=== PATIENT | female | born 1960 | race Caucasian/White ===

== ENCOUNTER 2020-09-29 10:45 | Emergency (ER) | payer MEDICARE, SELFPAY ==
--- NOTE | ~2020-09-29 | CT_ITS ---
EXAMINATION: CT ABDOMEN AND PELVIS WITHOUT CONTRAST CLINICAL INFORMATION: Left flank pain going to abdomen COMPARISON: Previous CT of the abdomen and pelvis March 2018 TECHNIQUE: Multidetector volumetric imaging was performed from the superior aspect of the liver through the pubic symphysis. Sagittal and coronal reformatted images were obtained on the technologist's workstation. This CT examination was performed using dose optimization techniques as appropriate, variously including the following: *Automated exposure control *Adjustment of mA and/or kV according to patient size (this includes techniques or standardized protocols for targeted exams where dose is matched to indication/reason for exam; i.e. extremities or head) *Use of iterative reconstruction technique DLP: 1090 mGy-cm FINDINGS: LUNG BASES: The visualized lung bases are unremarkable. LIVER, GALLBLADDER, AND BILIARY TREE: The liver is normal in size, shape, and attenuation. No focal hepatic lesion or biliary ductal dilatation is present. The gallbladder has been removed. PANCREAS: Unremarkable. SPLEEN: Unremarkable. ADRENAL GLANDS: Unremarkable. KIDNEYS AND URETERS: The kidneys are normal in size, shape, and attenuation. No hydronephrosis, hydroureter, or calculi seen. No perinephric stranding. BLADDER: Unremarkable. GASTROINTESTINAL TRACT: There is stool throughout the colon suggestive of constipation. Small and large bowel is otherwise unremarkable. The appendix is unremarkable. The stomach is unremarkable. ABDOMINAL WALL: There is a small umbilical hernia containing fat. LYMPH NODES: Normal. VASCULAR: Unremarkable. PELVIC VISCERA: There is abnormal contour to the uterus probably related to fibroids. This is similar to previous exam. OSSEOUS STRUCTURES: Unremarkable. CT/CT abdomen pelvis wo con IMPRESSION: No renal stone or hydronephrosis seen. Stool throughout the colon suggestive of constipation. Probable fibroid uterus similar to previous exams.
[2020-09-29 11:33] VITALS: BP 149/83; PULSE 62; RESP 18; TEMP 36.7; O2SAT 98; BMI 38.7
--- NOTE | 2020-09-29 11:52 | ED_ITS ---
HPI - Abdominal Pain General Chief Complaint: Abdominal Pain Stated Complaint: L FLANK PAIN Time Seen by Provider: 09/29/20 11:52 Source: patient Mode of arrival: ambulatory Limitations: no limitations History of Present Illness HPI narrative: the patient had flank pain going to her abdomen. patient denies N/V or blood in her urine MD elicited complaint: flank pain Onset (ago): day(s) Pain Consistency: constant Location: LLQ Severity: mild Quality: stabbing Radiation: L flank Related Data Previous Rx's Medication Instructions Recorded psyllium husk [Metamucil] 1 tbsp PO DAILY #660 g 09/29/20 Allergies Allergy/AdvReac Type Severity Reaction Status Date / Time No Known Allergies Allergy Verified 09/29/20 11:32 Review of Systems Constitutional: Reports no additional constitutional complaints Eyes: Reports no additional eye complaints Denies dizziness Cardiovascular: Reports no additional cardiovascular complaints Respiratory: Reports as per HPI Gastrointestinal: Reports no additional gastrointestinal complaints Genitourinary: Reports no additional female genitourinary complaints Musculoskeletal: Reports no additional musculoskeletal complaints Skin/Breast: Denies rash Reports system reviewed and no additional complaints, except as documented, Denies dizziness and Denies Sensory deficit (Neuro) Psychiatric: Denies anxiety Physical Exam Vital Signs: Vital Signs: Last Vital Signs Temp 98.0 F 09/29/20 11:33 Pulse 50 09/29/20 14:30 Resp 15 09/29/20 14:30 BP 117/61 09/29/20 14:30 Pulse Ox 99 09/29/20 14:30 Body Mass Index 38.7 Const: Nutritional Appearance: obese Orientation/consciousness: oriented to person and patient oriented x3 Limitations: no limitations HENMT: Head: Yes normal to inspection Ears: external ears normal General nose exam: Normal external nose present Mouth: Normal oral and palatal mucosa present and oropharynx normal Throat: Yes posterior oropharynx normal Eyes: General: appearance normal, both eyes and all related structures Neck: Other: supple Neck: Yes normal visual inspection Chest: Chest palpation & inspection: normal inspection of the chest Resp: Auscultation: clear to auscultation bilaterally Cardio: Jugular venous distension: no JVD Rate: regular rate Rhythm: r egular rhythm Heart sounds: S1 normal heart sound present and S2 normal heart sound present GI: Inspection: Yes normal to inspection Palpation (GI): Soft to palpation, nontender and No hepatosplenomegaly present Auscultation: normal bowel so unds : General: Yes no CVA tenderness Back/Spine/Pelvis: Back: no CVA tenderness Skin: General skin exam: no rashes or lesions noted Neuro: General: oriented to person and patient oriented x3 Cranial nerves: Yes CN's II-XII intact bilaterally Motor exam (neuro): 5/5 motor strength present throughout Sensory Exam: No Sensory deficit (Neuro) Extrem: General: Yes normal to inspection Psych: Appearance: grossly normal MDM - Abdominal Pain MDM Narrative Medical decision making narrative: Patient with symptoms most like renal colic, UA and CT negative. CT most consistent with constipation will start metamucil and dc home Lab Data Result diagrams: 09/29/20 12:24 09/29/20 12:23 Labs: Lab Results 09/29/20 09/29/20 09/29/20 Range/Units 11:43 12:23 12:24 WBC 7.9 (4.8-10.8) X10*3/uL RBC 4.81 (4.20-5.50) X10*6/uL Hgb 13.6 (12.0-16.0) g/dl Hct 42.4 (37-47) % MCV 88.1 (80-98) fL MCH 28.3 (27.0-33.0) pg MCHC 32.1 (31.0-35.0) g/dl RDW 14.4 (11.0-16.0) % Plt Count 248 (160-400) X10*3/uL MPV 10.6 (9.4-12.3) fL Immature Gran % (Auto) 0.5 H (0.0-0.4) % Neut % (Auto) 67.2 (45-73) % Lymph % (Auto) 22.2 (20-40) % Fajardo % (Auto) 8.1 (2-11) % Eos % (Auto) 1.4 (0-4) % Baso % (Auto) 0.6 (0-2) % Lymph # (Auto) 1.8 (1.2-4.9) X10*3/uL Fajardo # (Auto) 0.6 (0.1-1.2) X10*3/uL Eos # (Auto) 0.1 (0.0-0.4) X10*3/uL Baso # (Auto) 0.1 (0.0-0.2) X10*3/uL Abs Immat Gran (auto) 0.04 H (0.00-0.03) X10*3/uL Absolute Neuts (auto) 5.3 (2.0-8.3) X10*3/uL Absolute Nucleated RBC 0.000 (0.0-0.012) X10*3/uL Nucleated RBC % (auto) 0.0 (0.0-0.2) /100WBC Sodium 141 (135-145) mmol/L Potassium 4.1 (3.3-5.1) mmol/L Chloride 105 (96-108) mmol/L Carbon Dioxide 28 (22-29) mmol/L Anion Gap 12 (12-20) BUN 21 H (9-16) mg/dL Creatinine 0.85 (0.5-1.4) mg/dL Estim Creat Clear Calc 96.9 Estimated GFR > 60 Random Glucose 103 (60-115) mg/dL Calcium 9.7 (8.4-10.2) mg/dL Urine Color YELLOW Urine Appearance HAZY Urine pH 6.0 (5.0-8.0) Ur Specific Aiken 1.025 (1.005-1.025) Urine Protein NEG (NEG-TRACE) MG/DL Urine Glucose (UA) NEG (NEG) MG/DL Urine Ketones NEG (NEG) MG/DL Urine Blood 2+ H (NEG) Urine Nitrite NEG (NEG) Ur Leukocyte Esterase NEG (NEG) Urine RBC 1-4 (0) /HPF Urine WBC 0 (0-4) /HPF Ur Squamous Epith Cells 1+ /LPF Urine Bacteria NONE /LPF Imaging Data CT scan - abdomen: Radiologist's impression: IMPRESSION: No renal stone or hydronephrosis seen. Stool throughout the colon suggestive of constipation. Probable fibroid uterus similar to previous exams. Discharge Plan Discharge Clinical Impression: Constipation Qualifiers: Constipation type: unspecified constipation type Qualified Code(s): K59.00 - Constipation, unspecified Patient Disposition: Home, Self-Care Instructions: Constipation (ED) Prescriptions: New Metamucil 3.4 gram/5.4 gram powder 1 tbsp PO DAILY Qty: 660 RF: 0 Referrals: Belia Khoury MD [Primary Care Provider] - 1 week [facility] Past Medical History Medical History Acute carpal tunnel syndrome of left wrist Arthritis HTN (hypertension) Social History Social History Alcohol intake: never Smoking Status: Never smoker Use of substances other than those prescribed or required for medical reasons: No Advance Directives: Yes Advance Directives Information Provided: Yes Advance Directives on File: No
[2020-09-29 11:55] LABS: Appearance Urine HAZY; Color Urine YELLOW; Glucose Urine UA NEG (NEG); Leukocyte Esterase Urine NEG (NEG); Nitrite Urine NEG (NEG); Specific Gravity - Urine 1.025 (1.005-1.025); Urine Blood 2+ (NEG); Urine Ketones NEG (NEG); Urine Protein NEG (NEG-TRACE)
[2020-09-29 12:06] LABS: Squamous Epithelial Cell Urine 1+ /LPF; WBC Urine 0 /HPF (0-4)
[2020-09-29 12:13] VITALS: RESP 18
[2020-09-29 12:29] LABS: Basophils Absolute Auto 0.1 X10*3/uL (0.0-0.2); Basophils Percent Auto 0.6 % (0-2); Eosinophils Absolute Auto 0.1 X10*3/uL (0.0-0.4); Eosinophils Percent Auto 1.4 % (0-4); Hematocrit 42.4 % (37-47); Hemoglobin 13.6 g/dl (12.0-16.0); Imm Gran Abs Auto 0.04 X10*3/uL (0.00-0.03); Imm Gran Pct Auto 0.5 % (0.0-0.4); Lymphocytes Absolute Auto 1.8 X10*3/uL (1.2-4.9); Lymphocytes Percent Auto 22.2 % (20-40); MANUAL DIFF FLAG NO; Mean Corpuscular HGB Conc 32.1 g/dl (31.0-35.0); Mean Corpuscular Hemoglobin 28.3 pg (27.0-33.0); Mean Corpuscular Volume 88.1 fL (80-98); Mean Platelet Volume 10.6 fL (9.4-12.3); Monocytes Absolute Auto 0.6 X10*3/uL (0.1-1.2); Monocytes Percent Auto 8.1 % (2-11); Neutrophils Absolute Auto 5.3 X10*3/uL (2.0-8.3); Neutrophils Percent Auto 67.2 % (45-73); Platelet Count 248 X10*3/uL (160-400); Red Blood Count 4.81 X10*6/uL (4.20-5.50); Red Cell Distribution Width 14.4 % (11.0-16.0); White Blood Count 7.9 X10*3/uL (4.8-10.8)
[2020-09-29] MEDS: Ketorolac Tromethamine 30 MG/ML VIAL IVPUSH (12:31)
[2020-09-29] MEDS: 0.9 % Sodium Chloride 1,000 ML 999 ML IVCONT ×2 (12:32→14:35)
[2020-09-29 13:01] LABS: Anion Gap 12 (12-20); Blood Urea Nitrogen 21 mg/dL (9-16); Calcium 9.7 mg/dL (8.4-10.2); Carbon Dioxide 28 mmol/L (22-29); Chloride 105 mmol/L (96-108); Creatinine Clr Calc Pharmacy 96.9; Estimated Glomerular Filt Rate > 60; Glucose Random 103 mg/dL (60-115); Potassium 4.1 mmol/L (3.3-5.1); Sodium 141 mmol/L (135-145)
[2020-09-29 14:30] VITALS: BP 117/61; PULSE 50; RESP 15; O2SAT 99
== END 2020-09-29 15:32 | disposition home or self-care (01) ==
PROVIDERS: Emergency Provider Emergency Medicine; PCP Internal Medicine
DX: K59.00 Constipation, unspecified (principal); R10.9 Unspecified abdominal pain; I10 Essential (primary) hypertension
CPT/HCPCS: 36415; 74176; 80048; 81001; 85025; 96361; 96374; 99284; J1885

== ENCOUNTER 2020-10-15 08:46 | Outpatient (REF) | payer MEDICARE, SELFPAY ==
--- NOTE | 2020-10-15 09:08 | MHC.AU.HAS ---
Hearing Aid Evaluation Date of Visit: 10/15/20 Historical Information: Description of Hearing: Mild to moderate sensorineural hearing loss bilaterally Summary: Patient was seen for an audiological evaluation at [facility] on 09/28/2020. She has not used hearing aids previously. Hearing aid options were discussed. Hearing Aid Prescription: Based on the individual?s shared listening needs, communication environments, dexterity, desire for connectivity, and personal preferences, the following prescription for amplification has been made: Right ear: Roundsman: Phonak Model: Audeo P70-R Battery Size: Rechargeable Color: Black Nurse Sane: 0M Left ear: Roundsman: Phonak Model: Audeo P70-R Battery Size: Rechargeable Color: Black Nurse Sane: 0M Action Taken/Action Needed: Prior authorization to be requested Hearing Fitting to be scheduled when materials arrive Primary Diagnosis: H90.3 Bilateral Sensorineural Hearing Loss Signature: Provider: Kadeem Cordero CCC-A
== END 2020-10-15 08:47 | disposition home or self-care (01) ==
LOC: HO.HAP 08:46
PROVIDERS: Visit Provider Otolaryngology
DX: H90.3 Sensorineural hearing loss, bilateral (principal)
CPT/HCPCS: 92591

== ENCOUNTER 2020-11-04 09:03 | Outpatient (REF) | payer MEDICARE, SELFPAY ==
--- NOTE | 2020-11-04 09:59 | MHC.AU.HFA ---
Hearing Instrument Fitting- Adult- Binaural Date of Visit: 11/04/20 Hearing Instruments Dispensed: Right Ear: Mechanic Marine Engine: Phonak Model: Audeo P70-R Serial Number: [id number] Repair Warranty: 01/19/2024 Loss and Damage Warranty: 02/08/2024 Service Plan: 11/04/2021 Battery Size: Rechargeable Color: Black Maintenance Mechanic Millwright: 0M Type of Dome: Small Open Type of Wax Guard: CeruShield Left Ear: Mechanic Marine Engine: Phonak Model: Audeo P70-R Serial Number: [id number] Repair Warranty: 01/19/2024 Loss and Damage Warranty: 01/19/2024 Service Plan: 11/04/2021 Battery Size: Rechargeable Color: Black Maintenance Mechanic Millwright: 0M Type of Dome: Small Open Type of Wax Guard: CeruShield Summary of Fitting: Feedback broiler manager was run. Verifit was run and levels adjusted to better reach targets. Target is at 100%. Patient was pleased with the sound of the instruments and did not feel additional adjustments were necessary. Hearing aid care and maintenance were discussed and practiced. Retention tails removed from the receivers, as the patient has small pinnae and the tails did not fit well. The receivers appear to be staying securely in the ears without the tails. The hearing aids were paired to the patient's phone. Recommendations: Recommendations: A hearing instrument follow-up was scheduled. Diagnosis Code(s): Primary Diagnosis: H90.3 Bilateral Sensorineural Hearing Loss Signature: Provider: Kadeem Cordero, KATY-A
== END 2020-11-04 09:04 | disposition home or self-care (01) ==
LOC: HO.HAP 09:03
PROVIDERS: Visit Provider Otolaryngology
DX: Z46.1 Encounter for fitting and adjustment of hearing aid (principal); H90.3 Sensorineural hearing loss, bilateral
CPT/HCPCS: V5011; V5020; V5160; V5261

== ENCOUNTER 2020-11-20 11:06 | Outpatient (REF) | payer MEDICARE, SELFPAY | END 2020-11-20 11:07 | disposition home or self-care (01) | LOC: HO.HAP 11:06 | PROVIDERS: Visit Provider Internal Medicine | DX: Z13.89 Encounter for screening for other disorder (principal) ==

== ENCOUNTER 2023-04-21 10:04 | Emergency (ER) | payer MEDICARE, SELFPAY ==
[2023-04-21 10:25] VITALS: BP 138/78; PULSE 64; RESP 16; TEMP 36.8; O2SAT 97; BMI 39.9
--- OUTSIDE RECORDS SUMMARY | 2023-04-21 11:11 | XMS_ITS | Continuity of Care Document ---
Author Name Unknown Organization [facility] ter Address [address] [place] [address]- Care Team Providers Care Volcanologist Name Role Phone Belia Khoury MD Primary Care Physician Encounter [facility] Date(s): 05/29/19 - 06/05/[address] [address]- [facility] Attending Physician: Not on Staff, Attending MD Allergies, Adverse Reactions, Alerts Substance Reaction Severity Status NKA Active Immunizations Given and Recorded Vaccine Date Status Refusal Reason influenza virus vaccine, inactivated 02/19/19 Give n influenza virus vaccine, inactivated 03/12/18 Give n influenza virus vaccine, inactivated 03/14/17 Give n influenza virus vaccine, inactivated 04/01/16 Give n influenza virus vaccine, inactivated 03/02/15 Give n influenza virus vaccine, inactivated 1 03/24/14 Gi candi influenza virus vaccine, inactivated 2 01/29/13 Gi candi influenza virus vaccine, inactivated 3 02/01/12 Gi candi influenza virus vaccine, inactivated 4 02/02/11 Gi candi influenza virus vaccine, inactivated 5 02/24/10 Gi candi influenza virus vaccine, inactivated 6 04/24/08 Gi candi tetanus-diphtheria toxoids (Td) 09/25/17 Given influ virus vac, H1N1, inactive(oldterm) 7 06/22/09 Given FluLaval (oldterm) 8 01/29/09 Given Tet/Diphth/Acel, Pertussis (oldterm) 9 05/16/08 Gi candi Influenza Virus Vaccine (oldterm) 10 06/08/07 Give n Influenza Virus Vaccine (oldterm) 11 02/21/06 Give n 1Result Comment: [03/24/2014] fluarix trivalent - 2Result Comment: [01/29/2013] Flulaval [id number]. VIS in Kosovan given. 3Admin Note: VIS 11/2011 4Admin Note: VIS GIVEN VIS DATE 12/07/10 5Admin Note: VIS GIVEN 12/22/09 azeri 6Admin Note: VIS GIVEN 7Admin Note: vis 02/20 8Admin Note: VIS GIVEN VIS DATE 12/23/08 9Admin Note: VIS given 10Admin Note: VIS given 11Admin Note: VIS given Medications 0.2% Nifedipine hydrophylic ointment 0.2% Nifedipine hydrophylic ointment, See Instructions, # 30 Gm, Refills 1, Tot. Refills 1, Maintenance, Apply a pea size amount to anal area for pain, use 3-4 times a day for 6 weeks, 03/07/19 9:03:46 EDT, Compound Start Date: 03/07/19 Status: Ordered acetaminophen 500 mg oral tablet 2 tablet = 1,000 mg, By Mouth, 3 times a day, PRN Pain , Mild, may use less, # 180 tablet, 1 Refills, Maintenance, 05/27/19 17:37:00 EST, [facility]/pharmacy #[id number], label in Kosovan, 166, cm, 05/27/19 16:35:00 EST, Height, 118.5, kg, 04/01/19 12:45:00 EST, D... Start Date: 05/27/19 Stop Date: 07/26/19 Status: Ordered Colace sodium 100 mg oral capsule 100 mg, 1, capsule, By Mouth, 2 times a day, PRN, # 60 capsule, Refills 3, Tot. Refills 3, Maintenance, for constipation, 04/01/19 14:24:00 EST, Route to Pharmacy Electronically, [id number], [facility]/pharmacy #[id number] Start Date: 04/01/19 Status: Ordered famotidine 20 mg oral tablet 20 mg, 1, tablet, By Mouth, 2 times a day, PRN, # 90 tablet, Refills 11, Tot. Refills 11, Maintenance, heartburn, 10/30/18 9:32:00 EDT, Route to Pharmacy Electronically, [id number], [facility]/pharmacy #[id number] Start Date: 10/30/18 Status: Ordered Fiber Therapy indefinitely, per colonosocpy team , 0 Refills, Maintenance, 04/02/19 18:17:29 EST Start Date: 04/02/19 Status: Ordered Home Blood Pressure Monitor See Instructions, # 1 each, Refills 1, Tot. Refills 1, Maintenance, Hypertension, 05/27/19 17:42:00EST, Compound Start Date: 05/27/19 Status: Ordered lidocaine 5% topical ointment See Instructions, apply pea size amount to the anal area 4 times a day for anal pain, # 70 Gm, 6 Refills, Maintenance, 04/02/19 15:18:55 EST, apply pea size amount to the anal area 4 times a day for anal pain Start Date: 04/02/19 Status: Ordered lisinopril 10 mg oral tablet 10 mg, 1, tablet, By Mouth, Daily, # 90 tablet, Refills 11, Tot. Refills 11, Maintenance, 10/30/18 9:32:01 EDT, Route to Pharmacy Electronically, [id number], [facility]/pharmacy #[id number] Start Date: 10/30/18 Stop Date: 10/14/21 Status: Ordered meclizine 25 mg oral tablet 1 tablet = 25 mg, By Mouth, Daily, use as little as possible, # 14 tablet, 0 Refills, Maintenance, 05/27/19 17:28:00 EST, Tablet, [facility]/pharmacy #[id number], 166, cm, 05/27/19 16:35:00 EST, Height, 118.5, kg, 04/01/19 12:45:00 EST, Dry Weight Start Date: 05/27/19 Stop Date: 06/10/19 Status: Ordered naproxen 250 mg oral tablet TOME RAY TABLETA POR V?A ORAL DOS VECES AL D?A Start Date: 02/19/19 Status: Ordered Problem List Condition Effective Dates Status Health Status Inform ant [D]Impaired glucose tolerance(Confirmed) 09/14/09 Active Ankle joint pain(Confirmed) 09/14/09 Active CTS - Carpal tunnel syndrome(Confirmed) 1 Active of daughter(Confirmed) 2016 Active Depression(Confirmed) 09/14/09 Active Tendinopathy(Confirmed) 2 Active Eczema(Confirmed) 3 Active Hypertension(Confirmed) 09/15/09 Active Phobia, flying(Confirmed) Active Fibromyalgia(Confirmed) Active GERD - Gastro-esophageal ref lux disease(Confirmed) 09/14/09 Active H. pylori(Confirmed) 4 Active Rectal varices(Confirmed) Active Hemorrhoid, internal & exter nal, enlarged on colonoscopy(Confirmed) Active Hyperlipidemia(Confirmed) 09/14/09 Active Hypertensive disorder(Confirmed) Active Knee joint pain(Confirmed) 5 Active Obesity(Confirmed) Active SHAHRIAR - Obstructive sleep apnea(Confirmed) Active Postmenopausal bleeding(Confirmed) Active Shoulder joint pain(Confirmed) 6 Active Urinary incontinence(Confirmed) Active Vaginal wall prolapse(Confirmed) Active Varicose vein(Confirmed) Active 1Bil, S/P RT Release, Left with Pos EMG study 2achilles on 2015 MRI,seeing [facility] 3per Dermatology 2009 or so 4Documented on pos stool for H pylori antigen. Pt treated x 14 days 07/23. 5X-rays 2007 c/w early OA. 6Rt A-C separation on x-ray in 2008 Social History Social History Type Response Smoking Status Never smoker entered on: 04/17/13 Sex Female
--- OUTSIDE RECORDS SUMMARY | 2023-04-21 11:11 | XMS_ITS | Continuity of Care Document ---
Author Name Unknown Organization [facility] Address [address] [place] [address]- Care Team Providers Care Disc Pad Grinder Name Role Phone Iraida WILSON, Belia Primary Care Physician [facility]counter [facility] Date(s): 02/14/23 - 02/21/23 [facility] [address], [place] [address] Attending Physician: Kristopher Marques MD Referring Physician: Adam Walsh MD Allergies, Adverse Reactions, Alerts No Known Allergies Immunizations Given and Recorded Vaccine Date Status Refusal Reason pneumococcal 20-valent conjugate vaccine 02/22/22 Given influenza virus vaccine, inactivated 02/22/22 Give n influenza virus vaccine, inactivated 05/25/21 Sabino rded influenza virus vaccine, inactivated 03/25/20 Sabino rded influenza virus vaccine, inactivated 02/19/19 Give n [...] virus vaccine, inactivated 6 04/24/08 Gi candi SARS-CoV-2 (COVID-19) mRNA-1273 vaccine 05/25/21 R ecorded SARS-CoV-2 (COVID-19) mRNA-1273 vaccine 09/16/20 R ecorded SARS-CoV-2 (COVID-19) mRNA-1273 vaccine 08/19/20 R ecorded tetanus-diphtheria toxoids (Td) 09/25/17 Given influ virus vac, H1N1, inactive(oldterm) 7 06/22/09 Given FluLaval (oldterm) 8 01/29/09 Given Tet/Diphth/Acel, Pertussis (oldterm) 9 05/16/08 Gi candi Influenza Virus Vaccine (oldterm) 10 06/08/07 Give n Influenza Virus Vaccine (oldterm) 11 02/21/06 Give n 1Result Comment: [03/24/2014] fluarix trivalent - 2Result Comment: [01/29/2013] Flulaval [id number]. VIS in [place] given. 3Admin Note: VIS 11/2011 4Admin Note: VIS GIVEN VIS DATE 12/07/10 5Admin Note: VIS GIVEN 12/22/09 bulgarian 6Admin Note: VIS GIVEN 7Admin Note: vis 02/20 8Admin Note: VIS GIVEN VIS DATE 12/23/08 9Admin Note: VIS given 10Admin Note: VIS given 11Admin Note: VIS given Medications acetaminophen 500 mg oral tablet 2 tablet, By Mouth, 3 times a day, PRN NEEDED FOR PAIN X, # 180 tablet, 2 Refills, Maintenance, 01/26/23 10:16:00 EDT, [id number], label all scripts in [place], 175.26, cm, 01/26/23 9:13:00 EDT, Height, 123, kg, 07/16/21 13:01:00 EST, Dry W... Start Date: 01/26/23 Stop Date: 04/26/23 Status: Ordered ascorbic acid 250 mg oral tablet 1 tablet = 250 mg, By Mouth, Daily, for 30 days, # 30 tablet, 1 Refills, Acute 04/01/23 19:59:00 EST, 01/31/23 19:59:00 EDT, Tablet, [id number], Partial fill upon patient request if the prescription is for a schedule II opioid drug., 175.26, c... Start Date: 01/31/23 Stop Date: 04/01/23 Status: Ordered Bed pads XL disposable Bed pads XL disposable, See Instructions, # 90 each, Refills 11, Tot. Refills 11, Maintenance, Use TID Duration lifetime R32, 02/02/23 9:30:00 EDT, Supply Start Date: 02/02/23 Status: Ordered cholecalciferol 1000 intl units oral capsule 1 capsule = 25 mcg, By Mouth, Daily, for 60 days, # 60 capsule, 0 Refills, Acute 04/01/23 19:59:00 EST, 01/31/23 19:59:00 EDT, Capsule, [id number], Partial fill upon patient request if the prescription is for a schedule II opioid drug., 175.26... Start Date: 01/31/23 Stop Date: 04/01/23 Status: Ordered clotrimazole 1% topical cream 1 application, Topically, 2 times a day, for rash, # 113 Gm, 1 Refills, Maintenance, 01/26/23 9:56:00 EDT, Cream, [id number], Partial fill upon patient request if the prescription is for a schedule II opioid drug., 1 application Topically 2 ti... Start Date: 01/26/23 Stop Date: 03/27/23 Status: Ordered diclofenac 1% topical gel See Instructions, APPLY TO AFFECTED AREA 4 TIMES A DAY, # 100 Gm, 4 Refills, Maintenance, 11/09/22 16:41:00 EDT, [id number], 25, APPLY TO AFFECTED AREA 4 TIMES A DAY, 175.26, cm, 10/03/22 10:48:00 EDT, Height, 123, kg, 07/16/21 13:01:00 EST, Dry... Start Date: 11/09/22 Status: Ordered docusate sodium 100 mg oral capsule 1 capsule, By Mouth, 2 times a day, PRN NEEDED, CONSTIPATION., # 60 capsule, 2 Refills, Maintenance, 01/18/23 15:57:00 EDT, [id number], 175.26, cm, 10/03/22 10:48:00 EDT, Height, 123, kg, 07/16/21 13:01:00 EST, Dry Weight Start Date: 01/18/23 Status: Ordered Eliquis 5 mg oral tablet 1 tablet, By Mouth, 2 times a day, atrial fibrillation, # 180 tablet, 11 Refills, Maintenance, 01/26/23 10:16:00 EDT, [id number], label all scripts in [place], 175.26, cm, 01/26/23 9:13:00 EDT, Height, 123, kg, 07/16/21 13:01:00 EST, Dry Weight Start Date: 01/26/23 Stop Date: 01/10/26 Status: Ordered esomeprazole 20 mg oral enteric coated capsule 1 capsule = 20 mg, By Mouth, 2 times a day, # 180 capsule, 2 Refills, Maintenance, 08/08/22 8:21:00EDT, [facility]/pharmacy #[id number], Partial fill upon patient request if the prescription is for a schedule IIopioid drug., 175.26, cm, 03/09/22 10:37:00 EDT, He... Start Date: 08/08/22 Status: Ordered fluticasone 50 mcg/inh nasal spray See Instructions, SPRAY 1 SPRAY INTO BOTH NARES DAILY X 30 DAYS NEEDED FOR ALLERGIES, # 48 mL, 0Refills, Maintenance, 04/11/22 5:24:00 EST, [facility]/pharmacy #[id number], 90, Office visit needed for furtherrefills., SPRAY 1 SPRAY INTO BOTH NARES DAILY X 30... Start Date: 04/11/22 Status: Ordered lisinopril 40 mg oral tablet 1 tablet, By Mouth, Daily, # 90 tablet, 11 Refills, Maintenance, 01/17/23 8:35:00 EDT, [facility]/pharmacy[facility][id number], 175.26, cm, 10/03/22 10:48:00 EDT, Height, 123, kg, 07/16/21 13:01:00 EST, Dry Weight Start Date: 01/17/23 Stop Date: 01/01/26 Status: Ordered metoprolol 50 mg oral tablet, extended release 50 mg, 1, tablet, By Mouth, Daily, do not crush or chew (via cardiology in past), # 90 tablet, Refills 11, Tot. Refills 11, Maintenance, 01/26/23 10:16:00 EDT, Route to Pharmacy Electronically, [facility]/pharmacy #[id number], label all scripts in [place], 175.26,... Start Date: 01/26/23 Stop Date: 01/10/26 Status: Ordered nystatin topical 015796 u/gm powder See Instructions, APPLY TO AFFECTED AREA 3 TIMES A DAY, # 60 Gm, 1 Refills, Maintenance, 01/26/23 10:16:00 EDT, [facility]/pharmacy #[id number], 30, label all scripts in [place], APPLY TO AFFECTED AREA 3 TIMES A DAY, 175.26, cm, 01/26/23 9:13:00 EDT, Height, 123,... Start Date: 01/26/23 Status: Ordered rosuvastatin 10 mg oral tablet 1 tablet = 10 mg, By Mouth, Daily, # 90 tablet, 11 Refills, Maintenance, 01/26/23 10:25:00 EDT, Tablet, [facility]/pharmacy #[id number], 175.26, cm, 01/26/23 9:13:00 EDT, Height, 123, kg, 07/16/21 13:01:00 EST, Dry Weight Start Date: 01/26/23 Stop Date: 01/10/26 Status: Ordered Wipes for urinary incontinence Wipes for urinary incontinence, See Instructions, # 6 pack/packet, Refills 11, Tot. Refills 11, Maintenance, Use as needed Urinary incontinence Dx R32 Duration lifetime, 02/02/23 9:29:00 EDT, Supply Start Date: 02/02/23 Status: Ordered Problem List Condition Confirmation Course Effective Dates Status H ealth Status Informant MILLIE positive, pending Rheumatolgoy as of Confirmed 02/2022 Active [place] cardiac risk 10-20% in next 10 years/2019 1 Confirmed 2019 Active Atrial fibrillation, paroxysmal Confirmed Active Carpal tunnel syndrome 2 Confirmed Active Depression Confirmed 09/14/09 Active Diabetes mellitus Confirmed 2021 Active Anticoagulated for atrial fibrillation Confirmed Active Eczema 3 Confirmed Active Hypertension Confirmed 09/15/09 Active Fibromyalgia Confirmed Active GERD - Gastro-esophageal reflux disease Confirmed 09/14/09 Active H. pylori 4 Confirmed Active Hemorrhoid, internal & external, enlarged on colonoscopy Confirmed Active Hyperlipidemia Confirmed 09/14/09 Active Knee joint pain, osteoarthritis 5 Confirmed Active Microalbuminuria Confirmed Active Meningioma per Neurosurgeon , on ?Outside MRI, stable -needs continued followup Confirmed Active SHAHRIAR - Obstructive sleep apnea Confirmed Active Severe obesity Confirmed Active Hepatic steatosis 6 Confirmed Active Urinary incontinence Confirmed Active Vaginal wall prolapse Confirmed Active Varicose vein Confirmed Active 1Down to 4.5% August 2020 2Bil, S/P RT Release, Left with Pos EMG study 3per Dermatology 2009 or so 4Documented on pos stool for H pylori antigen. Pt treated x 14 days 07/23. 5X-rays 2007 c/w early OA. 6on [place] Vital Signs Most recent to oldest [Reference Range]: 1 Height 175.26 cm (02/14/23 9:23 AM) Weight 124.6 kg (02/14/23 9:23 AM) Oxygen Saturation [94-100 %] 100 % (02/14/23 9:23 AM) Pulse Rate [55-90 bpm] 65 bpm (02/14/23 9:23 AM) Body Mass Index [18.5-24.99 kg/m2] 40.57 kg/m2 *>HHI* (02/14/23 9:23 AM) Blood Pressure [90-138/55-84 mm Hg] 154/ 87mm Hg *H* (02/14/23 9:23 AM) Respiratory Rate [16-30 br/min] 22 br/mi n (02/14/23 9:23 AM) Blood pressure sites Arm, right (02/14/23 9:23 AM) Weight Obtained Via Standing scale (02/14/23 9:23 AM) Social History Social History Type Response Smoking Status Never smoker entered on: 04/17/13 Sex Female EKG study * Event Display: ECG 12-Lead Authored Date: Please click on pdf link to open report * Event Display: ECG 12-Lead Authored Date: Ventricular Rate: 60 BPM Atrial Rate: 60 BPM P-R Interval: 126 ms QRS Duration: 86 ms Q-T Interval: 406 ms QTC Calculation(Bazett): 406 ms P [place]: 14 degrees R [place]: -26 degrees T [place]: 19 degrees Normal sinus rhythm with sinus arrhythmia Normal ECG When compared with ECG of 31-DEC-2020 14:39, No significant change was found Confirmed by CECY WALLACE ([id number]) on 02/14/2023 12:43:12 PM [place]: CECY WALLACE Patient Care team information Care Team Personnel Name: Pattie Downing MD Position: [facility] UNLOAD ASSOCIATE MD Member Role: Lifetime Consulting Physician Address: Address: [address] [place] [address], [address] [facility] [address] Name: Belia Khoury MD Position: [facility] Physician - Primary Care Member Role: PCP Address: Address: [address] [place] [id number]- [place] Care Team Related Persons Name: IVETT MCGREGOR Address: home [address] [place] [address] Name: JOVANA PORTER Address: home [address] [place] [address] Name: SARA HERNÁNDEZ Address: home [address] [place] [address]
--- OUTSIDE RECORDS SUMMARY | 2023-04-21 11:11 | XMS_ITS | Continuity of Care Document ---
Author Name Unknown Organization [facility] ter Address [address] [place] [id number]- Care Team Providers Care Editorial Specialist Name Role Phone Iraida WILSON, Belia Primary Care Physician [phone] [facility] Date[facility]): 05/19/21 - 06/23/[address] [address] Attending Physician: Belia Khoury MD Admitting Physician: Belia Khoury MD Referring Physician: Belia Khoury MD Allergies, Adverse Reactions, Alerts No Known Allergies Immunizations Given and Recorded Vaccine Date Status Refusal Reason SARS-CoV-2 (COVID-19) mRNA-1273 vaccine 05/25/21 R ecorded SARS-CoV-2 (COVID-19) mRNA-1273 vaccine 09/16/20 R ecorded SARS-CoV-2 (COVID-19) mRNA-1273 vaccine 08/19/20 R ecorded influenza virus vaccine, inactivated 03/25/20 Sabino rded [...] Give n 1Result Comment: [03/24/2014] fluarix trivalent 14- 2Result Comment: [01/29/2013] Flulaval [id number]. VIS in Pashto given. 3Admin Note: VIS 11/2011 4Admin Note: VIS GIVEN VIS DATE 12/07/10 5Admin Note: VIS GIVEN 12/22/09 romanian 6Admin Note: VIS GIVEN 7Admin Note: vis 02/20 8Admin Note: VIS GIVEN VIS DATE 12/23/08 9Admin Note: VIS given 10Admin Note: VIS given 11Admin Note: VIS given Medications acetaminophen 500 mg oral tablet 2 tablet = 1,000 mg, By Mouth, 3 times a day, PRN Pain , Mild, may use less, # 180 tablet, 1 Refills, Maintenance, 03/29/21 13:13:00 EST, [facility]/pharmacy #[id number], label in Pashto, 175.26, cm, 03/26/21 11:10:00 EST, Height, 120.45, kg, 11/05/20 16:03:00 ED... Start Date: 03/29/21 Stop Date: 05/28/21 Status: Ordered apixaban 5 mg oral tablet 1 tablet = 5 mg, By Mouth, 2 times a day, # 60 tablet, 3 Refills, Maintenance, 03/29/21 13:15:00 EST, Tablet, [facility]/pharmacy #[id number], Partial fill upon patient request if the prescription is for a schedule II opioid drug., 175.26, cm, 03/26/21 11:10:00 ES... Start Date: 03/29/21 Status: Ordered atorvastatin 40 mg oral tablet 1 tablet, By Mouth, Daily, # 90 tablet, 3 Refills, [id number], 175.26, cm, 03/26/21 11:10:00 EST, Height, 120.45, kg, 11/05/20 16:03:00 EDT, Dry Weight Start Date: 03/29/21 Status: Ordered Colace sodium 100 mg oral capsule 100 mg, 1, capsule, By Mouth, 2 times a day, PRN, # 60 capsule, Refills 3, Tot. Refills 3, Maintenance, for constipation, 03/29/21 13:13:00 EST, [id number] 175.26, cm, 03/26/21 11:10:00 EST, Height, 120.45, k... Start Date: 03/29/21 Status: Ordered diclofenac 1% topical gel = 2 Gm, Topically, 4 times a day, # 100 Gm, 0 Refills, Maintenance, 11/25/20 11:18:00 EDT, Gel, [facility]/pharmacy #[id number], Partial fill upon patient request if the prescription is for a schedule II opioid drug., 175.26, cm, 11/25/20 9:57:00 EDT, Height, 120.... Start Date: 11/25/20 Status: Ordered esomeprazole 20 mg oral enteric coated capsule 1 capsule = 20 mg, By Mouth, 2 times a day, # 180 capsule, 0 Refills, Maintenance, 05/17/21 12:07:00 EST, [id number] Partial fill upon patient request if the prescription is for a schedule II opioid drug., 175.26, cm, 05/11/21 9:25:00 EST, He... Start Date: 05/17/21 Status: Ordered lidocaine 5% topical film 1 patch, Topically, Daily, PRN Pain , Mild, remove after 12 hours, # 30 patch, 0 Refills, Maintenance, 11/19/20 11:13:00 EDT, Film, [id number] Partial fill upon patient request if the prescription is for a schedule II opioid drug., 1 patch To... Start Date: 11/19/20 Stop Date: 12/19/20 Status: Ordered lisinopril 20 mg oral tablet 1, tablet, By Mouth, Daily, # 90 tablet, Refills 1, Route to Pharmacy Electronically, [id number], 175.26, cm, 02/03/21 10:48:00 EDT, Height, 120.45, kg, 11/05/20 16:03:00 EDT, Dry Weight Start Date: 03/02/21 Status: Ordered metoprolol 50 mg oral tablet, extended release 50 mg, 1, tablet, By Mouth, Daily, # 30 tablet, Refills 11, Tot. Refills 11, Maintenance, 06/05/21 9:01:00 EST, Route to Pharmacy Electronically, [facility]/pharmacy #[id number], Partial fill upon patient requestif the prescription is for a schedule II opioid emil... Start Date: 06/05/21 Status: Ordered Omeprazole = 20 mg, By Mouth, 2 times a day, 0 Refills, Maintenance, 11/05/20 15:30:00 EDT, Partial fill upon patient request if the prescription is for a schedule II opioid drug. Start Date: 11/05/20 Status: Ordered oximeter oximeter, See Instructions, # 1 each, Refills 0, Tot. Refills 0, Maintenance, dx: U07.1, G47.33, I48.20, 06/03/21 14:24:00 EST, Supply Start Date: 06/03/21 Status: Ordered Tessalon Perles 100 mg oral capsule 1 capsule = 100 mg, By Mouth, 3 times a day, PRN as needed for cough, for 10 days, # 30 capsule, 0 Refills, Acute 06/27/21 15:05:00 EST, 06/17/21 15:05:00 EST, Capsule, [facility]/pharmacy #[id number], Partial fill upon patient request if the prescription is for a... Start Date: 06/17/21 Stop Date: 06/27/21 Status: Ordered Problem List Condition Effective Dates Status Health Status Inform ant Impaired glucose tolerance(Confirmed) 09/14/09 Active Ankle joint pain(Confirmed) 09/14/09 Active [place] cardiac risk 10-2 0% in next 10 (Confirmed) 2019 Active Atrial fibrillation, paroxysmal(Confirmed) Active COVID-19(Confirmed) 05/2021 Active Carpal tunnel syndrome(Confirmed) 2 Active Depression(Confirmed) 09/14/09 Active Tendinopathy(Confirmed) 3 Active Anticoagulated for atrial fibrillation(Confirmed) Active Eczema(Confirmed) 4 Active Hypertension(Confirmed) 09/15/09 Active Phobia, flying(Confirmed) Active Fibromyalgia(Confirmed) Active GERD - Gastro-esophageal ref lux disease(Confirmed) 09/14/09 Active H. pylori(Confirmed) 5 Active Rectal varices(Confirmed) Active Hemorrhoid, internal & exter nal, enlarged on colonoscopy(Confirmed) Active H/O colonoscopy(Confirmed) 6 11/09/10 Active H/O colonoscopy, in Operatin g room(Confirmed) 04/01/19 Active Hyperlipidemia(Confirmed) 09/14/09 Active Knee joint pain, osteoarthritis(Confirmed) 7 Active Meningioma per Neurosurgeon , on ?Outside MRI, pending repeat Scan due (Confirmed) Active Obese class II(Confirmed) Active Obesity(Confirmed) Active SHAHRIAR - Obstructive sleep apnea(Confirmed) Active Postmenopausal bleeding(Confirmed) Active Shoulder joint pain(Confirmed) 8 Active Urinary incontinence(Confirmed) Active Vaginal wall prolapse(Confirmed) Active Varicose vein(Confirmed) Active 1Down to 4.5% August 2020 2Bil, S/P RT Release, Left with Pos EMG study 3achilles on 2015 MRI,seeing [facility] 4per Dermatology 2009 or so 5Documented on pos stool for H pylori antigen. Pt treated x 14 days 07/23. 6normal mucosa in whole colon. diverticulosis of the descending colon. there were no polyps and no hemorrhoids. follow up with Nuvia as needed. repeat xolonoscopy in 10 years. maintain a high-fiber diet. goran 12/01/2010 7X-rays 2007 c/w early OA. 8Rt A-C separation on x-ray in 2008 Social History Social History Type Response Smoking Status Never smoker entered on: 04/17/13 Sex Female
--- OUTSIDE RECORDS SUMMARY | 2023-04-21 11:11 | XMS_ITS | Continuity of Care Document ---
Author Name Unknown Organization [facility] Address [address] [place] [address]- Care Team Providers Care Plumbing Technician Name Role Phone Iraida WILSON, Belia Primary Care Physician [phone] [facility] - 05/26/22 [facility] [address] [place], [place] [address] Attending Physician: Belia Khoury MD Admitting Physician: Belia Khoury MD Allergies, Adverse Reactions, [...] fluarix trivalent - 2Result Comment: [01/29/2013] Flulaval [id number]. VIS in Korean given. 3Admin Note: VIS 11/2011 4Admin Note: VIS GIVEN VIS DATE 12/07/10 5Admin Note: VIS GIVEN 12/22/09 english 6Admin Note: VIS GIVEN 7Admin Note: vis 02/20 8Admin Note: VIS GIVEN VIS DATE 12/23/08 9Admin Note: VIS given 10Admin Note: VIS given 11Admin Note: VIS given Medications acetaminophen 500 mg oral tablet 2 tablet, By Mouth, 3 times a day, PRN NEEDED FOR PAIN X, # 180 tablet, 2 Refills, Maintenance, 04/11/22 5:25:00 EST, [facility]/pharmacy #[id number], Office visit needed for further refills., 175.26, cm, 03/09/22 10:37:00 EDT, Height, 123, kg, 07/16/21 13:01:0... Start Date: 04/11/22 Stop Date: 07/10/22 Status: Ordered clotrimazole 1% topical cream 1 application, Topically, 2 times a day, for rash, # 113 Gm, 1 Refills, Maintenance, 03/23/22 10:07:00 EST, Cream, [facility]/pharmacy #[id number], Partial fill upon patient request if the prescription is for a schedule II opioid drug., 1 application Topically 2 t... Start Date: 03/23/22 Stop Date: 05/22/22 Status: Ordered diclofenac 1% topical gel See Instructions, APPLY TO AFFECTED AREA 4 TIMES A DAY, # 100 Gm, 4 Refills, Maintenance, 03/24/22 14:09:00 EST, [id number], 25, APPLY TO AFFECTED AREA 4 TIMES A DAY, 175.26, cm, 10/26/22 10:37:00 EDT, Height, 123, kg, 07/16/21 13:01:00 EST, Dry... Start Date: 03/24/22 Status: Ordered docusate sodium 100 mg oral capsule 1 capsule, By Mouth, 2 times a day, PRN NEEDED FOR CONSTIPATION, # 60 capsule, 3 Refills, 02/22/22 13:36:00 EDT, [id number], 175.26, cm, 02/22/22 13:18:00 EDT, Height, 123, kg, 07/16/21 13:01:00 EST, Dry Weight Start Date: 02/22/22 Status: Ordered Eliquis 5 mg oral tablet 1 tablet, By Mouth, 2 times a day, # 180 tablet, 11 Refills, Maintenance, 02/22/22 8:35:00 EDT, [id number], atrial fibrillation, 175.26, cm, 02/10/22 9:33:00 EDT, Height, 123, kg, 07/16/21 13:01:00 EST, Dry Weight Start Date: 02/22/22 Stop Date: 02/06/25 Status: Ordered esomeprazole 20 mg oral enteric coated capsule 1 capsule = 20 mg, By Mouth, 2 times a day, # 180 capsule, 1 Refills, Maintenance, 01/05/22 8:29:00EDT, [facility]/pharmacy #[id number], Partial fill upon patient request if the prescription is for a schedule IIopioid drug., 175.26, cm, 01/04/22 8:53:00 EDT, Hei... Start Date: 01/05/22 Status: Ordered fluticasone 50 mcg/inh nasal spray See Instructions, SPRAY 1 SPRAY INTO BOTH NARES DAILY X 30 DAYS NEEDED FOR ALLERGIES, # 48 mL, 0Refills, Maintenance, 04/11/22 5:24:00 EST, [id number], 90, Office visit needed for furtherrefills., SPRAY 1 SPRAY INTO BOTH NARES DAILY X 30... Start Date: 04/11/22 Status: Ordered hydrocortisone 2.5% topical ointment 1 application, Topically, 2 times a day, # 454 Gm, 1 Refills, Maintenance, 02/10/22 9:58:00 EDT, Ointment, [facility]/pharmacy #[id number], Partial fill upon patient request if the prescription is for a schedule II opioid drug., 1 application Topically 2 times a d... Start Date: 02/10/22 Status: Ordered lisinopril 40 mg oral tablet 1 tablet = 40 mg, By Mouth, Daily, as of increased dose from 20 to 40 - cancel prior script for 20 please. thank you, # 90 tablet, 11 Refills, Maintenance, 01/04/22 9:39:00 EDT, Tablet, [facility]/pharmacy #[id number], Partial fill upon patient request if t... Start Date: 01/04/22 Stop Date: 12/19/24 Status: Ordered metoprolol 50 mg oral tablet, extended release 50 mg, 1, tablet, By Mouth, Daily, do not crush or chew (via cardiology in past), # 90 tablet, Refills 11, Tot. Refills 11, Maintenance, 02/22/22 13:36:00 EDT, Route to Pharmacy Electronically, [facility]/pharmacy #[id number], Partial fill upon patient request if... Start Date: 02/22/22 Stop Date: 02/06/25 Status: Ordered nystatin topical 075482 u/gm powder See Instructions, APPLY TO AFFECTED AREA 3 TIMES A DAY, # 60 Gm, 0 Refills, Maintenance, 03/22/22 20:50:00 EST, [id number], 30, APPLY TO AFFECTED AREA 3 TIMES A DAY, 175.26, cm, 03/09/22 10:37:00 EDT, Height, 123, kg, 07/16/21 13:01:00 EST, Dry W... Start Date: 03/22/22 Status: Ordered Problem List Condition Confirmation Course Effective Dates Status H ealth Status Informant Impaired glucose tolerance Confirmed 09/14/09 Active Ankle joint pain Confirmed 09/14/09 Active [place] cardiac risk 10-20% in next /2019 1 Confirmed 2019 Active Atrial fibrillation, paroxysmal Confirmed Active Carpal tunnel syndrome 2 Confirmed Active Depression Confirmed 09/14/09 Active Diabetes mellitus Confirmed 2021 Active Tendinopathy 3 Confirmed Active Anticoagulated for atrial fibrillation Confirmed Active Eczema 4 Confirmed Active Hypertension Confirmed 09/15/09 Active Phobia, flying Confirmed Active Fibromyalgia Confirmed Active GERD - Gastro-esophageal reflux disease Confirmed 09/14/09 Active H. pylori 5 Confirmed Active Rectal varices Confirmed Active Hemorrhoid, internal & external, enlarged on colonoscopy Confirmed Active H/O colonoscopy 6 Confirmed 11/09/10 Active Hyperlipidemia Confirmed 09/14/09 Active Knee joint pain, osteoarthritis 7 Confirmed Active Meningioma per Neurosurgeon , on ?Outside MRI, stable -needs continued followup Confirmed Active SHAHRIAR - Obstructive sleep apnea Confirmed Active Severe obesity Confirmed Active Shoulder joint pain 8 Confirmed Active Hepatic steatosis 9 Confirmed Active Urinary incontinence Confirmed Active Vaginal [...] in 10 years. maintain a high-fiber diet. erowe 12/01/2010 7X-rays 2007 c/w early OA. 8Rt A-C separation on x-ray in 2008 9on [place] Social History Social History Type Response Smoking Status Never smoker entered on: 04/17/13 Sex Female Patient Care team information Care Team Personnel Name: Chang WILSON, Pattie Jorgensen Position: [facility] TEST MAN MD Member Role: Lifetime Consulting Physician Address: Address: [address] [facility] [address], [address] [facility] [place] [address]- Name: Belia Khoury MD Position: [facility] Primary Care Physician Member Role: PCP Address: Address: [address] [place] [address]- Care Team Related Persons Name: IVETT MCGREGOR Address: home [address] [place] [address] Name: JOVANA PORTER Address: home [address] [place] [address] Name: SARA HERNÁNDEZ Address: home [address] [place] [address]
--- OUTSIDE RECORDS SUMMARY | 2023-04-21 11:11 | XMS_ITS | Continuity of Care Document ---
Author Name Unknown Organization [facility] Juan Luis Jackson n's [facility] Address [address] [place], [address] [place] [address]- Care Team Providers Care Bottom Finisher Name Role Phone Belia Khoury MD Primary Care Physician Encounter [facility] Date(s): 03/28/19 - 06/08/19 [facility] Juan Luis Valencia's [facility] [address], [address] [place] [address]- Attending Physician: Carly Banks MD Admitting Physician: Carly Banks MD Referring Physician: Belia Khoury MD Allergies, Adverse Reactions, Alerts Substance Reaction [...] Give n 1Result Comment: [03/24/2014] fluarix trivalent 14-15 2Result Comment: [01/29/2013] Flulaval [id number]. VIS in Burmese given. 3Admin Note: VIS 11/2011 4Admin Note: VIS GIVEN VIS DATE 12/07/10 5Admin Note: VIS GIVEN 12/22/09 polish 6Admin Note: VIS GIVEN 7Admin Note: vis [...] tablet, 1 Refills, Maintenance, 05/27/19 17:37:00 EST, [facility]/pharmacy #[id number], label in Burmese, 166, cm, 05/27/19 16:35:00 EST, Height, 118.5, kg, 04/01/19 12:45:00 EST, D... Start Date: 05/27/19 Stop Date: 07/26/19 Status: Ordered Colace sodium 100 mg oral capsule 100 mg, 1, capsule, By Mouth, 2 times a day, PRN, # 60 capsule, Refills 3, Tot. Refills 3, Maintenance, for constipation, 04/01/19 14:24:00 EST, Route to Pharmacy Electronically, [id number], [facility]/pharmacy #[id number] Start Date: 04/01/19 Status: Ordered famotidine 20 mg oral tablet 20 mg, 1, tablet, By Mouth, 2 times a day, PRN, # 90 tablet, Refills 11, Tot. Refills 11, Maintenance, heartburn, 10/30/18 9:32:00 EDT, Route to Pharmacy Electronically, [id number], [facility]/pharmacy #[id number] Start Date: 10/30/18 Status: Ordered Fiber Therapy [...] 10/30/18 9:32:01 EDT, Route to Pharmacy Electronically, [id number], [facility]/pharmacy #[id number] Start Date: 10/30/18 Stop Date: 10/14/21 Status: Ordered meclizine 25 mg oral tablet 1 tablet = 25 mg, By Mouth, Daily, use as little as possible, # 14 tablet, 0 Refills, Maintenance, 05/27/19 17:28:00 EST, Tablet, [facility]/pharmacy #[id number], 166, cm, 05/27/19 16:35:00 EST, [...]
--- OUTSIDE RECORDS SUMMARY | 2023-04-21 11:11 | XMS_ITS | Continuity of Care Document ---
Author Name Unknown Organization [facility] Address [address] [place] [address]- Care Team Providers Care Field Scout Name Role Phone Belia Khoury MD Primary Care Physician Encounter [facility] Date(s): 03/29/21 - 04/28/21 [facility] [address] [place] [address]- Allergies, Adverse Reactions, Alerts Substance Reaction Severity Status NKA Active Immunizations Given and Recorded Vaccine Date Status Refusal Reason SARS-CoV-2 (COVID-19) mRNA-1273 vaccine 09/16/20 R ecorded [...] fluarix trivalent 14- 2Result Comment: [01/29/2013] Flulaval [id number]. VIS in Panamanian given. 3Admin Note: VIS 11/2011 4Admin Note: VIS GIVEN VIS DATE 12/07/10 5Admin Note: VIS GIVEN 12/22/09 comoran 6Admin Note: VIS GIVEN 7Admin Note: vis 02/20 8Admin Note: VIS GIVEN VIS DATE 12/23/08 9Admin Note: VIS given 10Admin Note: VIS given 11Admin Note: VIS given Medications acetaminophen 500 mg oral tablet 2 tablet = 1,000 mg, By Mouth, 3 times a day, PRN Pain , Mild, may use less, # 180 tablet, 1 Refills, Maintenance, 03/29/21 13:13:00 EST, [facility]/pharmacy #[id number], label in Panamanian, 175.26, cm, 03/26/21 11:10:00 EST, Height, 120.45, kg, 11/05/20 16:03:00 ED... Start Date: 03/29/21 Stop Date: 05/28/21 Status: Ordered apixaban 5 mg oral tablet 1 tablet = 5 mg, By Mouth, 2 times a day, # 60 tablet, 3 Refills, Maintenance, 03/29/21 13:15:00 EST, Tablet, [facility]/pharmacy #[id number], Partial fill upon patient request if the prescription is for a schedule II opioid drug., 175.26, cm, 03/26/21 11:10:00 ES... Start Date: 03/29/21 Status: Ordered atorvastatin 40 mg oral tablet 1 tablet, By Mouth, Daily, # 90 tablet, 3 Refills, [id number], 175.26, cm, 03/26/21 11:10:00 EST, Height, 120.45, kg, 11/05/20 16:03:00 EDT, Dry Weight Start Date: 03/29/21 Status: Ordered Colace sodium 100 mg oral capsule 100 mg, 1, capsule, By Mouth, 2 times a day, PRN, # 60 capsule, Refills 3, Tot. Refills 3, Maintenance, for constipation, 03/29/21 13:13:00 EST, Route to Pharmacy Electronically, [facility]/pharmacy #[id number], 175.26, cm, 03/26/21 11:10:00 EST, Height, 120.45, k... Start Date: 03/29/21 Status: Ordered diclofenac 1% topical gel = 2 Gm, Topically, 4 times a day, # 100 Gm, 0 Refills, Maintenance, 11/25/20 11:18:00 EDT, Gel, [facility]/pharmacy #[id number], Partial fill upon patient request if the prescription is for a schedule II opioid drug., 175.26, cm, 11/25/20 9:57:00 EDT, Height, 120.... Start Date: 11/25/20 Status: Ordered Heating Pad Heating Pad, See Instructions, # 1 each, Refills 0, Tot. Refills 0, Maintenance, Use as directed dx: M25.519 duration: lifetime, 08/27/20 10:22:00 EDT, Supply Start Date: 08/27/20 Status: Ordered lidocaine 5% topical film 1 patch, Topically, Daily, PRN Pain , Mild, remove after 12 hours, # 30 patch, 0 Refills, Maintenance, 11/19/20 11:13:00 EDT, Film, [facility]/pharmacy #[id number], Partial fill upon patient request if the prescription is for a schedule II opioid drug., 1 patch To... Start Date: 11/19/20 Stop Date: 12/19/20 Status: Ordered lisinopril 20 mg oral tablet 1, tablet, By Mouth, Daily, # 90 tablet, Refills 1, Route to Pharmacy Electronically, [id number], 175.26, cm, 02/03/21 10:48:00 EDT, Height, 120.45, kg, 11/05/20 16:03:00 EDT, Dry Weight Start Date: 03/02/21 Status: Ordered metoprolol 50 mg oral tablet, extended release 50 mg, 1, tablet, By Mouth, Daily, # 30 tablet, Refills 5, Tot. Refills 5, Maintenance, 12/31/20 15:17:00 EDT, Route to Pharmacy Electronically, [facility]/pharmacy #[id number], Partial fill upon patient request if the prescription is for a schedule II opioid drug... Start Date: 12/31/20 Status: Ordered Omeprazole = 20 mg, By Mouth, 2 times a day, 0 Refills, Maintenance, 11/05/20 15:30:00 EDT, Partial fill upon patient request if the prescription is for a schedule II opioid drug. Start Date: 11/05/20 Status: Ordered wipes for Urinary incontinence wipes for Urinary incontinence, See Instructions, # 7 pack/packet, Refills 11, Tot. Refills 11, Maintenance, Urinary incontinence, 12/03/20 8:51:00 EDT, Supply Start Date: 12/03/20 Status: Ordered Problem List Condition Effective Dates Status Health Status Inform ant Impaired glucose tolerance(Confirmed) 09/14/09 Active Ankle joint pain(Confirmed) 09/14/09 Active [place] cardiac risk 10-2 0% in next 10 /2019(Confirmed) 2019 Active Atrial fibrillation, paroxysmal(Confirmed) Active Carpal tunnel syndrome(Confirmed) 2 Active Depression(Confirmed) [...] MRI, pending repeat Scan due (Confirmed) Active Obesity(Confirmed) Active SHAHRIAR - Obstructive sleep apnea(Confirmed) Active Postmenopausal bleeding(Confirmed) Active Severe obesity(Confirmed) Active Shoulder joint pain(Confirmed) 8 Active Urinary [...] polyps and no hemorrhoids. follow up with [facility] as needed. repeat xolonoscopy in 10 years. maintain a high-fiber diet. goran 12/01/2010 7X-rays 2007 c/w early OA. 8Rt A-C separation on x-ray in 2008 Social History Social History Type Response Smoking Status Never smoker entered on: 04/17/13 Sex Female
--- OUTSIDE RECORDS SUMMARY | 2023-04-21 11:11 | XMS_ITS | Continuity of Care Document ---
Author Name Unknown Organization [facility] Address [address] [place] [id number]- Care Team Providers Care Guitar Maker Hand Name Role Phone Belia Khoury MD Primary Care Physician Encounter [facility] Date(s): 01/24/22 - 02/23/[address] [address] Allergies, Adverse Reactions, Alerts No Known Allergies [...] fluarix trivalent - 2Result Comment: [01/29/2013] Flulaval [id number]. VIS in English given. 3Admin Note: VIS 11/2011 4Admin Note: VIS GIVEN VIS DATE 12/07/10 5Admin Note: VIS GIVEN 12/22/09 macanese 6Admin Note: VIS GIVEN 7Admin Note: vis 02/20 8Admin Note: VIS GIVEN VIS DATE 12/23/08 9Admin Note: VIS given 10Admin Note: VIS given 11Admin Note: VIS given Medications acetaminophen 500 mg oral tablet 2 tablet = 1,000 mg, By Mouth, 3 times a day, PRN Pain , Mild, may use less, # 180 tablet, 1 Refills, Maintenance, 02/22/22 13:35:00 EDT, [id number], label in English, 175.26, cm, 02/22/22 13:18:00 EDT, Height, 123, kg, 07/16/21 13:01:00 EST,... Start Date: 02/22/22 Stop Date: 04/23/22 Status: Ordered clotrimazole 1% topical cream 1 application, Topically, 2 times a day, for rash, # 113 Gm, 1 Refills, Maintenance, 11/22/21 10:29:00 EDT, Cream, [id number], Partial fill upon patient request if the prescription is for a schedule II opioid drug., 1 application Topically 2 t... Start Date: 11/22/21 Stop Date: 01/21/22 Status: Ordered diclofenac 1% topical gel See Instructions, APPLY TO AFFECTED AREA 4 TIMES A DAY, # 100 Gm, 0 Refills, 02/22/22 13:37:00 EDT,[id number], 25, APPLY TO AFFECTED AREA 4 TIMES A DAY, 175.26, cm, 02/22/22 13:18:00 EDT, Height, 123, kg, 07/16/21 13:01:00 EST, Dry Weight Start Date: 02/22/22 Status: Ordered docusate sodium 100 mg oral [...] 180 capsule, 1 Refills, Maintenance, 01/05/22 8:29:00EDT, [facility]/pharmacy #[id number], Partial fill upon patient request if the prescription is for a schedule IIopioid drug., 175.26, cm, 01/04/22 8:53:00 EDT, Hei... Start Date: 01/05/22 Status: Ordered fluticasone 50 mcg/inh nasal spray 1 sprays, Nares, Both, Daily, PRN allergies, # 16 Gm, 2 Refills, Maintenance, 02/22/22 13:36:00 EDT, [id number], 1 sprays Nares, Both Daily,x30 days,PRN:allergies, 175.26, cm, 02/22/22 13:18:00 EDT, Height, 123, kg, 07/16/21 13:01:00 EST, Dry... Start Date: 02/22/22 Stop Date: 05/23/22 Status: Ordered hydrocortisone 2.5% topical ointment 1 application, Topically, 2 times a day, # 454 Gm, 1 Refills, Maintenance, 02/10/22 9:58:00 EDT, Ointment, [facility]/pharmacy #[id number], Partial fill upon patient request [...] 11 Refills, Maintenance, 01/04/22 9:39:00 EDT, Tablet, [facility]/pharmacy #[id number], Partial fill upon patient request if t... Start Date: 01/04/22 Stop Date: 12/19/24 Status: Ordered metoprolol 50 mg oral tablet, extended release 50 mg, 1, tablet, By Mouth, Daily, do not crush or chew (via cardiology in past), # 90 tablet, Refills 11, Tot. Refills 11, Maintenance, 02/22/22 13:36:00 EDT, Route to Pharmacy Electronically, [facility]/pharmacy #[id number], Partial fill upon patient request if... Start Date: 02/22/22 Stop Date: 02/06/25 Status: Ordered nystatin topical 297125 u/gm powder 1 application, Topically, 3 times a day, # 60 Gm, 0 Refills, Maintenance, 02/10/22 9:59:00 EDT, Powder, [facility]/pharmacy #[id number], Partial fill upon patient request if the prescription is for a schedule II opioid drug., 1 application Topically 3 times a day,... Start Date: 02/10/22 Status: Ordered Problem List Condition Confirmation Course Effective Dates Status H ealth Status Informant Impaired glucose tolerance Confirmed 09/14/09 Active Ankle joint pain Confirmed 09/14/09 Active [place] cardiac risk 10-20% in next /2019 1 [...] Active Shoulder joint pain 8 Confirmed Active Urinary incontinence Confirmed Active Vaginal [...] in 10 years. maintain a high-fiber diet. eranettee 12/01/2010 7X-rays 2007 c/w early OA. 8Rt A-C separation on x-ray in 2008 Social History Social History Type Response Smoking Status Never smoker entered on: 04/17/13 Sex Female Patient Care team information Personnel Name: Belia Khoury MD Address: Address: [address] [place] [address]
--- OUTSIDE RECORDS SUMMARY | 2023-04-21 11:11 | XMS_ITS | Continuity of Care Document ---
Author Name Unknown Organization [facility] Address [address] [place] [address]- Care Team Providers Care Cable Tool Operator Name Role Phone Belia Khoury MD Primary Care Physician Encounter [facility] Date(s): 07/26/21 - 08/25/21 [facility] [address] [place] [id number] Allergies, Adverse Reactions, Alerts No Known Allergies Immunizations Given and Recorded Vaccine Date Status Refusal Reason influenza virus vaccine, inactivated 05/25/21 Sabino rded [...] fluarix trivalent 14- 2Result Comment: [01/29/2013] Flulaval [id number]. VIS in Sao Tomean given. 3Admin Note: VIS 11/2011 4Admin Note: VIS GIVEN VIS DATE 12/07/10 5Admin Note: VIS GIVEN 12/22/09 cape verdean 6Admin Note: VIS GIVEN 7Admin Note: vis 02/20 8Admin Note: VIS GIVEN VIS DATE 12/23/08 9Admin Note: VIS given 10Admin Note: VIS given 11Admin Note: VIS given Medications acetaminophen 500 mg oral tablet 2 tablet = 1,000 mg, By Mouth, 3 times a day, PRN Pain , Mild, may use less, # 180 tablet, 1 Refills, Maintenance, 03/29/21 13:13:00 EST, [facility]/pharmacy #[id number], label in S[place]omean, 175.26, cm, 03/26/21 11:10:00 EST, Height, 120.45, kg, 11/05/20 16:03:00 ED... Start Date: 03/29/21 Stop Date: 05/28/21 Status: Ordered Aqua Care 10% topical cream 1 application, Topically, Daily, PRN for dry skin, for 30 days, # 85 Gm, 0 Refills, Acute 09/12/21 14:36:00 EDT, 08/13/21 14:36:00 EDT, Cream, [facility]/pharmacy #[id number], Partial fill upon patient request ifthe prescription is for a schedule II opioid drug.,... Start Date: 08/13/21 Stop Date: 09/12/21 Status: Ordered atorvastatin 40 mg oral tablet 1 tablet, By Mouth, Daily, # 90 tablet, 3 Refills, [id number], 175.26, cm, 03/26/21 11:10:00 EST, Height, 120.45, kg, 11/05/20 16:03:00 EDT, Dry Weight Start Date: 03/29/21 Status: Ordered diclofenac 1% topical gel 1 application, Topically, 4 times a day, # 100 Gm, 0 Refills, Maintenance, 08/13/21 14:33:00 EDT, Gel, [id number], Partial fill upon patient request if the prescription is for a schedule II opioid drug., 175.26, cm, 08/13/21 14:16:00 EDT, Heig... Start Date: 08/13/21 Status: Ordered docusate sodium 100 mg oral capsule 1 capsule, By Mouth, 2 times a day, PRN NEEDED FOR CONSTIPATION, # 60 capsule, 3 Refills, [id number], 175.26, cm, 07/16/21 13:01:00 EST, Height, 123, kg, 07/16/21 13:01:00 EST, Dry Weight Start Date: 07/20/21 Status: Ordered Eliquis 5 mg oral tablet 1 tablet, By Mouth, 2 times a day, # 60 tablet, 11 Refills, [facility], 175.26, cm, 07/16/21 13:01:00 EST, Height, 123, kg, 07/16/21 13:01:00 EST, Dry Weight Start Date: 07/20/21 Status: Ordered esomeprazole 20 mg oral enteric coated capsule 1 capsule = 20 mg, By Mouth, 2 times a day, # 180 capsule, 1 Refills, Maintenance, 08/17/21 7:48:00EDT, [facility]/pharmacy #[id number], Partial fill upon patient request if the prescription is for a schedule IIopioid drug., 175.26, cm, 08/13/21 14:16:00 EDT, He... Start Date: 08/17/21 Status: Ordered fluticasone 50 mcg/inh nasal spray See Instructions, SPRAY 1 SPRAY IN BOTH NOSTRILS DAILY, # 16 mL, 0 Refills, [id number], 30, SPRAY 1 SPRAY IN BOTH NOSTRILS DAILY, 175.26, cm, 07/28/21 11:01:00 EDT, Height, 123, kg, 07/16/21 13:01:00 EST, Dry Weight Start Date: 08/13/21 Status: Ordered fluticasone CFC free 44 mcg/inh inhalation aerosol 2 puffs, Inhalation, 2 times a day, cape verdean label, # 10.6 Gm, 0 Refills, Maintenance, 07/28/21 13:26:00 EDT, Aerosol, [facility]/pharmacy #[id number], Partial fill upon patient request if the prescription is for a schedule II opioid drug., 175.26, cm, 07/28/21 11:... Start Date: 07/28/21 Status: Ordered lisinopril 20 mg oral tablet 1, tablet, By Mouth, Daily, # 90 tablet, Refills 1, Route to Pharmacy Electronically, [id number], 175.26, cm, 02/03/21 10:48:00 EDT, Height, 120.45, kg, 11/05/20 16:03:00 EDT, Dry Weight Start Date: 03/02/21 Status: Ordered LORazepam 0.5 mg oral tablet 0.5 tablet = 0.25 mg, By Mouth, Once, prior to MRI. May cause drowsiness. do not drive, # 0.5 tablet, 0 Refills, Soft Stop, 07/26/21 10:17:00 EDT, Tablet, [facility]/pharmacy #[id number], Partial fill upon patient request if the prescription is for a schedule II o... Start Date: 07/26/21 Status: Ordered metoprolol 50 mg oral tablet, extended release 50 mg, 1, tablet, By Mouth, Daily, # 30 tablet, Refills 11, Tot. Refills 11, Maintenance, 06/05/21 9:01:00 EST, [id number] fill upon patient requestif the [...] EST, Supply Start Date: 06/03/21 Status: Ordered Robitussin Maximum Strength Severe 650 mg-25 mg-10 mg/20 mL oral liquid 20 mL, By Mouth, Every 4 hours, cape verdean label not to exceed 6 doses/day, # 180 mL, 0 Refills, Maintenance, 07/28/21 13:25:00 EDT, [id number], Partial fill upon patient request if the prescription is for a schedule II opioid drug., 20 mL By Mo... Start Date: 07/28/21 Status: Ordered Problem List Condition Effective Dates Status Health Status Inform ant Impaired glucose tolerance(Confirmed) 09/14/09 Active Ankle joint pain(Confirmed) 09/14/09 Active [place] cardiac risk 10-2 0% in next (Confirmed) 2019 Active Atrial fibrillation, paroxysmal(Confirmed) Active [...]
--- OUTSIDE RECORDS SUMMARY | 2023-04-21 11:11 | XMS_ITS | Continuity of Care Document ---
Author Name Unknown Organization [facility] Address [address] [place] [address]- Care Team Providers Care Organizational Development Consultant Name Role Phone Belia Khoury MD Primary Care Physician Encounter [facility] Date(s): 11/20/20 - 12/20/20 [facility] [address] [place] [address]- Allergies, Adverse Reactions, Alerts Substance Reaction Severity [...] fluarix trivalent 14- 2Result Comment: [01/29/2013] Flulaval [id number]. VIS in Azeri given. 3Admin Note: VIS 11/2011 4Admin Note: VIS GIVEN VIS DATE 12/07/10 5Admin Note: VIS GIVEN 12/22/09 nicaraguan 6Admin Note: VIS GIVEN 7Admin Note: vis 02/20 8Admin Note: VIS GIVEN VIS DATE 12/23/08 9Admin Note: VIS given 10Admin Note: VIS given 11Admin Note: VIS given Medications acetaminophen 500 mg oral tablet 2 tablet = 1,000 mg, By Mouth, 3 times a day, PRN Pain , Mild, may use less, # 180 tablet, 1 Refills, Maintenance, 11/25/20 11:19:00 EDT, [facility]/pharmacy #[id number], label in Azeri, 175.26, cm, 11/25/20 9:57:00 EDT, Height, 120.45, kg, 11/05/20 16:03:00 EDT... Start Date: 11/25/20 Stop Date: 01/24/21 Status: Ordered apixaban 5 mg oral tablet 1 tablet = 5 mg, By Mouth, 2 times a day, # 60 tablet, 3 Refills, Maintenance, 11/25/20 11:18:00 EDT, Tablet, [facility]/pharmacy #[id number], Partial fill upon patient request if the prescription is for a schedule II opioid drug., 175.26, cm, 11/25/20 9:57:00 EDT... Start Date: 11/25/20 Status: Ordered atorvastatin 40 mg oral tablet 1 tablet = 40 mg, By Mouth, Daily, for 30 days, # 30 tablet, 3 Refills, Physician Stop 04/09/21 12:09:00 EST, 12/10/20 12:09:00 EDT, [id number], 175.26, cm, 12/10/20 9:43:00 EDT, Height, 120.45, kg, 11/05/20 16:03:00 EDT, Dry Weight Start Date: 12/10/20 Stop Date: 04/09/21 Status: Ordered Colace sodium 100 mg oral capsule 100 mg, 1, capsule, By Mouth, 2 times a day, PRN, # 60 capsule, Refills 3, Tot. Refills 3, Maintenance, for constipation, 01/16/20 16:20:00 EDT, Route to Pharmacy Electronically, [facility]/pharmacy #[id number], 166, cm, 12/31/19 10:08:00 EDT, Height, 118.5, kg, 1... Start Date: 01/16/20 Status: Ordered diclofenac 1% topical gel = 2 Gm, Topically, 4 times a day, # 100 Gm, 0 Refills, Maintenance, 11/25/20 11:18:00 EDT, Gel, [facility]/pharmacy #[id number], Partial fill upon patient request [...] 0 Refills, Maintenance, 11/19/20 11:13:00 EDT, Film, [facility]/pharmacy #[id number], Partial fill upon patient request if the prescription is for a schedule II opioid drug., 1 patch To... Start Date: 11/19/20 Stop Date: 12/19/20 Status: Ordered lisinopril 20 mg oral tablet 20 mg, 1, tablet, By Mouth, Daily, dose change, # 30 tablet, Refills 3, Tot. Refills 3, Maintenance, 12/10/20 12:11:00 EDT, Route to Pharmacy Electronically, [facility]/pharmacy #[id number], Partial fill upon patient request if the prescription is for a schedule I... Start Date: 12/10/20 Stop Date: 04/09/21 Status: Ordered Omeprazole = 20 mg, By [...] 09/14/09 Active Ankle joint pain(Confirmed) 09/14/09 Active [place] cardiac risk 10-2 0% in next 10 (Confirmed) 2019 Active Carpal tunnel syndrome(Confirmed) 2 Active Depression(Confirmed) 09/14/09 Active Tendinopathy(Confirmed) 3 Active Eczema(Confirmed) 4 Active Hypertension(Confirmed) 09/15/09 Active Phobia, flying(Confirmed) Active Fibromyalgia(Confirmed) Active GERD - Gastro-esophageal ref lux disease(Confirmed) 09/14/09 Active H. pylori(Confirmed) 5 Active Rectal varices(Confirmed) Active Hemorrhoid, internal & exter nal, enlarged on colonoscopy(Confirmed) Active H/O colonoscopy(Confirmed) 6 11/09/10 Active H/O colonoscopy, in Operatin g room(Confirmed) 04/01/19 Active Hyperlipidemia(Confirmed) 09/14/09 Active Hypertensive disorder(Confirmed) Active Knee joint pain, osteoarthritis(Confirmed) 7 Active Obesity(Confirmed) Active SHAHRIAR - Obstructive sleep [...]
--- OUTSIDE RECORDS SUMMARY | 2023-04-21 11:11 | XMS_ITS | Continuity of Care Document ---
Author Name Unknown Organization [facility] y Address [address] [place] [address]- Care Team Providers Care Nurse Sane Name Role Phone Belia Khoury MD Primary Care Physician Encounter [facility] Date(s): 10/21/20 - 11/20/20 [facility] [address] [place] [address]- Attending Physician: Carolyn Mitchell Admitting Physician: Carolyn Mitchell Referring Physician: AdmtrCarolyn Allergies, Adverse Reactions, Alerts Substance Reaction Severity [...] influenza virus vaccine, inactivated 2 01/29/13 Gi cadni influenza virus vaccine, inactivated 3 02/01/12 Gi [...] Give n 1Result Comment: [03/24/2014] fluarix trivalent 2Result Comment: [01/29/2013] Flulaval [id number]. VIS in Estonian given. 3Admin Note: VIS 11/2011 4Admin Note: VIS GIVEN VIS DATE 12/07/10 5Admin Note: VIS GIVEN 12/22/09 wolof 6Admin Note: VIS GIVEN 7Admin Note: vis 02/20 8Admin Note: VIS GIVEN VIS DATE 12/23/08 9Admin Note: VIS given 10Admin Note: VIS given 11Admin Note: VIS given Medications acetaminophen 500 mg oral tablet 2 tablet = 1,000 mg, By Mouth, 3 times a day, PRN Pain , Mild, may use less, # 180 tablet, 1 Refills, Maintenance, 01/16/20 15:18:00 EDT, [facility]/pharmacy #[id number], label in Estonian, 166, cm, 12/31/19 10:08:00 EDT, Height, 118.5, kg, 04/01/19 12:45:00 EST, D... Start Date: 01/16/20 Stop Date: 03/16/20 Status: Ordered Colace sodium 100 mg oral capsule 100 mg, 1, capsule, By Mouth, 2 times a day, PRN, # 60 capsule, Refills 3, Tot. Refills 3, Maintenance, for constipation, 01/16/20 16:20:00 EDT, Route to Pharmacy Electronically, [facility]/pharmacy #[id number], 166, cm, 12/31/19 10:08:00 EDT, Height, 118.5, kg, 1... Start Date: 01/16/20 Status: Ordered Heating Pad Heating Pad, See Instructions, # 1 each, Refills 0, Tot. Refills 0, Maintenance, Use as directed dx: M25.519 duration: lifetime, 08/27/20 10:22:00 EDT, Supply Start Date: 08/27/20 Status: Ordered lidocaine 5% topical film 1 patch, Topically, Daily, PRN Pain , Mild, remove after 12 hours, # 30 patch, 0 Refills, Maintenance, 11/19/20 11:13:00 EDT, Film, [facility]/pharmacy #[id number], Partial fill upon patient request if the prescription is for a schedule II opioid drug., 1 patch To... Start Date: 11/19/20 Stop Date: 12/19/20 Status: Ordered lisinopril 10 mg oral tablet 10 mg, 1, tablet, By Mouth, Daily, for 90 days, # 90 tablet, Refills 11, Tot. Refills 11, Hard Stop02/05/23 9:20:00 EDT, 02/21/20 9:20:00 EDT, Route to Pharmacy Electronically, [facility]/pharmacy #[id number], 166, cm, 12/31/19 10:08:00 EDT, Height, 118.5, kg, 11... Start Date: 02/21/20 Stop Date: 02/05/23 Status: Ordered Omeprazole = 20 mg, By Mouth, 2 times a day, 0 Refills, Maintenance, 11/05/20 15:30:00 EDT, Partial fill upon patient request if the prescription is for a schedule II opioid drug. Start Date: 11/05/20 Status: Ordered Problem List Condition Effective Dates Status Health Status Inform ant Impaired glucose tolerance(Confirmed) 09/14/09 Active Ankle joint pain(Confirmed) 09/14/09 Active [place] cardiac risk 10-2 0% in next 10 [...] colonoscopy(Confirmed) 6 11/09/10 Active [facility]) 04/01/19 Active Hyperlipidemia(Confirmed) 09/14/09 Active Hypertensive [...] pylori antigen. Pt treated x 14 days 3/11. 6normal mucosa in whole colon. diverticulosis of [...]
--- OUTSIDE RECORDS SUMMARY | 2023-04-21 11:11 | XMS_ITS | Continuity of Care Document ---
Author Name Unknown Organization [facility] Address [address] [place] [address]- Care Team Providers Care Repeater Operator Name Role Phone Belia Khoury MD Primary Care Physician Encounter [facility] Date(s): 02/14/23 - 03/16/23 [facility] [address], [place] [address] Attending Physician: Carolyn Mitchell Admitting Physician: Admtr, Ar8 Referring Physician: Admtr, Ar8 Allergies, Adverse Reactions, Alerts No Known Allergies [...] fluarix trivalent - 2Result Comment: [01/29/2013] Flulaval [id number]. VIS in Swazi given. 3Admin Note: VIS 11/2011 4Admin Note: VIS GIVEN VIS DATE 12/07/10 5Admin Note: VIS GIVEN 12/22/09 beninese 6Admin Note: VIS GIVEN 7Admin Note: vis 02/20 8Admin Note: VIS GIVEN VIS DATE 12/23/08 9Admin Note: VIS given 10Admin Note: VIS given 11Admin Note: VIS given Medications acetaminophen 500 mg oral tablet 2 tablet, By Mouth, 3 times a day, PRN NEEDED FOR PAIN X, # 180 tablet, 2 Refills, Maintenance, 01/26/23 10:16:00 EDT, [facility]/pharmacy #[id number], label all scripts in Swazi, 175.26, cm, 01/26/23 9:13:00 EDT, Height, 123, kg, 07/16/21 13:01:00 EST, Dry W... Start Date: 01/26/23 Stop Date: 04/26/23 Status: Ordered ascorbic acid 250 mg oral tablet 1 tablet = 250 mg, By Mouth, Daily, for 30 days, # 30 tablet, 1 Refills, Acute 04/01/23 19:59:00 EST, 01/31/23 19:59:00 EDT, Tablet, [facility]/pharmacy #[id number], Partial fill upon patient request if the prescription is for a schedule II opioid drug., 175.26, c... Start Date: 01/31/23 Stop Date: 04/01/23 Status: Ordered Aspirin Low Dose 81 mg oral delayed release tablet 1 tablet = 81 mg, By Mouth, Daily, # 14 tablet, 0 Refills, Maintenance, 02/27/23 7:27:00 EDT, EC Tablet, Partial fill upon patient request if the prescription is for a schedule II opioid drug. Start Date: 02/27/23 Status: Ordered Bed pads XL disposable Bed [...] 04/01/23 19:59:00 EST, 01/31/23 19:59:00 EDT, Capsule, [facility]/pharmacy #[id number], Partial fill upon patient request [...] Refills, Maintenance, 11/09/22 16:41:00 EDT, [id number], 25, APPLY TO AFFECTED AREA 4 TIMES A DAY, 175.26, cm, 10/03/22 10:48:00 EDT, Height, 123, kg, 07/16/21 13:01:00 EST, Dry... Start Date: 11/09/22 Status: Ordered docusate sodium 100 mg oral capsule 1 capsule, By Mouth, 2 times a day, PRN NEEDED, CONSTIPATION., # 60 capsule, 2 Refills, Maintenance, 01/18/23 15:57:00 EDT, [facility], 175.26, cm, 10/03/22 10:48:00 EDT, Height, 123, kg, 07/16/21 13:01:00 EST, Dry Weight Start Date: 01/18/23 Status: Ordered Eliquis 5 mg oral tablet 1 tablet, By Mouth, 2 times a day, atrial fibrillation, # 180 tablet, 11 Refills, Maintenance, 01/26/23 10:16:00 EDT, [facility]/pharmacy #[id number], label all scripts in Swazi, 175.26, cm, 01/26/23 9:13:00 EDT, Height, 123, kg, 07/16/21 13:01:00 EST, Dry Weight Start Date: 01/26/23 Stop Date: 01/10/26 Status: Ordered esomeprazole 20 mg oral enteric coated capsule 1 capsule = 20 mg, By Mouth, 2 times a day, # 180 capsule, 2 Refills, Maintenance, 08/08/22 8:21:00EDT, [facility]/pharmacy #[id number], Partial fill upon patient request if the prescription is for a schedule IIopioid drug., 175.26, cm, 03/09/22 10:37:00 EDT, He... Start Date: 08/08/22 Status: Ordered fluticasone 50 mcg/inh nasal spray See Instructions, SPRAY 1 SPRAY INTO BOTH NARES DAILY X 30 DAYS NEEDED FOR ALLERGIES, # 48 mL, 0Refills, Maintenance, 04/11/22 5:24:00 EST, [facility]/pharmacy #[id number], 90, Office visit needed for furtherrefills., SPRAY 1 SPRAY INTO BOTH NARES DAILY X 30... Start Date: 04/11/22 Status: Ordered lisinopril 40 mg oral tablet 1 tablet, By Mouth, Daily, # 90 tablet, 11 Refills, Maintenance, 01/17/23 8:35:00 EDT, [facility]/pharmacy#[id number], 175.26, cm, 10/03/22 10:48:00 EDT, Height, 123, kg, 07/16/21 13:01:00 EST, Dry Weight Start Date: 01/17/23 Stop Date: 01/01/26 Status: Ordered metoprolol 50 mg oral tablet, extended release 50 mg, 1, tablet, By Mouth, Daily, do not crush or chew (via cardiology in past), # 90 tablet, Refills 11, Tot. Refills 11, Maintenance, 01/26/23 10:16:00 EDT, Route to Pharmacy Electronically, [facility]/pharmacy #[id number], label all scripts in Swazi, 175.26,... Start Date: 01/26/23 Stop Date: 01/10/26 Status: Ordered nystatin topical 529403 u/gm powder See Instructions, APPLY TO AFFECTED AREA 3 TIMES A DAY, # 60 Gm, 1 Refills, Maintenance, 01/26/23 10:16:00 EDT, [facility]/pharmacy #[id number], 30, label all scripts in Swazi, APPLY TO AFFECTED AREA 3 TIMES A DAY, 175.26, cm, 01/26/23 9:13:00 EDT, Height, 123,... Start Date: 01/26/23 Status: Ordered ondansetron 4 mg oral tablet 1 tablet = 4 mg, By Mouth, Every 8 hours, 0 Refills, Maintenance, 02/27/23 7:27:00 EDT, Tablet, Partial fill upon patient request if the prescription is for a schedule II opioid drug. Start Date: 02/27/23 Status: Ordered oxyCODONE 5 mg oral tablet See Instructions, PRN, 1 tablet By Mouth Every 4-6 hours, Refills 0, Tot. Refills 0, Maintenance, for pain, 02/27/23 7:27:00 EDT, Instructions Replace Required Details, Partial fill upon patient request if the prescription is for a schedule II opioid... Start Date: 02/27/23 Status: Ordered rosuvastatin 10 mg oral tablet 1 tablet = 10 mg, By Mouth, Daily, # 90 tablet, 11 Refills, Maintenance, 01/26/23 10:25:00 EDT, Tablet, [facility]/pharmacy #207, 175.26, cm, 01/26/23 9:13:00 EDT, Height, 123, kg, 07/16/21 13:01:00 EST, Dry Weight Start Date: 01/26/23 Stop Date: 01/10/26 Status: Ordered tiZANidine 2 mg oral tablet 2 mg, 1, tablet, By Mouth, 3 times a day, # 15 tablet, Refills 0, Tot. Refills 0, Maintenance, 02/24/23 17:11:00 EDT, Route to Pharmacy Electronically, [facility]/pharmacy #[id number], Partial fill upon patient request if the prescription is for a schedule II opio... Start Date: 02/24/23 Stop Date: 03/01/23 Status: Ordered Wipes for urinary incontinence Wipes for urinary incontinence, See Instructions, # 6 pack/packet, Refills 11, Tot. Refills 11, Maintenance, Use as needed Urinary incontinence Dx R32 Duration lifetime, 02/02/23 9:29:00 EDT, Supply Start Date: 02/02/23 Status: Ordered Problem List Condition Confirmation Course Effective Dates Status H ealth Status Informant MILLIE positive, pending Rheumatolgoy as of Confirmed 02/2022 Active [place] cardiac risk 10-20% in next 1 Confirmed 2019 Active Atrial fibrillation, paroxysmal [...] 5X-rays 2007 c/w early OA. 6on [place] Social History Social History Type Response Smoking Status Never smoker entered on: 04/17/13 Sex Female Patient Care team information Care Team Personnel Name: Pattie Downing MD Position: [facility] HULL MOLDER MD Member Role: Lifetime Consulting Physician Address: Address: [address] [place] [address], [address] [facility] [place] [address]- Name: Belia Khoury MD Position: [facility] Physician - Primary Care Member Role: PCP Address: Address: [address] [place] [address]- Care Team Related Persons Name: IVETT MCGREGOR Address: home [address] [place] [address] Name: JOVANA PORTER Address: home [address] [place] [address] Name: SARA HERNÁNDEZ Address: home [address] [place] [address]
--- OUTSIDE RECORDS SUMMARY | 2023-04-21 11:11 | XMS_ITS | Continuity of Care Document ---
Author Name Unknown Organization [facility] y Address [address] [place] [address] [address], [address] [place] [address]- Care Team Providers Care Site Surveyor Name Role Phone Belia Khoury MD Primary Care Physician Encounter [facility] Date(s): 02/03/21 - 02/10/21 [facility] [address] [place] [address] Drive, [address] [place], [place] [address] Attending Physician: Riley Jones MD Referring Physician: Brad Krishnan MD Allergies, Adverse Reactions, Alerts Substance Reaction [...] fluarix trivalent 14- 2Result Comment: [01/29/2013] Flulaval [id number]. VIS in Gabonese given. 3Admin Note: VIS 11/2011 4Admin Note: VIS GIVEN VIS DATE 12/07/10 5Admin Note: VIS GIVEN 12/22/09 icelandic 6Admin Note: VIS GIVEN 7Admin Note: vis 02/20 8Admin Note: VIS GIVEN VIS DATE 12/23/08 9Admin Note: VIS given 10Admin Note: VIS given 11Admin Note: VIS given Medications acetaminophen 500 mg oral tablet 2 tablet = 1,000 mg, By Mouth, 3 times a day, PRN Pain , Mild, may use less, # 180 tablet, 1 Refills, Maintenance, 11/25/20 11:19:00 EDT, [id number], label in Gabonese, 175.26, cm, 11/25/20 9:57:00 EDT, Height, 120.45, kg, 11/05/20 16:03:00 EDT... Start Date: 11/25/20 Stop Date: 01/24/21 Status: Ordered apixaban 5 mg oral tablet 1 tablet = 5 mg, By Mouth, 2 times a day, # 60 tablet, 3 Refills, Maintenance, 11/25/20 11:18:00 EDT, Tablet, [id number], Partial fill upon [...] 01/16/20 16:20:00 EDT, Route to Pharmacy Electronically, [facility]/pharmacy #[id number], 166, cm, 12/31/19 10:08:00 EDT, Height, 118.5, kg, 1... Start Date: 01/16/20 Status: Ordered diclofenac 1% topical gel = 2 Gm, Topically, 4 times a day, # 100 Gm, 0 Refills, Maintenance, 11/25/20 11:18:00 EDT, Gel, [facility]/pharmacy #[id number], Partial fill upon patient [...] 0 Refills, Maintenance, 11/19/20 11:13:00 EDT, Film, [facility]/pharmacy #[id number], Partial fill upon patient request if the prescription is for a schedule II opioid drug., 1 patch To... Start Date: 11/19/20 Stop Date: 12/19/20 Status: Ordered lisinopril 20 mg oral tablet 20 mg, 1, tablet, By Mouth, Daily, dose change, # 30 tablet, Refills 3, Tot. Refills 3, Maintenance, 12/10/20 12:11:00 EDT, Route to Pharmacy Electronically, [facility]/pharmacy #[id number], Partial fill upon patient request if the prescription is for a schedule I... Start Date: 12/10/20 Stop Date: 04/09/21 Status: Ordered metoprolol 50 mg oral tablet, extended release 50 mg, 1, tablet, By Mouth, Daily, # 30 tablet, Refills 5, Tot. Refills 5, Maintenance, 12/31/20 15:17:00 EDT, Route to Pharmacy Electronically, [facility]/pharmacy #[id number], Partial fill upon patient request if the [...] 09/14/09 Active Ankle joint pain(Confirmed) 09/14/09 Active [place] cardiac risk 10-2 0% in next 10 [...] colonoscopy(Confirmed) 6 11/09/10 [facility] 04/01/19 Active Hyperlipidemia(Confirmed) 09/14/09 Active [...] polyps and no hemorrhoids. follow up with [place] as needed. repeat xolonoscopy in 10 years. maintain a high-fiber diet. erowe 12/01/2010 7X-rays 2007 c/w early OA. 8Rt A-C separation on x-ray in 2008 Vital Signs Most recent to oldest [Reference Range]: 1 Height 175.26 cm (02/03/21 10:48 AM) Weight 122.8 kg (02/03/21 10:48 AM) Body Mass Index [18.5-24.99] 39.98 *>HHI* (02/03/21 10:48 AM) Social History Social History Type Response Smoking Status Never smoker entered on: 04/17/13 Sex Female
--- OUTSIDE RECORDS SUMMARY | 2023-04-21 11:11 | XMS_ITS | Continuity of Care Document ---
Author Name Unknown Organization [facility] Address [address] [facility], [address] Floor, [address] [place] [address]- Care Team Providers Care Emergency Manager Name Role Phone Belia Khoury MD Primary Care Physician Encounter [facility] Date(s): 10/21/19 - 11/20/19 [facility] [address], [address], [address] [place] [address] [facility] Attending Physician: Admneema, Carolyn Admitting Physician: Admtr, [id number] Referring Physician: Admtr, Ar8 Allergies, Adverse Reactions, Alerts Substance Reaction Severity [...] fluarix trivalent 14-15 2Result Comment: [01/29/2013] Flulaval [id number]. VIS in Monegasque given. 3Admin Note: VIS 11/2011 4Admin Note: VIS GIVEN VIS DATE 12/07/10 5Admin Note: VIS GIVEN 12/22/09 turkish 6Admin Note: VIS GIVEN 7Admin Note: vis [...] tablet, 1 Refills, Maintenance, 05/27/19 17:37:00 EST, [facility]/pharmacy #[id number], label in Monegasque, 166, cm, 05/27/19 16:35:00 EST, Height, 118.5, kg, 04/01/19 12:45:00 EST, D... Start Date: 05/27/19 Stop Date: 07/26/19 Status: Ordered atorvastatin 40 mg oral tablet 1 tablet = 40 mg, By Mouth, Daily, # 90 tablet, 11 Refills, Maintenance, 07/24/19 10:18:00 EDT, Tablet, [facility]/pharmacy #[id number], 166, cm, 07/24/19 9:46:00 EDT, Height, 118.5, kg, 04/01/19 12:45:00 EST, Dry Weight Start Date: 07/24/19 Stop Date: 07/08/22 Status: Ordered Colace sodium 100 mg oral capsule 100 mg, 1, capsule, By Mouth, 2 times a day, PRN, # 60 capsule, Refills 3, Tot. Refills 3, Maintenance, for constipation, 04/01/19 14:24:00 EST, Route to Pharmacy Electronically, [id number], [facility]/pharmacy #[id number] Start Date: 04/01/19 Status: Ordered famotidine 20 mg oral tablet 20 mg, 1, tablet, By Mouth, 2 times a day, PRN, avoid eating and drinking for 10 minutes after eachdose. use as little as possible to control symptoms, # 180 tablet, Refills 11, Tot. Refills 11, Maintenance, heartburn, 07/24/19 9:57:00 EDT, Route to... Start Date: 07/24/19 Stop Date: 07/08/22 Status: Ordered Fiber Therapy indefinitely, per colonosocpy team , 0 Refills, Maintenance, 04/02/19 18:17:29 EST Start Date: 04/02/19 Status: Ordered lidocaine 5% topical ointment See [...] 10/30/18 9:32:01 EDT, Route to Pharmacy Electronically, [id number], [facility]/pharmacy #[id number] Start Date: 10/30/18 Stop Date: 10/14/21 Status: Ordered meclizine 25 mg oral tablet 1 tablet = 25 mg, By Mouth, Daily, use as little as possible, # 14 tablet, 0 Refills, Maintenance, 05/27/19 17:28:00 EST, Tablet, [facility]/pharmacy #[id number], 166, cm, 05/27/19 16:35:00 EST, Height, 118.5, kg, 04/01/19 12:45:00 EST, Dry Weight Start Date: 05/27/19 Stop Date: 06/10/19 Status: Ordered naproxen 250 mg oral tablet TOME RAY TABLETA POR V?A ORAL DOS VECES AL D?A Start Date: 02/19/19 Status: Ordered Problem List Condition Effective Dates Status Health Status Inform ant Impaired glucose tolerance(Confirmed) 09/14/09 Active Ankle joint pain(Confirmed) 09/14/09 Active [place] cardiac risk 10-2 0% in next 10 years/2019(Confirmed) 2019 Active CTS - Carpal tunnel syndrome(Confirmed) 1 Active Tendinopathy(Confirmed) 2 Active Eczema(Confirmed) 3 Active Hypertension(Confirmed) 09/15/09 Active Phobia, flying(Confirmed) Active Fibromyalgia(Confirmed) Active GERD - Gastro-esophageal ref lux disease(Confirmed) 09/14/09 Active H. pylori(Confirmed) 4 Active Rectal varices(Confirmed) Active Hemorrhoid, internal & exter nal, enlarged on colonoscopy(Confirmed) Active H/O colonoscopy(Confirmed) 5 11/09/10 Active H/O colonoscopy, in [facility](Confirmed) 04/01/19 Active Hyperlipidemia(Confirmed) 09/14/09 Active Hypertensive disorder(Confirmed) Active Knee joint pain(Confirmed) 6 Active Obesity(Confirmed) Active SHAHRIAR - Obstructive sleep apnea(Confirmed) Active Postmenopausal bleeding(Confirmed) Active Shoulder joint pain(Confirmed) 7 Active Urinary incontinence(Confirmed) Active Vaginal wall prolapse(Confirmed) Active Varicose vein(Confirmed) Active 1Bil, S/P RT Release, Left with Pos EMG study 2achilles on 2015 MRI,seeing [facility] 3per Dermatology 2009 or so 4Documented on pos stool for H pylori antigen. Pt treated x 14 days 07/23. 5normal mucosa in whole colon. diverticulosis of the descending colon. there were no polyps and no hemorrhoids. follow up with Nuv[place] as needed. repeat xolonoscopy in 10 years. maintain a high-fiber diet. goran 12/01/2010 6X-rays 2007 c/w early OA. 7Rt A-C separation on x-ray in 2008 Social History Social History Type Response Smoking Status Never smoker entered on: 04/17/13 Sex Female
--- OUTSIDE RECORDS SUMMARY | 2023-04-21 11:12 | XMS_ITS | Continuity of Care Document ---
Author Name Unknown Organization [facility] Address [address] [place] [address]- Care Team Providers Care Chemical Recovery Operator Name Role Phone Belia Khoury MD Primary Care Physician [facility]counter [facility] Date(s): 08/26/20 - 09/25/20 [facility] [address], [place] [address] Allergies, Adverse Reactions, Alerts Substance Reaction Severity [...] [03/24/2014] fluarix trivalent 2Result Comment: [01/29/2013] Flulaval [id number]. VIS in Montenegrin given. 3Admin Note: VIS 11/2011 4Admin Note: VIS GIVEN VIS DATE 12/07/10 5Admin Note: VIS GIVEN 12/22/09 yakut 6Admin Note: VIS GIVEN 7Admin Note: vis 02/20 8Admin Note: VIS GIVEN VIS DATE 12/23/08 9Admin Note: VIS given 10Admin Note: VIS given 11Admin Note: VIS given Medications acetaminophen 500 mg oral tablet 2 tablet = 1,000 mg, By Mouth, 3 times a day, PRN Pain , Mild, may use less, # 180 tablet, 1 Refills, Maintenance, 01/16/20 15:18:00 EDT, [facility]/pharmacy #[id number], label in Montenegrin, 166, cm, 12/31/19 10:08:00 EDT, Height, 118.5, kg, 04/01/19 12:45:00 EST, D... Start Date: 01/16/20 Stop Date: 03/16/20 Status: Ordered Colace sodium 100 mg oral capsule 100 mg, 1, capsule, By Mouth, 2 times a day, PRN, # 60 capsule, Refills 3, Tot. Refills 3, Maintenance, for constipation, 01/16/20 16:20:00 EDT, Route to Pharmacy Electronically, [facility]/pharmacy #[id number], 166, cm, 12/31/19 10:08:00 EDT, Height, 118.5, kg, 1... Start Date: 01/16/20 Status: Ordered famotidine 20 mg oral tablet 20 mg, 1, tablet, By Mouth, 2 times a day, PRN, avoid eating and drinking for 10 minutes after eachdose. use as little as possible to control symptoms, # 180 tablet, Refills 0, Tot. Refills 0, Maintenance, heartburn, 08/05/20 12:25:00 EDT, Route to P... Start Date: 08/05/20 Stop Date: 11/03/20 Status: Ordered Heating Pad Heating Pad, See Instructions, # 1 each, Refills 0, Tot. Refills 0, Maintenance, Use as directed dx: M25.519 duration: lifetime, 08/27/20 10:22:00 EDT, Supply Start Date: 08/27/20 Status: Ordered lidocaine 5% topical ointment 1 application, Topically, 3 times a day, # 50 Gm, 2 Refills, Maintenance, 06/11/20 11:38:00 EST, Ointment, [facility]/pharmacy #[id number], Partial fill upon patient request if the prescription is for a schedule II opioid drug., 1 application Topically 3 times a d... Start Date: 06/11/20 Status: Ordered lisinopril 10 mg oral tablet 10 mg, 1, tablet, By Mouth, Daily, for 90 days, # 90 tablet, Refills 11, Tot. Refills 11, Hard Stop02/05/23 9:20:00 EDT, 02/21/20 9:20:00 EDT, [id number] 166, cm, 12/31/19 10:08:00 EDT, Height, 118.5, kg, 11... Start Date: 02/21/20 Stop Date: 02/05/23 Status: Ordered predniSONE 20 mg oral tablet 1 tablet = 20 mg, By Mouth, Daily, for 14 days, # 14 tablet, 0 Refills, Acute 09/30/20 10:34:00 EDT, 09/16/20 10:34:00 EDT, Tablet, [facility]/pharmacy #[id number], Partial fill upon patient request if the prescription is for a schedule II opioid drug., 166, cm, 0... Start Date: 09/16/20 Stop Date: 09/30/20 Status: Ordered Triple Antibiotic topical ointment 1 application, Topically, 2 times a day, Apply inside NOSE at bedtime, # 15 Gm, 0 Refills, Maintenance, 07/31/20 10:04:00 EDT, Ointment, [facility]/pharmacy #[id number], Partial fill upon patient request if the prescription is for a schedule II opioid drug., 1 trinh... Start Date: 07/31/20 Status: Ordered Problem List Condition Effective Dates Status Health Status Inform ant Impaired glucose tolerance(Confirmed) 09/14/09 Active Ankle joint pain(Confirmed) 09/14/09 Active [place] cardiac risk 10-2 0% in next /2019(Confirmed) 2019 Active Carpal tunnel syndrome(Confirmed) 2 Active [...]
--- OUTSIDE RECORDS SUMMARY | 2023-04-21 11:12 | XMS_ITS | Continuity of Care Document ---
Author Name Unknown Organization [facility] Address [address] [place] [address]- Care Team Providers Care Ground Support Equipment Mechanic Name Role Phone Belia Khoury MD Primary Care Physician [facility] Date[facility]s): 06/[facility]/21 - 07/01/21 [facility] [address], [place] [address] Allergies, Adverse Reactions, Alerts No Known Allergies [...] fluarix trivalent - 2Result Comment: [01/29/2013] Flulaval [id number]. VIS in [place]ican given. 3Admin Note: VIS 11/2011 4Admin Note: VIS GIVEN VIS DATE 12/07/10 5Admin Note: VIS GIVEN 12/22/09 sammarinese 6Admin Note: VIS GIVEN 7Admin Note: vis 02/20 8Admin Note: VIS GIVEN VIS DATE 12/23/08 9Admin Note: VIS given 10Admin Note: VIS given 11Admin Note: VIS given Medications acetaminophen 500 mg oral tablet 2 tablet = 1,000 mg, By Mouth, 3 times a day, PRN Pain , Mild, may use less, # 180 tablet, 1 Refills, Maintenance, 03/29/21 13:13:00 EST, [facility]/pharmacy #[id number], label in [place]ican, 175.26, cm, 03/26/21 11:10:00 EST, Height, 120.45, kg, 11/05/20 16:03:00 ED... Start Date: 03/29/21 Stop Date: 05/28/21 Status: Ordered apixaban 5 mg oral tablet 1 tablet = 5 mg, By Mouth, 2 times a day, # 60 tablet, 3 Refills, Maintenance, 03/29/21 13:15:00 EST, Tablet, [facility]/pharmacy #[id number], Partial fill upon patient request if the prescription is for a schedule II opioid drug., 175.26, cm, 03/26/21 11:10:00 ES... Start Date: 03/29/21 Status: Ordered atorvastatin 40 mg oral tablet 1 tablet, By Mouth, Daily, # 90 tablet, 3 Refills, [facility] STORE [id number], 175.26, cm, 03/26/21 11:10:00 EST, Height, 120.45, kg, 11/05/20 16:03:00 EDT, Dry Weight Start Date: 03/29/21 Status: Ordered Colace sodium 100 mg oral capsule 100 mg, 1, capsule, By Mouth, 2 times a day, PRN, # 60 capsule, Refills 3, Tot. Refills 3, Maintenance, for constipation, 03/29/21 13:13:00 EST, Route to Pharmacy Electronically, [facility]/pharmacy #[id number], 175.26, cm, 03/26/21 11:10:00 EST, Height, 120.45, k... Start Date: 03/29/21 Status: Ordered diclofenac 1% topical gel = 2 Gm, Topically, 4 times a day, # 100 Gm, 0 Refills, Maintenance, 11/25/20 11:18:00 EDT, Gel, [facility]/pharmacy #[id number], Partial fill upon patient request if the prescription is for a schedule II opioid drug., 175.26, cm, 11/25/20 9:57:00 EDT, Height, 120.... Start Date: 11/25/20 Status: Ordered esomeprazole 20 mg oral enteric coated capsule 1 capsule = 20 mg, By Mouth, 2 times a day, # 180 capsule, 0 Refills, Maintenance, 05/17/21 12:07:00 EST, [facility]/pharmacy #[id number], Partial fill upon patient request if the prescription is for a schedule II opioid drug., 175.26, cm, 05/11/21 9:25:00 EST, He... Start Date: 05/17/21 Status: Ordered Flonase 50 mcg/inh nasal spray 1 sprays, Nares, Both, 2 times a day, # 16 Gm, 0 Refills, Maintenance, 06/24/21 16:33:00 EST, [place], [facility]/pharmacy #[id number], Partial fill upon patient request if the prescription is for a schedule II opioid drug., 1 sprays Nares, Both 2 times a day, 175.2... Start Date: 06/24/21 Status: Ordered lidocaine 5% topical film 1 patch, Topically, Daily, PRN Pain , Mild, remove after 12 hours, # 30 patch, 0 Refills, Maintenance, 11/19/20 11:13:00 EDT, Film, [facility]/pharmacy #[id number], Partial fill upon patient request if the prescription is for a schedule II opioid drug., 1 patch To... Start Date: 11/19/20 Stop Date: 12/19/20 Status: Ordered lisinopril 20 mg oral tablet 1, tablet, By Mouth, Daily, # 90 tablet, Refills 1, Route to Pharmacy Electronically, [facility] STORE [id number], 175.26, cm, 02/03/21 10:48:00 EDT, Height, 120.45, kg, 11/05/20 16:03:00 EDT, Dry Weight Start Date: 03/02/21 Status: Ordered metoprolol 50 mg oral tablet, extended release 50 mg, 1, tablet, By Mouth, Daily, # 30 tablet, Refills 11, Tot. Refills 11, Maintenance, 06/05/21 9:01:00 EST, Route to Pharmacy Electronically, [facility]/pharmacy #[id number], Partial fill upon patient requestif the [...] EST, Supply Start Date: 06/03/21 Status: Ordered Problem List Condition Effective Dates Status Health Status Inform ant Impaired glucose tolerance(Confirmed) 09/14/09 Active Ankle joint pain(Confirmed) 09/14/09 Active [place] cardiac risk 10-2 0% in next 10 /2019(Confirmed) 2019 Active Atrial fibrillation, paroxysmal(Confirmed) Active COVID-19(Confirmed) [...]
--- OUTSIDE RECORDS SUMMARY | 2023-04-21 11:12 | XMS_ITS | Continuity of Care Document ---
Author Name Unknown Organization [facility] ter Address [address] [place] [address]- Care Team Providers Care Asset Protection Specialist Name Role Phone Belia Khoury MD Primary Care Physician Encounter [facility] Date(s): 10/26/20 - 12/01/[address] [address] Attending Physician: Delores Allen NP Admitting Physician: Delores Allen NP Referring Physician: Delores Allen NP Allergies, Adverse Reactions, Alerts Substance Reaction Severity [...] [03/24/2014] fluarix trivalent 2Result Comment: [01/29/2013] Flulaval [id number]. VIS in Polish given. 3Admin Note: VIS 11/2011 4Admin Note: VIS GIVEN VIS DATE 12/07/10 5Admin Note: VIS GIVEN 12/22/09 bruneian 6Admin Note: VIS GIVEN 7Admin Note: vis 02/20 8Admin Note: VIS GIVEN VIS DATE 12/23/08 9Admin Note: VIS given 10Admin Note: VIS given 11Admin Note: VIS given Medications acetaminophen 500 mg oral tablet 2 tablet = 1,000 mg, By Mouth, 3 times a day, PRN Pain , Mild, may use less, # 180 tablet, 1 Refills, Maintenance, 11/25/20 11:19:00 EDT, [facility]/pharmacy #[id number], label in Polish, 175.26, cm, 11/25/20 9:57:00 EDT, Height, 120.45, kg, 11/05/20 16:03:00 EDT... Start Date: 11/25/20 Stop Date: 01/24/21 Status: Ordered apixaban 5 mg oral tablet 1 tablet = 5 mg, By Mouth, 2 times a day, # 60 tablet, 3 Refills, Maintenance, 11/25/20 11:18:00 EDT, Tablet, [facility]/pharmacy #[id number], Partial fill upon patient request if the prescription is for a schedule II opioid drug., 175.26, cm, 11/25/20 9:57:00 EDT... Start Date: 11/25/20 Status: Ordered Colace sodium 100 mg oral capsule 100 mg, 1, capsule, By Mouth, 2 times a day, PRN, # 60 capsule, Refills 3, Tot. Refills 3, Maintenance, for constipation, 01/16/20 16:20:00 EDT, Route to Pharmacy Electronically, [facility]/pharmacy #[id number], 166, cm, 12/31/19 10:08:00 EDT, Height, 118.5, kg, 1... Start Date: 01/16/20 Status: Ordered diclofenac 1% topical gel = 2 Gm, Topically, 4 times a day, # 100 Gm, 0 Refills, Maintenance, 11/25/20 11:18:00 EDT, Gel, [facility]/pharmacy #[id number], Partial fill upon patient request [...] 0 Refills, Maintenance, 11/19/20 11:13:00 EDT, Film, [facility]/pharmacy #[id number], Partial fill upon patient request if the prescription is for a schedule II opioid drug., 1 patch To... Start Date: 11/19/20 Stop Date: 12/19/20 Status: Ordered lisinopril 10 mg oral tablet 10 mg, 1, tablet, By Mouth, Daily, for 90 days, # 90 tablet, Refills 11, Tot. Refills 11, Hard Stop02/05/23 9:20:00 EDT, 02/21/20 9:20:00 EDT, Route to Pharmacy Electronically, [facility]/pharmacy #[id number], 166, cm, 12/31/19 10:08:00 EDT, [...] 09/14/09 Active Ankle joint pain(Confirmed) 09/14/09 Active [place] cardiac risk 10-2 0% in next 10 /2019(Confirmed) 2019 Active Carpal tunnel syndrome(Confirmed) 2 [...]
--- OUTSIDE RECORDS SUMMARY | 2023-04-21 11:12 | XMS_ITS | Continuity of Care Document ---
Author Name Unknown Organization [facility] Address [address] [place] [address]- Care Team Providers Care Manager Cargo Name Role Phone Iraida WILSON, Belia Primary Care Physician [phone] Encounter [facility] Date(s): 02/24/23 - 03/03/23 [facility] [address], [place] [address] Attending Physician: Codi Christiansen MD Referring Physician: Belia Khoury MD Allergies, [...] fluarix trivalent - 2Result Comment: [01/29/2013] Flulaval [id number]. VIS in Polish given. 3Admin Note: VIS 11/2011 4Admin Note: VIS GIVEN VIS DATE 12/07/10 5Admin Note: VIS GIVEN 12/22/09 albanian 6Admin Note: VIS GIVEN 7Admin Note: vis 02/20 8Admin Note: VIS GIVEN VIS DATE 12/23/08 9Admin Note: VIS given 10Admin Note: VIS given 11Admin Note: VIS given Medications acetaminophen 500 mg oral tablet 2 tablet, By Mouth, 3 times a day, PRN NEEDED FOR PAIN X, # 180 tablet, 2 Refills, Maintenance, 01/26/23 10:16:00 EDT, [facility]acy [id number], label all scripts in Polish, 175.26, cm, 01/26/23 9:13:00 EDT, Height, 123, [...] 04/01/23 19:59:00 EST, 01/31/23 19:59:00 EDT, Capsule, [facility]/pharmacy #[id number], Partial fill upon patient request if the prescription is for a schedule II opioid drug., 175.26... Start Date: 01/31/23 Stop Date: 04/01/23 Status: Ordered clotrimazole 1% topical cream 1 application, Topically, 2 times a day, for rash, # 113 Gm, 1 Refills, Maintenance, 01/26/23 9:56:00 EDT, Cream, [facility]/pharmacy #[id number], Partial fill upon patient request if the prescription is for a schedule II opioid drug., 1 application Topically 2 ti... Start Date: 01/26/23 Stop Date: 03/27/23 Status: Ordered diclofenac 1% topical gel See Instructions, APPLY TO AFFECTED AREA 4 TIMES A DAY, # 100 Gm, 4 Refills, Maintenance, 11/09/22 16:41:00 EDT, [facility] STORE [id number], 25, APPLY TO AFFECTED AREA 4 TIMES A DAY, 175.26, cm, 10/03/22 10:48:00 EDT, Height, 123, kg, 07/16/21 13:01:00 EST, Dry... Start Date: 11/09/22 Status: Ordered docusate sodium 100 mg oral capsule 1 capsule, By Mouth, 2 times a day, PRN NEEDED, CONSTIPATION., # 60 capsule, 2 Refills, Maintenance, 01/18/23 15:57:00 EDT, [id number], 175.26, cm, 10/03/22 10:48:00 EDT, Height, 123, kg, 07/16/21 13:01:00 EST, Dry Weight Start Date: 01/18/23 Status: Ordered Eliquis 5 mg oral tablet 1 tablet, By Mouth, 2 times a day, atrial fibrillation, # 180 tablet, 11 Refills, Maintenance, 01/26/23 10:16:00 EDT, [facility]/pharmacy #[id number], label all scripts in Polish, 175.26, cm, 01/26/23 9:13:00 EDT, Height, 123, kg, 07/16/21 13:01:00 EST, Dry Weight Start Date: 01/26/23 Stop Date: 01/10/26 Status: Ordered esomeprazole 20 mg oral enteric coated capsule 1 capsule = 20 mg, By Mouth, 2 times a day, # 180 capsule, 2 Refills, Maintenance, 08/08/22 8:21:00EDT, [facility]/pharmacy #[id number], Partial fill upon patient request if the prescription is for a schedule IIopioid drug., 175.26, cm, 03/09/22 10:37:00 EDT, He... Start Date: 08/08/22 Status: Ordered fluticasone 50 mcg/inh nasal spray See Instructions, SPRAY 1 SPRAY INTO BOTH NARES DAILY X 30 DAYS NEEDED FOR ALLERGIES, # 48 mL, 0Refills, Maintenance, 04/11/22 5:24:00 EST, [facility]/pharmacy #[id number], 90, Office visit needed for furtherrefills., SPRAY 1 SPRAY INTO BOTH NARES DAILY X 30... Start Date: 04/11/22 Status: Ordered lisinopril 40 mg oral tablet 1 tablet, By Mouth, Daily, # 90 tablet, 11 Refills, Maintenance, 01/17/23 8:35:00 EDT, [facility]/pharmacy#2071, 175.26, cm, 10/03/22 10:48:00 EDT, Height, 123, kg, 07/16/21 13:01:00 EST, Dry Weight Start Date: 01/17/23 Stop Date: 01/01/26 Status: Ordered metoprolol 50 mg oral tablet, extended release 50 mg, 1, tablet, By Mouth, Daily, do not crush or chew (via cardiology in past), # 90 tablet, Refills 11, Tot. Refills 11, Maintenance, 01/26/23 10:16:00 EDT, Route to Pharmacy Electronically, [facility]/pharmacy #[id number], label all scripts in Polish, 175.26,... Start Date: 01/26/23 Stop Date: 01/10/26 Status: Ordered nystatin topical 536220 u/gm powder See Instructions, APPLY TO AFFECTED AREA 3 TIMES A DAY, # 60 Gm, 1 Refills, Maintenance, 01/26/23 10:16:00 EDT, [facility]/pharmacy #[id number], 30, label all scripts in Polish, APPLY TO AFFECTED AREA 3 TIMES A [...] 11 Refills, Maintenance, 01/26/23 10:25:00 EDT, Tablet, [facility]/pharmacy #207, 175.26, cm, 01/26/23 9:13:00 EDT, Height, 123, kg, 07/16/21 13:01:00 EST, Dry Weight Start Date: 01/26/23 Stop Date: 01/10/26 Status: Ordered tiZANidine 2 mg oral tablet 2 mg, 1, tablet, By Mouth, 3 times a day, # 15 tablet, Refills 0, Tot. Refills 0, Maintenance, 02/24/23 17:11:00 EDT, Route to Pharmacy Electronically, [facility]/pharmacy #[id number], Partial fill upon patient request [...] pending Rheumatolgoy as of Confirmed 02/2022 Active [place] cardiac risk 10-20% in next 10 /2019 1 Confirmed 2019 Active Atrial fibrillation, [...] oldest [Reference Range]: 1 Height 175.26 cm (02/24/23 4:26 PM) Oxygen Saturation [94-100 %] 99 % (02/24/23 4:26 PM) Pulse Rate [55-90 bpm] 74 bpm (02/24/23 4:26 PM) Blood Pressure [90-138/55-84 mm Hg] 133/ 98mm Hg (02/24/23 4:26 PM) Respiratory Rate [16-30 br/min] 24 br/mi n (02/24/23 4:26 PM) Temperature [96.8-100.4 DegF] 96.9 DegF (02/24/23 4:26 PM) Blood pressure sites Arm, right (02/24/23 4:26 PM) Temperature Route Temporal (02/24/23 4:26 PM) Social History Social History Type Response Smoking Status Never smoker entered on: 04/17/13 Sex Female Note * Elvi Cunningham: PERFORM, SIGN, VERIFY Event Display: Patient Education/Instruction Authored Date: [id number] [facility] *[facility] Clinical Summary Name HEYDI WILSON Age 62 Years 1960 PCP Iraida WILSON, Belia PCP Visit Date 02/24/2023 15:52:00 Additional Instructions: Scheduled Appointments?? Future Appointments ?[facility] ?Phone:??--?Fax:??-- ?Appt. Date:??02/27/2023?8:45 AM ?Scheduled Provider:??SN Ellie Walsh ?*[facility] ?Phone:??--?Fax:??-- ?Appt. Date:??02/28/2023?1:00 PM ?Scheduled Provider:??[facility] ?[facility] ?Phone:??--?Fax:??-- ?Appt. Date:??03/01/2023?1:20 PM ?Scheduled Provider:??[facility] ?*[facility] ?[address] ?[place],??[place],??[address] ?Phone:??--?Fax:??-- ?Appt. Date:??03/28/2023?9:00 AM ?Scheduled Provider:??Belia Khoury MD Follow-Up Instructions ?? Diagnosis Medications: Please continue your medications until treatment is completed or stopped by your provider. Discuss any questions related to medications with your provider. Medications to Continue with No Changes These medications were not printed or sent to your pharmacy Acetaminophen (acetaminophen 500 mg oral tablet) 2 tab(s) Oral 3 times a day as needed NEEDED FOR PAIN X for 30 Days. Refills: 2. Next Dose: apixaban (Eliquis 5 mg oral tablet) 1 tab(s) Oral twice a day for 90 Days. atrial fibrillation. Refills: 11. Next Dose: Ascorbic Acid (ascorbic acid 250 mg oral tablet) 1 tab(s) Oral Daily for 30 Days. Refills: 1. Next Dose: Cholecalciferol (cholecalciferol 1000 intl units oral capsule) 1 capsule Oral Daily for 60 Days. Refills: 0. Next Dose: Clotrimazole Topical (clotrimazole 1% topical cream) 1 trinh Topically twice a day for 30 Days. for rash. Refills: 1. Next Dose: Diclofenac Topical (diclofenac 1% topical gel) APPLY TO AFFECTED AREA 4 TIMES A DAY. Refills: 4. Next Dose: Docusate (docusate sodium 100 mg oral capsule) 1 capsule Oral twice a day as needed. CONSTIPATION..Refills: 2. Next Dose: Durable Medical Equipment (Bed pads XL disposable) Use TID Duration lifetime R32. Refills: 11. Next Dose: Durable Medical Equipment (Wipes for urinary incontinence) Use as needed Urinary incontinence Dx R32 Duration lifetime. Refills: 11. Next Dose: Esomeprazole (esomeprazole 20 mg oral enteric coated capsule) 1 capsule Oral twice a day. Refills: 2. Next Dose: Fluticasone Nasal (fluticasone 50 mcg/inh nasal spray) SPRAY 1 SPRAY INTO BOTH NARES DAILY X 30 DAYS NEEDED FOR ALLERGIES. Refills: 0. Next Dose: Lisinopril (lisinopril 40 mg oral tablet) 1 tab(s) Oral Daily for 90 Days. Refills: 11. Next Dose: Metoprolol (metoprolol 50 mg oral tablet, extended release) 1 tab(s) Oral Daily for 90 Days. do notcrush or chew (via cardiology in past). Refills: 11. Next Dose: Nystatin Topical (nystatin topical 127973 u/gm powder) APPLY TO AFFECTED AREA 3 TIMES A DAY. Refills: 1. Next Dose: Rosuvastatin (rosuvastatin 10 mg oral tablet) 1 tab(s) Oral Daily for 90 Days. Refills: 11. Next Dose: Allergy Info:?? NKA Medications Given This Visit Future Orders ?No future orders Vital Signs Height 175.26 cm Weight BMI Blood Pressure 133 mm Hg/98 mm Hg Temperature 96.9 DegF Pulse Rate 74 bpm Respiratory Rate 24 br/min 02 Sat Mode of Delivery 99 %/ You can now view a summary of your hospital visit from the comfort of your home through a free online portal called [employer]. [employer] is a website that allows you to securely view your medical information including discharge summary, medications and follow-up visits. ??You can alsosend a secure electronic message to your doctor???s office to request appointments, renew medications or just ask a question. You can enroll at [email or web address] or register during your next office visit. Disclaimer:?? The information provided is of a general nature and is intended to be used in conjunction with the recommendations and advice of your health care practitioner. ??Every effort has been made to ensure that the information provided is accurate and complete at the time it is provided to you however, as your needs change, or, as new ??information becomes available, different or additional instructions may be required. If you have questions, please consult with your primary care provider or pharmacist, as appropriate. ??This information is not intended to serve as substitution for assessment and evaluation by a qualified health care provider. If you do not have a primary care provider, you may find a [facility] provider by calling [facility] at [phone]. [facility], in keeping with [facility] guidance, no longer requires face masks for staff, patientsor visitors in most situations. Similar to time spent indoors at other locations, there is the chance that you were exposed to respiratory viruses during your time with us (such as flu or COVID-19).? If you develop symptoms concerning for a viral respiratory infection, please seek testing (and treatment if indicated) from your medical provider or home test kit. For information about the plan of care including goals and instructions for your diagnosis, please see the patient education orders section of this document. Patient Education Materials?? The content of this educational material or handout may have been modified, supplemented, or adapted from its original content and format to support your individualized medical care. Patient Care team information Care Team Personnel Name: Chang WILSON, Pattie Jorgensen Position: [facility] HEAD OF ACQUISITIONS MD Member Role: Lifetime Consulting Physician Address: Address: [address] [place] [address], [facility] [address] [place] [address]- Name: Belia Khoury MD Position: [facility] Physician - Primary Care Member Role: PCP Address: Address: [address] [place] [address]- Care Team Related Persons Name: IVETT MCGREGOR Address: home [address] [place] [address] Name: JOVANA PORTER Address: home [address] [place] [address] Name: SARA HERNÁNDEZ Address: home [address] [place] [address]
--- OUTSIDE RECORDS SUMMARY | 2023-04-21 11:12 | XMS_ITS | Continuity of Care Document ---
Author Name Unknown Organization [facility] Address [address] [place] [address] [address] [place] [address]- Care Team Providers Care Metal Bonding Helper Name Role Phone Belia Khoury MD Primary Care Physician [phone] [facility]counter [facility] Date[facility]): [facility]03[facility]19 - 05/13/19 [facility] [address] [place] [address]- [facility] Attending Physician: Admtr, Carolyn Admitting Physician: Admtr, Ar8 Referring Physician: Admtr, [...] fluarix trivalent 14-15 2Result Comment: [01/29/2013] Flulaval [id number]. VIS in [place] given. 3Admin Note: VIS 11/2011 4Admin Note: VIS GIVEN VIS DATE 12/07/10 5Admin Note: VIS GIVEN 12/22/09 gambian 6Admin Note: VIS GIVEN 7Admin Note: vis [...] EDT, Compound Start Date: 03/07/19 Status: Ordered Colace sodium 100 mg oral capsule 100 mg, 1, capsule, By Mouth, 2 times a day, PRN, # 60 capsule, Refills 3, Tot. Refills 3, Maintenance, for constipation, 04/01/19 14:24:00 EST, Route to Pharmacy Electronically, [id number], [facility]/pharmacy #[id number] Start Date: 04/01/19 Status: Ordered docusate sodium 100 mg oral capsule 100 mg, 1, capsule, By Mouth, 2 times a day, PRN, for 30 days, # 60 capsule, Refills 2, Tot. Refills 2, Acute 05/20/19 11:00:19 EST, for constipation, 02/19/19 11:00:19 EDT, Route to Pharmacy Electronically, [id number], [facility] Start Date: 02/19/19 Stop Date: 05/20/19 Status: Ordered famotidine 20 mg oral tablet 20 mg, 1, tablet, By Mouth, 2 times a day, PRN, # 90 tablet, Refills 11, Tot. Refills 11, Maintenance, heartburn, 10/30/18 9:32:00 EDT, Route to Pharmacy Electronically, [id number], [facility]/pharmacy #[id number] Start Date: 10/30/18 Status: Ordered [...] 10/30/18 9:32:01 EDT, Route to Pharmacy Electronically, [id number], [facility]/pharmacy #[id number] Start Date: 10/30/18 Stop Date: 10/14/21 Status: Ordered naproxen 250 mg oral tablet TOME RAY TABLETA POR V?A ORAL DOS VECES AL D?A Start Date: 02/19/19 Status: Ordered Sitz Bath See Instructions, # 1 each, Refills 0, Tot. Refills 0, Maintenance, soak 4-5 times a day for anal discomfort dx = anal fissure, 04/02/19 15:15:58 EST, Compound Start Date: 04/02/19 Status: Ordered Valium 5 mg oral tablet 5 mg, 1, tablet, By Mouth, 3 times a day, PRN, # 40 tablet, Refills 0, Tot. Refills 0, Maintenance,Anal Spasm, 04/01/19 14:24:00 EST, Route to Pharmacy Electronically, [id number], [facility]/pharmacy #[id number] Start Date: 04/01/19 Status: Ordered Problem List Condition Effective Dates [...]
--- OUTSIDE RECORDS SUMMARY | 2023-04-21 11:12 | XMS_ITS | Continuity of Care Document ---
Author Name Unknown Organization [facility] Address [address] [place] [address]- Care Team Providers Care Hospitalist Medical Director Name Role Phone Belia Khoury MD Primary Care Physician Encounter [facility] Date(s): 02/28/22 - 03/30/22 [facility] [address], [place] [address] Allergies, Adverse Reactions, Alerts No Known Allergies [...] fluarix trivalent 14- 2Result Comment: [01/29/2013] Flulaval [id number]. VIS in Angolan given. 3Admin Note: VIS 11/2011 4Admin Note: VIS GIVEN VIS DATE 12/07/10 5Admin Note: VIS GIVEN 12/22/09 indonesian 6Admin Note: VIS GIVEN 7Admin Note: vis 02/20 8Admin Note: VIS GIVEN VIS DATE 12/23/08 9Admin Note: VIS given 10Admin Note: VIS given 11Admin Note: VIS given Medications acetaminophen 500 mg oral tablet 2 tablet = 1,000 mg, By Mouth, 3 times a day, PRN Pain , Mild, may use less, # 180 tablet, 1 Refills, Maintenance, 02/22/22 13:35:00 EDT, [facility]/pharmacy #[id number], label in Angolan, 175.26, cm, 02/22/22 13:18:00 EDT, Height, 123, kg, 07/16/21 13:01:00 EST,... Start Date: 02/22/22 Stop Date: 04/23/22 Status: Ordered clotrimazole 1% topical cream 1 application, Topically, 2 times a day, for rash, # 113 Gm, 1 Refills, Maintenance, 03/23/22 10:07:00 EST, Cream, [facility]/pharmacy #[id number], Partial fill upon patient request if the prescription is for a schedule II opioid drug., 1 application Topically 2 t... Start Date: 03/23/22 Stop Date: 05/22/22 Status: Ordered diclofenac 1% topical gel See Instructions, APPLY TO AFFECTED AREA 4 TIMES A DAY, # 100 Gm, 4 Refills, Maintenance, 03/24/22 14:09:00 EST, [id number], 25, APPLY TO AFFECTED AREA 4 TIMES A DAY, 175.26, cm, 03/09/22 10:37:00 [...] 180 capsule, 1 Refills, Maintenance, 01/05/22 8:29:00EDT, [id number], Partial fill upon patient request [...] 1 Refills, Maintenance, 02/10/22 9:58:00 EDT, Ointment, [facility]/pharmacy #[id number], Partial fill upon patient request [...] 11 Refills, Maintenance, 01/04/22 9:39:00 EDT, Tablet, [facility]/pharmacy #[id number], Partial fill upon patient request if t... Start Date: 01/04/22 Stop Date: 12/19/24 Status: Ordered metoprolol 50 mg oral tablet, extended release 50 mg, 1, tablet, By Mouth, Daily, do not crush or chew (via cardiology in past), # 90 tablet, Refills 11, Tot. Refills 11, Maintenance, 02/22/22 13:36:00 EDT, Route to Pharmacy Electronically, [facility]/pharmacy #[id number], Partial fill upon patient request if... Start Date: 02/22/22 Stop Date: 02/06/25 Status: Ordered nystatin topical 025083 u/gm powder See Instructions, APPLY TO AFFECTED AREA 3 TIMES A DAY, # 60 Gm, 0 Refills, Maintenance, 03/22/22 20:50:00 EST, [id number], 30, APPLY TO AFFECTED AREA 3 TIMES A DAY, 175.26, cm, 03/09/22 10:37:00 EDT, Height, 123, kg, 07/16/21 13:01:00 EST, Dry W... Start Date: 03/22/22 Status: Ordered Problem List Condition Confirmation Course Effective Dates Status H ealth Status Informant Impaired glucose tolerance Confirmed 09/14/09 Active Ankle joint pain Confirmed 09/14/09 Active [place] cardiac risk 10-20% in next /2019 1 [...] A-C separation on x-ray in 2008 9on Social History Social History Type Response Smoking Status Never smoker entered on: 04/17/13 Sex Female Patient Care team information Care Team Personnel Name: Chang WILSON, Pattie Jorgensen Position: [facility] SAS DEVELOPER ANALYST MD Member Role: Lifetime Consulting Physician Address: Address: [address] [place] [address], [address] [facility] [place] [address]- Name: Belia Khoury MD Position: [facility] Primary Care Physician Member Role: PCP Address: Address: [address] [place] [address]- Care Team Related Persons Name: IVETT MCGREGOR Address: home [address] [place] [address] Name: JOVANA PORTER Address: home [address] [place] [address] Name: SARA HERNÁNDEZ Address: home [address] [place] [address]
--- OUTSIDE RECORDS SUMMARY | 2023-04-21 11:12 | XMS_ITS | Continuity of Care Document ---
Author Name Unknown Organization [facility] Address [address] [place] [address] [address], [address] [place] [address]- Care Team Providers Care Wildlife Veterinarian Name Role Phone Belia Khouyr MD Primary Care Physician [phone] Encounter [facility] Date(s): 05/24/21 - 09/03/21 [facility] [address] [place] [address] Drive, [address] [place] [address]- Attending Physician: Not on Staff, Attending MD Allergies, Adverse Reactions, Alerts No Known [...] fluarix trivalent - 2Result Comment: [01/29/2013] Flulaval [id number]. VIS in Russian given. 3Admin Note: VIS 11/2011 4Admin Note: VIS GIVEN VIS DATE 12/07/10 5Admin Note: VIS GIVEN 12/22/09 bolivian 6Admin Note: VIS GIVEN 7Admin Note: vis 02/20 8Admin Note: VIS GIVEN VIS DATE 12/23/08 9Admin Note: VIS given 10Admin Note: VIS given 11Admin Note: VIS given Medications acetaminophen 500 mg oral tablet 2 tablet = 1,000 mg, By Mouth, 3 times a day, PRN Pain , Mild, may use less, # 180 tablet, 1 Refills, Maintenance, 03/29/21 13:13:00 EST, [facility]/pharmacy #[id number], label in Russian, 175.26, cm, 03/26/21 11:10:00 EST, Height, 120.45, kg, 11/05/20 16:03:00 ED... Start Date: 03/29/21 Stop Date: 05/28/21 Status: Ordered Aqua Care 10% topical cream 1 application, Topically, Daily, PRN for dry skin, for 30 days, # 85 Gm, 0 Refills, Acute 09/12/21 14:36:00 EDT, 08/13/21 14:36:00 EDT, Cream, [facility]/pharmacy #[id number], Partial fill upon patient request ifthe prescription is for a schedule II opioid drug.,... Start Date: 08/13/21 Stop Date: 09/12/21 Status: Ordered atorvastatin 40 mg oral tablet 1 tablet, By Mouth, Daily, # 90 tablet, 3 Refills, [facility], 175.26, cm, 03/26/21 11:10:00 EST, Height, 120.45, kg, 11/05/20 16:03:00 EDT, Dry Weight Start Date: 03/29/21 Status: Ordered diclofenac 1% topical gel 1 application, Topically, 4 times a day, # 100 Gm, 0 Refills, Maintenance, 08/13/21 14:33:00 EDT, Gel, [facility]/pharmacy #[id number], Partial fill upon patient request if the prescription is for a schedule II opioid drug., 175.26, cm, 08/13/21 14:16:00 EDT, [facility]... Start Date: 08/13/21 Status: Ordered docusate sodium 100 mg oral capsule 1 capsule, By Mouth, 2 times a day, PRN NEEDED FOR CONSTIPATION, # 60 capsule, 3 Refills, [facility], 175.26, cm, 07/16/21 13:01:00 EST, Height, 123, kg, 07/16/21 13:01:00 EST, Dry Weight Start Date: 07/20/21 Status: Ordered Eliquis 5 mg oral tablet 1 tablet, By Mouth, 2 times a day, # 60 tablet, 11 Refills, [facility], 175.26, cm, 07/16/21 13:01:00 EST, Height, 123, kg, 07/16/21 13:01:00 EST, Dry Weight Start Date: 07/20/21 Status: Ordered esomeprazole 20 mg oral enteric coated capsule 1 capsule = 20 mg, By Mouth, 2 times a day, # 180 capsule, 1 Refills, Maintenance, 08/17/21 7:48:00EDT, [facility]/pharmacy #[id number], Partial fill upon patient request if the prescription is for a schedule IIopioid drug., 175.26, cm, 08/13/21 14:16:00 EDT, He... Start Date: 08/17/21 Status: Ordered fluticasone 50 mcg/inh nasal spray See Instructions, SPRAY 1 SPRAY IN BOTH NOSTRILS DAILY, # 16 mL, 0 Refills, [facility], 30, SPRAY 1 SPRAY IN BOTH NOSTRILS DAILY, 175.26, cm, 07/28/21 11:01:00 EDT, Height, 123, kg, 07/16/21 13:01:00 EST, Dry Weight Start Date: 08/13/21 Status: Ordered fluticasone CFC free 44 mcg/inh inhalation aerosol 2 puffs, Inhalation, 2 times a day, bolivian label, # 10.6 Gm, 0 Refills, Maintenance, 07/28/21 13:26:00 EDT, Aerosol, [facility]/pharmacy #[id number], Partial fill upon patient request if the prescription is for a schedule II opioid drug., 175.26, cm, 07/28/21 11:... Start Date: 07/28/21 Status: Ordered lisinopril 20 mg oral tablet 1, tablet, By Mouth, Daily, # 90 tablet, Refills 1, Route to Pharmacy Electronically, [facility], 175.26, cm, 02/03/21 10:48:00 EDT, Height, 120.45, kg, 11/05/20 16:03:00 EDT, Dry Weight Start Date: 03/02/21 Status: Ordered LORazepam 0.5 mg oral tablet 0.5 tablet = 0.25 mg, By Mouth, Once, prior to MRI. May cause drowsiness. do not drive, # 0.5 tablet, 0 Refills, Soft Stop, 07/26/21 10:17:00 EDT, Tablet, [facility]/pharmacy #2071, Partial fill upon patient request if the prescription is for a schedule II o... Start Date: 07/26/21 Status: Ordered metoprolol 50 mg oral tablet, extended release 50 mg, 1, tablet, By Mouth, Daily, # 30 tablet, Refills 11, Tot. Refills 11, Maintenance, 06/05/21 9:01:00 EST, Route to Pharmacy Electronically, [facility]/pharmacy #[id number], Partial fill upon patient requestif the [...] 20 mL, By Mouth, Every 4 hours, bolivian label not to exceed 6 doses/day, # 180 mL, 0 Refills, Maintenance, 07/28/21 13:25:00 EDT, [facility]/pharmacy #[id number], Partial fill upon patient request if the prescription is for a schedule II opioid drug., 20 mL By Mo... Start Date: 07/28/21 Status: Ordered Problem List Condition Effective Dates Status Health Status Inform ant Impaired glucose tolerance(Confirmed) 09/14/09 Active Ankle joint pain(Confirmed) 09/14/09 Active [place] cardiac risk 10-2 0% in next 10 [...]
--- OUTSIDE RECORDS SUMMARY | 2023-04-21 11:12 | XMS_ITS | Continuity of Care Document ---
Author Name Unknown Organization [facility] Address [address] [place] [address]- Care Team Providers Care Folder Seamer Name Role Phone Belia Khoury MD Primary Care Physician [phone] Encounter [facility] Date(s): 08/26/20 - 09/25/20 [facility] [address] [place], [place] [address] Allergies, Adverse Reactions, Alerts Substance Reaction Severity [...] [03/24/2014] fluarix trivalent 2Result Comment: [01/29/2013] Flulaval [id number]. VIS in Belgian given. 3Admin Note: VIS 11/2011 4Admin Note: VIS GIVEN VIS DATE 12/07/10 5Admin Note: VIS GIVEN 12/22/09 belgian 6Admin Note: VIS GIVEN 7Admin Note: vis 02/20 8Admin Note: VIS GIVEN VIS DATE 12/23/08 9Admin Note: VIS given 10Admin Note: VIS given 11Admin Note: VIS given Medications acetaminophen 500 mg oral tablet 2 tablet = 1,000 mg, By Mouth, 3 times a day, PRN Pain , Mild, may use less, # 180 tablet, 1 Refills, Maintenance, 01/16/20 15:18:00 EDT, [facility]/pharmacy #[id number], label in Belgian, 166, cm, 12/31/19 10:08:00 EDT, Height, 118.5, kg, 04/01/19 12:45:00 EST, D... Start Date: 01/16/20 Stop Date: 03/16/20 Status: Ordered Colace sodium 100 mg oral capsule 100 mg, 1, capsule, By Mouth, 2 times a day, PRN, # 60 capsule, Refills 3, Tot. Refills 3, Maintenance, for constipation, 01/16/20 16:20:00 EDT, Route to Pharmacy Electronically, [facility]/pharmacy #[id number], 166, cm, 12/31/19 10:08:00 EDT, [...] 2 Refills, Maintenance, 06/11/20 11:38:00 EST, Ointment, [facility]/pharmacy #[id number], Partial fill [...] 02/21/20 9:20:00 EDT, Route to Pharmacy Electronically, [facility]/pharmacy #[id number], 166, cm, 12/31/19 10:08:00 EDT, Height, 118.5, kg, 11... Start Date: 02/21/20 Stop Date: 02/05/23 Status: Ordered predniSONE 20 mg oral tablet 1 tablet = 20 mg, By Mouth, Daily, for 14 days, # 14 tablet, 0 Refills, Acute 09/30/20 10:34:00 EDT, 09/16/20 10:34:00 EDT, Tablet, [facility]/pharmacy #[id number], Partial fill upon patient request if the prescription is for a schedule II opioid drug., 166, cm, 0... Start Date: 09/16/20 Stop Date: 09/30/20 Status: Ordered Triple Antibiotic topical ointment 1 application, Topically, 2 times a day, Apply inside NOSE at bedtime, # 15 Gm, 0 Refills, Maintenance, 07/31/20 10:04:00 EDT, Ointment, [facility]/pharmacy #[id number], Partial fill upon patient request if the prescription is for a schedule II opioid drug., 1 trinh... Start Date: 07/31/20 Status: Ordered Problem List Condition Effective Dates Status Health Status Inform ant Impaired glucose tolerance(Confirmed) 09/14/09 Active Ankle joint pain(Confirmed) 09/14/09 Active [place] cardiac risk 10-2 0% in next 10 [...] in 10 years. maintain a high-fiber diet. goarn 12/01/2010 7X-rays 2007 c/w early OA. 8Rt A-C separation on x-ray in 2008 Social History Social History Type Response Smoking Status Never smoker entered on: 04/17/13 Sex Female
--- OUTSIDE RECORDS SUMMARY | 2023-04-21 11:12 | XMS_ITS | Continuity of Care Document ---
Author Name Unknown Organization [facility] Address [address] [place] [address]- Care Team Providers Care Linux Programmer Name Role Phone Belia Khoury MD Primary Care Physician [phone] Encounter [facility] Date(s): 01/08/21 - 02/07/[address] [address] Attending Physician: AdmCarolyn bethea Admitting Physician: AdmtrCarolyn Referring Physician: Admtr, [id number] Allergies, Adverse Reactions, [...] fluarix trivalent 14- 2Result Comment: [01/29/2013] Flulaval [id number]. VIS in Azeri given. 3Admin Note: VIS 11/2011 4Admin Note: VIS GIVEN VIS DATE 12/07/10 5Admin Note: VIS GIVEN 12/22/09 nepali 6Admin Note: VIS GIVEN 7Admin Note: vis [...] 11/25/20 11:19:00 EDT, [id number], label in Azeri, 175.26, cm, 11/25/20 [...] 01/16/20 16:20:00 EDT, Route to Pharmacy Electronically, [facility]/pharmacy #[id number], 166, cm, 12/31/19 10:08:00 EDT, Height, 118.5, kg, 1... Start Date: 01/16/20 Status: Ordered diclofenac 1% topical gel = 2 Gm, Topically, 4 times a day, # 100 Gm, 0 Refills, Maintenance, 11/25/20 11:18:00 EDT, Gel, [facility]/pharmacy #[id number], Partial fill upon patient request [...] 0 Refills, Maintenance, 11/19/20 11:13:00 EDT, Film, [facility]/pharmacy #[id number], Partial fill upon patient request if the prescription is for a schedule II opioid drug., 1 patch To... Start Date: 11/19/20 Stop Date: 12/19/20 Status: Ordered lisinopril 20 mg oral tablet 20 mg, 1, tablet, By Mouth, Daily, dose change, # 30 tablet, Refills 3, Tot. Refills 3, Maintenance, 12/10/20 12:11:00 EDT, Route to Pharmacy Electronically, [facility]/pharmacy #[id number], Partial fill upon patient request if the prescription is for a schedule I... Start Date: 12/10/20 Stop Date: 04/09/21 Status: Ordered metoprolol 50 mg oral tablet, extended release 50 mg, 1, tablet, By Mouth, Daily, # 30 tablet, Refills 5, Tot. Refills 5, Maintenance, 12/31/20 15:17:00 EDT, Route to Pharmacy Electronically, [facility]/pharmacy #[id number], Partial fill upon patient request if the [...] 09/14/09 Active Ankle joint pain(Confirmed) 09/14/09 Active [place] cardiac risk 10-2 0% in next 10 [...] Left with Pos EMG study 3achilles on 2016 MRI,seeing [facility] 4per Dermatology 2009 or so [...]
--- OUTSIDE RECORDS SUMMARY | 2023-04-21 11:12 | XMS_ITS | Continuity of Care Document ---
Author Name Unknown Organization [facility] Address [address] [place] [address]- Care Team Providers Care Diagnostics Tech Name Role Phone Belia Khoury MD Primary Care Physician [phone] Encounter [facility] Date(s): 08/27/20 - 09/26/20 [facility] [address] [address] Allergies, Adverse Reactions, Alerts Substance Reaction [...] fluarix trivalent - 2Result Comment: [01/29/2013] Flulaval [id number]. VIS in Amharic given. 3Admin Note: VIS 11/2011 4Admin Note: VIS GIVEN VIS DATE 12/07/10 5Admin Note: VIS GIVEN 12/22/09 brazilian 6Admin Note: VIS GIVEN 7Admin Note: vis 02/20 8Admin Note: VIS GIVEN VIS DATE 12/23/08 9Admin Note: VIS given 10Admin Note: VIS given 11Admin Note: VIS given Medications acetaminophen 500 mg oral tablet 2 tablet = 1,000 mg, By Mouth, 3 times a day, PRN Pain , Mild, may use less, # 180 tablet, 1 Refills, Maintenance, 01/16/20 15:18:00 EDT, [facility]/pharmacy #[id number], label in Amharic, 166, cm, 12/31/19 10:08:00 EDT, Height, 118.5, kg, 04/01/19 12:45:00 EST, D... Start Date: 01/16/20 Stop Date: 03/16/20 Status: Ordered Colace sodium 100 mg oral capsule 100 mg, 1, capsule, By Mouth, 2 times a day, PRN, # 60 capsule, Refills 3, Tot. Refills 3, Maintenance, for constipation, 01/16/20 16:20:00 EDT, Route to Pharmacy Electronically, [facility]/pharmacy #[id number], 166, cm, 12/31/19 10:08:00 EDT, Height, [...] 2 Refills, Maintenance, 06/11/20 11:38:00 EST, Ointment, [facility]/pharmacy #[id number], Partial fill upon patient request if the prescription is for a schedule II opioid drug., 1 application Topically 3 times a d... Start Date: 06/11/20 Status: Ordered lisinopril 10 mg oral tablet 10 mg, 1, tablet, By Mouth, Daily, for 90 days, # 90 tablet, Refills 11, Tot. Refills 11, Hard Stop02/05/23 9:20:00 EDT, 02/21/20 9:20:00 EDT, [id number], 166, cm, 12/31/19 10:08:00 EDT, Height, 118.5, kg, 11... Start Date: 02/21/20 Stop Date: 02/05/23 Status: Ordered predniSONE 20 mg oral tablet 1 tablet = 20 mg, By Mouth, Daily, for 14 days, # 14 tablet, 0 Refills, Acute 09/30/20 10:34:00 EDT, 09/16/20 10:34:00 EDT, Tablet, [facility]/pharmacy #[id number], Partial fill upon patient request if the prescription is for a schedule II opioid drug., 166, cm, 0... Start Date: 09/16/20 Stop Date: 09/30/20 Status: Ordered Triple Antibiotic topical ointment 1 application, Topically, 2 times a day, Apply inside NOSE at bedtime, # 15 Gm, 0 Refills, Maintenance, 07/31/20 10:04:00 EDT, Ointment, [facility]/pharmacy #[id number], Partial fill upon patient request if the prescription is for a schedule II opioid drug., 1 trinh... Start Date: 07/31/20 Status: Ordered Problem List Condition Effective Dates Status Health Status Inform ant Impaired glucose tolerance(Confirmed) 09/14/09 Active Ankle joint pain(Confirmed) 09/14/09 Active [place] cardiac risk 10-2 0% in next /2019(Confirmed) [...]
--- OUTSIDE RECORDS SUMMARY | 2023-04-21 11:12 | XMS_ITS | Continuity of Care Document ---
Author Name Unknown Organization [facility] Address [address] [place] [address]- Care Team Providers Care Lead Machinist Name Role Phone Belia Khoury MD Primary Care Physician Encounter [facility] Date(s): 10/02/20 - 12/03/20 [facility] [address] [place] [address]- Attending Physician: Belia Khoury MD Admitting Physician: [...] [03/24/2014] fluarix trivalent 2Result Comment: [01/29/2013] Flulaval [id number]. VIS in Andorran given. 3Admin Note: VIS 11/2011 4Admin Note: [...] 1 Refills, Maintenance, 11/25/20 11:19:00 EDT, [facility]/pharmacy #[id number], label in Andorran, 175.26, cm, 11/25/20 9:57:00 EDT, Height, 120.45, kg, 11/05/20 16:03:00 EDT... Start Date: 11/25/20 Stop Date: 01/24/21 Status: Ordered apixaban 5 mg oral tablet 1 tablet = 5 mg, By Mouth, 2 times a day, # 60 tablet, 3 Refills, Maintenance, 11/25/20 11:18:00 EDT, Tablet, [facility]/pharmacy #[id number], Partial fill upon patient [...] 16:20:00 EDT, Route to Pharmacy Electronically, [facility]/pharmacy #[id number], 166, cm, 12/31/19 10:08:00 EDT, Height, 118.5, kg, 1... Start Date: 01/16/20 Status: Ordered diclofenac 1% topical gel = 2 Gm, Topically, 4 times a day, # 100 Gm, 0 Refills, Maintenance, 11/25/20 11:18:00 EDT, Gel, [facility]/pharmacy #[id number], Partial fill upon patient [...] Refills, Maintenance, 11/19/20 11:13:00 EDT, Film, [facility]/pharmacy #[id number], Partial fill upon patient request if the prescription is for a schedule II opioid drug., 1 patch To... Start Date: 11/19/20 Stop Date: 12/19/20 Status: Ordered lisinopril 10 mg oral tablet 10 mg, 1, tablet, By Mouth, Daily, for 90 days, # 90 tablet, Refills 11, Tot. Refills 11, Hard Stop02/05/23 9:20:00 EDT, 02/21/20 9:20:00 EDT, Route to Pharmacy Electronically, [facility]/pharmacy #[id number], 166, cm, 12/31/19 10:08:00 EDT, [...] 09/14/09 Active Ankle joint pain(Confirmed) 09/14/09 Active [place] cardiac risk 10-2 0% in next /2019(Confirmed) [...]
--- OUTSIDE RECORDS SUMMARY | 2023-04-21 11:12 | XMS_ITS | Continuity of Care Document ---
Author Name Unknown Organization [facility] Address [address] [place] [address] [address], [address] [place] [address]- Care Team Providers Care Senior Quality Analyst Name Role Phone Belia Khoury MD Primary Care Physician [phone] Encounter [facility] Date(s): 02/03/21 - 03/05/21 [facility] [address] [place] [address], [address] [place], [place] [address] Attending Physician: Admtr, [id number] Admitting Physician: Admtr, Ar8 Referring Physician: Admtr, [...] fluarix trivalent - 2Result Comment: [01/29/2013] Flulaval [id number]. VIS in Egyptian given. 3Admin Note: VIS 11/2011 4Admin Note: VIS GIVEN VIS DATE 12/07/10 5Admin Note: VIS GIVEN 12/22/09 guatemalan 6Admin Note: VIS GIVEN 7Admin Note: vis [...] 11/25/20 11:19:00 EDT, [id number], label in Egyptian, 175.26, cm, 11/25/20 9:57:00 EDT, Height, 120.45, [...] 01/16/20 16:20:00 EDT, Route to Pharmacy Electronically, [facility]/pharmacy #[id number], 166, cm, 12/31/19 10:08:00 EDT, Height, 118.5, kg, 1... Start Date: 01/16/20 Status: Ordered diclofenac 1% topical gel = 2 Gm, Topically, 4 times a day, # 100 Gm, 0 Refills, Maintenance, 11/25/20 11:18:00 EDT, Gel, [facility]/pharmacy #[id number], Partial fill upon patient request [...] 0 Refills, Maintenance, 11/19/20 11:13:00 EDT, Film, [facility]/pharmacy #[id number], Partial fill upon patient request if the prescription is for a schedule II opioid drug., 1 patch To... Start Date: 11/19/20 Stop Date: 12/19/20 Status: Ordered lisinopril 20 mg oral tablet 1, tablet, By Mouth, Daily, # 90 tablet, Refills 1, Route to Pharmacy Electronically, [facility], 175.26, cm, 02/03/21 10:48:00 EDT, Height, 120.45, kg, 11/05/20 16:03:00 EDT, Dry Weight Start Date: 03/02/21 Status: Ordered metoprolol 50 mg oral tablet, extended release 50 mg, 1, tablet, By Mouth, Daily, # 30 tablet, Refills 5, Tot. Refills 5, Maintenance, 12/31/20 15:17:00 EDT, Route to Pharmacy Electronically, [facility]/pharmacy #[id number], Partial fill upon patient request if the [...] 09/14/09 Active Ankle joint pain(Confirmed) 09/14/09 Active [place] cardiac risk 10-2 0% in next 10 [...] colonoscopy(Confirmed) 6 11/09/10 [facility]/01[facility]19 Active Hyperlipidemia(Confirmed) 09/14/09 Active [...]
--- OUTSIDE RECORDS SUMMARY | 2023-04-21 11:12 | XMS_ITS | Continuity of Care Document ---
Author Name Unknown Organization [facility] Address [address] [place] [address]- Care Team Providers Care Academy Director Name Role Phone Belia Khoury MD Primary Care Physician [facility]counter [facility] Date(s): 01/31/23 - 03/02/23 [facility] [address], [place] [address] Allergies, Adverse Reactions, Alerts No Known [...] fluarix trivalent 14- 2Result Comment: [01/29/2013] Flulaval [id number]. VIS in Luxembourger given. 3Admin Note: VIS 11/2011 4Admin Note: VIS GIVEN VIS DATE 12/07/10 5Admin Note: VIS GIVEN 12/22/09 belizean 6Admin Note: VIS GIVEN 7Admin Note: vis 02/20 8Admin Note: VIS GIVEN VIS DATE 12/23/08 9Admin Note: VIS given 10Admin Note: VIS given 11Admin Note: VIS given Medications acetaminophen 500 mg oral tablet 2 tablet, By Mouth, 3 times a day, PRN NEEDED FOR PAIN X, # 180 tablet, 2 Refills, Maintenance, 01/26/23 10:16:00 EDT, [facility]/pharmacy #[id number], label all scripts in [place]bour[place], 175.26, cm, 01/26/23 9:13:00 EDT, Height, 123, kg, 07/16/21 13:01:00 EST, Dry W... Start Date: 01/26/23 Stop Date: 04/26/23 Status: Ordered ascorbic acid 250 mg oral tablet 1 tablet = 250 mg, By Mouth, Daily, for 30 days, # 30 tablet, 1 Refills, Acute 04/01/23 19:59:00 EST, 01/31/23 19:59:00 EDT, Tablet, [facility]/pharmacy #[id number], Partial fill upon patient [...] 04/01/23 19:59:00 EST, 01/31/23 19:59:00 EDT, Capsule, [facility]/pharmacy #[id number], Partial fill upon patient request if the prescription is for a schedule II opioid drug., 175.26... Start Date: 01/31/23 Stop Date: 04/01/23 Status: Ordered clotrimazole 1% topical cream 1 application, Topically, 2 times a day, for rash, # 113 Gm, 1 Refills, Maintenance, 01/26/23 9:56:00 EDT, Cream, [facility]/pharmacy #[id number], Partial fill upon patient request if the prescription is for a schedule II opioid drug., 1 application Topically 2 ti... Start Date: 01/26/23 Stop Date: 03/27/23 Status: Ordered diclofenac 1% topical gel See Instructions, APPLY TO AFFECTED AREA 4 TIMES A DAY, # 100 Gm, 4 Refills, Maintenance, 11/09/22 16:41:00 EDT, [facility], 25, APPLY TO AFFECTED AREA 4 TIMES A DAY, 175.26, cm, 10/03/22 10:48:00 EDT, Height, 123, kg, 07/16/21 13:01:00 EST, Dry... Start Date: 11/09/22 Status: Ordered docusate sodium 100 mg oral capsule 1 capsule, By Mouth, 2 times a day, PRN NEEDED, CONSTIPATION., # 60 capsule, 2 Refills, Maintenance, 01/18/23 15:57:00 EDT, [facility], 175.26, cm, 10/03/22 10:48:00 EDT, Height, 123, kg, 07/16/21 13:01:00 EST, Dry Weight Start Date: 01/18/23 Status: Ordered Eliquis 5 mg oral tablet 1 tablet, By Mouth, 2 times a day, atrial fibrillation, # 180 tablet, 11 Refills, Maintenance, 01/26/23 10:16:00 EDT, [facility]/pharmacy #[id number], label all scripts in [place], 175.26, cm, 01/26/23 9:13:00 EDT, Height, 123, kg, 07/16/21 13:01:00 EST, Dry Weight Start Date: 01/26/23 Stop Date: 01/10/26 Status: Ordered esomeprazole 20 mg oral enteric coated capsule 1 capsule = 20 mg, By Mouth, 2 times a day, # 180 capsule, 2 Refills, Maintenance, 08/08/22 8:21:00EDT, [facility]/pharmacy #[id number], Partial fill upon patient request if the prescription is for a schedule IIopioid drug., 175.26, cm, 03/09/22 10:37:00 EDT, He... Start Date: 08/08/22 Status: Ordered fluticasone 50 mcg/inh nasal spray See Instructions, SPRAY 1 SPRAY INTO BOTH NARES DAILY X 30 DAYS NEEDED FOR ALLERGIES, # 48 mL, 0Refills, Maintenance, 04/11/22 5:24:00 EST, [facility]/pharmacy #[id number], 90, Office visit needed for furtherrefills., SPRAY 1 SPRAY INTO BOTH NARES DAILY X 30... Start Date: 04/11/22 Status: Ordered lisinopril 40 mg oral tablet 1 tablet, By Mouth, Daily, # 90 tablet, 11 Refills, Maintenance, 01/17/23 8:35:00 EDT, [facility]/pharmacy#207, 175.26, cm, 10/03/22 10:48:00 EDT, Height, 123, kg, 07/16/21 13:01:00 EST, Dry Weight Start Date: 01/17/23 Stop Date: 01/01/26 Status: Ordered metoprolol 50 mg oral tablet, extended release 50 mg, 1, tablet, By Mouth, Daily, do not crush or chew (via cardiology in past), # 90 tablet, Refills 11, Tot. Refills 11, Maintenance, 01/26/23 10:16:00 EDT, Route to Pharmacy Electronically, [facility]/pharmacy #[id number], label all scripts in [place], 175.26,... Start Date: 01/26/23 Stop Date: 01/10/26 Status: Ordered nystatin topical 341921 u/gm powder See Instructions, APPLY TO AFFECTED AREA 3 TIMES A DAY, # 60 Gm, 1 Refills, Maintenance, 01/26/23 10:16:00 EDT, [facility]/pharmacy #[id number], 30, label all scripts in [place], APPLY TO AFFECTED AREA 3 TIMES A [...] Refills, Maintenance, 01/26/23 10:25:00 EDT, Tablet, [facility]/pharmacy #[id number], 175.26, cm, 01/26/23 9:13:00 EDT, Height, 123, kg, 07/16/21 13:01:00 EST, Dry Weight Start Date: 01/26/23 Stop Date: 01/10/26 Status: Ordered tiZANidine 2 mg oral tablet 2 mg, 1, tablet, By Mouth, 3 times a day, # 15 tablet, Refills 0, Tot. Refills 0, Maintenance, 02/24/23 17:11:00 EDT, Route to Pharmacy Electronically, [facility]/pharmacy #[id number], Partial fill upon patient [...] pending Rheumatolgoy as of Confirmed 02/2022 Active [place] cardiac risk 10-20% in next 10 /2019 [...] Team Personnel Name: Pattie Downing MD Position: [facility] COMIC ILLUSTRATOR Member Role: Lifetime Consulting Physician Address: Address: [address], [address] [facility] [place] [address]- Name: Belia Khoury MD Position: [facility] Physician - Primary Care Member Role: PCP Address: Address: [address] [place] [address]- Care Team Related Persons Name: IVETT MCGREGOR Address: home [address] [place] [address] Name: JOVANA PORTER Address: home [address] [place] [address] Name: SARA HERNÁNDEZ Address: home [address] [place] [address]
--- OUTSIDE RECORDS SUMMARY | 2023-04-21 11:12 | XMS_ITS | Continuity of Care Document ---
Author Name Unknown Organization [facility] Address [address] [place] [address]- Care Team Providers Care Fountain Roller Assembler Name Role Phone Belia Khoury MD Primary Care Physician Encounter [facility] Date(s): 01/04/22 - 02/03/22 [facility] [address] [place] [address]- Allergies, Adverse Reactions, Alerts No Known Allergies [...] 8 01/29/09 Given Tet/Diphth/Acel, Pertussis (oldterm) 9 1/2/09 Gi candi Influenza Virus Vaccine (oldterm) 10 06/08/07 Give n Influenza Virus Vaccine (oldterm) 11 02/21/06 Give n 1Result Comment: [03/24/2014] fluarix trivalent - 2Result Comment: [01/29/2013] Flulaval [id number]. VIS in Latvian given. 3Admin Note: VIS 11/2011 4Admin Note: VIS GIVEN VIS DATE 12/07/10 5Admin Note: VIS GIVEN 12/22/09 nigerian 6Admin Note: VIS GIVEN 7Admin Note: vis 02/20 8Admin Note: VIS GIVEN VIS DATE 12/23/08 9Admin Note: VIS given 10Admin Note: VIS given 11Admin Note: VIS given Medications acetaminophen 500 mg oral tablet 2 tablet = 1,000 mg, By Mouth, 3 times a day, PRN Pain , Mild, may use less, # 180 tablet, 1 Refills, Maintenance, 03/29/21 13:13:00 EST, [facility]/pharmacy #[id number], label in Latvian, 175.26, cm, 03/26/21 11:10:00 EST, Height, 120.45, kg, 11/05/20 16:03:00 ED... Start Date: 03/29/21 Stop Date: 05/28/21 Status: Ordered clotrimazole 1% topical cream 1 application, Topically, 2 times a day, for rash, # 113 Gm, 1 Refills, Maintenance, 11/22/21 10:29:00 EDT, Cream, [facility]/pharmacy #[id number], Partial fill upon patient request if the prescription is for a schedule II opioid drug., 1 application Topically 2 t... Start Date: 11/22/21 Stop Date: 01/21/22 Status: Ordered diclofenac 1% topical gel See Instructions, APPLY TO AFFECTED AREA 4 TIMES A DAY, # 100 Gm, 0 Refills, [id number], 25, APPLY TO AFFECTED AREA 4 TIMES A DAY, 175.26, cm, 11/22/21 9:44:00 EDT, Height, 123, kg, 07/16/21 13:01:00 EST, Dry Weight Start Date: 12/03/21 Status: Ordered docusate sodium 100 mg oral capsule 1 capsule, By Mouth, 2 times a day, PRN NEEDED FOR CONSTIPATION, # 60 capsule, 3 Refills, [facility], 175.26, cm, 07/16/21 13:01:00 EST, Height, 123, kg, 07/16/21 13:01:00 EST, Dry Weight Start Date: 07/20/21 Status: Ordered Eliquis 5 mg oral tablet 1 tablet, By Mouth, 2 times a day, # 60 tablet, 11 Refills, [facility], 175.26, cm, 07/16/21 13:01:00 EST, Height, 123, kg, 07/16/21 13:01:00 EST, Dry Weight Start Date: 07/20/21 Status: Ordered esomeprazole 20 mg oral enteric coated capsule 1 capsule = 20 mg, By Mouth, 2 times a day, # 180 capsule, 1 Refills, Maintenance, 01/05/22 8:29:00EDT, [facility]/pharmacy #[id number], Partial fill upon patient request if the prescription is for a schedule IIopioid drug., 175.26, cm, 01/04/22 8:53:00 EDT, Hei... Start Date: 01/05/22 Status: Ordered fluticasone 50 mcg/inh nasal spray See Instructions, SPRAY 1 SPRAY IN BOTH NOSTRILS DAILY, # 16 mL, 0 Refills, [facility], 30, SPRAY 1 SPRAY IN BOTH NOSTRILS DAILY, 175.26, cm, 07/28/21 11:01:00 EDT, Height, 123, kg, 07/16/21 13:01:00 EST, Dry Weight Start Date: 08/13/21 Status: Ordered lisinopril 40 mg oral tablet 1 tablet = 40 mg, By Mouth, Daily, as of increased dose from 20 to 40 - cancel prior script for 20 please. thank you, # 90 tablet, 11 Refills, Maintenance, 01/04/22 9:39:00 EDT, Tablet, [facility]/pharmacy #[id number], Partial fill upon patient request if t... Start Date: 01/04/22 Stop Date: 12/19/24 Status: Ordered metoprolol 50 mg oral tablet, extended release 50 mg, 1, tablet, By Mouth, Daily, # 30 tablet, Refills 11, Tot. Refills 11, Maintenance, 06/05/21 9:01:00 EST, Route to Pharmacy Electronically, [facility]/pharmacy #[id number], Partial fill upon patient requestif the prescription [...] 09/14/09 Active Ankle joint pain(Confirmed) 09/14/09 Active [place] cardiac risk 10-2 0% in next 10 [...] colonoscopy(Confirmed) 6 11/09/10 Active H/O colonoscopy, in [facility] g room(Confirmed) 04/01/19 Active Hyperlipidemia(Confirmed) 09/14/09 Active Knee joint pain, osteoarthritis(Confirmed) 7 Active Meningioma per Neurosurgeon , on ?Outside MRI, stable -needs continued followup(Confirmed) Active Obesity(Confirmed) Active SHAHRIAR - Obstructive sleep [...] Never smoker entered on: 04/17/13 Sex Female Care Team Personnel Name: Belia Khoury MD Address: [address] [place] [address]
--- OUTSIDE RECORDS SUMMARY | 2023-04-21 11:12 | XMS_ITS | Continuity of Care Document ---
Author Name Unknown Organization [facility] Address [address] [place] [address]- Care Team Providers Care Clinical Educator Name Role Phone Belia Khoury MD Primary Care Physician Encounter [facility] Date(s): 01/16/20 - 02/15/20 [facility] [address] [place] [address]- [facility] Allergies, Adverse Reactions, Alerts Substance Reaction Severity [...] fluarix trivalent - 2Result Comment: [01/29/2013] Flulaval [id number]. VIS in Somali given. 3Admin Note: VIS 11/2011 4Admin Note: VIS GIVEN VIS DATE 12/07/10 5Admin Note: VIS GIVEN 12/22/09 syrian 6Admin Note: VIS GIVEN 7Admin Note: vis [...] tablet, 1 Refills, Maintenance, 01/16/20 15:18:00 EDT, [facility]/pharmacy #[id number], label in Somali, 166, cm, 12/31/19 10:08:00 EDT, Height, 118.5, kg, 04/01/19 12:45:00 EST, D... Start Date: 01/16/20 Stop Date: 03/16/20 Status: Ordered atorvastatin 40 mg oral tablet 1 tablet = 40 mg, By Mouth, Daily, # 90 tablet, 11 Refills, Maintenance, 07/24/19 10:18:00 EDT, Tablet, [facility]/pharmacy #[id number], 166, cm, 07/24/19 9:46:00 EDT, Height, 118.5, kg, 04/01/19 12:45:00 EST, Dry Weight Start Date: 07/24/19 Stop Date: 07/08/22 Status: Ordered Blood Pressure Monitor Blood Pressure Monitor, See Instructions, # 1 each, Refills 0, Tot. Refills 0, Maintenance, Dx HTN I10, 01/31/20 17:08:00 EDT, Supply Start Date: 01/31/20 Status: Ordered Colace sodium 100 mg oral capsule 100 mg, 1, capsule, By Mouth, 2 times a day, PRN, # 60 capsule, Refills 3, Tot. Refills 3, Maintenance, for constipation, 04/01/19 14:24:00 EST, Route to Pharmacy Electronically, [id number], [facility]/pharmacy #[id number] Start Date: 04/01/19 Status: Ordered Colace sodium 100 mg oral capsule 100 mg, 1, capsule, By Mouth, 2 times a day, PRN, # 60 capsule, Refills 3, Tot. Refills 3, Maintenance, for constipation, 01/16/20 16:20:00 EDT, Route to Pharmacy Electronically, [facility]/pharmacy #[id number], 166, cm, 12/31/19 10:08:00 EDT, Height, 118.5, [...] 04/02/19 Status: Ordered lidocaine 5% topical ointment 1 application, Topically, 3 times a day, wash hands thoroughly after application label in syrian, # 50 Gm, 1 Refills, Acute 04/28/20 8:39:00 EST, 01/27/20 8:39:00 EDT, Ointment, [facility]/pharmacy #[id number], 1 application Topically 3 times a day,Instr:wash azul... Start Date: 01/27/20 Stop Date: 04/28/20 Status: Ordered lisinopril 10 mg oral tablet 10 mg, 1, tablet, By Mouth, Daily, for 90 days, # 90 tablet, Refills 11, Tot. Refills 11, Hard Stop10/14/21 9:32:01 EDT, 10/30/18 9:32:01 EDT, Route to Pharmacy Electronically, [facility]/pharmacy #[id number] Start Date: 10/30/18 Stop Date: 10/14/21 Status: Ordered lisinopril 10 mg oral tablet 10 mg, 1, tablet, By Mouth, Daily, # 90 tablet, Refills 1, Tot. Refills 1, Maintenance, 10/14/21 9:32:00 EDT, Route to Pharmacy Electronically, [facility]/pharmacy #[id number], 166, cm, 12/31/19 10:08:00 EDT, Height, 118.5, kg, 04/01/19 12:45:00 EST, Dry Weight Start Date: 10/14/21 Stop Date: 04/12/22 Status: Ordered meclizine 25 mg oral tablet 1 tablet = 25 mg, By Mouth, Daily, use as little as possible, # 14 tablet, 0 Refills, Maintenance, 05/27/19 17:28:00 EST, Tablet, [facility]/pharmacy #[id number], 166, cm, 05/27/19 16:35:00 EST, Height, 118.5, kg, 04/01/19 12:45:00 EST, Dry Weight Start Date: 05/27/19 Stop Date: 06/10/19 Status: Ordered naproxen 250 mg oral tablet TOME RAY TABLETA POR V?A ORAL DOS VECES AL D?A Start Date: 02/19/19 Status: Ordered Nexium 20 mg oral enteric coated capsule 1 capsule = 20 mg, By Mouth, 2 times a day, # 180 capsule, 2 Refills, Maintenance, 12/31/19 10:42:00 EDT, EC Capsule, [facility]/pharmacy #[id number], 166, cm, 12/31/19 10:08:00 EDT, Height, 118.5, kg, 04/01/19 12:45:00 EST, Dry Weight Start Date: 12/31/19 Status: Ordered pregabalin 150 mg oral capsule 1 capsule = 150 mg, By Mouth, 2 times a day, may cause drowsiness label in syrian, # 180 capsule, 0 Refills, Maintenance, 02/07/20 8:10:00 EDT, Capsule, [facility]/pharmacy #[id number], 166, cm, 12/31/19 10:08:00 EDT, Height, 118.5, kg, 04/01/19 12:45:00 ESTDr... Start Date: 02/07/20 Status: Ordered Problem List Condition Effective Dates Status Health Status Inform ant Impaired glucose tolerance(Confirmed) 09/14/09 Active Ankle joint pain(Confirmed) 09/14/09 Active [place] cardiac risk 10-2 0% in next /2019(Confirmed) 2019 Active CTS - Carpal tunnel syndrome(Confirmed) [...] in 10 years. maintain a high-fiber diet. gorna 12/01/2010 6X-rays 2007 c/w early OA. 7Rt A-C separation on x-ray in 2008 Social History Social History Type Response Smoking Status Never smoker entered on: 04/17/13 Sex Female
--- OUTSIDE RECORDS SUMMARY | 2023-04-21 11:12 | XMS_ITS | Continuity of Care Document ---
Author Name Unknown Organization [facility] Address [address] [place] [address]- Care Team Providers Care Shield Cleaner Name Role Phone Belia Khoury MD Primary Care Physician [facility]counter [facility] Date(s): 03/28/22 - 04/27/22 [facility] [address] [place], [place] [address] Allergies, Adverse Reactions, Alerts No [...] fluarix trivalent 14-15 2Result Comment: [01/29/2013] Flulaval [id number]. VIS in Palestinian given. 3Admin Note: VIS 11/2011 4Admin Note: VIS GIVEN VIS DATE 12/07/10 5Admin Note: VIS GIVEN 12/22/09 setswana 6Admin Note: VIS GIVEN 7Admin Note: vis 02/20 8Admin Note: VIS GIVEN VIS DATE 12/23/08 9Admin Note: VIS given 10Admin Note: VIS given 11Admin Note: VIS given Medications acetaminophen 500 mg oral tablet 2 tablet, By Mouth, 3 times a day, PRN NEEDED FOR PAIN X, # 180 tablet, 2 Refills, Maintenance, 04/11/22 5:25:00 EST, [facility]/pharmacy #[id number], Office visit needed for further refills., 175.26, cm, 03/09/22 10:37:00 EDT, Height, 123, kg, 07/16/21 13:01:0... Start Date: 04/11/22 Stop Date: 07/10/22 Status: Ordered clotrimazole 1% topical cream 1 application, Topically, 2 times a day, for rash, # 113 Gm, 1 Refills, Maintenance, 03/23/22 10:07:00 EST, Cream, [facility]/pharmacy #[id number], Partial fill upon patient request if the prescription is for a schedule II opioid drug., 1 application Topically 2 t... Start Date: 03/23/22 Stop Date: 05/22/22 Status: Ordered diclofenac 1% topical gel See Instructions, APPLY TO AFFECTED AREA 4 TIMES A DAY, # 100 Gm, 4 Refills, Maintenance, 03/24/22 14:09:00 EST, [facility], 25, APPLY TO AFFECTED AREA 4 TIMES [...] 1 Refills, Maintenance, 02/10/22 9:58:00 EDT, [facility]int[facility], [id number], Partial fill upon patient request [...] 11 Refills, Maintenance, 01/04/22 9:39:00 EDT, Tablet, [facility]/pharmacy #[id number], Partial fill upon patient request if t... Start Date: 01/04/22 Stop Date: 12/19/24 Status: Ordered metoprolol 50 mg oral tablet, extended release 50 mg, 1, tablet, By Mouth, Daily, do not crush or chew (via cardiology in past), # 90 tablet, Refills 11, Tot. Refills 11, Maintenance, 02/22/22 13:36:00 EDT, Route to Pharmacy Electronically, [facility]/pharmacy #[id number], Partial fill upon patient request if... Start Date: 02/22/22 Stop Date: 02/06/25 Status: Ordered nystatin topical 802487 u/gm powder See Instructions, APPLY TO AFFECTED AREA 3 TIMES A DAY, # 60 Gm, 0 Refills, Maintenance, 03/22/22 20:50:00 EST, [facility], 30, APPLY TO AFFECTED AREA 3 TIMES A DAY, 175.26, cm, 03/09/22 10:37:00 EDT, Height, 123, kg, 07/16/21 13:01:00 EST, Dry W... Start Date: 03/22/22 Status: Ordered Problem List Condition Confirmation Course Effective Dates Status H ealth Status Informant Impaired glucose tolerance Confirmed 09/14/09 Active Ankle joint pain Confirmed 09/14/09 Active [place] cardiac risk 10-20% in next 10 /2019 [...] Personnel Name: Chang WILSON, Pattie Jorgensen Position: [facility] BODY COVERER MD Member Role: Lifetime Consulting Physician Address: Address: [address] [place] [address], [address] [facility] [place] [address]- Name: Belia Khoury MD Position: [facility] Primary Care Physician Member Role: PCP Address: Address: [address] [place] [address]- Care Team Related Persons Name: IVETT MCGREGOR Address: home [address] [place] [address] Name: JOVANA PORTER Address: home [address] [place] [address] Name: SARA HERNÁNDEZ Address: home [address] [place] [address]
--- OUTSIDE RECORDS SUMMARY | 2023-04-21 11:12 | XMS_ITS | Continuity of Care Document ---
Author Name Unknown Organization [facility] Address [address] [place] [address]- Care Team Providers Care Rn Perinatal Name Role Phone Belia Khoury MD Primary Care Physician [phone] [facility]counter [facility]s): 07/[facility]21 - 08/22/21 [facility] [address] [place], [place] [address] Allergies, Adverse Reactions, Alerts [...] fluarix trivalent - 2Result Comment: [01/29/2013] Flulaval [id number]. VIS in Libyan given. 3Admin Note: VIS 11/2011 4Admin Note: VIS GIVEN VIS DATE 12/07/10 5Admin Note: VIS GIVEN 12/22/09 luxembourger 6Admin Note: VIS GIVEN 7Admin Note: vis 02/20 8Admin Note: VIS GIVEN VIS DATE 12/23/08 9Admin Note: VIS given 10Admin Note: VIS given 11Admin Note: VIS given Medications acetaminophen 500 mg oral tablet 2 tablet = 1,000 mg, By Mouth, 3 times a day, PRN Pain , Mild, may use less, # 180 tablet, 1 Refills, Maintenance, 03/29/21 13:13:00 EST, [facility]/pharmacy #[id number], label in Libyan, 175.26, cm, 03/26/21 11:10:00 EST, Height, 120.45, kg, 11/05/20 16:03:00 ED... Start Date: 03/29/21 Stop Date: 05/28/21 Status: Ordered Aqua Care 10% topical cream 1 application, Topically, Daily, PRN for dry skin, for 30 days, # 85 Gm, 0 Refills, Acute 09/12/21 14:36:00 EDT, 08/13/21 14:36:00 EDT, Cream, [facility]/pharmacy #[id number], Partial fill upon patient request ifthe prescription is for a schedule II opioid drug.,... Start Date: 08/13/21 Stop Date: 09/12/21 Status: Ordered atorvastatin 40 mg oral tablet 1 tablet, By Mouth, Daily, # 90 tablet, 3 Refills, [facility], 175.26, cm, 03/26/21 11:10:00 EST, Height, 120.45, [...] # 60 capsule, 3 Refills, [facility], 175.26, cm, 07/16/21 13:01:00 EST, Height, 123, kg, 07/16/21 13:01:00 EST, Dry Weight Start Date: 07/20/21 Status: Ordered Eliquis 5 mg oral tablet 1 tablet, By Mouth, 2 times a day, # 60 tablet, 11 Refills, [facility], 175.26, cm, 07/16/21 13:01:00 EST, Height, 123, kg, 07/16/21 13:01:00 EST, Dry Weight Start Date: 07/20/21 Status: Ordered esomeprazole 20 mg oral enteric coated capsule 1 capsule = 20 mg, By Mouth, 2 times a day, # 180 capsule, 1 Refills, Maintenance, 08/17/21 7:48:00EDT, [facility]/pharmacy #[id number], Partial fill upon patient request if the prescription is for a schedule IIopioid drug., 175.26, cm, 08/13/21 14:16:00 EDT, He... Start Date: 08/17/21 Status: Ordered fluticasone 50 mcg/inh nasal spray See Instructions, SPRAY 1 SPRAY IN BOTH NOSTRILS DAILY, # 16 mL, 0 Refills, [facility], 30, SPRAY 1 SPRAY IN BOTH NOSTRILS DAILY, 175.26, cm, 07/28/21 11:01:00 EDT, Height, 123, kg, 07/16/21 13:01:00 EST, Dry Weight Start Date: 08/13/21 Status: Ordered fluticasone CFC free 44 mcg/inh inhalation aerosol 2 puffs, Inhalation, 2 times a day, luxembourger label, # 10.6 Gm, 0 Refills, Maintenance, 07/28/21 13:26:00 EDT, Aerosol, [facility]/pharmacy #[id number], Partial fill upon patient request if the prescription is for a schedule II opioid drug., 175.26, cm, 07/28/21 11:... Start Date: 07/28/21 Status: Ordered lisinopril 20 mg oral tablet 1, tablet, By Mouth, Daily, # 90 tablet, Refills 1, Route to Pharmacy Electronically, [facility] STORE 7[facility], 175.26, cm, 02/03/21 10:48:00 EDT, Height, 120.45, kg, 11/05/20 16:03:00 EDT, Dry Weight Start Date: 03/02/21 Status: Ordered LORazepam 0.5 mg oral tablet 0.5 tablet = 0.25 mg, By Mouth, Once, prior to MRI. May cause drowsiness. do not drive, # 0.5 tablet, 0 Refills, Soft Stop, 07/26/21 10:17:00 EDT, Tablet, [facility]/pharmacy #[id number], Partial fill upon patient request if the prescription is for a schedule II o... Start Date: 07/26/21 Status: Ordered metoprolol 50 mg oral tablet, extended release 50 mg, 1, tablet, By Mouth, Daily, # 30 tablet, Refills 11, Tot. Refills 11, Maintenance, 06/05/21 9:01:00 EST, Route to Pharmacy Electronically, [facility]/pharmacy #[id number], Partial fill upon patient requestif [...] 20 mL, By Mouth, Every 4 hours, luxembourger label not to exceed 6 doses/day, # 180 mL, 0 Refills, Maintenance, 07/28/21 13:25:00 EDT, [id number], Partial fill upon patient request if the prescription is for a schedule II opioid drug., 20 mL By Mo... Start Date: 07/28/21 Status: Ordered Problem List Condition Effective Dates Status Health Status Inform ant Impaired glucose tolerance(Confirmed) 09/14/09 Active Ankle joint pain(Confirmed) 09/14/09 Active [place] cardiac risk 10-2 0% in next 10 [...]
--- OUTSIDE RECORDS SUMMARY | 2023-04-21 11:13 | XMS_ITS | Continuity of Care Document ---
Author Name Unknown Organization [facility] Address [address] [place] [address]- Care Team Providers Care Liaison Planner Name Role Phone Belia Khoury MD Primary Care Physician [phone] [facility]counter [facility] Date[facility]s): 02/24/23 - 03/26/23 [facility] [address], [place] [address] Attending Physician: Carolyn Mitchell Admitting Physician: Admtr, Carolyn Referring Physician: Admtr, Ar8 Allergies, Adverse Reactions, [...] fluarix trivalent - 2Result Comment: [01/29/2013] Flulaval [id number]. VIS in Hong Konger given. 3Admin Note: VIS 11/2011 4Admin Note: VIS GIVEN VIS DATE 12/07/10 5Admin Note: VIS GIVEN 12/22/09 kazakh 6Admin Note: VIS GIVEN 7Admin Note: vis 02/20 8Admin Note: VIS GIVEN VIS DATE 12/23/08 9Admin Note: VIS given 10Admin Note: VIS given 11Admin Note: VIS given Medications acetaminophen 500 mg oral tablet 2 tablet, By Mouth, 3 times a day, PRN NEEDED FOR PAIN X, # 180 tablet, 2 Refills, Maintenance, 01/26/23 10:16:00 EDT, [facility]/pharmacy #[id number], label all scripts in Hong Konger, 175.26, cm, 01/26/23 9:13:00 EDT, Height, 123, kg, 07/16/21 13:01:00 EST, Dry W... Start Date: 01/26/23 Stop Date: 04/26/23 Status: Ordered Aspirin Low Dose 81 mg [...] 04/01/23 19:59:00 EST, 01/31/23 19:59:00 EDT, Capsule, [facility]/pharmacy #[id number], Partial fill upon patient request if [...] Refills, Maintenance, 11/09/22 16:41:00 EDT, [facility], 25, APPLY TO AFFECTED AREA 4 TIMES A DAY, 175.26, cm, 10/03/22 10:48:00 EDT, Height, 123, kg, 07/16/21 13:01:00 EST, Dry... Start Date: 11/09/22 Status: Ordered docusate sodium 100 mg oral capsule 1 capsule, By Mouth, 2 times a day, PRN NEEDED, CONSTIPATION., # 60 capsule, 2 Refills, Maintenance, 01/18/23 15:57:00 EDT, [facility], 175.26, cm, 10/03/22 10:48:00 EDT, Height, 123, kg, 07/16/21 13:01:00 EST, Dry Weight Start Date: 01/18/23 Status: Ordered Eliquis 5 mg oral tablet 1 tablet, By Mouth, 2 times a day, atrial fibrillation, # 180 tablet, 11 Refills, Maintenance, 01/26/23 10:16:00 EDT, [id number], label all scripts in Hong Konger, 175.26, cm, 01/26/23 9:13:00 EDT, Height, 123, kg, 07/16/21 13:01:00 EST, Dry Weight Start Date: 01/26/23 Stop Date: 01/10/26 Status: Ordered esomeprazole 20 mg oral enteric coated capsule 1 capsule = 20 mg, By Mouth, 2 times a day, # 180 capsule, 2 Refills, Maintenance, 08/08/22 8:21:00EDT, [facility]/pharmacy #[id number], Partial fill upon patient request if the prescription is for a schedule IIopioid drug., 175.26, cm, 03/09/22 10:37:00 EDT, He... Start Date: 08/08/22 Status: Ordered fluticasone 50 mcg/inh nasal spray See Instructions, SPRAY 1 SPRAY INTO BOTH NARES DAILY X 30 DAYS NEEDED FOR ALLERGIES, # 48 mL, 0Refills, Maintenance, 04/11/22 5:24:00 EST, [facility]/pharmacy #207, 90, Office visit needed for furtherrefills., SPRAY 1 SPRAY INTO BOTH NARES DAILY X 30... Start Date: 04/11/22 Status: Ordered lisinopril 40 mg oral tablet 1 tablet, By Mouth, Daily, # 90 tablet, 11 Refills, Maintenance, 01/17/23 8:35:00 EDT, [facility]/pharmacy#207, 175.26, cm, 10/03/22 10:48:00 EDT, Height, 123, kg, 07/16/21 13:01:00 EST, Dry Weight Start Date: 01/17/23 Stop Date: 01/01/26 Status: Ordered metoprolol 50 mg oral tablet, extended release 50 mg, 1, tablet, By Mouth, Daily, do not crush or chew (via cardiology in past), # 90 tablet, Refills 11, Tot. Refills 11, Maintenance, 01/26/23 10:16:00 EDT, Route to Pharmacy Electronically, [facility]/pharmacy #[id number], label all scripts in Hong Konger, 175.26,... Start Date: 01/26/23 Stop Date: 01/10/26 Status: Ordered nystatin topical 588767 u/gm powder See Instructions, APPLY TO AFFECTED AREA 3 TIMES A DAY, # 60 Gm, 1 Refills, Maintenance, 01/26/23 10:16:00 EDT, [facility]/pharmacy #207, 30, label all scripts in [place]er, APPLY TO AFFECTED AREA 3 TIMES A [...] 11 Refills, Maintenance, 01/26/23 10:25:00 EDT, Tablet, [facility]/pharmacy #2071, 175.26, cm, 01/26/23 9:13:00 EDT, Height, 123, kg, 07/16/21 13:01:00 EST, Dry Weight Start Date: 01/26/23 Stop Date: 01/10/26 Status: Ordered tiZANidine 2 mg oral tablet 2 mg, 1, tablet, By Mouth, 3 times a day, # 15 tablet, Refills 0, Tot. Refills 0, Maintenance, 02/24/23 17:11:00 EDT, Route to Pharmacy Electronically, [facility]/pharmacy #[id number], Partial fill upon patient request if the prescription is for a schedule II opio... Start Date: 02/24/23 Stop Date: 03/01/23 Status: Ordered Vitamin C 250 mg oral tablet 1 tablet, By Mouth, Daily, # 30 tablet, 1 Refills, Maintenance, 03/21/23 17:41:00 EST, [facility], 175, cm, 02/27/23 7:09:00 EDT, Height, 124.5, kg, 02/27/23 7:09:00 EDT, Dry Weight Start Date: 03/21/23 Status: Ordered Wipes for urinary incontinence Wipes for urinary incontinence, See Instructions, # 6 pack/packet, Refills 11, Tot. Refills 11, Maintenance, Use as needed Urinary incontinence Dx R32 Duration lifetime, 02/02/23 9:29:00 EDT, Supply Start Date: 02/02/23 Status: Ordered Problem List Condition Confirmation Course Effective Dates Status H ealth Status Informant MILLIE positive, pending Rheumatolgoy as of Confirmed 02/2022 Active [place] cardiac risk 10-20% in next 1 Confirmed [...] Personnel Name: Chang WILSON, Pattie Jorgensen Position: [facility] JEWELRY DESIGNER Member Role: Lifetime Consulting Physician Address: Address: [address] [place] [address], [address] [facility] [place] [address]- Name: Belia Khoury MD Position: [facility] Physician - Primary Care Member Role: PCP Address: Address: [address] [place] [address]- Care Team Related Persons Name: IVETT MCGREGOR Address: home [address] [place] [address] Name: JOVANA PORTER Address: home [address] [place] [address] Name: SARA HERNÁNDEZ Address: home [address] [place] [address]
--- OUTSIDE RECORDS SUMMARY | 2023-04-21 11:13 | XMS_ITS | Continuity of Care Document ---
Author Name Unknown Organization [facility] Address [address], [address] [place] [address]- Care Team Providers Care Firer Tunnel Kiln Name Role Phone Belia Khoury MD Primary Care Physician Encounter [facility] Date(s): 05/09/19 - 05/19/19 [facility] [address], [address] [place] [address]- Attending Physician: Carolyn Mitchell Admitting Physician: AdmCarolyn bethea Referring Physician: AdmtrCarolyn Allergies, Adverse Reactions, Alerts [...] fluarix trivalent 14-15 2Result Comment: [01/29/2013] Flulaval [id number]. VIS in Croatian given. 3Admin Note: VIS 11/2011 4Admin Note: VIS GIVEN VIS DATE 12/07/10 5Admin Note: VIS GIVEN 12/22/09 zambian 6Admin Note: VIS GIVEN 7Admin Note: vis [...] 04/01/19 14:24:00 EST, Route to Pharmacy Electronically, [id number], [facility]/pharmacy #[id number] Start Date: 04/01/19 Status: Ordered docusate sodium 100 mg oral capsule 100 mg, 1, capsule, By Mouth, 2 times a day, PRN, for 30 days, # 60 capsule, Refills 2, Tot. Refills 2, Acute 05/20/19 11:00:19 EST, for constipation, 02/19/19 11:00:19 EDT, Route to Pharmacy Electronically, [id number], [facility] Start Date: 02/19/19 Stop Date: 05/20/19 Status: Ordered famotidine 20 mg oral tablet 20 mg, 1, tablet, By Mouth, 2 times a day, PRN, # 90 tablet, Refills 11, Tot. Refills 11, Maintenance, heartburn, 10/30/18 9:32:00 EDT, Route to Pharmacy Electronically, [id number], [facility]/pharmacy #[id number] Start Date: 10/30/18 Status: Ordered Fiber [...] 10/30/18 9:32:01 EDT, Route to Pharmacy Electronically, [id number], [facility]/pharmacy #[id number] Start Date: 10/30/18 Stop [...] 04/01/19 14:24:00 EST, Route to Pharmacy Electronically, [id number], [facility]/pharmacy #[id number] Start Date: 04/01/19 Status: Ordered Problem List Condition Effective Dates Status Health Status Inform ant [D]Impaired glucose tolerance(Confirmed) 5/3/10 Active Ankle joint pain(Confirmed) 09/14/09 Active CTS [...]
--- OUTSIDE RECORDS SUMMARY | 2023-04-21 11:13 | XMS_ITS | Continuity of Care Document ---
Author Name Unknown Organization [facility] Address [address] [place] [address]- Care Team Providers Care Academic Interventionist Name Role Phone Belia Khoury MD Primary Care Physician [phone] [facility] Date[facility]): 06/17/21 - 07/17/21 [facility] [address], [place] [address] Allergies, Adverse Reactions, Alerts No Known [...] fluarix trivalent - 2Result Comment: [01/29/2013] Flulaval [id number]. VIS in Dominican given. 3Admin Note: VIS 11/2011 4Admin Note: VIS GIVEN VIS DATE 12/07/10 5Admin Note: VIS GIVEN 12/22/09 citizen of [place] 6Admin Note: VIS GIVEN 7Admin Note: vis 02/20 8Admin Note: VIS GIVEN VIS DATE 12/23/08 9Admin Note: VIS given 10Admin Note: VIS given 11Admin Note: VIS given Medications acetaminophen 500 mg oral tablet 2 tablet = 1,000 mg, By Mouth, 3 times a day, PRN Pain , Mild, may use less, # 180 tablet, 1 Refills, Maintenance, 03/29/21 13:13:00 EST, [facility]/pharmacy #[id number], label in Dominican, 175.26, cm, 03/26/21 11:10:00 EST, Height, 120.45, kg, 11/05/20 16:03:00 ED... Start Date: 03/29/21 Stop Date: 05/28/21 Status: Ordered apixaban 5 mg oral tablet 1 tablet = 5 mg, By Mouth, 2 times a day, # 60 tablet, 3 Refills, Maintenance, 03/29/21 13:15:00 EST, Tablet, [facility]/pharmacy #2071, Partial fill upon patient request if the prescription is for a schedule II opioid drug., 175.26, cm, 03/26/21 11:10:00 ES... Start Date: 03/29/21 Status: Ordered atorvastatin 40 mg oral tablet 1 tablet, By Mouth, Daily, # 90 tablet, 3 Refills, [facility], 175.26, cm, 03/26/21 11:10:00 EST, Height, 120.45, kg, 11/05/20 16:03:00 EDT, Dry Weight Start Date: 03/29/21 Status: Ordered Colace sodium 100 mg oral capsule 100 mg, 1, capsule, By Mouth, 2 times a day, PRN, # 60 capsule, Refills 3, Tot. Refills 3, Maintenance, for constipation, 03/29/21 13:13:00 EST, Route to Pharmacy Electronically, [facility]/pharmacy #[id number], 175.26, cm, 03/26/21 11:10:00 EST, Height, 120.45, k... Start Date: 03/29/21 Status: Ordered diclofenac 1% topical gel = 2 Gm, Topically, 4 times a day, # 100 Gm, 0 Refills, Maintenance, 11/25/20 11:18:00 EDT, Gel, [facility]/pharmacy #[id number], Partial fill upon patient request if the prescription is for a schedule II opioid drug., 175.26, cm, 11/25/20 9:57:00 EDT, Height, 120.... Start Date: 11/25/20 Status: Ordered Flonase 50 mcg/inh nasal spray 1 sprays, Nares, Both, 2 times a day, # 16 Gm, 0 Refills, Maintenance, 06/24/21 16:33:00 EST, [place], [facility]/pharmacy #[id number], Partial fill upon patient request if the prescription is for a schedule II opioid drug., 1 sprays Nares, Both 2 times a day, 175.2... Start Date: 06/24/21 Status: Ordered lisinopril 20 mg oral tablet 1, tablet, By Mouth, Daily, # 90 tablet, Refills 1, Route to Pharmacy Electronically, [facility], 175.26, cm, 02/03/21 10:48:00 EDT, Height, 120.45, kg, 11/05/20 16:03:00 EDT, Dry Weight Start Date: 03/02/21 Status: Ordered metoprolol 50 mg oral tablet, extended release 50 mg, 1, tablet, By Mouth, Daily, # 30 tablet, Refills 11, Tot. Refills 11, Maintenance, 06/05/21 9:01:00 EST, Route to Pharmacy Electronically, [facility]/pharmacy #[id number], Partial fill upon patient requestif [...] 09/14/09 Active Ankle joint pain(Confirmed) 09/14/09 Active [place] cardiac risk 10-2 0% in next 10 [...]
--- OUTSIDE RECORDS SUMMARY | 2023-04-21 11:13 | XMS_ITS | Continuity of Care Document ---
Author Name Unknown Organization [facility] Address [address] [place] [address]- Care Team Providers Care Direct Marketing Executive Name Role Phone Belia Khoury MD Primary Care Physician [facility] Date[facility]s): 02/10/22 - 03/12/22 [facility] [address] [place], [place] [address] Allergies, Adverse Reactions, Alerts No Known [...] fluarix trivalent 14-15 2Result Comment: [01/29/2013] Flulaval [id number]. VIS in Welsh given. 3Admin Note: VIS 11/2011 4Admin Note: VIS GIVEN VIS DATE 12/07/10 5Admin Note: VIS GIVEN 12/22/09 armenian 6Admin Note: VIS GIVEN 7Admin Note: vis [...] 02/22/22 13:35:00 EDT, [id number], label in Welsh, 175.26, cm, 02/22/22 13:18:00 EDT, Height, 123, [...] 1 Refills, Maintenance, 02/10/22 9:58:00 EDT, Ointment, [facility]/pharmacy #[id number], Partial fill upon patient [...] 11 Refills, Maintenance, 01/04/22 9:39:00 EDT, Tablet, [facility]/pharmacy #[id number], Partial fill upon patient request if t... Start Date: 01/04/22 Stop Date: 12/19/24 Status: Ordered metoprolol 50 mg oral tablet, extended release 50 mg, 1, tablet, By Mouth, Daily, do not crush or chew (via cardiology in past), # 90 tablet, Refills 11, Tot. Refills 11, Maintenance, 02/22/22 13:36:00 EDT, Route to Pharmacy Electronically, [facility]/pharmacy #[id number], Partial fill upon patient request if... Start Date: 02/22/22 Stop Date: 02/06/25 Status: Ordered nystatin topical 350053 u/gm powder 1 application, Topically, 3 times a day, # 60 Gm, 0 Refills, Maintenance, 02/10/22 9:59:00 EDT, Powder, [facility]/pharmacy #[id number], Partial fill upon patient request if the prescription is for a schedule II opioid drug., 1 application Topically 3 times a day,... Start Date: 02/10/22 Status: Ordered Problem List Condition Confirmation Course Effective Dates Status H ealth Status Informant Impaired glucose tolerance Confirmed 09/14/09 Active Ankle joint pain Confirmed 09/14/09 Active [place] cardiac risk 10-20% in next 10 /2019 [...] Personnel Name: Belia Khoury MD Address: Address: [address] [place] [address]
--- OUTSIDE RECORDS SUMMARY | 2023-04-21 11:13 | XMS_ITS | Continuity of Care Document ---
Author Name Unknown Organization [facility] Address [address] [place] [address]- Care Team Providers Care Construction Stonemason Name Role Phone Belia Khoury MD Primary Care Physician [facility]): 01/31/23 - 03/02/23 [facility] [address] [place], [place] [address] Allergies, Adverse Reactions, Alerts No Known [...] fluarix trivalent 14- 2Result Comment: [01/29/2013] Flulaval [id number]. VIS in Turkmen given. 3Admin Note: VIS 11/2011 4Admin Note: VIS GIVEN VIS DATE 12/07/10 5Admin Note: VIS GIVEN 12/22/09 egyptian 6Admin Note: VIS GIVEN 7Admin Note: vis 02/20 8Admin Note: VIS GIVEN VIS DATE 12/23/08 9Admin Note: VIS given 10Admin Note: VIS given 11Admin Note: VIS given Medications acetaminophen 500 mg oral tablet 2 tablet, By Mouth, 3 times a day, PRN NEEDED FOR PAIN X, # 180 tablet, 2 Refills, Maintenance, 01/26/23 10:16:00 EDT, [facility]/pharmacy #[id number], label all scripts in Turkmen, 175.26, cm, 01/26/23 9:13:00 EDT, Height, 123, kg, 07/16/21 13:01:00 EST, Dry W... Start Date: 01/26/23 Stop Date: 04/26/23 Status: Ordered ascorbic acid 250 mg oral tablet 1 tablet = 250 mg, By Mouth, Daily, for 30 days, # 30 tablet, 1 Refills, Acute 04/01/23 19:59:00 EST, 01/31/23 19:59:00 EDT, Tablet, [facility]/pharmacy #[id number], Partial fill upon patient [...] 19:59:00 EST, 01/31/23 19:59:00 EDT, Capsule, [facility]/pharmacy #[id number], Partial fill upon patient request if the prescription is for a schedule II opioid drug., 175.26... Start Date: 01/31/23 Stop Date: 04/01/23 Status: Ordered clotrimazole 1% topical cream 1 application, Topically, 2 times a day, for rash, # 113 Gm, 1 Refills, Maintenance, 01/26/23 9:56:00 EDT, Cream, [facility]/pharmacy #[id number], Partial fill upon patient request if the prescription is for a schedule II opioid drug., 1 application Topically 2 ti... Start Date: 01/26/23 Stop Date: 03/27/23 Status: Ordered diclofenac 1% topical gel See Instructions, APPLY TO AFFECTED AREA 4 TIMES A DAY, # 100 Gm, 4 Refills, Maintenance, 11/09/22 16:41:00 EDT, [facility], 25, APPLY TO AFFECTED AREA 4 TIMES A DAY, 175.26, cm, 10/03/22 10:48:00 EDT, Height, 123, kg, 07/16/21 13:01:00 EST, Dry... Start Date: 11/09/22 Status: Ordered docusate sodium 100 mg oral capsule 1 capsule, By Mouth, 2 times a day, PRN NEEDED, CONSTIPATION., # 60 capsule, 2 Refills, Maintenance, 01/18/23 15:57:00 EDT, [facility], 175.26, cm, 10/03/22 10:48:00 EDT, Height, 123, kg, 07/16/21 13:01:00 EST, Dry Weight Start Date: 01/18/23 Status: Ordered Eliquis 5 mg oral tablet 1 tablet, By Mouth, 2 times a day, atrial fibrillation, # 180 tablet, 11 Refills, Maintenance, 01/26/23 10:16:00 EDT, [facility]/pharmacy #[id number], label all scripts in Turkmen, 175.26, cm, 01/26/23 9:13:00 EDT, Height, 123, kg, 07/16/21 13:01:00 EST, Dry Weight Start Date: 01/26/23 Stop Date: 01/10/26 Status: Ordered esomeprazole 20 mg oral enteric coated capsule 1 capsule = 20 mg, By Mouth, 2 times a day, # 180 capsule, 2 Refills, Maintenance, 08/08/22 8:21:00EDT, [facility]/pharmacy #[id number], Partial fill upon patient request if the prescription is for a schedule IIopioid drug., 175.26, cm, 03/09/22 10:37:00 EDT, He... Start Date: 08/08/22 Status: Ordered fluticasone 50 mcg/inh nasal spray See Instructions, SPRAY 1 SPRAY INTO BOTH NARES DAILY X 30 DAYS NEEDED FOR ALLERGIES, # 48 mL, 0Refills, Maintenance, 04/11/22 5:24:00 EST, [facility]/pharmacy #2071, 90, Office visit needed for furtherrefills., SPRAY 1 SPRAY INTO BOTH NARES DAILY X 30... Start Date: 04/11/22 Status: Ordered lisinopril 40 mg oral tablet 1 tablet, By Mouth, Daily, # 90 tablet, 11 Refills, Maintenance, 01/17/23 8:35:00 EDT, [facility]/pharmacy#207, 175.26, cm, 10/03/22 10:48:00 EDT, Height, 123, kg, 07/16/21 13:01:00 EST, Dry Weight Start Date: 01/17/23 Stop Date: 01/01/26 Status: Ordered metoprolol 50 mg oral tablet, extended release 50 mg, 1, tablet, By Mouth, Daily, do not crush or chew (via cardiology in past), # 90 tablet, Refills 11, Tot. Refills 11, Maintenance, 01/26/23 10:16:00 EDT, Route to Pharmacy Electronically, [facility]/pharmacy #[id number], label all scripts in Turkmen, 175.26,... Start Date: 01/26/23 Stop Date: 01/10/26 Status: Ordered nystatin topical 390638 u/gm powder See Instructions, APPLY TO AFFECTED AREA 3 TIMES A DAY, # 60 Gm, 1 Refills, Maintenance, 01/26/23 10:16:00 EDT, [facility]/pharmacy #2071, 30, label all scripts in Turkmen, APPLY TO AFFECTED AREA 3 TIMES A [...] Refills, Maintenance, 01/26/23 10:25:00 EDT, Tablet, [facility]/pharmacy #2071, 175.26, cm, 01/26/23 9:13:00 EDT, Height, 123, kg, 07/16/21 13:01:00 EST, Dry Weight Start Date: 01/26/23 Stop Date: 01/10/26 Status: Ordered tiZANidine 2 mg oral tablet 2 mg, 1, tablet, By Mouth, 3 times a day, # 15 tablet, Refills 0, Tot. Refills 0, Maintenance, 02/24/23 17:11:00 EDT, Route to Pharmacy Electronically, [facility]/pharmacy #[id number], Partial fill upon patient [...] pending Rheumatolgoy as of Confirmed 02/2022 Active [place] cardiac risk 10-20% in next 10 /2019 [...] Team Personnel Name: Pattie Downing MD Position: [facility] MEDICAL DRIVER Member Role: Lifetime Consulting Physician Address: Address: [address], [address] [facility] [place] [address]- Name: Belia Khoury MD Position: [facility] Physician - Primary Care Member Role: PCP Address: Address: [address] [place] [address]- Care Team Related Persons Name: IVETT MCGREGOR Address: home [address] [place] [address] Name: JOVANA PORTER Address: home [address] [place] [address] Name: SARA HERNÁNDEZ Address: home [address] [place] [address]
--- OUTSIDE RECORDS SUMMARY | 2023-04-21 11:13 | XMS_ITS | Continuity of Care Document ---
Author Name Unknown Organization [facility] Address [address] [place] [address]- Care Team Providers Care Pre Owned Sales Consultant Name Role Phone Belia Khoury MD Primary Care Physician [facility]19 - 06/17/19 [facility] [address] [place] [address]- [facility] Attending Physician: Admtr, Ar8 Allergies, Adverse Reactions, Alerts [...] Given Tet/Diphth/Acel, Pertussis (oldterm) 9 05/16/08 Gi canid Influenza Virus Vaccine (oldterm) 10 06/08/07 Give n Influenza Virus Vaccine (oldterm) 11 02/21/06 Give n 1Result Comment: [03/24/2014] fluarix trivalent - 2Result Comment: [01/29/2013] Flulaval 2009-1430. VIS in Mozambican given. 3Admin Note: VIS 11/2011 4Admin Note: VIS GIVEN VIS DATE 12/07/10 5Admin Note: VIS GIVEN 12/22/09 macedonian 6Admin Note: VIS GIVEN 7Admin Note: vis [...] tablet, 1 Refills, Maintenance, 05/27/19 17:37:00 EST, [facility]/pharmacy #[id number], label in Mozambican, 166, cm, 05/27/19 16:35:00 EST, Height, 118.5, kg, 04/01/19 12:45:00 EST, D... Start Date: 05/27/19 Stop Date: 07/26/19 Status: Ordered Cane See Instructions, # 1 each, Refills 1, Tot. Refills 1, Maintenance, Morbid obesity. chronic low back pain., 06/11/19 17:14:00 EST, Compound Start Date: 06/11/19 Status: Ordered Colace sodium 100 mg oral capsule 100 mg, 1, capsule, By Mouth, 2 times a day, PRN, # 60 capsule, Refills 3, Tot. Refills 3, Maintenance, for constipation, 04/01/19 14:24:00 EST, Route to Pharmacy Electronically, [id number], [facility]/pharmacy #2073 Start Date: 04/01/19 Status: Ordered famotidine 20 mg oral tablet 20 mg, 1, tablet, By Mouth, 2 times a day, PRN, # 90 tablet, Refills 11, Tot. Refills 11, Maintenance, heartburn, 10/30/18 9:32:00 EDT, Route to Pharmacy Electronically, [id number], [facility]/pharmacy #2071 Start Date: 10/30/18 Status: Ordered [...] 10/30/18 9:32:01 EDT, Route to Pharmacy Electronically, [id number], [facility]/pharmacy #[id number] Start Date: 10/30/18 Stop Date: 10/14/21 Status: Ordered meclizine 25 mg oral tablet 1 tablet = 25 mg, By Mouth, Daily, use as little as possible, # 14 tablet, 0 Refills, Maintenance, 05/27/19 17:28:00 EST, Tablet, [facility]/pharmacy #207, 166, cm, 05/27/19 16:35:00 EST, Height, 118.5, kg, 04/01/19 12:45:00 EST, Dry Weight Start Date: 05/27/19 Stop Date: 06/10/19 Status: Ordered naproxen 250 mg oral tablet TOME RAY TABLETA POR V?A ORAL DOS VECES AL D?A Start Date: 02/19/19 Status: Ordered Underwear liners Underwear liners, See Instructions, # 1 pack/packet, Refills 11, Tot. Refills 11, Maintenance, Urinary incontinence. morbid obesity, 06/11/19 17:13:00 EST, Compound Start Date: 06/11/19 Status: Ordered Problem List Condition Effective Dates [...]
--- OUTSIDE RECORDS SUMMARY | 2023-04-21 11:13 | XMS_ITS | Continuity of Care Document ---
Author Name Unknown Organization [facility] Address [address] [place] [address]- Care Team Providers Care Administrative Resident Name Role Phone Belia Khoury MD Primary Care Physician [place] [facility] [place] Date(s): 06/28/19 - 09/14/19 [facility] [address] [place] [address]- Attending Physician: Emigdio Nicole MD Admitting Physician: Emigdio Nicole MD Referring Physician: Belia Khoury MD Allergies, [...] fluarix trivalent 14-15 2Result Comment: [01/29/2013] Flulaval [id number]. VIS in Romansh given. 3Admin Note: VIS 11/2011 4Admin Note: [...] tablet, 1 Refills, Maintenance, 05/27/19 17:37:00 EST, [facility]/pharmacy #[id number], label in Romansh, 166, cm, 05/27/19 16:35:00 EST, Height, 118.5, kg, 04/01/19 12:45:00 EST, D... Start Date: 05/27/19 Stop Date: 07/26/19 Status: Ordered atorvastatin 40 mg oral tablet 1 tablet = 40 mg, By Mouth, Daily, # 90 tablet, 11 Refills, Maintenance, 07/24/19 10:18:00 EDT, Tablet, [facility]/pharmacy #[id number], 166, cm, 07/24/19 9:46:00 EDT, Height, 118.5, kg, 04/01/19 12:45:00 EST, Dry Weight Start Date: 07/24/19 Stop Date: 07/08/22 Status: Ordered Colace sodium 100 mg oral capsule 100 mg, 1, capsule, By Mouth, 2 times a day, PRN, # 60 capsule, Refills 3, Tot. Refills 3, Maintenance, for constipation, 04/01/19 14:24:00 EST, Route to Pharmacy Electronically, [id number], [facility]/pharmacy #[id number] Start Date: 04/01/19 Status: Ordered [...] 10/30/18 9:32:01 EDT, Route to Pharmacy Electronically, [id number], [facility]/pharmacy #[id number] Start Date: 10/30/18 Stop Date: 10/14/21 Status: Ordered meclizine 25 mg oral tablet 1 tablet = 25 mg, By Mouth, Daily, use as little as possible, # 14 tablet, 0 Refills, Maintenance, 05/27/19 17:28:00 EST, Tablet, [facility]/pharmacy #207, 166, cm, 05/27/19 16:35:00 EST, Height, 118.5, kg, 04/01/19 12:45:00 EST, Dry Weight Start Date: 05/27/19 Stop Date: 06/10/19 Status: Ordered naproxen 250 mg oral tablet TOME RAY TABLETA POR V?A ORAL DOS VECES AL D?A Start Date: 02/19/19 Status: Ordered Problem List Condition Effective Dates Status Health Status Inform ant Impaired glucose tolerance(Confirmed) 09/14/09 Active Ankle joint pain(Confirmed) 09/14/09 Active [place] cardiac risk 10-2 0% in next /2019(Confirmed) [...]
--- OUTSIDE RECORDS SUMMARY | 2023-04-21 11:13 | XMS_ITS | Continuity of Care Document ---
Author Name Unknown Organization [facility] Address [address] [place] [address]- Care Team Providers Care Food Beverage Supervisor Name Role Phone Belia Khoury MD Primary Care Physician [phone] [place] [facility] [place]/20 [facility] [address] [place] [address]- [facility] Attending Physician: AdmCarolyn bethea Admitting Physician: AdmtrCarolyn [...] [03/24/2014] fluarix trivalent 2Result Comment: [01/29/2013] Flulaval [id number]. VIS in Burundian given. 3Admin Note: VIS 11/2011 4Admin Note: VIS GIVEN VIS DATE 12/07/10 5Admin Note: VIS GIVEN 12/22/09 puerto rican 6Admin Note: VIS GIVEN 7Admin Note: vis [...] tablet, 1 Refills, Maintenance, 01/16/20 15:18:00 EDT, [facility]/pharmacy #[id number], label in Burundian, 166, cm, 12/31/19 10:08:00 EDT, Height, 118.5, kg, 04/01/19 12:45:00 EST, D... Start Date: 01/16/20 Stop Date: 03/16/20 Status: Ordered atorvastatin 40 mg oral tablet 1 tablet = 40 mg, By Mouth, Daily, # 90 tablet, 11 Refills, Maintenance, 07/24/19 10:18:00 EDT, Tablet, [facility]/pharmacy #207, 166, cm, 07/24/19 9:46:00 EDT, Height, 118.5, kg, 04/01/19 12:45:00 EST, Dry Weight Start Date: 07/24/19 Stop Date: 07/08/22 Status: Ordered Colace sodium 100 mg oral capsule 100 mg, 1, capsule, By Mouth, 2 times a day, PRN, # 60 capsule, Refills 3, Tot. Refills 3, Maintenance, for constipation, 04/01/19 14:24:00 EST, Route to Pharmacy Electronically, [id number], [facility]/pharmacy #[id number] Start Date: 04/01/19 Status: Ordered Colace sodium 100 mg oral capsule 100 mg, 1, capsule, By Mouth, 2 times a day, PRN, # 60 capsule, Refills 3, Tot. Refills 3, Maintenance, for constipation, 01/16/20 16:20:00 EDT, Route to Pharmacy Electronically, [facility]/pharmacy #2070, 166, cm, 12/31/19 10:08:00 EDT, Height, [...] wash hands thoroughly after application label in puerto rican, # 50 Gm, 1 Refills, Acute 04/28/20 8:39:00 EST, 01/27/20 8:39:00 EDT, Ointment, [facility]/pharmacy #2070, 1 application Topically 3 times a day,Instr:wash azul... Start Date: 01/27/20 Stop Date: 04/28/20 Status: Ordered lisinopril 10 mg oral tablet 10 mg, 1, tablet, By Mouth, Daily, for 90 days, # 90 tablet, Refills 11, Tot. Refills 11, Hard Stop10/14/21 9:32:01 EDT, 10/30/18 9:32:01 EDT, Route to Pharmacy Electronically, [facility]/pharmacy #207 Start Date: 10/30/18 Stop Date: 10/14/21 Status: Ordered lisinopril 10 mg oral tablet 10 mg, 1, tablet, By Mouth, Daily, # 90 tablet, Refills 1, Tot. Refills 1, Maintenance, 10/14/21 9:32:00 EDT, Route to Pharmacy Electronically, [facility]/pharmacy #[id number], 166, cm, 12/31/19 10:08:00 EDT, Height, 118.5, kg, 04/01/19 12:45:00 EST, Dry Weight Start Date: 10/14/21 Stop Date: 04/12/22 Status: Ordered Lyrica 75 mg oral capsule 1 capsule = 75 mg, By Mouth, 2 times a day, label in puerto rican, # 60 capsule, 0 Refills, Maintenance,01/27/20 8:46:00 EDT, Capsule, [facility]/pharmacy #2071, 166, cm, 12/31/19 10:08:00 EDT, Height, 118.5, kg, 04/01/19 12:45:00 EST, Dry Weight Start Date: 01/27/20 Status: Ordered meclizine 25 mg oral tablet 1 tablet = 25 mg, By Mouth, Daily, use as little as possible, # 14 tablet, 0 Refills, Maintenance, 05/27/19 17:28:00 EST, Tablet, [facility]/pharmacy #[id number], 166, cm, 05/27/19 16:35:00 EST, [...] Refills, Maintenance, 12/31/19 10:42:00 EDT, EC Capsule, [facility]/pharmacy #2071, 166, cm, 12/31/19 10:08:00 EDT, Height, 118.5, kg, 04/01/19 12:45:00 EST, Dry Weight Start Date: 12/31/19 Status: Ordered Problem List Condition Effective Dates Status Health Status Inform ant Impaired glucose tolerance(Confirmed) 09/14/09 Active Ankle joint pain(Confirmed) 09/14/09 Active [place] cardiac risk 10-2 0% in next (Confirmed) 2019 Active CTS - Carpal tunnel syndrome(Confirmed) [...]
--- OUTSIDE RECORDS SUMMARY | 2023-04-21 11:13 | XMS_ITS | Continuity of Care Document ---
Author Name Unknown Organization [facility] Address [address] [place] [address], [address] [place] [address]- Care Team Providers Care Customer Service Clerk Name Role Phone Belia Khoury MD Primary Care Physician [phone] Encounter [facility] Date(s): 02/28/23 - 03/30/23 [facility] [address] [place] [address] Drive, [address] [place], [place] [address] Attending Physician: Admtr, [id number] Admitting Physician: Admtr, Ar8 Referring Physician: Admtr, [id number] Allergies, Adverse Reactions, Alerts No Known Allergies Immunizations Given and Recorded Vaccine Date Status Refusal Reason influenza virus vaccine, inactivated 03/28/23 Give n influenza virus vaccine, inactivated 02/22/22 Give n [...] virus vaccine, inactivated 6 04/24/08 Gi candi pneumococcal 20-valent conjugate vaccine 02/22/22 Given SARS-CoV-2 (COVID-19) mRNA-1273 vaccine 05/25/21 R ecorded [...] fluarix trivalent - 2Result Comment: [01/29/2013] Flulaval [id number]. VIS in [place]ibian given. 3Admin Note: VIS 11/2011 4Admin Note: VIS GIVEN VIS DATE 12/07/10 5Admin Note: VIS GIVEN 12/22/09 swedish 6Admin Note: VIS GIVEN 7Admin Note: vis 02/20 8Admin Note: VIS GIVEN VIS DATE 12/23/08 9Admin Note: VIS given 10Admin Note: VIS given 11Admin Note: VIS given Medications acetaminophen 500 mg oral tablet 2 tablet, By Mouth, 3 times a day, PRN NEEDED FOR PAIN X, # 180 tablet, 2 Refills, Maintenance, 01/26/23 10:16:00 EDT, [id number], label all scripts in Namibian, 175.26, cm, 01/26/23 9:13:00 EDT, Height, 123, kg, 07/16/21 13:01:00 EST, Dry W... Start Date: 01/26/23 Stop Date: 04/26/23 Status: Ordered Bed pads XL disposable Bed [...] 1 Refills, Maintenance, 01/26/23 9:56:00 EDT, Cream, [facility]/pharmacy #[id number], Partial fill upon patient request if the prescription is for a schedule II opioid drug., 1 application Topically 2 ti... Start Date: 01/26/23 Stop Date: 03/27/23 Status: Ordered diclofenac 1% topical gel See Instructions, APPLY TO AFFECTED AREA 4 TIMES A DAY, # 100 Gm, 4 Refills, Maintenance, 11/09/22 16:41:00 EDT, [facility], 25, APPLY TO AFFECTED AREA 4 TIMES A DAY, 175.26, cm, 10/03/22 10:48:00 EDT, Height, 123, kg, 07/16/21 13:01:00 EST, Dry... Start Date: 11/09/22 Status: Ordered docusate sodium 100 mg oral capsule 1 capsule, By Mouth, 2 times a day, PRN NEEDED, CONSTIPATION., # 60 capsule, 2 Refills, Maintenance, 01/18/23 15:57:00 EDT, [facility], 175.26, cm, 10/03/22 10:48:00 EDT, Height, 123, kg, 07/16/21 13:01:00 EST, Dry Weight Start Date: 01/18/23 Status: Ordered Eliquis 5 mg oral tablet 1 tablet, By Mouth, 2 times a day, atrial fibrillation, # 180 tablet, 11 Refills, Maintenance, 01/26/23 10:16:00 EDT, [facility], label all scripts in Namibian, 175.26, cm, 01/26/23 9:13:00 EDT, Height, 123, kg, 07/16/21 13:01:00 EST, Dry Weight Start Date: 01/26/23 Stop Date: 01/10/26 Status: Ordered esomeprazole 20 mg oral enteric coated capsule 1 capsule = 20 mg, By Mouth, 2 times a day, # 180 capsule, 2 Refills, Maintenance, 08/08/22 8:21:00EDT, [facility]/pharmacy #2071, Partial fill upon patient request if the prescription is for a schedule IIopioid drug., 175.26, cm, 03/09/22 10:37:00 EDT, He... Start Date: 08/08/22 Status: Ordered fluticasone 50 mcg/inh nasal spray See Instructions, SPRAY 1 SPRAY INTO BOTH NARES DAILY X 30 DAYS NEEDED FOR ALLERGIES, # 48 mL, 0Refills, Maintenance, 04/11/22 5:24:00 EST, [facility]/pharmacy #2071, 90, Office visit needed for furtherrefills., SPRAY 1 SPRAY INTO BOTH NARES DAILY X 30... Start Date: 04/11/22 Status: Ordered Heating pad-electric Heating pad-electric, See Instructions, # 1 each, Refills 0, Tot. Refills 0, Maintenance, Use as directed for no greater than 20 minutes per session Dx. M79.7, M25.519, M25.569 Duration: Lifetime, 03/28/23 10:22:00 EST, Supply Start Date: 03/28/23 Status: Ordered lisinopril 40 mg oral tablet 1 tablet, By Mouth, Daily, # 90 tablet, 11 Refills, Maintenance, 01/17/23 8:35:00 EDT, [facility]/pharmacy#2070, 175.26, cm, 10/03/22 10:48:00 EDT, Height, 123, kg, 07/16/21 13:01:00 EST, Dry Weight Start Date: 01/17/23 Stop Date: 01/01/26 Status: Ordered metoprolol 50 mg oral tablet, extended release 50 mg, 1, tablet, By Mouth, Daily, do not crush or chew (via cardiology in past), # 90 tablet, Refills 11, Tot. Refills 11, Maintenance, 01/26/23 10:16:00 EDT, Route to Pharmacy Electronically, [facility]/pharmacy #207, label all scripts in Namibian, 175.26,... Start Date: 01/26/23 Stop Date: 01/10/26 Status: Ordered nystatin topical [id number] u/gm powder See Instructions, APPLY TO AFFECTED AREA 3 TIMES A DAY, # 60 Gm, 1 Refills, Maintenance, 01/26/23 10:16:00 EDT, [facility]/pharmacy #2071, 30, label all scripts in [place]ian, APPLY TO AFFECTED AREA 3 TIMES A [...] 11 Refills, Maintenance, 01/26/23 10:25:00 EDT, Tablet, [facility]/pharmacy #2071, 175.26, cm, 01/26/23 9:13:00 EDT, Height, 123, kg, 07/16/21 13:01:00 EST, Dry Weight Start Date: 01/26/23 Stop Date: 01/10/26 Status: Ordered tiZANidine 2 mg oral tablet 2 mg, 1, tablet, By Mouth, 3 times a day, # 15 tablet, Refills 0, Tot. Refills 0, Maintenance, 02/24/23 17:11:00 EDT, Route to Pharmacy Electronically, [facility]/pharmacy #[id number], Partial fill upon patient request if the prescription is for a schedule II opio... Start Date: 02/24/23 Stop Date: 03/01/23 Status: Ordered Vitamin C 250 mg oral tablet 1 tablet, By Mouth, Daily, # 30 tablet, 1 Refills, Maintenance, 03/21/23 17:41:00 EST, [facility] STORE [facility], 175, cm, 02/27/23 7:09:00 EDT, Height, 124.5, [...] pending Rheumatolgoy as of Confirmed 02/2022 Active [place] cardiac risk 10-20% in next 10 years/2019 1 Confirmed 2019 Active Atrial fibrillation, paroxysmal Confirmed Active Carpal tunnel syndrome 2 Confirmed Active Depression Confirmed 09/14/09 Active Diabetes mellitus Confirmed 2021 Active Pancreatic lesion on US 2008, pending more imaging Confirmed Active Anticoagulated for atrial fibrillation Confirmed Active Eczema 3 Confirmed Active Hypertension Confirmed 09/15/09 Active Fibromyalgia Confirmed Active GERD - Gastro-esophageal reflux disease Confirmed 09/14/09 Active H. pylori 4 Confirmed Active Hemorrhoid, internal & external, enlarged on colonoscopy Confirmed Active Hyperlipidemia Confirmed 09/14/09 Active Knee joint pain, osteoarthritis 5 Confirmed Active DJD (degenerative joint disease), lumbar 6 Confirmed Active Microalbuminuria Confirmed Active Meningioma per Neurosurgeon , on ?Outside MRI, stable -needs continued followup Confirmed Active SHAHRIAR - Obstructive sleep apnea Confirmed Active Severe obesity Confirmed Active Hepatic steatosis 7 Confirmed Active Urinary incontinence Confirmed Active Vaginal wall prolapse Confirmed Active Varicose vein Confirmed Active 1Down to 4.5% August 2020 2Bil, S/P RT Release, Left with Pos EMG study 3per Dermatology 2009 or so 4Documented on pos stool for H pylori antigen. Pt treated x 14 days 07/23. 5X-rays 2007 c/w early OA. [id number] x0ray 7on US Social History Social History Type Response Smoking Status Never smoker entered on: 04/17/13 Sex Female Patient Care team information Care Team Personnel Name: Pattie Downign MD Position: [facility] AOC OPERATIONS INTELLIGENCE OFFICER Member Role: Lifetime Consulting Physician Address: Address: [address] [place] [address], [address] [place] [address]- Name: Belia Khoury MD Position: [facility] Physician - Primary Care Member Role: PCP Address: Address: [address] [place] [address]- [place] Care Team Related Persons Name: BALBIR IVETT Address: home [address] [place] [address] Name: JOVANA PORTER Address: home [address] [place] [address] Name: SARA HERNÁNDEZ Address: home [address] [place] [address]
--- OUTSIDE RECORDS SUMMARY | 2023-04-21 11:13 | XMS_ITS | Continuity of Care Document ---
Author Name Unknown Organization [facility] Address [address] [place] [address]- Care Team Providers Care Import/Export Analyst Name Role Phone Belia Khoury MD Primary Care Physician Encounter [facility] Date(s): 03/31/21 - 04/30/[address] [address]- Allergies, Adverse Reactions, Alerts Substance Reaction Severity [...] [03/24/2014] fluarix trivalent 2Result Comment: [01/29/2013] Flulaval [id number]. VIS in Bolivian given. 3Admin Note: VIS 11/2011 4Admin Note: VIS GIVEN VIS DATE 12/07/10 5Admin Note: VIS GIVEN 12/22/09 kyrgyz 6Admin Note: VIS GIVEN 7Admin Note: vis [...] EST, [facility]/pharmacy #[id number], label in Bol[place]ian, 175.26, cm, 03/26/21 11:10:00 EST, Height, 120.45, kg, 11/05/20 16:03:00 ED... Start Date: 03/29/21 Stop Date: 05/28/21 Status: Ordered apixaban 5 mg oral tablet 1 tablet = 5 mg, By Mouth, 2 times a day, # 60 tablet, 3 Refills, Maintenance, 03/29/21 13:15:00 EST, Tablet, [facility]/pharmacy #[id number], Partial fill upon patient request if the prescription is for a schedule II opioid drug., 175.26, cm, 03/26/21 11:10:00 ES... Start Date: 03/29/21 Status: Ordered atorvastatin 40 mg oral tablet 1 tablet, By Mouth, Daily, # 90 tablet, 3 Refills, [facility] 430[facility], 175.26, cm, 03/26/21 11:10:00 EST, Height, 120.45, kg, 11/05/20 16:03:00 EDT, Dry Weight Start Date: 03/29/21 Status: Ordered Colace sodium 100 mg oral capsule 100 mg, 1, capsule, By Mouth, 2 times a day, PRN, # 60 capsule, Refills 3, Tot. Refills 3, Maintenance, for constipation, 03/29/21 13:13:00 EST, Route to Pharmacy Electronically, [facility]/pharmacy #[id number], 175.26, cm, 03/26/21 11:10:00 EST, Height, 120.45, k... Start Date: 03/29/21 Status: Ordered diclofenac 1% topical gel = 2 Gm, Topically, 4 times a day, # 100 Gm, 0 Refills, Maintenance, 11/25/20 11:18:00 EDT, Gel, [facility]/pharmacy #[id number], Partial fill upon [...] 0 Refills, Maintenance, 11/19/20 11:13:00 EDT, Film, [facility]/pharmacy #2071, Partial fill upon patient request if the prescription is for a schedule II opioid drug., 1 patch To... Start Date: 11/19/20 Stop Date: 12/19/20 Status: Ordered lisinopril 20 mg oral tablet 1, tablet, By Mouth, Daily, # 90 tablet, Refills 1, Route to Pharmacy Electronically, [facility] 26839, 175.26, cm, 02/03/21 10:48:00 EDT, Height, 120.45, kg, 11/05/20 16:03:00 EDT, Dry Weight Start Date: 03/02/21 Status: Ordered metoprolol 50 mg oral tablet, extended release 50 mg, 1, tablet, By Mouth, Daily, # 30 tablet, Refills 5, Tot. Refills 5, Maintenance, 12/31/20 15:17:00 EDT, Route to Pharmacy Electronically, [facility]/pharmacy #[id number], Partial fill upon [...] 09/14/09 Active Ankle joint pain(Confirmed) 09/14/09 Active [place] cardiac risk 10-2 0% in next 10 [...] colonoscopy(Confirmed) 6 11/09/10 Active H/O colonoscopy, [facility] g [facility](Confirmed) 04/01/19 Active Hyperlipidemia(Confirmed) [...]
--- OUTSIDE RECORDS SUMMARY | 2023-04-21 11:13 | XMS_ITS | Continuity of Care Document ---
Author Name Unknown Organization [facility] y Address [address] [place] [address]- Care Team Providers Care Vegetable I Farmworker Name Role Phone Belia Khoury MD Primary Care Physician [phone] Encounter [facility] Date(s): 08/02/21 - 11/13/21 [facility] [address], [place] [address] Attending Physician: Luciana Hyatt MD Admitting Physician: Luciana Hyatt MD Allergies, Adverse Reactions, Alerts No Known [...] fluarix trivalent 14-15 2Result Comment: [01/29/2013] Flulaval [id number]. VIS in [place] given. 3Admin Note: VIS 11/2011 4Admin Note: VIS GIVEN VIS DATE 12/07/10 5Admin Note: VIS GIVEN 12/22/09 greek 6Admin Note: VIS GIVEN 7Admin Note: vis 02/20 8Admin Note: VIS GIVEN VIS DATE 12/23/08 9Admin Note: VIS given 10Admin Note: VIS given 11Admin Note: VIS given Medications acetaminophen 500 mg oral tablet 2 tablet = 1,000 mg, By Mouth, 3 times a day, PRN Pain , Mild, may use less, # 180 tablet, 1 Refills, Maintenance, 03/29/21 13:13:00 EST, [facility]/pharmacy #[id number], label in [place], 175.26, cm, 03/26/21 11:10:00 EST, Height, 120.45, kg, 11/05/20 16:03:00 ED... Start Date: 03/29/21 Stop Date: 05/28/21 Status: Ordered atorvastatin 40 mg oral tablet 1 tablet, By Mouth, Daily, # 90 tablet, 3 Refills, [facility] 94[facility], 175.26, cm, 03/26/21 11:10:00 EST, Height, 120.45, kg, 11/05/20 16:03:00 EDT, Dry Weight Start Date: 03/29/21 Status: Ordered diclofenac 1% topical gel See Instructions, APPLY TO AFFECTED AREA 4 TIMES A DAY, # 100 Gm, 0 Refills, [facility], 25, APPLY TO AFFECTED AREA 4 TIMES A DAY, 175.26, cm, 10/20/21 10:01:00 EDT, Height, 123, kg, 07/16/21 13:01:00 EST, Dry Weight Start Date: 11/09/21 Status: Ordered docusate sodium 100 mg oral capsule 1 capsule, By Mouth, 2 times a day, PRN NEEDED FOR CONSTIPATION, # 60 capsule, 3 Refills, [facility], 175.26, cm, 07/16/21 13:01:00 EST, Height, 123, kg, 07/16/21 13:01:00 EST, Dry Weight Start Date: 07/20/21 Status: Ordered Eliquis 5 mg oral tablet 1 tablet, By Mouth, 2 times a day, # 60 tablet, 11 Refills, [facility], 175.26, cm, 07/16/21 13:01:00 EST, Height, 123, kg, 07/16/21 13:01:00 EST, Dry Weight Start Date: 07/20/21 Status: Ordered esomeprazole 20 mg oral enteric coated capsule 1 capsule = 20 mg, By Mouth, 2 times a day, # 180 capsule, 1 Refills, Maintenance, 08/17/21 7:48:00EDT, [facility]/pharmacy #2071, Partial fill upon patient request if the prescription is for a schedule IIopioid drug., 175.26, cm, 08/13/21 14:16:00 EDT, He... Start Date: 08/17/21 Status: Ordered fluticasone 50 mcg/inh nasal spray See Instructions, SPRAY 1 SPRAY IN BOTH NOSTRILS DAILY, # 16 mL, 0 Refills, [facility], 30, SPRAY 1 SPRAY IN BOTH NOSTRILS DAILY, 175.26, cm, 07/28/21 11:01:00 EDT, Height, 123, kg, 07/16/21 13:01:00 EST, Dry Weight Start Date: 08/13/21 Status: Ordered lisinopril 20 mg oral tablet 1, tablet, By Mouth, Daily, # 90 tablet, Refills 11, Tot. Refills 11, Maintenance, 09/14/21 8:34:00EDT, Route to Pharmacy Electronically, [facility]/pharmacy #[id number], label in [place], 175.26, cm, 09/14/21 7:45:00 EDT, Height, 123, kg, 07/16/21 13:01:00 EST,... Start Date: 09/14/21 Stop Date: 08/29/24 Status: Ordered metoprolol 50 mg oral tablet, extended release 50 mg, 1, tablet, By Mouth, Daily, # 30 tablet, Refills 11, Tot. Refills 11, Maintenance, 06/05/21 9:01:00 EST, Route to Pharmacy Electronically, [facility]/pharmacy #[id number], Partial fill upon patient requestif the prescription [...] 09/14/09 Active Ankle joint pain(Confirmed) 09/14/09 Active [place] cardiac risk 10-2 0% in next 10 [...] ?Outside MRI, stable -needs continued followup(Confirmed) Active Obese class II(Confirmed) Active Obesity(Confirmed) Active [...]
--- OUTSIDE RECORDS SUMMARY | 2023-04-21 11:13 | XMS_ITS | Continuity of Care Document ---
Author Name Unknown Organization [facility] ter Address [address] [place] [address]- Care Team Providers Care Chief Order Dispatcher Name Role Phone Iraida WILSON, Belia Primary Care Physician [phone] Encounter [facility] Date(s): 01/27/21 - 03/04/[address] [address] Attending Physician: Belia Khoury MD Admitting Physician: [...] fluarix trivalent 14- 2Result Comment: [01/29/2013] Flulaval [id number]. VIS in [place] Korean given. 3Admin Note: VIS 11/2011 4Admin Note: VIS GIVEN VIS DATE 12/07/10 5Admin Note: VIS GIVEN 12/22/09 ghanaian 6Admin Note: VIS GIVEN 7Admin Note: vis [...] 11/25/20 11:19:00 EDT, [id number], label in [place], 175.26, cm, 11/25/20 9:57:00 EDT, Height, 120.45, [...] 01/16/20 16:20:00 EDT, Route to Pharmacy Electronically, [facility]/pharmacy #[id number], 166, cm, 12/31/19 10:08:00 EDT, Height, 118.5, kg, 1... Start Date: 01/16/20 Status: Ordered diclofenac 1% topical gel = 2 Gm, Topically, 4 times a day, # 100 Gm, 0 Refills, Maintenance, 11/25/20 11:18:00 EDT, Gel, [facility]/pharmacy #[id number], Partial fill upon patient [...] 0 Refills, Maintenance, 11/19/20 11:13:00 EDT, Film, [facility]/pharmacy #[id number], Partial fill upon patient request if the prescription is for a schedule II opioid drug., 1 patch To... Start Date: 11/19/20 Stop Date: 12/19/20 Status: Ordered lisinopril 20 mg oral tablet 1, tablet, By Mouth, Daily, # 90 tablet, Refills 1, Route to Pharmacy Electronically, [facility] STORE 95327, 175.26, cm, 02/03/21 10:48:00 EDT, Height, 120.45, kg, 11/05/20 16:03:00 EDT, Dry Weight Start Date: 03/02/21 Status: Ordered metoprolol 50 mg oral tablet, extended release 50 mg, 1, tablet, By Mouth, Daily, # 30 tablet, Refills 5, Tot. Refills 5, Maintenance, 12/31/20 15:17:00 EDT, Route to Pharmacy Electronically, [facility]/pharmacy #[id number], Partial fill upon patient request if the [...] 09/14/09 Active Ankle joint pain(Confirmed) 09/14/09 Active [place] cardiac risk 10-2 0% in next (Confirmed) 2019 Active Carpal tunnel syndrome(Confirmed) 2 [...]
--- OUTSIDE RECORDS SUMMARY | 2023-04-21 11:13 | XMS_ITS | Continuity of Care Document ---
Author Name Unknown Organization [facility] Address [address] [place] [address]- Care Team Providers Care Internet Sales Director Name Role Phone Belia Khoury MD Primary Care Physician [phone] Encounter [facility] Date(s): 01/16/20 - 02/15/20 [facility] [address] [place] [address]- [facility] Allergies, Adverse Reactions, Alerts Substance Reaction Severity [...] fluarix trivalent - 2Result Comment: [01/29/2013] Flulaval [id number]. VIS in Mexican given. 3Admin Note: VIS 11/2011 4Admin Note: VIS GIVEN VIS DATE 12/07/10 5Admin Note: VIS GIVEN 12/22/09 slovak 6Admin Note: VIS GIVEN 7Admin Note: vis [...] tablet, 1 Refills, Maintenance, 01/16/20 15:18:00 EDT, [facility]/pharmacy #[id number], label in Mexican, 166, cm, 12/31/19 10:08:00 EDT, Height, 118.5, kg, 04/01/19 12:45:00 EST, D... Start Date: 01/16/20 Stop Date: 03/16/20 Status: Ordered atorvastatin 40 mg oral tablet 1 tablet = 40 mg, By Mouth, Daily, # 90 tablet, 11 Refills, Maintenance, 07/24/19 10:18:00 EDT, Tablet, [facility]/pharmacy #[id number], 166, cm, 07/24/19 9:46:00 EDT, Height, [...] 04/01/19 14:24:00 EST, Route to Pharmacy Electronically, [id number], [facility]/pharmacy #[id number] Start Date: 04/01/19 Status: Ordered Colace sodium 100 mg oral capsule 100 mg, 1, capsule, By Mouth, 2 times a day, PRN, # 60 capsule, Refills 3, Tot. Refills 3, Maintenance, for constipation, 01/16/20 16:20:00 EDT, Route to Pharmacy Electronically, [facility]/pharmacy #[id number], 166, cm, 12/31/19 10:08:00 EDT, Height, [...] wash hands thoroughly after application label in slovak, # 50 Gm, 1 Refills, Acute 04/28/20 8:39:00 EST, 01/27/20 8:39:00 EDT, Ointment, [facility]/pharmacy #[id number], 1 application Topically 3 times a day,Instr:wash azul... Start Date: 01/27/20 Stop Date: 04/28/20 Status: Ordered lisinopril 10 mg oral tablet 10 mg, 1, tablet, By Mouth, Daily, for 90 days, # 90 tablet, Refills 11, Tot. Refills 11, Hard Stop10/14/21 9:32:01 EDT, 10/30/18 9:32:01 EDT, Route to Pharmacy Electronically, [facility]/pharmacy #[id number] Start Date: 10/30/18 Stop Date: 10/14/21 Status: Ordered lisinopril 10 mg oral tablet 10 mg, 1, tablet, By Mouth, Daily, # 90 tablet, Refills 1, Tot. Refills 1, Maintenance, 10/14/21 9:32:00 EDT, Route to Pharmacy Electronically, [facility]/pharmacy #[id number], 166, cm, 12/31/19 10:08:00 EDT, Height, 118.5, kg, 04/01/19 12:45:00 EST, Dry Weight Start Date: 10/14/21 Stop Date: 04/12/22 Status: Ordered meclizine 25 mg oral tablet 1 tablet = 25 mg, By Mouth, Daily, use as little as possible, # 14 tablet, 0 Refills, Maintenance, 05/27/19 17:28:00 EST, Tablet, [facility]/pharmacy #[id number], 166, cm, 05/27/19 16:35:00 EST, Height, [...] Refills, Maintenance, 12/31/19 10:42:00 EDT, EC Capsule, [facility]/pharmacy #[id number], 166, cm, 12/31/19 10:08:00 EDT, Height, 118.5, kg, 04/01/19 12:45:00 EST, Dry Weight Start Date: 12/31/19 Status: Ordered pregabalin 150 mg oral capsule 1 capsule = 150 mg, By Mouth, 2 times a day, may cause drowsiness label in slovak, # 180 capsule, 0 Refills, Maintenance, 02/07/20 8:10:00 EDT, Capsule, [facility]/pharmacy #[id number], 166, cm, 12/31/19 10:08:00 EDT, Height, 118.5, kg, 04/01/19 12:45:00 ESTDr... Start Date: 02/07/20 Status: Ordered Problem List Condition Effective Dates Status Health Status Inform ant Impaired glucose tolerance(Confirmed) 09/14/09 Active Ankle joint pain(Confirmed) 09/14/09 Active [place] cardiac risk 10-2 0% in next /2019(Confirmed) [...] Knee joint pain(Confirmed) 6 Active Obesity(Confirmed) Active SHAHIRAR - Obstructive sleep apnea(Confirmed) Active Postmenopausal bleeding(Confirmed) [...]
--- OUTSIDE RECORDS SUMMARY | 2023-04-21 11:13 | XMS_ITS | Continuity of Care Document ---
Author Name Unknown Organization [facility] Address [address] [place] [address]- Care Team Providers Care Vegetable Tier Name Role Phone Belia Khoury MD Primary Care Physician [phone] Encounter [facility] Date(s): 09/28/20 - 10/28/[address] [address] Allergies, Adverse Reactions, Alerts Substance [...] fluarix trivalent - 2Result Comment: [01/29/2013] Flulaval [id number]. VIS in Hungarian given. 3Admin Note: VIS 11/2011 4Admin Note: VIS GIVEN VIS DATE 12/07/10 5Admin Note: VIS GIVEN 12/22/09 ukrainian 6Admin Note: VIS GIVEN 7Admin Note: vis 02/20 8Admin Note: VIS GIVEN VIS DATE 12/23/08 9Admin Note: VIS given 10Admin Note: VIS given 11Admin Note: VIS given Medications acetaminophen 500 mg oral tablet 2 tablet = 1,000 mg, By Mouth, 3 times a day, PRN Pain , Mild, may use less, # 180 tablet, 1 Refills, Maintenance, 01/16/20 15:18:00 EDT, [facility]/pharmacy #[id number], label in Hungarian, 166, cm, 12/31/19 10:08:00 EDT, Height, 118.5, kg, 04/01/19 12:45:00 EST, D... Start Date: 01/16/20 Stop Date: 03/16/20 Status: Ordered atorvastatin 40 mg oral tablet See Instructions, [facility], # 90 tablet, 11 Refills, Maintenance, [facility], 166, cm, 09/18/20 8:01:00 EDT, Height, 118.5, kg, 04/01/19 12:45:00 EST, Dry Weight Start Date: 10/09/20 Status: Ordered Colace sodium 100 mg oral capsule 100 mg, 1, capsule, By Mouth, 2 times a day, PRN, # 60 capsule, Refills 3, Tot. Refills 3, Maintenance, for constipation, 01/16/20 16:20:00 EDT, Route to Pharmacy Electronically, [facility]/pharmacy #[id number], 166, cm, 12/31/19 10:08:00 [...] 2 Refills, Maintenance, 06/11/20 11:38:00 EST, Ointment, [facility]/pharmacy #[id number], Partial fill [...] 02/21/20 9:20:00 EDT, Route to Pharmacy Electronically, [facility]/pharmacy #[id number], 166, cm, 12/31/19 10:08:00 EDT, Height, 118.5, kg, 11... Start Date: 02/21/20 Stop Date: 02/05/23 Status: Ordered Triple Antibiotic topical ointment 1 application, Topically, 2 times a day, Apply inside NOSE at bedtime, # 15 Gm, 0 Refills, Maintenance, 07/31/20 10:04:00 EDT, Ointment, [facility]/pharmacy #[id number], Partial fill upon patient request if the prescription is for a schedule II opioid drug., 1 trinh... Start Date: 07/31/20 Status: Ordered Problem List Condition Effective Dates Status Health Status Inform ant Impaired glucose tolerance(Confirmed) 09/14/09 Active Ankle joint pain(Confirmed) 09/14/09 Active [place] cardiac risk 10-2 0% in next (Confirmed) [...]
--- OUTSIDE RECORDS SUMMARY | 2023-04-21 11:13 | XMS_ITS | Continuity of Care Document ---
Author Name Unknown Organization [facility] Address [address] [place] [address], [address] [place] [address]- Care Team Providers Care Nail Assembly Machine Operator Name Role Phone Belia Khoury MD Primary Care Physician [phone] Encounter [facility] Date(s): 08/04/21 - 09/03/21 [facility] [address] [place] [address] Drive, [address] [place], [place] [address] Attending Physician: Admtr, Carolyn Admitting Physician: Admtr, [...] fluarix trivalent - 2Result Comment: [01/29/2013] Flulaval [id number]. VIS in Liberian given. 3Admin Note: VIS 11/2011 4Admin Note: VIS GIVEN VIS DATE 12/07/10 5Admin Note: VIS GIVEN 12/22/09 israeli 6Admin Note: VIS GIVEN 7Admin Note: vis 02/20 8Admin Note: VIS GIVEN VIS DATE 12/23/08 9Admin Note: VIS given 10Admin Note: VIS given 11Admin Note: VIS given Medications acetaminophen 500 mg oral tablet 2 tablet = 1,000 mg, By Mouth, 3 times a day, PRN Pain , Mild, may use less, # 180 tablet, 1 Refills, Maintenance, 03/29/21 13:13:00 EST, [facility]/pharmacy #[id number], label in Liberian, 175.26, cm, 03/26/21 11:10:00 EST, Height, 120.45, kg, 11/05/20 16:03:00 ED... Start Date: 03/29/21 Stop Date: 05/28/21 Status: Ordered Aqua Care 10% topical cream 1 application, Topically, Daily, PRN for dry skin, for 30 days, # 85 Gm, 0 Refills, Acute 09/12/21 14:36:00 EDT, 08/13/21 14:36:00 EDT, Cream, [id number], Partial fill upon patient request ifthe prescription is for a schedule II opioid drug.,... Start Date: 08/13/21 Stop Date: 09/12/21 Status: Ordered atorvastatin 40 mg oral tablet 1 tablet, By Mouth, Daily, # 90 tablet, 3 Refills, [facility], 175.26, cm, 03/26/21 11:10:00 EST, Height, 120.45, kg, 11/05/20 16:03:00 EDT, Dry Weight Start Date: 03/29/21 Status: Ordered diclofenac 1% topical gel 1 application, Topically, 4 times a day, # 100 Gm, 0 Refills, Maintenance, 08/13/21 14:33:00 EDT, Gel, [facility]/pharmacy #[id number], Partial fill upon patient request if the prescription is for a schedule II opioid drug., 175.26, cm, 08/13/21 14:16:00 EDT, Heig... Start Date: 08/13/21 Status: Ordered docusate sodium 100 mg oral capsule 1 capsule, By Mouth, 2 times a day, PRN NEEDED FOR CONSTIPATION, # 60 capsule, 3 Refills, [facility], 175.26, cm, 07/16/21 13:01:00 EST, Height, 123, kg, 07/16/21 13:01:00 EST, Dry Weight Start Date: 07/20/21 Status: Ordered Eliquis 5 mg oral tablet 1 tablet, By Mouth, 2 times a day, # 60 tablet, 11 Refills, [facility], 175.26, cm, 07/16/21 13:01:00 EST, Height, 123, kg, 07/16/21 13:01:00 EST, Dry Weight Start Date: 07/20/21 Status: Ordered esomeprazole 20 mg oral enteric coated capsule 1 capsule = 20 mg, By Mouth, 2 times a day, # 180 capsule, 1 Refills, Maintenance, 08/17/21 7:48:00EDT, [facility]/pharmacy #2071, Partial fill upon patient request if the prescription is for a schedule IIopioid drug., 175.26, cm, 08/13/21 14:16:00 EDT, He... Start Date: 08/17/21 Status: Ordered fluticasone 50 mcg/inh nasal spray See Instructions, SPRAY 1 SPRAY IN BOTH NOSTRILS DAILY, # 16 mL, 0 Refills, [facility], 30, SPRAY 1 SPRAY IN BOTH NOSTRILS DAILY, 175.26, cm, 07/28/21 11:01:00 EDT, Height, 123, kg, 07/16/21 13:01:00 EST, Dry Weight Start Date: 08/13/21 Status: Ordered fluticasone CFC free 44 mcg/inh inhalation aerosol 2 puffs, Inhalation, 2 times a day, israeli label, # 10.6 Gm, 0 Refills, Maintenance, 07/28/21 13:26:00 EDT, Aerosol, [facility]/pharmacy #2071, Partial fill upon patient request if the prescription is for a schedule II opioid drug., 175.26, cm, 07/28/21 11:... Start Date: 07/28/21 Status: Ordered lisinopril 20 mg oral tablet 1, tablet, By Mouth, Daily, # 90 tablet, Refills 1, Route to Pharmacy Electronically, [facility], 175.26, cm, 02/03/21 10:48:00 EDT, Height, 120.45, kg, 11/05/20 16:03:00 EDT, Dry Weight Start Date: 03/02/21 Status: Ordered LORazepam 0.5 mg oral tablet 0.5 tablet = 0.25 mg, By Mouth, Once, prior to MRI. May cause drowsiness. do not drive, # 0.5 tablet, 0 Refills, Soft Stop, 07/26/21 10:17:00 EDT, Tablet, [facility]/pharmacy #2071, Partial fill upon patient request if the prescription is for a schedule II o... Start Date: 07/26/21 Status: Ordered metoprolol 50 mg oral tablet, extended release 50 mg, 1, tablet, By Mouth, Daily, # 30 tablet, Refills 11, Tot. Refills 11, Maintenance, 06/05/21 9:01:00 EST, [id number] Partial fill upon patient requestif the [...] 20 mL, By Mouth, Every 4 hours, israeli label not to exceed 6 doses/day, # 180 mL, 0 Refills, Maintenance, 07/28/21 13:25:00 EDT, [facility], Partial fill upon patient request if the prescription is for a schedule II opioid drug., 20 mL By Mo... Start Date: 07/28/21 Status: Ordered Problem List Condition Effective Dates Status Health Status Inform ant Impaired glucose tolerance(Confirmed) 09/14/09 Active Ankle joint pain(Confirmed) 09/14/09 Active [place] cardiac risk 10-2 0% in next 10 [...]
--- OUTSIDE RECORDS SUMMARY | 2023-04-21 11:14 | XMS_ITS | Continuity of Care Document ---
Author Name Unknown Organization [facility] Address [address] [place] [address]- Care Team Providers Care Expediter Clerk Name Role Phone Belia Khoury MD Primary Care Physician [facility]counter [facility] Date(s): 04/02/21 - 05/02/21 [facility] [address] [place], [place] [address] Attending Physician: Carolyn Mitchell Allergies, Adverse Reactions, Alerts Substance Reaction Severity [...] [03/24/2014] fluarix trivalent 2Result Comment: [01/29/2013] Flulaval [id number]. VIS in Welsh given. 3Admin Note: VIS 11/2011 4Admin Note: VIS GIVEN VIS DATE 12/07/10 5Admin Note: VIS GIVEN 12/22/09 vietnamese 6Admin Note: VIS GIVEN 7Admin Note: vis 02/20 8Admin Note: VIS GIVEN VIS DATE 12/23/08 9Admin Note: VIS given 10Admin Note: VIS given 11Admin Note: VIS given Medications acetaminophen 500 mg oral tablet 2 tablet = 1,000 mg, By Mouth, 3 times a day, PRN Pain , Mild, may use less, # 180 tablet, 1 Refills, Maintenance, 03/29/21 13:13:00 EST, [facility]/pharmacy #[id number], label in Welsh, 175.26, cm, 03/26/21 11:10:00 EST, Height, 120.45, kg, 11/05/20 16:03:00 ED... Start Date: 03/29/21 Stop Date: 05/28/21 Status: Ordered apixaban 5 mg oral tablet 1 tablet = 5 mg, By Mouth, 2 times a day, # 60 tablet, 3 Refills, Maintenance, 03/29/21 13:15:00 EST, Tablet, [facility]/pharmacy #2071, Partial fill upon patient request if the prescription is for a schedule II opioid drug., 175.26, cm, 03/26/21 11:10:00 ES... Start Date: 03/29/21 Status: Ordered atorvastatin 40 mg oral tablet 1 tablet, By Mouth, Daily, # 90 tablet, 3 Refills, [facility], 175.26, cm, 03/26/21 11:10:00 EST, Height, 120.45, kg, 11/05/20 16:03:00 EDT, Dry Weight Start Date: 03/29/21 Status: Ordered Colace sodium 100 mg oral capsule 100 mg, 1, capsule, By Mouth, 2 times a day, PRN, # 60 capsule, Refills 3, Tot. Refills 3, Maintenance, for constipation, 03/29/21 13:13:00 EST, Route to Pharmacy Electronically, [facility]/pharmacy #[id number], 175.26, cm, 03/26/21 11:10:00 EST, Height, 120.45, k... Start Date: 03/29/21 Status: Ordered diclofenac 1% topical gel = 2 Gm, Topically, 4 times a day, # 100 Gm, 0 Refills, Maintenance, 11/25/20 11:18:00 EDT, Gel, [facility]/pharmacy #[id number], Partial fill upon patient request [...] 0 Refills, Maintenance, 11/19/20 11:13:00 EDT, Film, [facility]/pharmacy #2071, Partial fill upon patient request if the prescription is for a schedule II opioid drug., 1 patch To... Start Date: 11/19/20 Stop Date: 12/19/20 Status: Ordered lisinopril 20 mg oral tablet 1, tablet, By Mouth, Daily, # 90 tablet, Refills 1, Route to Pharmacy Electronically, [facility], 175.26, cm, 02/03/21 10:48:00 EDT, Height, 120.45, kg, 11/05/20 16:03:00 EDT, Dry Weight Start Date: 03/02/21 Status: Ordered metoprolol 50 mg oral tablet, extended release 50 mg, 1, tablet, By Mouth, Daily, # 30 tablet, Refills 5, Tot. Refills 5, Maintenance, 12/31/20 15:17:00 EDT, Route to Pharmacy Electronically, [facility]/pharmacy #[id number], Partial fill upon patient request [...] 09/14/09 Active Ankle joint pain(Confirmed) 09/14/09 Active [place] cardiac risk 10-2 0% in next 10 (Confirmed) 2019 Active Atrial fibrillation, paroxysmal(Confirmed) Active Carpal [...] colonoscopy(Confirmed) 6 11/09/10 Active H/O colonoscopy, in [facility](Confirmed) 04/01/19 Active Hyperlipidemia(Confirmed) 09/14/09 Active [...]
--- OUTSIDE RECORDS SUMMARY | 2023-04-21 11:14 | XMS_ITS | Continuity of Care Document ---
Author Name Unknown Organization [facility] Address [address] [address]- Care Team Providers Care Cold Mill Inspector Name Role Phone Belia Khoury MD Primary Care Physician [facility] Date(s): 07/25/19 - 08/04/19 [facility] [address] [address]- [place] Attending Physician: Carolyn Mitchell Admitting Physician: AdmtrCarolyn Referring Physician: Admtr, [id number] [...] fluarix trivalent 14-15 2Result Comment: [01/29/2013] Flulaval [id number]. VIS in Russian given. 3Admin Note: VIS 11/2011 4Admin Note: VIS GIVEN VIS DATE 12/07/10 5Admin Note: VIS GIVEN 12/22/09 khmer 6Admin Note: VIS GIVEN 7Admin Note: vis [...] Refills, Maintenance, 05/27/19 17:37:00 EST, [facility]/pharmacy #[id number], label in Russian, 166, cm, 05/27/19 16:35:00 EST, Height, 118.5, kg, 04/01/19 12:45:00 EST, D... Start Date: 05/27/19 Stop Date: 07/26/19 Status: Ordered atorvastatin 40 mg oral tablet 1 tablet = 40 mg, By Mouth, Daily, # 90 tablet, 11 Refills, Maintenance, 07/24/19 10:18:00 EDT, Tablet, [facility]/pharmacy #[id number], 166, cm, 07/24/19 9:46:00 EDT, Height, 118.5, kg, 04/01/19 12:45:00 EST, Dry Weight Start Date: 07/24/19 Stop Date: 07/08/22 Status: Ordered Colace sodium 100 mg oral capsule 100 mg, 1, capsule, By Mouth, 2 times a day, PRN, # 60 capsule, Refills 3, Tot. Refills 3, Maintenance, for constipation, 04/01/19 14:24:00 EST, Route to Pharmacy Electronically, [id number], [facility]/pharmacy #[id number] Start Date: 04/01/19 Status: Ordered [...] 10/30/18 9:32:01 EDT, Route to Pharmacy Electronically, [id number], [facility]/pharmacy #207 Start Date: 10/30/18 Stop Date: 10/14/21 Status: Ordered meclizine 25 mg oral tablet 1 tablet = 25 mg, By Mouth, Daily, use as little as possible, # 14 tablet, 0 Refills, Maintenance, 05/27/19 17:28:00 EST, Tablet, [facility]/pharmacy #207, 166, cm, 05/27/19 16:35:00 EST, Height, 118.5, kg, 04/01/19 12:45:00 EST, Dry Weight Start Date: 05/27/19 Stop Date: 06/10/19 Status: Ordered naproxen 250 mg oral tablet TOME RAY TABLETA POR V?A ORAL DOS VECES AL D?A Start Date: 02/19/19 Status: Ordered omeprazole 20 mg oral enteric coated capsule 1 capsule = 20 mg, By Mouth, Daily, for 14 days, # 14 capsule, 0 Refills, Acute 08/07/19 9:58:00 EDT, 07/24/19 9:58:00 EDT, EC Capsule, [id number], 166, cm, 07/24/19 9:46:00 EDT, Height, 118.5, kg, 04/01/19 12:45:00 EST, Dry Weight Start Date: 07/24/19 Stop Date: 08/07/19 Status: Ordered Problem List Condition Effective Dates Status Health Status Inform ant Impaired glucose tolerance(Confirmed) 09/14/09 Active Ankle joint pain(Confirmed) 09/14/09 Active [place] cardiac risk 10-2 0% in next 10 (Confirmed) 2019 Active CTS - Carpal tunnel [...]
--- OUTSIDE RECORDS SUMMARY | 2023-04-21 11:14 | XMS_ITS | Continuity of Care Document ---
Author Name Unknown Organization [facility] Address [address] [place] [address]- Care Team Providers Care Ladle Handler Name Role Phone Belia Khoury MD Primary Care Physician [facility] Date[facility]s): 11/09/20 - 01/01/[address] [address] Attending Physician: Not on Staff, Attending MD [...] fluarix trivalent - 2Result Comment: [01/29/2013] Flulaval [id number]. VIS in Georgian given. 3Admin Note: VIS 11/2011 4Admin Note: VIS GIVEN VIS DATE 12/07/10 5Admin Note: VIS GIVEN 12/22/09 syriac 6Admin Note: VIS GIVEN 7Admin Note: vis [...] 11/25/20 11:19:00 EDT, [id number], label in Georgian, 175.26, cm, 11/25/20 9:57:00 EDT, Height, 120.45, [...] 01/16/20 16:20:00 EDT, Route to Pharmacy Electronically, [facility]/pharmacy #[id number], 166, cm, 12/31/19 10:08:00 EDT, Height, 118.5, kg, 1... Start Date: 01/16/20 Status: Ordered diclofenac 1% topical gel = 2 Gm, Topically, 4 times a day, # 100 Gm, 0 Refills, Maintenance, 11/25/20 11:18:00 EDT, Gel, [facility]/pharmacy #[id number], Partial fill [...] 0 Refills, Maintenance, 11/19/20 11:13:00 EDT, Film, [facility]/pharmacy #[id number], Partial fill upon patient request if the prescription is for a schedule II opioid drug., 1 patch To... Start Date: 11/19/20 Stop Date: 12/19/20 Status: Ordered lisinopril 20 mg oral tablet 20 mg, 1, tablet, By Mouth, Daily, dose change, # 30 tablet, Refills 3, Tot. Refills 3, Maintenance, 12/10/20 12:11:00 EDT, Route to Pharmacy Electronically, [facility]/pharmacy #[id number], Partial fill upon patient request if the prescription is for a schedule I... Start Date: 12/10/20 Stop Date: 04/09/21 Status: Ordered metoprolol 50 mg oral tablet, extended release 50 mg, 1, tablet, By Mouth, Daily, # 30 tablet, Refills 5, Tot. Refills 5, Maintenance, 12/31/20 15:17:00 EDT, Route to Pharmacy Electronically, [facility]/pharmacy #[id number], Partial fill upon patient request if the [...] 09/14/09 Active Ankle joint pain(Confirmed) 09/14/09 Active [place] cardiac risk 10-2 0% in next 10 [...] colonoscopy(Confirmed) 6 11/09/10 [facility] 04/01/19 Active Hyperlipidemia(Confirmed) 09/14/09 [...]
--- OUTSIDE RECORDS SUMMARY | 2023-04-21 11:14 | XMS_ITS | Continuity of Care Document ---
Author Name Unknown Organization [facility] Address [address] [place] [id number]- Care Team Providers Care Optical Design Engineer Name Role Phone Belia Khoury MD Primary Care Physician [phone] Encounter [facility] Date(s): 09/02/20 - 10/03/[address] [address] Attending Physician: Not on Staff, Attending MD Referring Physician: Belia Khoury MD Allergies, [...] fluarix trivalent 14-15 2Result Comment: [01/29/2013] Flulaval [id number]. VIS in Kazakh given. 3Admin Note: VIS 11/2011 4Admin Note: VIS GIVEN VIS DATE 12/07/10 5Admin Note: VIS GIVEN 12/22/09 georgian 6Admin Note: VIS GIVEN 7Admin Note: vis 02/20 8Admin Note: VIS GIVEN VIS DATE 12/23/08 9Admin Note: VIS given 10Admin Note: VIS given 11Admin Note: VIS given Medications acetaminophen 500 mg oral tablet 2 tablet = 1,000 mg, By Mouth, 3 times a day, PRN Pain , Mild, may use less, # 180 tablet, 1 Refills, Maintenance, 01/16/20 15:18:00 EDT, [facility]/pharmacy #[id number], label in Kazakh, 166, cm, 12/31/19 10:08:00 EDT, Height, 118.5, kg, 04/01/19 12:45:00 EST, D... Start Date: 01/16/20 Stop Date: 03/16/20 Status: Ordered Colace sodium 100 mg oral capsule 100 mg, 1, capsule, By Mouth, 2 times a day, PRN, # 60 capsule, Refills 3, Tot. Refills 3, Maintenance, for constipation, 01/16/20 16:20:00 EDT, Route to Pharmacy Electronically, [facility]/pharmacy #[id number], 166, cm, 12/31/19 10:08:00 EDT, Height, [...] 2 Refills, Maintenance, 06/11/20 11:38:00 EST, Ointment, [facility]/pharmacy #[id number], Partial fill upon patient request if the prescription is for a schedule II opioid drug., 1 application Topically 3 times a d... Start Date: 06/11/20 Status: Ordered lisinopril 10 mg oral tablet 10 mg, 1, tablet, By Mouth, Daily, for 90 days, # 90 tablet, Refills 11, Tot. Refills 11, Hard Stop02/05/23 9:20:00 EDT, 02/21/20 9:20:00 EDT, [id number] 166, cm, 12/31/19 10:08:00 EDT, Height, 118.5, kg, 11... Start Date: 02/21/20 Stop Date: 02/05/23 Status: Ordered Triple Antibiotic topical ointment 1 application, Topically, 2 times a day, Apply inside NOSE at bedtime, # 15 Gm, 0 Refills, Maintenance, 07/31/20 10:04:00 EDT, Ointment, [facility]/pharmacy #[id number], Partial fill upon patient request if the prescription is for a schedule II opioid drug., 1 trinh... Start Date: 07/31/20 Status: Ordered Problem List Condition Effective Dates Status Health Status Inform ant Impaired glucose tolerance(Confirmed) 09/14/09 Active Ankle joint pain(Confirmed) 09/14/09 Active [place] cardiac risk 10-2 0% in next 10 [...]
--- OUTSIDE RECORDS SUMMARY | 2023-04-21 11:14 | XMS_ITS | Continuity of Care Document ---
Author Name Unknown Organization [facility] Address [address] [place] [address]- Care Team Providers Care Traveling Buyer Name Role Phone Belia Khoury MD Primary Care Physician [facility]counter [facility] Date(s): 05/17/19 - 07/07/19 [facility] [address] [place] [address]- [facility] Attending Physician: Belia Khoury MD Admitting Physician: [...] fluarix trivalent 14-15 2Result Comment: [01/29/2013] Flulaval [id number]. VIS in Equatorial Guinean given. 3Admin Note: VIS 11/2011 4Admin Note: VIS GIVEN VIS DATE 12/07/10 5Admin Note: VIS GIVEN 12/22/09 [email or web address] 6Admin Note: VIS GIVEN 7Admin Note: vis [...] tablet, 1 Refills, Maintenance, 05/27/19 17:37:00 EST, [facility]/pharmacy #[id number], label in [place]an, 166, cm, 05/27/19 16:35:00 EST, Height, 118.5, kg, 04/01/19 12:45:00 EST, D... Start Date: 05/27/19 Stop Date: 07/26/19 Status: Ordered Colace sodium 100 mg oral capsule 100 mg, 1, capsule, By Mouth, 2 times a day, PRN, # 60 capsule, Refills 3, Tot. Refills 3, Maintenance, for constipation, 04/01/19 14:24:00 EST, Route to Pharmacy Electronically, [id number], [facility]/pharmacy #[id number] Start Date: 04/01/19 Status: Ordered famotidine 20 mg oral tablet 20 mg, 1, tablet, By Mouth, 2 times a day, PRN, # 90 tablet, Refills 11, Tot. Refills 11, Maintenance, heartburn, 10/30/18 9:32:00 EDT, Route to Pharmacy Electronically, [id number], [facility]/pharmacy #[id number] Start Date: 10/30/18 Status: Ordered Fiber [...] 10/30/18 9:32:01 EDT, Route to Pharmacy Electronically, [id number], [facility]/pharmacy #[id number] Start Date: 10/30/18 Stop Date: 10/14/21 Status: Ordered meclizine 25 mg oral tablet 1 tablet = 25 mg, By Mouth, Daily, use as little as possible, # 14 tablet, 0 Refills, Maintenance, 05/27/19 17:28:00 EST, Tablet, [facility]/pharmacy #[id number], 166, cm, 05/27/19 16:35:00 EST, Height, [...]
--- OUTSIDE RECORDS SUMMARY | 2023-04-21 11:14 | XMS_ITS | Continuity of Care Document ---
Author Name Unknown Organization [facility] Address [address] [place] [address]- Care Team Providers Care Enterprise Security Architect Name Role Phone Iraida WILSON, Belia Primary Care Physician [phone] Encounter [facility] Date(s): 10/10/19 - 10/17/19 [facility] [address] [place] [address]- Attending Physician: Ok Gilbert DO Admitting Physician: Emigdio Nicole MD Referring Physician: [...] fluarix trivalent 14-15 2Result Comment: [01/29/2013] Flulaval [id number]. VIS in Tajik given. 3Admin Note: VIS 11/2011 4Admin Note: [...] tablet, 1 Refills, Maintenance, 05/27/19 17:37:00 EST, [facility]/pharmacy #[id number], label in Tajik, 166, cm, 05/27/19 16:35:00 EST, Height, 118.5, kg, 04/01/19 12:45:00 EST, D... Start Date: 05/27/19 Stop Date: 07/26/19 Status: Ordered atorvastatin 40 mg oral tablet 1 tablet = 40 mg, By Mouth, Daily, # 90 tablet, 11 Refills, Maintenance, 07/24/19 10:18:00 EDT, Tablet, [facility]/pharmacy #[id number], 166, cm, 07/24/19 9:46:00 EDT, Height, 118.5, kg, 04/01/19 12:45:00 EST, Dry Weight Start Date: 07/24/19 Stop Date: 07/08/22 Status: Ordered Colace sodium 100 mg oral capsule 100 mg, 1, capsule, By Mouth, 2 times a day, PRN, # 60 capsule, Refills 3, Tot. Refills 3, Maintenance, for constipation, 04/01/19 14:24:00 EST, Route to Pharmacy Electronically, [id number], [facility]/pharmacy #[id number] Start Date: 04/01/19 Status: Ordered [...] 10/30/18 9:32:01 EDT, Route to Pharmacy Electronically, [id number], [facility]/pharmacy #207 Start Date: 10/30/18 Stop Date: 10/14/21 Status: Ordered meclizine 25 mg oral tablet 1 tablet = 25 mg, By Mouth, Daily, use as little as possible, # 14 tablet, 0 Refills, Maintenance, 05/27/19 17:28:00 EST, Tablet, [facility]/pharmacy #[id number], 166, cm, 05/27/19 16:35:00 EST, Height, 118.5, kg, 04/01/19 12:45:00 EST, Dry Weight Start Date: 05/27/19 Stop Date: 06/10/19 Status: Ordered naproxen 250 mg oral tablet TOME RAY TABLETA POR V?A ORAL DOS VECES AL D?A Start Date: 02/19/19 Status: Ordered Problem List Condition Effective Dates Status Health Status Inform ant Impaired glucose tolerance(Confirmed) 09/14/09 Active Ankle joint pain(Confirmed) 09/14/09 Active [place] cardiac risk 10-2 0% in next (Confirmed) [...]
--- OUTSIDE RECORDS SUMMARY | 2023-04-21 11:14 | XMS_ITS | Continuity of Care Document ---
Author Name Unknown Organization [facility] Address [address] [place] [address]- Care Team Providers Care Xerox Machine Operator Name Role Phone Belia Khoury MD Primary Care Physician [phone] Encounter [facility] Date(s): 09/28/20 - 10/28/20 [facility] [address] [place] [address]- Allergies, Adverse Reactions, Alerts Substance Reaction Severity [...] fluarix trivalent - 2Result Comment: [01/29/2013] Flulaval [id number]. VIS in Polish given. 3Admin Note: VIS 11/2011 4Admin Note: VIS GIVEN VIS DATE 12/07/10 5Admin Note: VIS GIVEN 12/22/09 libyan 6Admin Note: VIS GIVEN 7Admin Note: vis 02/20 8Admin Note: VIS GIVEN VIS DATE 12/23/08 9Admin Note: VIS given 10Admin Note: VIS given 11Admin Note: VIS given Medications acetaminophen 500 mg oral tablet 2 tablet = 1,000 mg, By Mouth, 3 times a day, PRN Pain , Mild, may use less, # 180 tablet, 1 Refills, Maintenance, 01/16/20 15:18:00 EDT, [facility]/pharmacy #[id number], label in Polish, 166, cm, 12/31/19 10:08:00 EDT, Height, 118.5, kg, 04/01/19 12:45:00 EST, D... Start Date: 01/16/20 Stop Date: 03/16/20 Status: Ordered atorvastatin 40 mg oral tablet See Instructions, [facility], # 90 tablet, 11 Refills, Maintenance, [id number], 166, cm, 09/18/20 8:01:00 EDT, Height, 118.5, kg, 04/01/19 12:45:00 EST, Dry Weight Start Date: 10/09/20 Status: Ordered Colace sodium 100 mg oral capsule 100 mg, 1, capsule, By Mouth, 2 times a day, PRN, # 60 capsule, Refills 3, Tot. Refills 3, Maintenance, for constipation, 01/16/20 16:20:00 EDT, Route to Pharmacy Electronically, [facility]/pharmacy #[id number], 166, cm, 12/31/19 [...] 2 Refills, Maintenance, 06/11/20 11:38:00 EST, Ointment, [facility]/pharmacy #[id number], Partial fill [...] 02/21/20 9:20:00 EDT, Route to Pharmacy Electronically, [facility]/pharmacy #[id number], 166, cm, 12/31/19 10:08:00 EDT, Height, 118.5, kg, 11... Start Date: 02/21/20 Stop Date: 02/05/23 Status: Ordered Triple Antibiotic topical ointment 1 application, Topically, 2 times a day, Apply inside NOSE at bedtime, # 15 Gm, 0 Refills, Maintenance, 07/31/20 10:04:00 EDT, Ointment, [facility]/pharmacy #[id number], Partial fill upon patient request if the prescription is for a schedule II opioid drug., 1 trinh... Start Date: 07/31/20 Status: Ordered Problem List Condition Effective Dates Status Health Status Inform ant Impaired glucose tolerance(Confirmed) 09/14/09 Active Ankle joint pain(Confirmed) 09/14/09 Active [place] cardiac risk 10-2 0% in next 10 [...]
--- OUTSIDE RECORDS SUMMARY | 2023-04-21 11:14 | XMS_ITS | Continuity of Care Document ---
Author Name Unknown Organization [facility] Address [address] [place] [address]- Care Team Providers Care Automatic Buffer Name Role Phone Belia Khoury MD Primary Care Physician [phone] [facility]counter [facility] Date(s): 02/28/22 - 03/30/22 [facility] [address] [place], [place] [address] Allergies, Adverse Reactions, Alerts No Known Allergies [...] fluarix trivalent 14- 2Result Comment: [01/29/2013] Flulaval [id number]. VIS in [place] Citizen given. 3Admin Note: VIS 11/2011 4Admin Note: VIS GIVEN VIS DATE 12/07/10 5Admin Note: VIS GIVEN 12/22/09 canadian 6Admin Note: VIS GIVEN 7Admin Note: vis 02/20 8Admin Note: VIS GIVEN VIS DATE 12/23/08 9Admin Note: VIS given 10Admin Note: VIS given 11Admin Note: VIS given Medications acetaminophen 500 mg oral tablet 2 tablet = 1,000 mg, By Mouth, 3 times a day, PRN Pain , Mild, may use less, # 180 tablet, 1 Refills, Maintenance, 02/22/22 13:35:00 EDT, [facility]/pharmacy #[id number], label in [place] Citizen, 175.26, cm, 02/22/22 13:18:00 EDT, Height, 123, kg, 07/16/21 13:01:00 EST,... Start Date: 02/22/22 Stop Date: 04/23/22 Status: Ordered clotrimazole 1% topical cream 1 application, Topically, 2 times a day, for rash, # 113 Gm, 1 Refills, Maintenance, 03/23/22 10:07:00 EST, Cream, [facility]/pharmacy #[id number], Partial fill upon patient request if the prescription is for a schedule II opioid drug., 1 application Topically 2 t... Start Date: 03/23/22 Stop Date: 05/22/22 Status: Ordered diclofenac 1% topical gel See Instructions, APPLY TO AFFECTED AREA 4 TIMES A DAY, # 100 Gm, 4 Refills, Maintenance, 03/24/22 14:09:00 EST, [id number], 25, APPLY TO AFFECTED AREA 4 TIMES [...] 1 Refills, Maintenance, 02/10/22 9:58:00 EDT, Ointment, [facility]/pharmacy #[id number], Partial fill upon patient [...] 11 Refills, Maintenance, 01/04/22 9:39:00 EDT, Tablet, [facility]/pharmacy #[id number], Partial fill upon patient request if t... Start Date: 01/04/22 Stop Date: 12/19/24 Status: Ordered metoprolol 50 mg oral tablet, extended release 50 mg, 1, tablet, By Mouth, Daily, do not crush or chew (via cardiology in past), # 90 tablet, Refills 11, Tot. Refills 11, Maintenance, 02/22/22 13:36:00 EDT, Route to Pharmacy Electronically, [facility]/pharmacy #[id number], Partial fill upon patient request if... Start Date: 02/22/22 Stop Date: 02/06/25 Status: Ordered nystatin topical 662926 u/gm powder See Instructions, APPLY TO AFFECTED AREA 3 TIMES A DAY, # 60 Gm, 0 Refills, Maintenance, 03/22/22 20:50:00 EST, [id number], 30, APPLY TO AFFECTED AREA 3 TIMES A DAY, 175.26, cm, 03/09/22 10:37:00 EDT, Height, 123, kg, 07/16/21 13:01:00 EST, Dry W... Start Date: 03/22/22 Status: Ordered Problem List Condition Confirmation Course Effective Dates Status H ealth Status Informant Impaired glucose tolerance Confirmed 09/14/09 Active Ankle joint pain Confirmed 09/14/09 Active [place] cardiac risk 10-20% in next /2019 1 [...] Personnel Name: Chang WILSON, Pattie Jorgensen Position: [facility] MAINTENANCE SCHEDULER MD Member Role: Lifetime Consulting Physician Address: Address: [address] [place] [address], [address] [facility] [place] [address]- Name: Belia Khoury MD Position: [facility] Primary Care Physician Member Role: PCP Address: Address: [address] [place] [address]- Care Team Related Persons Name: IVETT MCGREGOR Address: home [address] [place] [address] Name: JOVANA PORTER Address: home [address] [place] [address] Name: SARA HERNÁNDEZ Address: home [address] [place] [address]
--- OUTSIDE RECORDS SUMMARY | 2023-04-21 11:14 | XMS_ITS | Continuity of Care Document ---
Author Name Unknown Organization [facility] Address [address] [place] [address]- Care Team Providers Care Loan Review Analyst Name Role Phone Belia Khoury MD Primary Care Physician [phone] [facility] Date[facility]s): 04/26/22 - 05/26/22 [facility] [address] [place], [place] [address] Att[facility] Phys[facility]: Admtr, Pramod8 Allergies, Adverse Reactions, Alerts No Known Allergies [...] fluarix trivalent - 2Result Comment: [01/29/2013] Flulaval [id number]. VIS in Estonian given. 3Admin Note: VIS [...] tablet, 2 Refills, Maintenance, 04/11/22 5:25:00 EST, [facility]/pharmacy #[id number], Office visit needed for further refills., 175.26, cm, 03/09/22 10:37:00 EDT, Height, 123, kg, 07/16/21 13:01:0... Start Date: 04/11/22 Stop Date: 07/10/22 Status: Ordered clotrimazole 1% topical cream 1 application, Topically, 2 times a day, for rash, # 113 Gm, 1 Refills, Maintenance, 03/23/22 10:07:00 EST, Cream, [facility]/pharmacy #[id number], Partial fill upon patient request if the prescription is for a schedule II opioid drug., 1 application Topically 2 t... Start Date: 03/23/22 Stop Date: 05/22/22 Status: Ordered diclofenac 1% topical gel See Instructions, APPLY TO AFFECTED AREA 4 TIMES A DAY, # 100 Gm, 4 Refills, Maintenance, 03/24/22 14:09:00 EST, [facility], 25, APPLY TO AFFECTED AREA 4 TIMES [...] 11 Refills, Maintenance, 01/04/22 9:39:00 EDT, Tablet, [facility]/pharmacy #[id number], Partial fill upon patient request if t... Start Date: 01/04/22 Stop Date: 12/19/24 Status: Ordered metoprolol 50 mg oral tablet, extended release 50 mg, 1, tablet, By Mouth, Daily, do not crush or chew (via cardiology in past), # 90 tablet, Refills 11, Tot. Refills 11, Maintenance, 02/22/22 13:36:00 EDT, [id number] fill upon patient request if... Start Date: 02/22/22 Stop Date: 02/06/25 Status: Ordered nystatin topical 991565 u/gm powder See Instructions, APPLY TO AFFECTED AREA 3 TIMES A DAY, # 60 Gm, 0 Refills, Maintenance, 03/22/22 20:50:00 EST, [facility], 30, APPLY TO AFFECTED AREA 3 TIMES A DAY, 175.26, cm, 03/09/22 10:37:00 EDT, Height, 123, kg, 07/16/21 13:01:00 EST, Dry W... Start Date: 03/22/22 Status: Ordered Problem List Condition Confirmation Course Effective Dates Status H ealth Status Informant Impaired glucose tolerance Confirmed 09/14/09 Active Ankle joint pain Confirmed 09/14/09 Active [place] cardiac risk 10-20% in next 10 /2019 [...] entered on: 04/17/13 Sex Female Note * Freida Venegas: PERFORM, SIGN, VERIFY Event Display: Patient Education/Instruction Authored Date: [id number] [facility] Clinical Summary Person Information Visit Date 11/24/2017 9:40 AM Name HEYDI WILSON Age 57 Years 1960 12:00 AM PCP Iraida WILSON, Belia PCP Sex Female Race White Ethnicity / Language Estonian You can now view a summary of your hospital visit from the comfort of your home through a free online portal called Jugo. Jugo is a website that allows you to securely view your medical information including discharge summary, medications and follow-up visits. You can also send a secure electronic message to your doctor???s office to request appointments, renew medicationsor just ask a question. You can enroll at [email or web address] or register during your next office visit. Smoking can increase your chances of developing chronic health problems and can cause harmful effects to other family members in your house. If you smoke, you are strongly encouraged to quit. Please call the [place] Smokers??? Helpline at 7-475-DNIINOW (or ) or log on to [email or web address] [employer] for more information. The National Suicide Prevention Hotline is available 05/12 if you or someone you know needs to find a reason to keep living. By calling 6-598-728-[employer] [employer] (4343) you'll be connected to a skilled, trained counselor at a crisis center in your area. Reason for Visit: Allergy Info: NKA Smoking Status Never smoker Vital Signs Height Weight BMI Blood Pressure / Temperature Pulse Rate Respiratory Rate 02 Sat Mode of Delivery / Medication Information Ergocalciferol (ergocalciferol 13147 iu oral capsule) 1 capsule Oral every week for 30 Days. Refills: 1. Lisinopril (lisinopril 10 mg oral tablet) 1 tab(s) Oral Daily for 30 Days. stop prior script for lisinopril 20 mg. Refills: 11. Loratadine (loratadine 10 mg oral tablet) 1 tab(s) Oral Daily for 30 Days. Refills: 3. Omeprazole (omeprazole 10 mg oral enteric coated capsule) 1 capsule Oral Daily as needed heartburn for 30 Days. use as little as possible. eat vegetables and fruits every day.. Refills: 0. Future Orders No future orders Orders Completed this Visit No visit orders documented Problem List Problem of child Essential hypertension GERD - Gastro-esophageal reflux disease Hyperlipidemia Depression Ankle joint pain [D]Impaired glucose tolerance Fibromyalgia SHAHRIAR - Obstructive sleep apnea Knee joint pain Shoulder joint pain H. pylori CTS - Carpal tunnel syndrome Postmenopausal bleeding Urinary incontinence Varicose vein Hypertensive disorder Obesity Vaginal wall prolapse Disorder of tendon Eczema Fear of flying Diagnosis H. pylori; Obstructive sleep apnea (adult) (pediatric); Fibromyalgia; Pain in unspecified shoulder;Pain in unspecified knee; Hyperlipidemia, unspecified; Cystocele, unspecified; Postmenopausal bleeding; Obesity, unspecified; Varicose veins of other specified sites; Gastro-esophageal reflux diseasewithout esophagitis; Unspecified urinary incontinence; Essential (primary) hypertension Procedures No Procedures Documented If the following labs have been performed in the last year, the most recent result is displayed below. Diagnostic Results Lab Result Value Date Lead Hemoglobin A1C 5.6 03/14/17 LDL HDL Triglycerides Total Cholesterol Disclaimer: The information provided is of a general nature and is intended to be used in conjunction with the recommendations and advice of your health care practitioner. Every effort has been made to ensure that the information provided is accurate and complete at the time it is provided to you however, as your needs change, or, as new information becomes available, different or additional instructions may be required. If you have questions, please consult with your primary care provider or pharmacist, as appropriate. This information is not intended to serve as substitution for assessment and evaluation by a qualified health care provider. If you do not have a primary care provider, you may find a [facility] provider by calling [facility] at [phone]. For information about the plan of care including goals and instructions for your diagnosis, please see the patient education orders section of this document. Patient Visit Summary: Future Appointments: Type Location Start [facility] 11/24/2017 9:40 AM 11/24/2017 10:00 AM Pending Follow-Up Instructions Patient Education Materials Additional Instructions: Patient Care team information Care Team Personnel Name: Pattie Downing MD Position: [facility] DAYCARE MANAGER MD Member Role: Lifetime Consulting Physician Address: Address: [address] [place] [address], [place] [address] Name: Belia Khoury MD Position: [facility] Primary Care Physician Member Role: PCP Address: Address: [address] [place] [id number] Care Team Related Persons Name: IVETT MCGREGOR Address: home [address] [place] [address] Name: JOVANA PORTER Address: home [address] [place] [address] Name: SARA HERNÁNDEZ Address: home [address] [place] [address]
--- OUTSIDE RECORDS SUMMARY | 2023-04-21 11:14 | XMS_ITS | Continuity of Care Document ---
Author Name Unknown Organization [facility] Address [address] [place] [address]- Care Team Providers Care Art Framing Manager Name Role Phone Belia Khoury MD Primary Care Physician Encounter [facility] Date(s): 09/01/20 - 10/01/20 [facility] [address] [place] [id number] Attending Physician: AdmCarolyn bethea Admitting [...] fluarix trivalent 14-15 2Result Comment: [01/29/2013] Flulaval [id number]. VIS in Kittitian given. 3Admin Note: VIS 11/2011 4Admin Note: VIS GIVEN VIS DATE 12/07/10 5Admin Note: VIS GIVEN 12/22/09 estonian 6Admin Note: VIS GIVEN 7Admin Note: vis 02/20 8Admin Note: VIS GIVEN VIS DATE 12/23/08 9Admin Note: VIS given 10Admin Note: VIS given 11Admin Note: VIS given Medications acetaminophen 500 mg oral tablet 2 tablet = 1,000 mg, By Mouth, 3 times a day, PRN Pain , Mild, may use less, # 180 tablet, 1 Refills, Maintenance, 01/16/20 15:18:00 EDT, [facility]/pharmacy #[id number], label in Kittitian, 166, cm, 12/31/19 10:08:00 EDT, Height, 118.5, kg, 04/01/19 12:45:00 EST, D... Start Date: 01/16/20 Stop Date: 03/16/20 Status: Ordered Colace sodium 100 mg oral capsule 100 mg, 1, capsule, By Mouth, 2 times a day, PRN, # 60 capsule, Refills 3, Tot. Refills 3, Maintenance, for constipation, 01/16/20 16:20:00 EDT, Route to Pharmacy Electronically, [facility]/pharmacy #[id number], 166, cm, 12/31/19 10:08:00 [...] 2 Refills, Maintenance, 06/11/20 11:38:00 EST, Ointment, [facility]/pharmacy #[id number], Partial fill upon patient [...] 02/21/20 9:20:00 EDT, [id number] 166, cm, 12/31/19 10:08:00 EDT, Height, 118.5, kg, 11... Start Date: 02/21/20 Stop Date: 02/05/23 Status: Ordered Triple Antibiotic topical ointment 1 application, Topically, 2 times a day, Apply inside NOSE at bedtime, # 15 Gm, 0 Refills, Maintenance, 07/31/20 10:04:00 EDT, Ointment, [facility]/pharmacy #[id number], Partial fill upon patient request if the prescription is for a schedule II opioid drug., 1 trinh... Start Date: 07/31/20 Status: Ordered Problem List Condition Effective Dates Status Health Status Inform ant Impaired glucose tolerance(Confirmed) 09/14/09 Active Ankle joint pain(Confirmed) 09/14/09 Active [place] cardiac risk 10-2 0% in next [...]
--- OUTSIDE RECORDS SUMMARY | 2023-04-21 11:14 | XMS_ITS | Continuity of Care Document ---
Author Name Unknown Organization [facility] Address [address] [place] [address]- Care Team Providers Care Staff Research Scientist Name Role Phone Belia Khoury MD Primary Care Physician [facility]): 06/[facility]/21 - 07/03/21 [facility] [address] [place] [address]- Allergies, Adverse Reactions, Alerts No Known Allergies [...] fluarix trivalent - 2Result Comment: [01/29/2013] Flulaval [id number]. VIS in Gabonese given. 3Admin Note: VIS 11/2011 4Admin Note: VIS GIVEN VIS DATE 12/07/10 5Admin Note: VIS GIVEN 12/22/09 afghan 6Admin Note: VIS GIVEN 7Admin Note: vis 02/20 8Admin Note: VIS GIVEN VIS DATE 12/23/08 9Admin Note: VIS given 10Admin Note: VIS given 11Admin Note: VIS given Medications acetaminophen 500 mg oral tablet 2 tablet = 1,000 mg, By Mouth, 3 times a day, PRN Pain , Mild, may use less, # 180 tablet, 1 Refills, Maintenance, 03/29/21 13:13:00 EST, [facility]/pharmacy #[id number], label in Gabonese, 175.26, cm, 03/26/21 11:10:00 EST, Height, 120.45, kg, 11/05/20 16:03:00 ED... Start Date: 03/29/21 Stop Date: 05/28/21 Status: Ordered apixaban 5 mg oral tablet 1 tablet = 5 mg, By Mouth, 2 times a day, # 60 tablet, 3 Refills, Maintenance, 03/29/21 13:15:00 EST, Tablet, [facility]/pharmacy #[id number], Partial fill upon patient request if the prescription is for a schedule II opioid drug., 175.26, cm, 03/26/21 11:10:00 ES... Start Date: 03/29/21 Status: Ordered atorvastatin 40 mg oral tablet 1 tablet, By Mouth, Daily, # 90 tablet, 3 Refills, [facility], 175.26, cm, 03/26/21 11:10:00 EST, Height, 120.45, kg, 11/05/20 16:03:00 EDT, Dry Weight Start Date: 03/29/21 Status: Ordered Colace sodium 100 mg oral capsule 100 mg, 1, capsule, By Mouth, 2 times a day, PRN, # 60 capsule, Refills 3, Tot. Refills 3, Maintenance, for constipation, 03/29/21 13:13:00 EST, Route to Pharmacy Electronically, [facility]/pharmacy #[id number], 175.26, cm, 03/26/21 11:10:00 EST, Height, 120.45, k... Start Date: 03/29/21 Status: Ordered diclofenac 1% topical gel = 2 Gm, Topically, 4 times a day, # 100 Gm, 0 Refills, Maintenance, 11/25/20 11:18:00 EDT, Gel, [facility]/pharmacy #[id number], Partial fill upon patient request if the prescription is for a schedule II opioid drug., 175.26, cm, 11/25/20 9:57:00 EDT, Height, 120.... Start Date: 11/25/20 Status: Ordered esomeprazole 20 mg oral enteric coated capsule 1 capsule = 20 mg, By Mouth, 2 times a day, # 180 capsule, 0 Refills, Maintenance, 05/17/21 12:07:00 EST, [facility]/pharmacy #[id number], Partial fill upon patient request if the prescription is for a schedule II opioid drug., 175.26, cm, 05/11/21 9:25:00 EST, He... Start Date: 05/17/21 Status: Ordered Flonase 50 mcg/inh nasal spray 1 sprays, Nares, Both, 2 times a day, # 16 Gm, 0 Refills, Maintenance, 06/24/21 16:33:00 EST, [place], [facility]/pharmacy #[id number], Partial fill upon patient request if the prescription is for a schedule II opioid drug., 1 sprays Nares, Both 2 times a day, 175.2... Start Date: 06/24/21 Status: Ordered lidocaine 5% topical film 1 patch, Topically, Daily, PRN Pain , Mild, remove after 12 hours, # 30 patch, 0 Refills, Maintenance, 11/19/20 11:13:00 EDT, Film, [facility]/pharmacy #[id number], Partial fill upon patient request if the prescription is for a schedule II opioid drug., 1 patch To... Start Date: 11/19/20 Stop Date: 12/19/20 Status: Ordered lisinopril 20 mg oral tablet 1, tablet, By Mouth, Daily, # 90 tablet, Refills 1, Route to Pharmacy Electronically, [facility], 175.26, cm, 02/03/21 10:48:00 EDT, Height, 120.45, kg, 11/05/20 16:03:00 EDT, Dry Weight Start Date: 03/02/21 Status: Ordered metoprolol 50 mg oral tablet, extended release 50 mg, 1, tablet, By Mouth, Daily, # 30 tablet, Refills 11, Tot. Refills 11, Maintenance, 06/05/21 9:01:00 EST, Route to Pharmacy Electronically, [facility]/pharmacy #[id number], Partial fill upon patient requestif [...] 09/14/09 Active Ankle joint pain(Confirmed) 09/14/09 Active [place] cardiac risk 10-2 0% in next 10 [...]
--- OUTSIDE RECORDS SUMMARY | 2023-04-21 11:14 | XMS_ITS | Continuity of Care Document ---
Author Name Unknown Organization [facility] Address [address] [place] [address]- Care Team Providers Care Pediatric Acute Care Unit Nurse Name Role Phone Belia Khoury MD Primary Care Physician [facility]23 - 03/31/23 [facility] [address] [place], [place] [address] Attending Physician: Umer Schwarz MD Admitting Physician: Umer Schwarz MD Allergies, Adverse Reactions, Alerts No Known Allergies Immunizations Given and Recorded Vaccine Date Status Refusal Reason influenza virus vaccine, inactivated 03/28/23 Give n influenza virus vaccine, inactivated 02/22/22 Give n influenza virus vaccine, inactivated 05/25/21 Sabion rded influenza virus vaccine, inactivated 03/25/20 Sabino [...] fluarix trivalent - 2Result Comment: [01/29/2013] Flulaval [id number]. VIS in Bahamian given. 3Admin Note: VIS 11/2011 4Admin Note: VIS GIVEN VIS DATE 12/07/10 5Admin Note: VIS GIVEN 12/22/09 malaysian 6Admin Note: VIS GIVEN 7Admin Note: vis 02/20 8Admin Note: VIS GIVEN VIS DATE 12/23/08 9Admin Note: VIS given 10Admin Note: VIS given 11Admin Note: VIS given Medications acetaminophen 500 mg oral tablet 2 tablet, By Mouth, 3 times a day, PRN NEEDED FOR PAIN X, # 180 tablet, 2 Refills, Maintenance, 01/26/23 10:16:00 EDT, [id number], label all scripts in Bahamian, 175.26, cm, 01/26/23 9:13:00 EDT, Height, 123, [...] 1 Refills, Maintenance, 01/26/23 9:56:00 EDT, Cream, [facility]/pharmacy #[id number], Partial fill upon patient request if the prescription is for a schedule II opioid drug., 1 application Topically 2 ti... Start Date: 01/26/23 Stop Date: 03/27/23 Status: Ordered diclofenac 1% topical gel See Instructions, APPLY TO AFFECTED AREA 4 TIMES A DAY, # 100 Gm, 4 Refills, Maintenance, 11/09/22 16:41:00 EDT, [facility], 25, APPLY TO AFFECTED AREA 4 TIMES A DAY, 175.26, cm, 10/03/22 10:48:00 EDT, Height, 123, kg, 07/16/21 13:01:00 EST, Dry... Start Date: 11/09/22 Status: Ordered docusate sodium 100 mg oral capsule 1 capsule, By Mouth, 2 times a day, PRN NEEDED, CONSTIPATION., # 60 capsule, 2 Refills, Maintenance, 01/18/23 15:57:00 EDT, [facility], 175.26, cm, 10/03/22 10:48:00 EDT, Height, 123, kg, 07/16/21 13:01:00 EST, Dry Weight Start Date: 01/18/23 Status: Ordered Eliquis 5 mg oral tablet 1 tablet, By Mouth, 2 times a day, atrial fibrillation, # 180 tablet, 11 Refills, Maintenance, 01/26/23 10:16:00 EDT, [facility]/pharmacy #[id number], label all scripts in Bahamian, 175.26, cm, 01/26/23 9:13:00 EDT, Height, 123, kg, 07/16/21 13:01:00 EST, Dry Weight Start Date: 01/26/23 Stop Date: 01/10/26 Status: Ordered esomeprazole 20 mg oral enteric coated capsule 1 capsule = 20 mg, By Mouth, 2 times a day, # 180 capsule, 2 Refills, Maintenance, 08/08/22 8:21:00EDT, [facility]/pharmacy #[id number], Partial fill upon patient request if the prescription is for a schedule IIopioid drug., 175.26, cm, 03/09/22 10:37:00 EDT, He... Start Date: 08/08/22 Status: Ordered fluticasone 50 mcg/inh nasal spray See Instructions, SPRAY 1 SPRAY INTO BOTH NARES DAILY X 30 DAYS NEEDED FOR ALLERGIES, # 48 mL, 0Refills, Maintenance, 04/11/22 5:24:00 EST, [facility]/pharmacy #207, 90, Office visit needed for furtherrefills., [...] tablet, 11 Refills, Maintenance, 01/17/23 8:35:00 EDT, [facility]/pharmacy#2070, 175.26, cm, 10/03/22 10:48:00 EDT, Height, 123, kg, 07/16/21 13:01:00 EST, Dry Weight Start Date: 01/17/23 Stop Date: 01/01/26 Status: Ordered metoprolol 50 mg oral tablet, extended release 50 mg, 1, tablet, By Mouth, Daily, do not crush or chew (via cardiology in past), # 90 tablet, Refills 11, Tot. Refills 11, Maintenance, 01/26/23 10:16:00 EDT, Route to Pharmacy Electronically, [facility]/pharmacy #207, label all scripts in Bahamian, 175.26,... Start Date: 01/26/23 Stop Date: 01/10/26 Status: Ordered nystatin topical 163556 u/gm powder See Instructions, APPLY TO AFFECTED AREA 3 TIMES A DAY, # 60 Gm, 1 Refills, Maintenance, 01/26/23 10:16:00 EDT, [facility]/pharmacy #[id number], 30, label all scripts in Bahamian, APPLY TO AFFECTED AREA 3 TIMES A [...] 11 Refills, Maintenance, 01/26/23 10:25:00 EDT, Tablet, [facility]/pharmacy #[id number], 175.26, cm, 01/26/23 9:13:00 EDT, Height, 123, kg, 07/16/21 13:01:00 EST, Dry Weight Start Date: 01/26/23 Stop Date: 01/10/26 Status: Ordered tiZANidine 2 mg oral tablet 2 mg, 1, tablet, By Mouth, 3 times a day, # 15 tablet, Refills 0, Tot. Refills 0, Maintenance, 02/24/23 17:11:00 EDT, Route to Pharmacy Electronically, [facility]/pharmacy #[id number], Partial fill upon patient request if the prescription is for a schedule II opio... Start Date: 02/24/23 Stop Date: 03/01/23 Status: Ordered Vitamin C 250 mg oral tablet 1 tablet, By Mouth, Daily, # 30 tablet, 1 Refills, Maintenance, 03/21/23 17:41:00 EST, [facility] STORE [facility], 175, cm, 02/27/23 7:09:00 EDT, Height, 124.5, [...] pending Rheumatolgoy as of Confirmed 02/2022 Active [place] cardiac risk 10-20% in next 10 /2019 [...] days 07/23. 5X-rays 2007 c/[place] early [place]. [id number] x0ray 7on [place] Social History Social History Type Response Smoking Status Never smoker entered on: 04/17/13 Sex Female Patient Care team information Care Team Personnel Name: Pattie Downing MD Position: [facility] MACHINE OPERATOR MD Member Role: Lifetime Consulting Physician Address: Address: [address] [place] [address], [address] [place] [address]- Name: Belia Khoury MD Position: [facility] Physician - Primary Care Member Role: PCP Address: Address: [address] [place] [address]- Care Team Related Persons Name: BALBIR IVETT Address: home [address] [place] [address] Name: JOVANA PORTER Address: home [address] [place] [address] Name: SARA HERNÁNDEZ Address: home [address] [place] [address]
--- OUTSIDE RECORDS SUMMARY | 2023-04-21 11:14 | XMS_ITS | Continuity of Care Document ---
Author Name Unknown Organization [facility] ter Address [address] [place] [id number]- Care Team Providers Care Electrical Technology Instructor Name Role Phone Iraida WILSON, Belia Primary Care Physician [facility] 05/25/21 - 08/13/[address] [address] Attending Physician: Belia Khoury MD Admitting Physician: [...] fluarix trivalent - 2Result Comment: [01/29/2013] Flulaval [id number]. VIS in Nigerian given. 3Admin Note: VIS 11/2011 4Admin Note: VIS GIVEN VIS DATE 12/07/10 5Admin Note: VIS GIVEN 12/22/09 cayman islander 6Admin Note: VIS GIVEN 7Admin Note: vis 02/20 8Admin Note: VIS GIVEN VIS DATE 12/23/08 9Admin Note: VIS given 10Admin Note: VIS given 11Admin Note: VIS given Medications acetaminophen 500 mg oral tablet 2 tablet = 1,000 mg, By Mouth, 3 times a day, PRN Pain , Mild, may use less, # 180 tablet, 1 Refills, Maintenance, 03/29/21 13:13:00 EST, [facility]/pharmacy #[id number], label in Nigerian, 175.26, cm, 03/26/21 11:10:00 EST, Height, 120.45, kg, 11/05/20 16:03:00 ED... Start Date: 03/29/21 Stop Date: 05/28/21 Status: Ordered Aqua Care 10% topical cream 1 application, Topically, Daily, PRN for dry skin, for 30 days, # 85 Gm, 0 Refills, Acute 09/12/21 14:36:00 EDT, 08/13/21 14:36:00 EDT, Cream, [facility]/pharmacy #[id number], Partial fill upon patient request ifthe prescription is for a schedule II opioid drug.,... Start Date: 08/13/21 Stop Date: 09/12/21 Status: Ordered atorvastatin 40 mg oral tablet 1 tablet, By Mouth, Daily, # 90 tablet, 3 Refills, [facility], 175.26, cm, 03/26/21 11:10:00 EST, Height, 120.45, kg, 11/05/20 16:03:00 EDT, Dry Weight Start Date: 03/29/21 Status: Ordered diclofenac 1% topical gel 1 application, Topically, 4 times a day, # 100 Gm, 0 Refills, Maintenance, 08/13/21 14:33:00 EDT, Gel, [facility]/pharmacy #2071, Partial fill upon patient request if the prescription is for a schedule II opioid drug., 175.26, cm, 08/13/21 14:16:00 EDT, [place]... Start Date: 08/13/21 Status: Ordered docusate sodium 100 mg oral capsule 1 capsule, By Mouth, 2 times a day, PRN NEEDED FOR CONSTIPATION, # 60 capsule, 3 Refills, [facility], 175.26, cm, 07/16/21 13:01:00 EST, Height, 123, kg, 07/16/21 13:01:00 EST, Dry Weight Start Date: 07/20/21 Status: Ordered Eliquis 5 mg oral tablet 1 tablet, By Mouth, 2 times a day, # 60 tablet, 11 Refills, [facility], 175.26, cm, 07/16/21 13:01:00 EST, Height, 123, kg, 07/16/21 13:01:00 EST, Dry Weight Start Date: 07/20/21 Status: Ordered fluticasone 50 mcg/inh nasal spray See Instructions, SPRAY 1 SPRAY IN BOTH NOSTRILS DAILY, # 16 mL, 0 Refills, [facility], 30, SPRAY 1 SPRAY IN BOTH NOSTRILS DAILY, 175.26, cm, 07/28/21 11:01:00 EDT, Height, 123, kg, 07/16/21 13:01:00 EST, Dry Weight Start Date: 08/13/21 Status: Ordered fluticasone CFC free 44 mcg/inh inhalation aerosol 2 puffs, Inhalation, 2 times a day, cayman islander label, # 10.6 Gm, 0 Refills, Maintenance, 07/28/21 13:26:00 EDT, Aerosol, [facility]/pharmacy #[id number], Partial fill upon patient request if the prescription is for a schedule II opioid drug., 175.26, cm, 07/28/21 11:... Start Date: 07/28/21 Status: Ordered lisinopril 20 mg oral tablet 1, tablet, By Mouth, Daily, # 90 tablet, Refills 1, Route to Pharmacy Electronically, [facility], 175.26, cm, 02/03/21 10:48:00 EDT, Height, 120.45, kg, 11/05/20 16:03:00 EDT, Dry Weight Start Date: 03/02/21 Status: Ordered LORazepam 0.5 mg oral tablet 0.5 tablet = 0.25 mg, By Mouth, Once, prior to MRI. May cause drowsiness. do not drive, # 0.5 tablet, 0 Refills, Soft Stop, 07/26/21 10:17:00 EDT, Tablet, [facility]/pharmacy #2071, Partial fill upon patient request if the prescription is for a schedule II o... Start Date: 07/26/21 Status: Ordered metoprolol 50 mg oral tablet, extended release 50 mg, 1, tablet, By Mouth, Daily, # 30 tablet, Refills 11, Tot. Refills 11, Maintenance, 06/05/21 9:01:00 EST, Route to Pharmacy Electronically, [facility]/pharmacy #[id number], Partial fill upon patient requestif [...] 20 mL, By Mouth, Every 4 hours, cayman islander label not to exceed 6 doses/day, # 180 mL, 0 Refills, Maintenance, 07/28/21 13:25:00 EDT, [facility]/pharmacy #2071, Partial fill upon patient request if the prescription is for a schedule II opioid drug., 20 mL By Mo... Start Date: 07/28/21 Status: Ordered Problem List Condition Effective Dates Status Health Status Inform ant Impaired glucose tolerance(Confirmed) 09/14/09 Active Ankle joint pain(Confirmed) 09/14/09 Active [place] cardiac risk 10-2 0% in next 10 [...]
--- OUTSIDE RECORDS SUMMARY | 2023-04-21 11:14 | XMS_ITS | Continuity of Care Document ---
Author Name Unknown Organization [facility] Address [address] [place] [address]- Care Team Providers Care Vending Machine Attendant Name Role Phone Belia Khoury MD Primary Care Physician [phone] [facility]counter [facility] 08[facility]19 - 08/15/19 [facility] [address] [place] [address]- [facility] Attending Physician: Admtr, Ar8 Allergies, Adverse Reactions, [...] fluarix trivalent - 2Result Comment: [01/29/2013] Flulaval [id number]. VIS in [place] given. 3Admin Note: VIS 11/2011 4Admin Note: VIS GIVEN VIS DATE 12/07/10 5Admin Note: VIS GIVEN 12/22/09 urdu 6Admin Note: VIS GIVEN 7Admin Note: vis [...] tablet, 1 Refills, Maintenance, 05/27/19 17:37:00 EST, [facility]/pharmacy #[id number], label in [place], 166, cm, 05/27/19 16:35:00 EST, Height, 118.5, kg, 04/01/19 12:45:00 EST, D... Start Date: 05/27/19 Stop Date: 07/26/19 Status: Ordered atorvastatin 40 mg oral tablet 1 tablet = 40 mg, By Mouth, Daily, # 90 tablet, 11 Refills, Maintenance, 07/24/19 10:18:00 EDT, Tablet, [facility]/pharmacy #207, 166, cm, 07/24/19 9:46:00 EDT, Height, 118.5, kg, 04/01/19 12:45:00 EST, Dry Weight Start Date: 07/24/19 Stop Date: 07/08/22 Status: Ordered Colace sodium 100 mg oral capsule 100 mg, 1, capsule, By Mouth, 2 times a day, PRN, # 60 capsule, Refills 3, Tot. Refills 3, Maintenance, for constipation, 04/01/19 14:24:00 EST, Route to Pharmacy Electronically, [id number], [facility]/pharmacy #[id number] Start Date: 04/01/19 Status: Ordered famotidine [...] 10/30/18 9:32:01 EDT, Route to Pharmacy Electronically, [id number], [facility]/pharmacy #[id number] Start Date: 10/30/18 Stop Date: 10/14/21 Status: Ordered meclizine 25 mg oral tablet 1 tablet = 25 mg, By Mouth, Daily, use as little as possible, # 14 tablet, 0 Refills, Maintenance, 05/27/19 17:28:00 EST, Tablet, [facility]/pharmacy #207, 166, cm, 05/27/19 16:35:00 EST, Height, 118.5, kg, 04/01/19 12:45:00 EST, Dry Weight Start Date: 05/27/19 Stop Date: 06/10/19 Status: Ordered naproxen 250 mg oral tablet TOME RAY TABLETA POR V?A ORAL DOS VECES AL D?A Start Date: 02/19/19 Status: Ordered Problem List Condition Effective Dates Status Health Status Inform ant Impaired glucose tolerance(Confirmed) 09/14/09 Active Ankle joint pain(Confirmed) 09/14/09 Active [place] cardiac risk 10-2 0% in next 10 [...] polyps and no hemorrhoids[facility] in 10 years. maintain a high-fiber diet. goran 12/01/2010 6X-rays 2007 c/w early OA. 7Rt A-C separation on x-ray in 2008 Social History Social History Type Response Smoking Status Never smoker entered on: 04/17/13 Sex Female
--- OUTSIDE RECORDS SUMMARY | 2023-04-21 11:14 | XMS_ITS | Continuity of Care Document ---
Author Name Unknown Organization [facility] Address [address] [place] [address]- Care Team Providers Care Drug Enforcement Administration Agent Name Role Phone Belia Khoury MD Primary Care Physician [facility]): 10/05/20 - 11/04/[address] [address] Attending Physician: Admtr, Ar8 Allergies, Adverse Reactions, [...] fluarix trivalent 14-15 2Result Comment: [01/29/2013] Flulaval [id number]. VIS in Tajik given. 3Admin Note: VIS 11/2011 4Admin Note: VIS GIVEN VIS DATE 12/07/10 5Admin Note: VIS GIVEN 12/22/09 czech 6Admin Note: VIS GIVEN 7Admin Note: vis 02/20 8Admin Note: VIS GIVEN VIS DATE 12/23/08 9Admin Note: VIS given 10Admin Note: VIS given 11Admin Note: VIS given Medications acetaminophen 500 mg oral tablet 2 tablet = 1,000 mg, By Mouth, 3 times a day, PRN Pain , Mild, may use less, # 180 tablet, 1 Refills, Maintenance, 01/16/20 15:18:00 EDT, [facility]/pharmacy #[id number], label in Tajik, 166, cm, 12/31/19 10:08:00 EDT, Height, 118.5, kg, 04/01/19 12:45:00 EST, D... Start Date: 01/16/20 Stop Date: 03/16/20 Status: Ordered atorvastatin 40 mg oral tablet See Instructions, [facility] [place] [facility], # 90 tablet, 11 Refills, Maintenance, [facility], 166, cm, 09/18/20 8:01:00 EDT, Height, 118.5, kg, 04/01/19 12:45:00 EST, Dry Weight Start Date: 10/09/20 Status: Ordered Colace sodium 100 mg oral capsule 100 mg, 1, capsule, By Mouth, 2 times a day, PRN, # 60 capsule, Refills 3, Tot. Refills 3, Maintenance, for constipation, 01/16/20 16:20:00 EDT, Route to Pharmacy Electronically, [facility]/pharmacy #[id number], 166, cm, 12/31/19 10:08:00 EDT, [...] 2 Refills, Maintenance, 06/11/20 11:38:00 EST, Ointment, [facility]/pharmacy #[id number], Partial fill upon patient request if the prescription is for a schedule II opioid drug., 1 application Topically 3 times a d... Start Date: 06/11/20 Status: Ordered lisinopril 10 mg oral tablet 10 mg, 1, tablet, By Mouth, Daily, for 90 days, # 90 tablet, Refills 11, Tot. Refills 11, Hard Stop02/05/23 9:20:00 EDT, 02/21/20 9:20:00 EDT, Route to Pharmacy Electronically, [facility]/pharmacy #[id number], 166, cm, 12/31/19 10:08:00 EDT, Height, 118.5, kg, 11... Start Date: 02/21/20 Stop Date: 02/05/23 Status: Ordered Triple Antibiotic topical ointment 1 application, Topically, 2 times a day, Apply inside NOSE at bedtime, # 15 Gm, 0 Refills, Maintenance, 07/31/20 10:04:00 EDT, Ointment, [facility]/pharmacy #[id number], Partial fill upon patient request if the prescription is for a schedule II opioid drug., 1 trinh... Start Date: 07/31/20 Status: Ordered Problem List Condition Effective Dates Status Health Status Inform ant Impaired glucose tolerance(Confirmed) 09/14/09 Active Ankle joint pain(Confirmed) 09/14/09 Active [place] cardiac risk 10-2 0% in next (Confirmed) 2019 Active Carpal tunnel syndrome(Confirmed) 2 Active Depression(Confirmed) 09/14/09 Active Tendinopathy(Confirmed) 3 Active Eczema(Confirmed) 4 Active Hypertension(Confirmed) 5/4/10 Active Phobia, flying(Confirmed) Active Fibromyalgia(Confirmed) Active GERD [...] 8Rt A-C separation on x-ray in 2008 Procedures Procedure Date Related Diagnosis Body Site Status colonoscopy 1 11/09/10 Completed 1normal mucosa in the whole colon. divericlosis of the descending colon. there were no polyps or hemorrhids. follow-up with [facility] as needed. repeat colonoscopy in 10 years. goran. 12/01/2010 Social History Social History Type Response Smoking Status Never smoker entered on: 04/17/13 Sex Female
--- OUTSIDE RECORDS SUMMARY | 2023-04-21 11:14 | XMS_ITS | Continuity of Care Document ---
Author Name Unknown Organization [facility] Address [address] [place] [address]- Care Team Providers Care Campus Recruiting Internship Name Role Phone Belia Khoury MD Primary Care Physician [phone] [facility]counter [facility] Date[facility]s): 09/26/22 - 10/26/[address] [address] Allergies, Adverse Reactions, Alerts No [...] fluarix trivalent - 2Result Comment: [01/29/2013] Flulaval [id number]. VIS in Sami given. 3Admin Note: VIS 11/2011 4Admin Note: VIS GIVEN VIS DATE 12/07/10 5Admin Note: VIS GIVEN 12/22/09 gibraltarian 6Admin Note: VIS GIVEN 7Admin Note: vis 02/20 8Admin Note: VIS GIVEN VIS DATE 12/23/08 9Admin Note: VIS given 10Admin Note: VIS given 11Admin Note: VIS given Medications acetaminophen 500 mg oral tablet 2 tablet, By Mouth, 3 times a day, PRN NEEDED FOR PAIN X, # 180 tablet, 2 Refills, Maintenance, 04/11/22 5:25:00 EST, [id number], Office visit needed for further refills., 175.26, cm, 03/09/22 10:37:00 EDT, Height, 123, kg, 07/16/21 13:01:0... Start Date: 04/11/22 Stop Date: 07/10/22 Status: Ordered clotrimazole 1% topical cream 1 application, Topically, 2 times a day, for rash, # 113 Gm, 1 Refills, Maintenance, 03/23/22 10:07:00 EST, Cream, [id number], Partial fill upon patient request if the prescription is for a schedule II opioid drug., 1 application Topically 2 t... Start Date: 03/23/22 Stop Date: 05/22/22 Status: Ordered diclofenac 1% topical gel See Instructions, APPLY TO AFFECTED AREA 4 TIMES A DAY, # 100 Gm, 4 Refills, Maintenance, 07/13/22 10:18:00 EST, [facility] STORE [id number], 25, APPLY TO AFFECTED AREA 4 TIMES A DAY, 175.26, cm, 03/09/22 10:37:00 EDT, Height, 123, kg, 07/16/21 13:01:00 EST, Dry... Start Date: 07/13/22 Status: Ordered docusate sodium 100 mg oral capsule 1 capsule, By Mouth, 2 times a day, PRN NEEDED FOR CONSTIPATION, # 60 capsule, 3 Refills, 02/22/22 13:36:00 EDT, [facility]/pharmacy #[id number], 175.26, cm, 02/22/22 13:18:00 EDT, Height, 123, kg, 07/16/21 13:01:00 EST, Dry Weight Start Date: 02/22/22 Status: Ordered Eliquis 5 mg oral tablet 1 tablet, By Mouth, 2 times a day, # 180 tablet, 11 Refills, Maintenance, 02/22/22 8:35:00 EDT, [facility]/pharmacy #[id number], atrial fibrillation, 175.26, cm, 02/10/22 9:33:00 EDT, Height, 123, kg, 07/16/21 13:01:00 EST, Dry Weight Start Date: 02/22/22 Stop Date: 02/06/25 Status: Ordered esomeprazole 20 mg oral enteric coated capsule 1 capsule = 20 mg, By Mouth, 2 times a day, # 180 capsule, 2 Refills, Maintenance, 08/08/22 8:21:00EDT, [facility]/pharmacy #[id number], Partial fill upon patient request if the prescription is for a schedule IIopioid drug., 175.26, cm, 03/09/22 10:37:00 EDT, He... Start Date: 08/08/22 Status: Ordered fluticasone 50 mcg/inh nasal spray See Instructions, SPRAY 1 SPRAY INTO BOTH NARES DAILY X 30 DAYS NEEDED FOR ALLERGIES, # 48 mL, 0Refills, Maintenance, 04/11/22 5:24:00 EST, [facility]/pharmacy #[id number], 90, Office visit needed for [...] 02/22/22 13:36:00 EDT, [id number] Partial fill upon patient request if... Start Date: 02/22/22 Stop Date: 02/06/25 Status: Ordered nystatin topical 683087 u/gm powder See Instructions, APPLY TO AFFECTED AREA 3 TIMES A DAY, # 60 Gm, 0 Refills, Maintenance, 03/22/22 20:50:00 EST, [facility] STORE [id number], 30, APPLY TO AFFECTED AREA 3 TIMES A DAY, 175.26, cm, 03/09/22 10:37:00 EDT, Height, 123, kg, 07/16/21 13:01:00 EST, Dry W... Start Date: 03/22/22 Status: Ordered Problem List Condition Confirmation Course Effective Dates Status H ealth Status Informant [employer] cardiac risk 10-20% in next 10 /2019 [...] Knee joint pain, osteoarthritis 5 Confirmed Active Meningioma per Neurosurgeon , on ?Outside MRI, stable -needs continued followup Confirmed Active SHAHRIAR - Obstructive sleep apnea Confirmed Active Severe obesity (BMI 35.0-39.9) with comorbidity Confirmed Active Hepatic steatosis 6 Confirmed Active [...] Personnel Name: Chang WILSON, Pattie Jorgensen Position: [facility] HIDE OR SKIN BUFFER MD Member Role: Lifetime Consulting Physician Address: Address: [address] [place] [address], [address] [facility] [place] [address]- Name: Belia Khoury MD Position: [facility] Physician - Primary Care Member Role: PCP Address: Address: [address] [place] [id number]- Care Team Related Persons Name: IVETT MCGREGOR Address: home [address] [place] [address] Name: JOVANA PORTER Address: home [address] [place] [address] Name: SARA HERNÁNDEZ Address: home [address] [place] [address]
--- OUTSIDE RECORDS SUMMARY | 2023-04-21 11:15 | XMS_ITS | Continuity of Care Document ---
Author Name Unknown Organization [facility] Address [address] [place] [address]- Care Team Providers Care Physician Internist Name Role Phone Belia Khoury MD Primary Care Physician [phone] [facility]): 06/07/22 - 07/07/22 [facility] [address] [place] [id number] Allergies, Adverse Reactions, Alerts No Known [...] fluarix trivalent 14-15 2Result Comment: [01/29/2013] Flulaval [id number]. VIS in Croatian given. 3Admin Note: VIS 11/2011 4Admin Note: VIS GIVEN VIS DATE 12/07/10 5Admin Note: VIS GIVEN 12/22/09 iraqi 6Admin Note: VIS GIVEN 7Admin Note: vis 02/20 8Admin Note: VIS GIVEN VIS DATE 12/23/08 9Admin Note: VIS given 10Admin Note: VIS given 11Admin Note: VIS given Medications acetaminophen 500 mg oral tablet 2 tablet, By Mouth, 3 times a day, PRN NEEDED FOR PAIN X, # 180 tablet, 2 Refills, Maintenance, 04/11/22 5:25:00 EST, [id number], Office visit needed for further refills., 175.26, cm, 03/09/22 10:37:00 EDT, Height, 123, kg, 07/16/21 13:01:0... Start Date: 04/11/22 Stop Date: 07/10/22 Status: Ordered clotrimazole 1% topical cream 1 application, Topically, 2 times a day, for rash, # 113 Gm, 1 Refills, Maintenance, 03/23/22 10:07:00 EST, Cream, [id number], Partial fill upon patient request if the prescription is for a schedule II opioid drug., 1 application Topically 2 t... Start Date: 03/23/22 Stop Date: 05/22/22 Status: Ordered diclofenac 1% topical gel See Instructions, APPLY TO AFFECTED AREA 4 TIMES A DAY, # 100 Gm, 4 Refills, Maintenance, 03/24/22 14:09:00 EST, [id number], 25, APPLY TO AFFECTED AREA 4 TIMES [...] 11 Refills, Maintenance, 01/04/22 9:39:00 EDT, Tablet, [facility]/pharmacy #[id number], Partial fill upon patient request if t... Start Date: 01/04/22 Stop Date: 12/19/24 Status: Ordered metoprolol 50 mg oral tablet, extended release 50 mg, 1, tablet, By Mouth, Daily, do not crush or chew (via cardiology in past), # 90 tablet, Refills 11, Tot. Refills 11, Maintenance, 02/22/22 13:36:00 EDT, Route to Pharmacy Electronically, [facility]/pharmacy #[id number], Partial fill upon patient request if... Start Date: 02/22/22 Stop Date: 02/06/25 Status: Ordered nystatin topical 449994 u/gm powder See Instructions, APPLY TO AFFECTED AREA 3 TIMES A DAY, # 60 Gm, 0 Refills, Maintenance, 03/22/22 20:50:00 EST, [facility], 30, APPLY TO AFFECTED AREA 3 TIMES A DAY, 175.26, cm, 03/09/22 10:37:00 EDT, Height, 123, kg, 07/16/21 13:01:00 EST, Dry W... Start Date: 03/22/22 Status: Ordered Problem List Condition Confirmation Course Effective Dates Status H ealth Status Informant Impaired glucose tolerance Confirmed 09/14/09 Active Ankle joint pain Confirmed 09/14/09 Active [place] cardiac risk 10-20% in next 10 /2019 [...] Personnel Name: Chang WILSON, Pattie Jorgensen Position: [facility] MANAGER OF MARKETING MD Member Role: Lifetime Consulting Physician Address: Address: [address] [place] [address], [address] [facility] [place] [address]- Name: Belia Khoury MD Position: [facility] Primary Care Physician Member Role: PCP Address: Address: [address] [place] [address]- Care Team Related Persons Name: IVETT MCGREGOR Address: home [address] [place] [address] Name: JOVANA PORTER Address: home [address] [place] [address] Name: SARA HERNÁNDEZ Address: home [address] [place] [address]
--- OUTSIDE RECORDS SUMMARY | 2023-04-21 11:15 | XMS_ITS | Continuity of Care Document ---
Author Name Unknown Organization [facility] ter Address [address] [place] [address]- Care Team Providers Care Enterprise Application Administrator Name Role Phone Belia Khoury MD Primary Care Physician [phone] [facility]counter [facility] Date[facility]s): 05/11/21 - 06/12/[address] [address] Attending Physician: Cherise Hidalgo MD Admitting Physician: Cherise Hidalgo MD Allergies, Adverse Reactions, Alerts No Known [...] fluarix trivalent 14- 2Result Comment: [01/29/2013] Flulaval [id number]. VIS in Hungarian given. 3Admin Note: VIS 11/2011 4Admin Note: VIS GIVEN VIS DATE 12/07/10 5Admin Note: VIS GIVEN 12/22/09 tuvaluan 6Admin Note: VIS GIVEN 7Admin Note: vis 02/20 8Admin Note: VIS GIVEN VIS DATE 12/23/08 9Admin Note: VIS given 10Admin Note: VIS given 11Admin Note: VIS given Medications acetaminophen 500 mg oral tablet 2 tablet = 1,000 mg, By Mouth, 3 times a day, PRN Pain , Mild, may use less, # 180 tablet, 1 Refills, Maintenance, 03/29/21 13:13:00 EST, [facility]/pharmacy #[id number], label in Hungarian, 175.26, cm, 03/26/21 11:10:00 EST, Height, 120.45, kg, 11/05/20 16:03:00 ED... Start Date: 03/29/21 Stop Date: 05/28/21 Status: Ordered apixaban 5 mg oral tablet 1 tablet = 5 mg, By Mouth, 2 times a day, # 60 tablet, 3 Refills, Maintenance, 03/29/21 13:15:00 EST, Tablet, [facility]/pharmacy #[id number], Partial fill upon patient request if the prescription is for a schedule II opioid drug., 175.26, cm, 03/26/21 11:10:00 ES... Start Date: 03/29/21 Status: Ordered atorvastatin 40 mg oral tablet 1 tablet, By Mouth, Daily, # 90 tablet, 3 Refills, [facility] STORE [id number], 175.26, cm, 03/26/21 11:10:00 EST, Height, 120.45, kg, 11/05/20 16:03:00 EDT, Dry Weight Start Date: 03/29/21 Status: Ordered Colace sodium 100 mg oral capsule 100 mg, 1, capsule, By Mouth, 2 times a day, PRN, # 60 capsule, Refills 3, Tot. Refills 3, Maintenance, for constipation, 03/29/21 13:13:00 EST, Route to Pharmacy Electronically, [facility]/pharmacy #[id number], 175.26, cm, 03/26/21 11:10:00 EST, Height, 120.45, k... Start Date: 03/29/21 Status: Ordered diclofenac 1% topical gel = 2 Gm, Topically, 4 times a day, # 100 Gm, 0 Refills, Maintenance, 11/25/20 11:18:00 EDT, Gel, [facility]/pharmacy #[id number], Partial fill upon patient request if the prescription is for a schedule II opioid drug., 175.26, cm, 11/25/20 9:57:00 EDT, Height, 120.... Start Date: 11/25/20 Status: Ordered esomeprazole 20 mg oral enteric coated capsule 1 capsule = 20 mg, By Mouth, 2 times a day, # 180 capsule, 0 Refills, Maintenance, 05/17/21 12:07:00 EST, [facility]/pharmacy #[id number], Partial fill upon patient request if the prescription is for a schedule II opioid drug., 175.26, cm, 05/11/21 9:25:00 EST, He... Start Date: 05/17/21 Status: Ordered guaiFENesin 200 mg oral tablet 1 tablet = 200 mg, By Mouth, 4 times a day, PRN Cough, for 7 days, # 28 tablet, 0 Refills, Acute 06/14/21 20:30:00 EST, 06/07/21 20:30:00 EST, Tablet, [facility]/pharmacy #[id number], Partial fill upon patient request if the prescription is for a schedule II opioi... Start Date: 06/07/21 Stop Date: 06/14/21 Status: Ordered lidocaine 5% topical film 1 patch, Topically, Daily, PRN Pain , Mild, remove after 12 hours, # 30 patch, 0 Refills, Maintenance, 11/19/20 11:13:00 EDT, Film, [facility]/pharmacy #[id number], Partial fill upon patient request if the prescription is for a schedule II opioid drug., 1 patch To... Start Date: 11/19/20 Stop Date: 12/19/20 Status: Ordered lisinopril 20 mg oral tablet 1, tablet, By Mouth, Daily, # 90 tablet, Refills 1, Route to Pharmacy Electronically, [facility] STORE [id number], 175.26, cm, 02/03/21 10:48:00 EDT, Height, 120.45, kg, 11/05/20 16:03:00 EDT, Dry Weight Start Date: 03/02/21 Status: Ordered metoprolol 50 mg oral tablet, extended release 50 mg, 1, tablet, By Mouth, Daily, # 30 tablet, Refills 11, Tot. Refills 11, Maintenance, 06/05/21 9:01:00 EST, Route to Pharmacy Electronically, [facility]/pharmacy #[id number], Partial fill upon patient requestif the [...] 09/14/09 Active Ankle joint pain(Confirmed) 09/14/09 Active [place] cardiac risk 10-2 0% in next (Confirmed) [...]
--- OUTSIDE RECORDS SUMMARY | 2023-04-21 11:15 | XMS_ITS | Continuity of Care Document ---
Author Name Unknown Organization [facility] Address [address] [place] [address]- Care Team Providers Care Apartment Maintenance Name Role Phone Belia Khouyr MD Primary Care Physician [facility] Date[facility]s): 01/31/23 - 03/02/23 [facility] [address] [place], [place] [address] Allergies, Adverse Reactions, Alerts No Known [...] fluarix trivalent 14- 2Result Comment: [01/29/2013] Flulaval [id number]. VIS in Botswanan given. 3Admin Note: VIS 11/2011 4Admin Note: VIS GIVEN VIS DATE 12/07/10 5Admin Note: VIS GIVEN 12/22/09 cameroonian 6Admin Note: VIS GIVEN 7Admin Note: vis 02/20 8Admin Note: VIS GIVEN VIS DATE 12/23/08 9Admin Note: VIS given 10Admin Note: VIS given 11Admin Note: VIS given Medications acetaminophen 500 mg oral tablet 2 tablet, By Mouth, 3 times a day, PRN NEEDED FOR PAIN X, # 180 tablet, 2 Refills, Maintenance, 01/26/23 10:16:00 EDT, [facility]/pharmacy #[id number], label all scripts in Botswanan, 175.26, cm, 01/26/23 9:13:00 EDT, Height, 123, kg, 07/16/21 13:01:00 EST, Dry W... Start Date: 01/26/23 Stop Date: 04/26/23 Status: Ordered ascorbic acid 250 mg oral tablet 1 tablet = 250 mg, By Mouth, Daily, for 30 days, # 30 tablet, 1 Refills, Acute 04/01/23 19:59:00 EST, 01/31/23 19:59:00 EDT, Tablet, [facility]/pharmacy #[id number], Partial fill [...] 04/01/23 19:59:00 EST, 01/31/23 19:59:00 EDT, Capsule, [facility]/pharmacy #[id number], Partial fill upon patient request if the prescription is for a schedule II opioid drug., 175.26... Start Date: 01/31/23 Stop Date: 04/01/23 Status: Ordered clotrimazole 1% topical cream 1 application, Topically, 2 times a day, for rash, # 113 Gm, 1 Refills, Maintenance, 01/26/23 9:56:00 EDT, Cream, [facility]/pharmacy #[id number], Partial fill upon patient request if the prescription is for a schedule II opioid drug., 1 application Topically 2 ti... Start Date: 01/26/23 Stop Date: 03/27/23 Status: Ordered diclofenac 1% topical gel See Instructions, APPLY TO AFFECTED AREA 4 TIMES A DAY, # 100 Gm, 4 Refills, Maintenance, 11/09/22 16:41:00 EDT, [facility], 25, APPLY TO AFFECTED AREA 4 TIMES A DAY, 175.26, cm, 10/03/22 10:48:00 EDT, Height, 123, kg, 07/16/21 13:01:00 EST, Dry... Start Date: 11/09/22 Status: Ordered docusate sodium 100 mg oral capsule 1 capsule, By Mouth, 2 times a day, PRN NEEDED, CONSTIPATION., # 60 capsule, 2 Refills, Maintenance, 01/18/23 15:57:00 EDT, [facility], 175.26, cm, 10/03/22 10:48:00 EDT, Height, 123, kg, 07/16/21 13:01:00 EST, Dry Weight Start Date: 01/18/23 Status: Ordered Eliquis 5 mg oral tablet 1 tablet, By Mouth, 2 times a day, atrial fibrillation, # 180 tablet, 11 Refills, Maintenance, 01/26/23 10:16:00 EDT, [facility]/pharmacy #[id number], label all scripts in Botswanan, 175.26, cm, 01/26/23 9:13:00 EDT, Height, 123, kg, 07/16/21 13:01:00 EST, Dry Weight Start Date: 01/26/23 Stop Date: 01/10/26 Status: Ordered esomeprazole 20 mg oral enteric coated capsule 1 capsule = 20 mg, By Mouth, 2 times a day, # 180 capsule, 2 Refills, Maintenance, 08/08/22 8:21:00EDT, [facility]/pharmacy #[id number], Partial fill upon patient request if the prescription is for a schedule IIopioid drug., 175.26, cm, 03/09/22 10:37:00 EDT, He... Start Date: 08/08/22 Status: Ordered fluticasone 50 mcg/inh nasal spray See Instructions, SPRAY 1 SPRAY INTO BOTH NARES DAILY X 30 DAYS NEEDED FOR ALLERGIES, # 48 mL, 0Refills, Maintenance, 04/11/22 5:24:00 EST, [facility]/pharmacy #[id number], 90, Office visit needed for furtherrefills., SPRAY 1 SPRAY INTO BOTH NARES DAILY X 30... Start Date: 04/11/22 Status: Ordered lisinopril 40 mg oral tablet 1 tablet, By Mouth, Daily, # 90 tablet, 11 Refills, Maintenance, 01/17/23 8:35:00 EDT, [facility]/pharmacy#207, 175.26, cm, 10/03/22 10:48:00 EDT, Height, 123, kg, 07/16/21 13:01:00 EST, Dry Weight Start Date: 01/17/23 Stop Date: 01/01/26 Status: Ordered metoprolol 50 mg oral tablet, extended release 50 mg, 1, tablet, By Mouth, Daily, do not crush or chew (via cardiology in past), # 90 tablet, Refills 11, Tot. Refills 11, Maintenance, 01/26/23 10:16:00 EDT, Route to Pharmacy Electronically, [facility]/pharmacy #[id number], label all scripts in Botswanan, 175.26,... Start Date: 01/26/23 Stop Date: 01/10/26 Status: Ordered nystatin topical [id number] u/gm powder See Instructions, APPLY TO AFFECTED AREA 3 TIMES A DAY, # 60 Gm, 1 Refills, Maintenance, 01/26/23 10:16:00 EDT, [facility]/pharmacy #[id number], 30, label all scripts in Botswanan, APPLY TO AFFECTED AREA 3 TIMES A [...] 11 Refills, Maintenance, 01/26/23 10:25:00 EDT, Tablet, [facility]/pharmacy #[id number], 175.26, cm, 01/26/23 9:13:00 EDT, Height, 123, kg, 07/16/21 13:01:00 EST, Dry Weight Start Date: 01/26/23 Stop Date: 01/10/26 Status: Ordered tiZANidine 2 mg oral tablet 2 mg, 1, tablet, By Mouth, 3 times a day, # 15 tablet, Refills 0, Tot. 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
--- OUTSIDE RECORDS SUMMARY | 2023-04-21 11:15 | XMS_ITS | Continuity of Care Document ---
Author Name Unknown Organization [facility] Address [address] [place] [address]- Care Team Providers Care Public Opinion Survey Taker Name Role Phone Belia Khoury MD Primary Care Physician [phone] Encounter [facility] Date(s): 02/21/20 - 03/22/20 [facility] [address] [place], [place] [address] Attending Physician: Carolyn Mitchell Allergies, Adverse Reactions, [...] fluarix trivalent - 2Result Comment: [01/29/2013] Flulaval [id number]. VIS in Mosotho given. 3Admin Note: VIS 11/2011 4Admin Note: VIS GIVEN VIS DATE 12/07/10 5Admin Note: VIS GIVEN 12/22/09 moldovan 6Admin Note: VIS GIVEN 7Admin Note: vis [...] tablet, 1 Refills, Maintenance, 01/16/20 15:18:00 EDT, [facility]/pharmacy #[id number], label in Mosotho, 166, cm, 12/31/19 10:08:00 EDT, Height, 118.5, kg, 04/01/19 12:45:00 EST, D... Start Date: 01/16/20 Stop Date: 03/16/20 Status: Ordered atorvastatin 40 mg oral tablet 1 tablet = 40 mg, By Mouth, Daily, # 90 tablet, 11 Refills, Maintenance, 07/24/19 10:18:00 EDT, Tablet, [facility]/pharmacy #[id number], 166, cm, 07/24/19 9:46:00 EDT, Height, 118.5, kg, 04/01/19 12:45:00 EST, Dry Weight Start Date: 07/24/19 Stop Date: 07/08/22 Status: Ordered Colace sodium 100 mg oral capsule 100 mg, 1, capsule, By Mouth, 2 times a day, PRN, # 60 capsule, Refills 3, Tot. Refills 3, Maintenance, for constipation, 01/16/20 16:20:00 EDT, Route to Pharmacy Electronically, [facility]/pharmacy #[id number], 166, cm, 12/31/19 10:08:00 EDT, Height, 118.5, kg, 1... Start Date: 01/16/20 Status: Ordered CPAP Machine See Instructions, # 1 each, Maintenance, AutoCPAP 01-01, 02/26/20 14:09:00 EDT, Supply Start Date: 02/26/20 Status: Ordered famotidine 20 mg oral tablet [...] wash hands thoroughly after application label in moldovan, # 50 Gm, 1 Refills, Acute 04/28/20 8:39:00 EST, 01/27/20 8:39:00 EDT, Ointment, [facility]/pharmacy #[id number], 1 application Topically 3 times a day,Instr:wash azul... Start Date: 01/27/20 Stop Date: 04/28/20 Status: Ordered lisinopril 10 mg oral tablet 10 mg, 1, tablet, By Mouth, Daily, for 90 days, # 90 tablet, Refills 11, Tot. Refills 11, Hard Stop02/05/23 9:20:00 EDT, 02/21/20 9:20:00 EDT, Route to Pharmacy Electronically, [facility]/pharmacy #[id number], 166, cm, 12/31/19 10:08:00 EDT, Height, 118.5, kg, 11... Start Date: 02/21/20 Stop Date: 02/05/23 Status: Ordered meclizine 25 mg oral tablet 1 tablet = 25 mg, By Mouth, Daily, use as little as possible, # 14 tablet, 0 Refills, Maintenance, 05/27/19 17:28:00 EST, Tablet, [facility]/pharmacy #207, 166, cm, 05/27/19 16:35:00 EST, [...] Refills, Maintenance, 12/31/19 10:42:00 EDT, EC Capsule, [id number], 166, cm, 12/31/19 10:08:00 EDT, Height, 118.5, kg, 04/01/19 12:45:00 EST, Dry Weight Start Date: 12/31/19 Status: Ordered pregabalin 150 mg oral capsule 1 capsule = 150 mg, By Mouth, 2 times a day, may cause drowsiness label in moldovan, # 180 capsule, 0 Refills, Maintenance, 02/07/20 8:10:00 EDT, Capsule, [id number], 166, cm, 12/31/19 10:08:00 EDT, Height, 118.5, kg, 04/01/19 12:45:00 ESTDr... Start Date: 02/07/20 Status: Ordered Problem List Condition Effective Dates Status Health Status Inform ant Impaired glucose tolerance(Confirmed) 09/14/09 Active Ankle joint pain(Confirmed) 09/14/09 Active [place] cardiac risk 10-2 0% in next /2019(Confirmed) 2019 Active CTS - Carpal tunnel syndrome(Confirmed) 1 Active Tendinopathy(Confirmed) 2 Active Eczema(Confirmed) 3 Active Hypertension(Confirmed) 09/15/09 Active Phobia, flying(Confirmed) Active Fibromyalgia(Confirmed) Active GERD - Gastro-esophageal ref lux disease(Confirmed) 09/14/09 Active H. pylori(Confirmed) 4 Active Rectal varices(Confirmed) Active Hemorrhoid, internal & exter nal, enlarged on colonoscopy(Confirmed) Active H/O colonoscopy(Confirmed) 5 11/09/10 Active [facility](Confirmed) 04/01/19 Active Hyperlipidemia(Confirmed) 09/14/09 Active Hypertensive [...]
--- OUTSIDE RECORDS SUMMARY | 2023-04-21 11:15 | XMS_ITS | Continuity of Care Document ---
Author Name Unknown Organization [facility] Address [address] [place] [address]- Care Team Providers Care Fuel Efficient Aircraft Designer Name Role Phone Belia Khoury MD Primary Care Physician Encounter [facility] Date(s): 01/24/23 - 03/16/23 [facility] [address], [place] [address] Attending Physician: Kristopher Marques MD Admitting Physician: Kristopher Marques MD Referring Physician: Adam [...] fluarix trivalent - 2Result Comment: [01/29/2013] Flulaval [id number]. VIS in Angolan given. 3Admin Note: VIS [...] tablet, 2 Refills, Maintenance, 01/26/23 10:16:00 EDT, [facility]/pharmacy #[id number], label all scripts in Angolan, 175.26, cm, 01/26/23 9:13:00 EDT, Height, 123, kg, 07/16/21 13:01:00 EST, Dry W... Start Date: 01/26/23 Stop Date: 04/26/23 Status: Ordered ascorbic acid 250 mg oral tablet 1 tablet = 250 mg, By Mouth, Daily, for 30 days, # 30 tablet, 1 Refills, Acute 04/01/23 19:59:00 EST, 01/31/23 19:59:00 EDT, Tablet, [facility]/pharmacy #[id number], Partial [...] Refills, Maintenance, 11/09/22 16:41:00 EDT, [id number], 25, APPLY TO AFFECTED AREA 4 TIMES A DAY, 175.26, cm, 10/03/22 10:48:00 EDT, Height, 123, kg, 07/16/21 13:01:00 EST, Dry... Start Date: 11/09/22 Status: Ordered docusate sodium 100 mg oral capsule 1 capsule, By Mouth, 2 times a day, PRN NEEDED, CONSTIPATION., # 60 capsule, 2 Refills, Maintenance, 01/18/23 15:57:00 EDT, [facility], 175.26, cm, 10/03/22 10:48:00 EDT, Height, 123, kg, 07/16/21 13:01:00 EST, Dry Weight Start Date: 01/18/23 Status: Ordered Eliquis 5 mg oral tablet 1 tablet, By Mouth, 2 times a day, atrial fibrillation, # 180 tablet, 11 Refills, Maintenance, 01/26/23 10:16:00 EDT, [facility]/pharmacy #[id number], label all scripts in Angolan, 175.26, cm, 01/26/23 9:13:00 EDT, Height, 123, [...] tablet, 11 Refills, Maintenance, 01/17/23 8:35:00 EDT, [facility]/pharmacy#207, 175.26, cm, 10/03/22 10:48:00 EDT, Height, 123, kg, 07/16/21 13:01:00 EST, Dry Weight Start Date: 01/17/23 Stop Date: 01/01/26 Status: Ordered metoprolol 50 mg oral tablet, extended release 50 mg, 1, tablet, By Mouth, Daily, do not crush or chew (via cardiology in past), # 90 tablet, Refills 11, Tot. Refills 11, Maintenance, 01/26/23 10:16:00 EDT, Route to Pharmacy Electronically, [facility]/pharmacy #[id number], label all scripts in Angolan, 175.26,... Start Date: 01/26/23 Stop Date: 01/10/26 Status: Ordered nystatin topical 185143 u/gm powder See Instructions, APPLY TO AFFECTED AREA 3 TIMES A DAY, # 60 Gm, 1 Refills, Maintenance, 01/26/23 10:16:00 EDT, [facility]/pharmacy #[id number], 30, label all scripts in [place]olan, APPLY TO AFFECTED AREA 3 TIMES A [...] 11 Refills, Maintenance, 01/26/23 10:25:00 EDT, Tablet, [facility]/pharmacy #207, 175.26, cm, 01/26/23 9:13:00 EDT, Height, 123, kg, 07/16/21 13:01:00 EST, Dry Weight Start Date: 01/26/23 Stop Date: 01/10/26 Status: Ordered tiZANidine 2 mg oral tablet 2 mg, 1, tablet, By Mouth, 3 times a day, # 15 tablet, Refills 0, Tot. 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
--- OUTSIDE RECORDS SUMMARY | 2023-04-21 11:15 | XMS_ITS | Continuity of Care Document ---
Author Name Unknown Organization [facility] Address Unknown Care Team Providers Care Surveillance Officer Name Role Phone Belia Khoury MD Primary Care Physician Encounter [facility] Date(s): 01/07/21 - 02/06/21 [facility] Allergies, Adverse Reactions, Alerts Substance Reaction Severity [...] influenza virus vaccine, inactivated 6 04/24/08 Gi cadni tetanus-diphtheria toxoids (Td) 09/25/17 Given influ virus vac, H1N1, inactive(oldterm) 7 06/22/09 Given FluLaval (oldterm) 8 01/29/09 Given Tet/Diphth/Acel, Pertussis (oldterm) 9 05/16/08 Gi candi Influenza Virus Vaccine (oldterm) 10 06/08/07 Give n Influenza Virus Vaccine (oldterm) 11 02/21/06 Give n 1Result Comment: [03/24/2014] fluarix trivalent - 2Result Comment: [01/29/2013] Flulaval [id number]. VIS in Senegalese given. 3Admin Note: VIS 11/2011 4Admin Note: VIS GIVEN VIS DATE 12/07/10 5Admin Note: VIS GIVEN 12/22/09 sami 6Admin Note: VIS GIVEN 7Admin Note: vis 02/20 8Admin Note: VIS GIVEN VIS DATE 12/23/08 9Admin Note: VIS given 10Admin Note: VIS given 11Admin Note: VIS given Medications acetaminophen 500 mg oral tablet 2 tablet = 1,000 mg, By Mouth, 3 times a day, PRN Pain , Mild, may use less, # 180 tablet, 1 Refills, Maintenance, 11/25/20 11:19:00 EDT, [facility]/pharmacy #[id number], label in Senegalese, 175.26, cm, 11/25/20 9:57:00 EDT, Height, 120.45, kg, 11/05/20 16:03:00 EDT... Start Date: 11/25/20 Stop Date: 01/24/21 Status: Ordered apixaban 5 mg oral tablet 1 tablet = 5 mg, By Mouth, 2 times a day, # 60 tablet, 3 Refills, Maintenance, 11/25/20 11:18:00 EDT, Tablet, [facility]/pharmacy #[id number], Partial fill upon patient request if the prescription is for a schedule II opioid drug., 175.26, cm, 11/25/20 9:57:00 EDT... Start Date: 11/25/20 Status: Ordered atorvastatin 40 mg oral tablet 1 tablet = 40 mg, By Mouth, Daily, for 30 days, # 30 tablet, 3 Refills, Physician Stop 04/09/21 12:09:00 EST, 12/10/20 12:09:00 EDT, [facility]/pharmacy #[id number], 175.26, cm, 12/10/20 9:43:00 EDT, Height, 120.45, kg, 11/05/20 16:03:00 EDT, Dry Weight Start Date: 12/10/20 Stop Date: 04/09/21 Status: Ordered Colace sodium 100 mg oral capsule 100 mg, 1, capsule, By Mouth, 2 times a day, PRN, # 60 capsule, Refills 3, Tot. Refills 3, Maintenance, for constipation, 01/16/20 16:20:00 EDT, Route to Pharmacy Electronically, [facility]/pharmacy #[id number], 166, cm, 12/31/19 10:08:00 EDT, Height, 118.5, kg, 1... Start Date: 01/16/20 Status: Ordered diclofenac 1% topical gel = 2 Gm, Topically, 4 times a day, # 100 Gm, 0 Refills, Maintenance, 11/25/20 11:18:00 EDT, Gel, [facility]/pharmacy #[id number], Partial fill upon patient [...] Refills, Maintenance, 11/19/20 11:13:00 EDT, Film, [facility]/pharmacy #[id number], Partial fill upon patient request if the prescription is for a schedule II opioid drug., 1 patch To... Start Date: 11/19/20 Stop Date: 12/19/20 Status: Ordered lisinopril 20 mg oral tablet 20 mg, 1, tablet, By Mouth, Daily, dose change, # 30 tablet, Refills 3, Tot. Refills 3, Maintenance, 12/10/20 12:11:00 EDT, Route to Pharmacy Electronically, [facility]/pharmacy #[id number], Partial fill upon patient request if the prescription is for a schedule I... Start Date: 12/10/20 Stop Date: 04/09/21 Status: Ordered metoprolol 50 mg oral tablet, extended release 50 mg, 1, tablet, By Mouth, Daily, # 30 tablet, Refills 5, Tot. Refills 5, Maintenance, 12/31/20 15:17:00 EDT, Route to Pharmacy Electronically, [facility]/pharmacy #[id number], Partial fill upon patient [...] 09/14/09 Active Ankle joint pain(Confirmed) 09/14/09 Active [place] cardiac risk 10-2 0% in next 10 [...]
--- OUTSIDE RECORDS SUMMARY | 2023-04-21 11:15 | XMS_ITS | Continuity of Care Document ---
Author Name Unknown Organization [facility] Address [address] [place] [address]- Care Team Providers Care Tumbling Instructor Name Role Phone Belia Khoury MD Primary Care Physician [phone] Encounter [facility] Date(s): 01/31/23 - 03/02/23 [facility] [address], [place] [address] Allergies, Adverse Reactions, Alerts No [...] influenza virus vaccine, inactivated 5 02/24/10 Gi cadni influenza virus vaccine, inactivated 6 04/24/08 Gi [...] fluarix trivalent 14- 2Result Comment: [01/29/2013] Flulaval [id number]. VIS in Omani given. 3Admin Note: VIS 11/2011 4Admin Note: VIS GIVEN VIS DATE 12/07/10 5Admin Note: VIS GIVEN 12/22/09 new zealander 6Admin Note: VIS GIVEN 7Admin Note: vis 02/20 8Admin Note: VIS GIVEN VIS DATE 12/23/08 9Admin Note: VIS given 10Admin Note: VIS given 11Admin Note: VIS given Medications acetaminophen 500 mg oral tablet 2 tablet, By Mouth, 3 times a day, PRN NEEDED FOR PAIN X, # 180 tablet, 2 Refills, Maintenance, 01/26/23 10:16:00 EDT, [facility]/pharmacy #[id number], label all scripts in Omani, 175.26, cm, 01/26/23 9:13:00 EDT, Height, 123, kg, 07/16/21 13:01:00 EST, Dry W... Start Date: 01/26/23 Stop Date: 04/26/23 Status: Ordered ascorbic acid 250 mg oral tablet 1 tablet = 250 mg, By Mouth, Daily, for 30 days, # 30 tablet, 1 Refills, Acute 04/01/23 19:59:00 EST, 01/31/23 19:59:00 EDT, Tablet, [facility]/pharmacy #[id number], Partial fill upon patient request if [...] 04/01/23 19:59:00 EST, 01/31/23 19:59:00 EDT, Capsule, [facility]/pharmacy #[id number], Partial fill upon patient request if the prescription is for a schedule II opioid drug., 175.26... Start Date: 01/31/23 Stop Date: 04/01/23 Status: Ordered clotrimazole 1% topical cream 1 application, Topically, 2 times a day, for rash, # 113 Gm, 1 Refills, Maintenance, 01/26/23 9:56:00 EDT, Cream, [facility]/pharmacy #[id number], Partial fill upon patient request if the prescription is for a schedule II opioid drug., 1 application Topically 2 ti... Start Date: 01/26/23 Stop Date: 03/27/23 Status: Ordered diclofenac 1% topical gel See Instructions, APPLY TO AFFECTED AREA 4 TIMES A DAY, # 100 Gm, 4 Refills, Maintenance, 11/09/22 16:41:00 EDT, [id number], 25, APPLY TO AFFECTED AREA 4 TIMES A DAY, 175.26, cm, 10/03/22 10:48:00 EDT, Height, 123, kg, 07/16/21 13:01:00 EST, Dry... Start Date: 11/09/22 Status: Ordered docusate sodium 100 mg oral capsule 1 capsule, By Mouth, 2 times a day, PRN NEEDED, CONSTIPATION., # 60 capsule, 2 Refills, Maintenance, 01/18/23 15:57:00 EDT, [id number], 175.26, cm, 10/03/22 10:48:00 EDT, Height, 123, kg, 07/16/21 13:01:00 EST, Dry Weight Start Date: 01/18/23 Status: Ordered Eliquis 5 mg oral tablet 1 tablet, By Mouth, 2 times a day, atrial fibrillation, # 180 tablet, 11 Refills, Maintenance, 01/26/23 10:16:00 EDT, [facility]/pharmacy #[id number], label all scripts in [place]mani, 175.26, cm, 01/26/23 9:13:00 EDT, Height, 123, kg, 07/16/21 13:01:00 EST, Dry Weight Start Date: 01/26/23 Stop Date: 01/10/26 Status: Ordered esomeprazole 20 mg oral enteric coated capsule 1 capsule = 20 mg, By Mouth, 2 times a day, # 180 capsule, 2 Refills, Maintenance, 08/08/22 8:21:00EDT, [facility]/pharmacy #[id number], Partial fill upon patient request if the prescription is for a schedule IIopioid drug., 175.26, cm, 03/09/22 10:37:00 EDT, He... Start Date: 08/08/22 Status: Ordered fluticasone 50 mcg/inh nasal spray See Instructions, SPRAY 1 SPRAY INTO BOTH NARES DAILY X 30 DAYS NEEDED FOR ALLERGIES, # 48 mL, 0Refills, Maintenance, 04/11/22 5:24:00 EST, [facility]/pharmacy #[id number], 90, Office visit needed for furtherrefills., SPRAY 1 SPRAY INTO BOTH NARES DAILY X 30... Start Date: 04/11/22 Status: Ordered lisinopril 40 mg oral tablet 1 tablet, By Mouth, Daily, # 90 tablet, 11 Refills, Maintenance, 01/17/23 8:35:00 EDT, [facility]/pharmacy#207, 175.26, cm, 10/03/22 10:48:00 EDT, Height, 123, kg, 07/16/21 13:01:00 EST, Dry Weight Start Date: 01/17/23 Stop Date: 01/01/26 Status: Ordered metoprolol 50 mg oral tablet, extended release 50 mg, 1, tablet, By Mouth, Daily, do not crush or chew (via cardiology in past), # 90 tablet, Refills 11, Tot. Refills 11, Maintenance, 01/26/23 10:16:00 EDT, Route to Pharmacy Electronically, [facility]/pharmacy #[id number], label all scripts in Omani, 175.26,... Start Date: 01/26/23 Stop Date: 01/10/26 Status: Ordered nystatin topical 200850 u/gm powder See Instructions, APPLY TO AFFECTED AREA 3 TIMES A DAY, # 60 Gm, 1 Refills, Maintenance, 01/26/23 10:16:00 EDT, [facility]/pharmacy #[id number], 30, label all scripts in [place]i, APPLY TO AFFECTED AREA 3 TIMES A [...] 11 Refills, Maintenance, 01/26/23 10:25:00 EDT, Tablet, [facility]/pharmacy #[id number], 175.26, cm, 01/26/23 9:13:00 EDT, Height, 123, kg, 07/16/21 13:01:00 EST, Dry Weight Start Date: 01/26/23 Stop Date: 01/10/26 Status: Ordered tiZANidine 2 mg oral tablet 2 mg, 1, tablet, By Mouth, 3 times a day, # 15 tablet, Refills 0, Tot. 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
--- OUTSIDE RECORDS SUMMARY | 2023-04-21 11:15 | XMS_ITS | Continuity of Care Document ---
Author Name Unknown Organization [facility] Address [address] [place] [address]- Care Team Providers Care Business Communications Instructor Name Role Phone Belia Khoury MD Primary Care Physician Encounter [facility] Date(s): 05/04/20 - 06/03/20 [facility] [address] [place] [address]- Allergies, Adverse Reactions, Alerts Substance Reaction Severity [...] Given Tet/Diphth/Acel, Pertussis (oldterm) 9 05/16/08 Gi cnadi Influenza Virus Vaccine (oldterm) 10 06/08/07 Give n Influenza Virus Vaccine (oldterm) 11 02/21/06 Give n 1Result Comment: [03/24/2014] fluarix trivalent - 2Result Comment: [01/29/2013] Flulaval [id number]. VIS in Italian given. 3Admin Note: VIS 11/2011 4Admin Note: [...] tablet, 1 Refills, Maintenance, 01/16/20 15:18:00 EDT, [facility]/pharmacy #[id number], label in Italian, 166, cm, 12/31/19 10:08:00 EDT, Height, 118.5, kg, 04/01/19 12:45:00 EST, D... Start Date: 01/16/20 Stop Date: 03/16/20 Status: Ordered atorvastatin 40 mg oral tablet 1 tablet = 40 mg, By Mouth, Daily, # 90 tablet, 11 Refills, Maintenance, 07/24/19 10:18:00 EDT, Tablet, [facility]/pharmacy #[id number], 166, cm, 07/24/19 9:46:00 EDT, Height, 118.5, kg, 04/01/19 12:45:00 EST, Dry Weight Start Date: 07/24/19 Stop Date: 07/08/22 Status: Ordered Colace sodium 100 mg oral capsule 100 mg, 1, capsule, By Mouth, 2 times a day, PRN, # 60 capsule, Refills 3, Tot. Refills 3, Maintenance, for constipation, 01/16/20 16:20:00 EDT, Route to Pharmacy Electronically, [facility]/pharmacy #[id number], 166, cm, 12/31/19 10:08:00 EDT, Height, 118.5, kg, 1... Start Date: 01/16/20 Status: Ordered Coricidin HBP Chest Congestion & Cough 10 mg-200 mg oral capsule 1 capsule, By Mouth, Every 4 hours, PRN for cough, not to exceed 6 doses/day. Italian label, # 60 capsule, 0 Refills, Maintenance, 03/27/20 16:17:00 EST, Capsule, [facility]/pharmacy #[id number], Partial fill upon patient request, 1 capsule By Mouth Every 4 hours,... Start Date: 03/27/20 Status: Ordered CPAP Machine See Instructions, # 1 each, Maintenance, [employer] -, 02/26/20 14:09:00 EDT, Supply Start Date: 02/26/20 [...] 18:17:29 EST Start Date: 04/02/19 Status: Ordered Heating Pad See Instructions, # 1 each, Refills 1, Tot. Refills 1, Acute 05/05/21 13:23:00 EST, osteoarthitis M19.9, obeisty E66.9 Duration: Lifetime, 05/05/20 13:21:00 EST, Supply Start Date: 05/05/20 Stop Date: 05/05/21 Status: Ordered lisinopril 10 mg oral tablet 10 mg, 1, tablet, By Mouth, Daily, for 90 days, # 90 tablet, Refills 11, Tot. Refills 11, Hard Stop02/05/23 9:20:00 EDT, 02/21/20 9:20:00 EDT, Route to Pharmacy Electronically, [facility]/pharmacy #[id number], 166, cm, 12/31/19 10:08:00 EDT, Height, 118.5, kg, 11... Start Date: 02/21/20 Stop Date: 02/05/23 Status: Ordered loratadine 10 mg oral tablet 1, tablet, By Mouth, Daily, # 30 tablet, Refills 0, Tot. Refills 0, Maintenance, 04/15/20 18:08:00 EST, Route to Pharmacy Electronically, [id number], 166, cm, 04/13/20 15:24:00 EST, Height, 118.5, kg, 04/01/19 12:45:00 EST, Dry Weight Start Date: 04/15/20 Status: Ordered meclizine 25 mg oral tablet 1 tablet = 25 mg, By Mouth, Daily, use as little as possible, # 14 tablet, 0 Refills, Maintenance, 05/27/19 17:28:00 EST, Tablet, [facility]/pharmacy #[id number], 166, cm, 05/27/19 16:35:00 EST, Height, [...] Refills, Maintenance, 12/31/19 10:42:00 EDT, EC Capsule, [facility]/pharmacy #[id number], 166, cm, 12/31/19 10:08:00 EDT, Height, 118.5, kg, 04/01/19 12:45:00 EST, Dry Weight Start Date: 12/31/19 Status: Ordered Pill box Pill box, See Instructions, # 1 each, Refills 1, Tot. Refills 1, Acute 05/05/21 13:21:00 EST, osteoarthitis M19.9, obeisty E66.9, multiple medical conditions Duration: Lifetime, 05/05/20 13:21:00 EST, Supply Start Date: 05/05/20 Stop Date: 05/05/21 Status: Ordered pregabalin 150 mg oral capsule 1 capsule = 150 mg, By Mouth, 2 times a day, # 180 capsule, 0 Refills, Maintenance, 04/15/20 18:26:00 EST, Capsule, [facility]/pharmacy #[id number], Partial fill upon patient request if the prescription is for a schedule II opioid drug., 166, cm, 04/13/20 15:24:00... Start Date: 04/15/20 Status: Ordered raised toilet seat raised toilet seat, See Instructions, # 1 each, Refills 1, Tot. Refills 1, Acute 05/05/21 13:22:00 EST, osteoarthitis M19.9, obeisty E66.9 Duration: Lifetime, 05/05/20 13:21:00 EST, Supply Start Date: 05/05/20 Stop Date: 05/05/21 Status: Ordered Problem List Condition Effective Dates Status Health Status Inform ant Impaired glucose tolerance(Confirmed) 09/14/09 Active Ankle joint pain(Confirmed) 09/14/09 Active [place] cardiac risk 10-2 0% in next 10 years/2019(Confirmed) 2019 Active CTS - Carpal tunnel syndrome(Confirmed) 1 Active Tendinopathy(Confirmed) 2 Active Eczema(Confirmed) 3 Active Hypertension(Confirmed) 09/15/09 Active Phobia, flying(Confirmed) Active Fibromyalgia(Confirmed) Active GERD - Gastro-esophageal ref lux disease(Confirmed) 09/14/09 Active H. pylori(Confirmed) 4 Active Rectal varices(Confirmed) Active Hemorrhoid, internal & exter nal, enlarged on colonoscopy(Confirmed) Active H/O colonoscopy(Confirmed) 5 11/09/10 [facility]) 04/01/19 Active Hyperlipidemia(Confirmed) 09/14/09 Active Hypertensive disorder(Confirmed) Active Knee joint pain, osteoarthritis(Confirmed) 6 Active Obesity(Confirmed) Active SHAHRIAR - Obstructive [...]
--- OUTSIDE RECORDS SUMMARY | 2023-04-21 11:15 | XMS_ITS | Continuity of Care Document ---
Author Name Unknown Organization [facility] Address [address] [place] [address]- Care Team Providers Care Relay Engineer Name Role Phone Belia Khoury MD Primary Care Physician [phone] Encounter [facility] Date(s): 06/04/21 - 07/04/21 [facility] [address] [place] [address]- [place] Allergies, Adverse Reactions, Alerts No Known Allergies [...] Give n Influenza Virus Vaccine (oldterm) 11 10/10/06 Give n 1Result Comment: [03/24/2014] fluarix trivalent - 2Result Comment: [01/29/2013] Flulaval [id number]. VIS in Montenegrin given. 3Admin Note: VIS 11/2011 4Admin Note: VIS GIVEN VIS DATE 12/07/10 5Admin Note: VIS GIVEN 12/22/09 amharic 6Admin Note: VIS GIVEN 7Admin Note: vis 02/20 8Admin Note: VIS GIVEN VIS DATE 12/23/08 9Admin Note: VIS given 10Admin Note: VIS given 11Admin Note: VIS given Medications acetaminophen 500 mg oral tablet 2 tablet = 1,000 mg, By Mouth, 3 times a day, PRN Pain , Mild, may use less, # 180 tablet, 1 Refills, Maintenance, 03/29/21 13:13:00 EST, [facility]/pharmacy #[id number], label in Montenegrin, 175.26, cm, 03/26/21 11:10:00 EST, Height, 120.45, kg, 11/05/20 16:03:00 ED... Start Date: 03/29/21 Stop Date: 05/28/21 Status: Ordered apixaban 5 mg oral tablet 1 tablet = 5 mg, By Mouth, 2 times a day, # 60 tablet, 3 Refills, Maintenance, 03/29/21 13:15:00 EST, Tablet, [facility]/pharmacy #[id number], Partial fill upon patient request if the prescription is for a schedule II opioid drug., 175.26, cm, 03/26/21 11:10:00 ES... Start Date: 03/29/21 Status: Ordered atorvastatin 40 mg oral tablet 1 tablet, By Mouth, Daily, # 90 tablet, 3 Refills, [facility], 175.26, cm, 03/26/21 11:10:00 EST, Height, 120.45, kg, 11/05/20 16:03:00 EDT, Dry Weight Start Date: 03/29/21 Status: Ordered Colace sodium 100 mg oral capsule 100 mg, 1, capsule, By Mouth, 2 times a day, PRN, # 60 capsule, Refills 3, Tot. Refills 3, Maintenance, for constipation, 03/29/21 13:13:00 EST, Route to Pharmacy Electronically, [facility]/pharmacy #[id number], 175.26, cm, 03/26/21 11:10:00 EST, Height, 120.45, k... Start Date: 03/29/21 Status: Ordered diclofenac 1% topical gel = 2 Gm, Topically, 4 times a day, # 100 Gm, 0 Refills, Maintenance, 11/25/20 11:18:00 EDT, Gel, [facility]/pharmacy #[id number], Partial fill upon patient request if the prescription is for a schedule II opioid drug., 175.26, cm, 11/25/20 9:57:00 EDT, Height, 120.... Start Date: 11/25/20 Status: Ordered esomeprazole 20 mg oral enteric coated capsule 1 capsule = 20 mg, By Mouth, 2 times a day, # 180 capsule, 0 Refills, Maintenance, 05/17/21 12:07:00 EST, [facility]/pharmacy #[id number], Partial fill upon patient request if the prescription is for a schedule II opioid drug., 175.26, cm, 05/11/21 9:25:00 EST, He... Start Date: 05/17/21 Status: Ordered Flonase 50 mcg/inh nasal spray 1 sprays, Nares, Both, 2 times a day, # 16 Gm, 0 Refills, Maintenance, 06/24/21 16:33:00 EST, [place], [facility]/pharmacy #[id number], Partial fill upon patient request if the prescription is for a schedule II opioid drug., 1 sprays Nares, Both 2 times a day, 175.2... Start Date: 06/24/21 Status: Ordered lidocaine 5% topical film 1 patch, Topically, Daily, PRN Pain , Mild, remove after 12 hours, # 30 patch, 0 Refills, Maintenance, 11/19/20 11:13:00 EDT, Film, [facility]/pharmacy #[id number], Partial fill upon patient request if the prescription is for a schedule II opioid drug., 1 patch To... Start Date: 11/19/20 Stop Date: 12/19/20 Status: Ordered lisinopril 20 mg oral tablet 1, tablet, By Mouth, Daily, # 90 tablet, Refills 1, Route to Pharmacy Electronically, [facility], 175.26, cm, 02/03/21 10:48:00 EDT, Height, 120.45, kg, 11/05/20 16:03:00 EDT, Dry Weight Start Date: 03/02/21 Status: Ordered metoprolol 50 mg oral tablet, extended release 50 mg, 1, tablet, By Mouth, Daily, # 30 tablet, Refills 11, Tot. Refills 11, Maintenance, 06/05/21 9:01:00 EST, Route to Pharmacy Electronically, [facility]/pharmacy #[id number], Partial fill upon patient requestif the prescription [...] 09/14/09 Active Ankle joint pain(Confirmed) 09/14/09 Active [place] cardiac risk 10-2 0% in next 10 [...] colonoscopy(Confirmed) 6 11/09/10 [facility] 04/01/19 Active Hyperlipidemia(Confirmed) [...]
--- OUTSIDE RECORDS SUMMARY | 2023-04-21 11:15 | XMS_ITS | Continuity of Care Document ---
Author Name Unknown Organization [facility] Address [address] [place] [address]- Care Team Providers Care Casting Agent Name Role Phone Belia Khoury MD Primary Care Physician Encounter [facility] Date(s): 07/28/21 - 08/27/21 [facility] [address] [place] [address]- Attending Physician: Admtr, Ar8 Allergies, Adverse Reactions, [...] fluarix trivalent - 2Result Comment: [01/29/2013] Flulaval [id number]. VIS in Tanzanian given. 3Admin Note: VIS 11/2011 4Admin Note: VIS GIVEN VIS DATE 12/07/10 5Admin Note: VIS GIVEN 12/22/09 bahamian 6Admin Note: VIS GIVEN 7Admin Note: vis 02/20 8Admin Note: VIS GIVEN VIS DATE 12/23/08 9Admin Note: VIS given 10Admin Note: VIS given 11Admin Note: VIS given Medications acetaminophen 500 mg oral tablet 2 tablet = 1,000 mg, By Mouth, 3 times a day, PRN Pain , Mild, may use less, # 180 tablet, 1 Refills, Maintenance, 03/29/21 13:13:00 EST, [facility]/pharmacy #[id number], label in Tanzanian, 175.26, cm, 03/26/21 11:10:00 EST, Height, 120.45, kg, 11/05/20 16:03:00 ED... Start Date: 03/29/21 Stop Date: 05/28/21 Status: Ordered Aqua Care 10% topical cream 1 application, Topically, Daily, PRN for dry skin, for 30 days, # 85 Gm, 0 Refills, Acute 09/12/21 14:36:00 EDT, 08/13/21 14:36:00 EDT, Cream, [facility]/pharmacy #2071, Partial fill upon patient request ifthe prescription is for a schedule II opioid drug.,... Start Date: 08/13/21 Stop Date: 09/12/21 Status: Ordered atorvastatin 40 mg oral tablet 1 tablet, By Mouth, Daily, # 90 tablet, 3 Refills, [facility], 175.26, cm, 03/26/21 11:10:00 EST, Height, 120.45, kg, 11/05/20 16:03:00 EDT, Dry Weight Start Date: 03/29/21 Status: Ordered diclofenac 1% topical gel 1 application, Topically, 4 times a day, # 100 Gm, 0 Refills, Maintenance, 08/13/21 14:33:00 EDT, Gel, [facility]/pharmacy #[id number], Partial fill upon patient request if the prescription is for a schedule II opioid drug., 175.26, cm, 08/13/21 14:16:00 EDT, [place]... Start Date: 08/13/21 Status: Ordered docusate sodium 100 mg oral capsule 1 capsule, By Mouth, 2 times a day, PRN NEEDED FOR CONSTIPATION, # 60 capsule, 3 Refills, [facility], 175.26, cm, 07/16/21 13:01:00 EST, Height, 123, kg, 07/16/21 13:01:00 EST, Dry Weight Start Date: 07/20/21 Status: Ordered Eliquis 5 mg oral tablet 1 tablet, By Mouth, 2 times a day, # 60 tablet, 11 Refills, [facility], 175.26, cm, 07/16/21 13:01:00 EST, Height, 123, kg, 07/16/21 13:01:00 EST, Dry Weight Start Date: 07/20/21 Status: Ordered esomeprazole 20 mg oral enteric coated capsule 1 capsule = 20 mg, By Mouth, 2 times a day, # 180 capsule, 1 Refills, Maintenance, 08/17/21 7:48:00EDT, [facility]/pharmacy #[id number], Partial fill upon patient request if the prescription is for a schedule IIopioid drug., 175.26, cm, 08/13/21 14:16:00 EDT, He... Start Date: 08/17/21 Status: Ordered fluticasone 50 mcg/inh nasal spray See Instructions, SPRAY 1 SPRAY IN BOTH NOSTRILS DAILY, # 16 mL, 0 Refills, [facility], 30, SPRAY 1 SPRAY IN BOTH NOSTRILS DAILY, 175.26, cm, 07/28/21 11:01:00 EDT, Height, 123, kg, 07/16/21 13:01:00 EST, Dry Weight Start Date: 08/13/21 Status: Ordered fluticasone CFC free 44 mcg/inh inhalation aerosol 2 puffs, Inhalation, 2 times a day, bahamian label, # 10.6 Gm, 0 Refills, Maintenance, 07/28/21 13:26:00 EDT, Aerosol, [facility]/pharmacy #[id number], Partial fill upon patient request if the prescription is for a schedule II opioid drug., 175.26, cm, 07/28/21 11:... Start Date: 07/28/21 Status: Ordered lisinopril 20 mg oral tablet 1, tablet, By Mouth, Daily, # 90 tablet, Refills 1, Route to Pharmacy Electronically, [facility], 175.26, cm, 02/03/21 10:48:00 EDT, Height, 120.45, kg, 11/05/20 16:03:00 EDT, Dry Weight Start Date: 03/02/21 Status: Ordered LORazepam 0.5 mg oral tablet 0.5 tablet = 0.25 mg, By Mouth, Once, prior to MRI. May cause drowsiness. do not drive, # 0.5 tablet, 0 Refills, Soft Stop, 07/26/21 10:17:00 EDT, Tablet, [facility]/pharmacy #2071, Partial fill upon patient request if the prescription is for a schedule II o... Start Date: 07/26/21 Status: Ordered metoprolol 50 mg oral tablet, extended release 50 mg, 1, tablet, By Mouth, Daily, # 30 tablet, Refills 11, Tot. Refills 11, Maintenance, 06/05/21 9:01:00 EST, [id number] Partial fill upon patient requestif the [...] 20 mL, By Mouth, Every 4 hours, bahamian label not to exceed 6 doses/day, # 180 mL, 0 Refills, Maintenance, 07/28/21 13:25:00 EDT, [facility], Partial fill upon patient request if the prescription is for a schedule II opioid drug., 20 mL By Mo... Start Date: 07/28/21 Status: Ordered Problem List Condition Effective Dates Status Health Status Inform ant Impaired glucose tolerance(Confirmed) 09/14/09 Active Ankle joint pain(Confirmed) 09/14/09 Active [place] cardiac risk 10-2 0% in next 10 [...] colonoscopy(Confirmed) 6 11/09/10 [facility] 04/01/19 Active Hyperlipidemia(Confirmed) [...]
--- OUTSIDE RECORDS SUMMARY | 2023-04-21 11:15 | XMS_ITS | Continuity of Care Document ---
Author Name Unknown Organization [facility] Address [address] [place] [address]- Care Team Providers Care Window Machine Operator Name Role Phone Belia Khoury MD Primary Care Physician [phone] Encounter [facility] Date(s): 07/24/19 - 09/04/19 [facility] [address] [place] [address]- [facility] Attending Physician: Not on Staff, Attending MD [...] [03/24/2014] fluarix trivalent 2Result Comment: [01/29/2013] Flulaval [id number]. VIS in Zambian given. 3Admin Note: VIS 11/2011 4Admin Note: VIS GIVEN VIS DATE 12/07/10 5Admin Note: VIS GIVEN 12/22/09 maldivian 6Admin Note: VIS GIVEN 7Admin Note: vis [...] 1 Refills, Maintenance, 05/27/19 17:37:00 EST, [facility]/pharmacy #207, label in Zambian, 166, cm, 05/27/19 16:35:00 EST, Height, 118.5, kg, 04/01/19 12:45:00 EST, D... Start Date: 05/27/19 Stop Date: 07/26/19 Status: Ordered atorvastatin 40 mg oral tablet 1 tablet = 40 mg, By Mouth, Daily, # 90 tablet, 11 Refills, Maintenance, 07/24/19 10:18:00 EDT, Tablet, [facility]/pharmacy #207, 166, cm, 07/24/19 9:46:00 EDT, Height, 118.5, kg, 04/01/19 12:45:00 EST, Dry Weight Start Date: 07/24/19 Stop Date: 07/08/22 Status: Ordered Colace sodium 100 mg oral capsule 100 mg, 1, capsule, By Mouth, 2 times a day, PRN, # 60 capsule, Refills 3, Tot. Refills 3, Maintenance, for constipation, 04/01/19 14:24:00 EST, Route to Pharmacy Electronically, [id number], [facility]/pharmacy #207 Start Date: 04/01/19 Status: Ordered famotidine [...] 10/30/18 9:32:01 EDT, Route to Pharmacy Electronically, [id number], [facility]/pharmacy #207 Start Date: 10/30/18 Stop Date: 10/14/21 Status: Ordered meclizine 25 mg oral tablet 1 tablet = 25 mg, By Mouth, Daily, use as little as possible, # 14 tablet, 0 Refills, Maintenance, 05/27/19 17:28:00 EST, Tablet, [facility]/pharmacy #207, 166, cm, 05/27/19 16:35:00 EST, Height, 118.5, kg, 04/01/19 12:45:00 EST, Dry Weight Start Date: 05/27/19 Stop Date: 06/10/19 Status: Ordered naproxen 250 mg oral tablet TOME RAY TABLETA POR V?A ORAL DOS VECES AL D?A Start Date: 02/19/19 Status: Ordered Problem List Condition Effective Dates Status Health Status Inform ant Impaired glucose tolerance(Confirmed) 09/14/09 Active Ankle joint pain(Confirmed) 09/14/09 Active [place] cardiac risk 10-2 0% in next 10 [...] polyps and no hemorrhoids[facility] x[facility] in 10 years. maintain a high-fiber diet. goran 12/01/2010 6X-rays 2007 c/w early OA. 7Rt A-C separation on x-ray in 2008 Social History Social History Type Response Smoking Status Never smoker entered on: 04/17/13 Sex Female
--- OUTSIDE RECORDS SUMMARY | 2023-04-21 11:15 | XMS_ITS | Continuity of Care Document ---
Author Name Unknown Organization [facility] Address [address] [place] [address]- Care Team Providers Care Compress Machine Operator Name Role Phone Belia Khoury MD Primary Care Physician [phone] Encounter [facility] Date(s): 08/05/20 - 09/04/20 [facility] [address] [place], [place] [address] Allergies, Adverse Reactions, Alerts Substance Reaction [...] fluarix trivalent - 2Result Comment: [01/29/2013] Flulaval [id number]. VIS in Romanian given. 3Admin Note: VIS 11/2011 4Admin Note: VIS GIVEN VIS DATE 12/07/10 5Admin Note: VIS GIVEN 12/22/09 citizen of k[place] 6Admin Note: VIS GIVEN 7Admin Note: vis 02/20 8Admin Note: VIS GIVEN VIS DATE 12/23/08 9Admin Note: VIS given 10Admin Note: VIS given 11Admin Note: VIS given Medications acetaminophen 500 mg oral tablet 2 tablet = 1,000 mg, By Mouth, 3 times a day, PRN Pain , Mild, may use less, # 180 tablet, 1 Refills, Maintenance, 01/16/20 15:18:00 EDT, [facility]/pharmacy #[id number], label in Romanian, 166, cm, 12/31/19 10:08:00 EDT, Height, 118.5, kg, 04/01/19 12:45:00 EST, D... Start Date: 01/16/20 Stop Date: 03/16/20 Status: Ordered Colace sodium 100 mg oral capsule 100 mg, 1, capsule, By Mouth, 2 times a day, PRN, # 60 capsule, Refills 3, Tot. Refills 3, Maintenance, for constipation, 01/16/20 16:20:00 EDT, Route to Pharmacy Electronically, [facility]/pharmacy #[id number], 166, cm, 12/31/19 10:08:00 EDT, Height, [...] Date: 08/05/20 Stop Date: 11/03/20 Status: Ordered Fiber Therapy indefinitely, per colonosocpy team , 0 Refills, Maintenance, 04/02/19 18:17:29 EST Start Date: 04/02/19 Status: Ordered Heating Pad Heating Pad, See Instructions, # 1 each, Refills 0, Tot. Refills 0, Maintenance, Use as directed dx: M25.519 duration: lifetime, 08/27/20 10:22:00 EDT, Supply Start Date: 08/27/20 Status: Ordered lidocaine 5% topical ointment 1 application, Topically, 3 times a day, # 50 Gm, 2 Refills, Maintenance, 06/11/20 11:38:00 EST, Ointment, [facility]/pharmacy #[id number], Partial fill upon patient request if [...] EDT, Route to Pharmacy Electronically, [facility]/pharmacy #[id number], 166, cm, 12/31/19 10:08:00 EDT, Height, 118.5, kg, 11... Start Date: 02/21/20 Stop Date: 02/05/23 Status: Ordered loratadine 10 mg oral tablet 1, tablet, By Mouth, Daily, # 30 tablet, Refills 0, Tot. Refills 0, Maintenance, 04/15/20 18:08:00 EST, Route to Pharmacy Electronically, [facility], 166, cm, 04/13/20 15:24:00 EST, Height, 118.5, kg, 04/01/19 12:45:00 EST, Dry Weight Start Date: 04/15/20 Status: Ordered Nexium 20 mg oral enteric coated capsule 1 capsule = 20 mg, By Mouth, 2 times a day, # 180 capsule, 2 Refills, Maintenance, 12/31/19 10:42:00 EDT, EC Capsule, [facility]/pharmacy #[id number], 166, cm, 12/31/19 10:08:00 EDT, Height, 118.5, kg, 04/01/19 12:45:00 EST, Dry Weight Start Date: 12/31/19 Status: Ordered pregabalin 150 mg oral capsule 1 capsule = 150 mg, By Mouth, 2 times a day, # 180 capsule, 3 Refills, Maintenance, 06/11/20 11:33:00 EST, Capsule, [facility]/pharmacy #[id number], Partial fill upon patient request if the prescription is for a schedule II opioid drug., 166, cm, 04/13/20 15:24:00... Start Date: 06/11/20 Status: Ordered Triple Antibiotic topical ointment 1 application, Topically, 2 times a day, Apply inside NOSE at bedtime, # 15 Gm, 0 Refills, Maintenance, 07/31/20 10:04:00 EDT, Ointment, [facility]/pharmacy #2071, Partial fill upon patient request if the prescription is for a schedule II opioid drug., 1 trinh... Start Date: 07/31/20 Status: Ordered Problem List Condition Effective Dates Status Health Status Inform ant Impaired glucose tolerance(Confirmed) 09/14/09 Active Ankle joint pain(Confirmed) 09/14/09 Active [place] cardiac risk 10-2 0% in next 10 [...] colonoscopy(Confirmed) 6 11/09/10 [facility] 04/01/19 Active Hyperlipidemia(Confirmed) 09/14/09 [...]
--- OUTSIDE RECORDS SUMMARY | 2023-04-21 11:15 | XMS_ITS | Continuity of Care Document ---
Author Name Unknown Organization [facility] Address [address] [place] [address] [address] [place] [address]- Care Team Providers Care Investigator Operator Name Role Phone Belia Khoury MD Primary Care Physician [phone] Encounter [facility] Date(s): 05/03/19 - 05/10/19 [facility] [address] [place] [address]- [facility] Attending Physician: Scottie Myles MD Referring Physician: Belia Khoury MD Allergies, [...] fluarix trivalent 14-15 2Result Comment: [01/29/2013] Flulaval [id number]. VIS in Chilean given. 3Admin Note: VIS 11/2011 4Admin Note: [...] 04/01/19 14:24:00 EST, Route to Pharmacy Electronically, [id number], [facility]/pharmacy #[id number] Start Date: 04/01/19 Status: Ordered docusate sodium 100 mg oral capsule 100 mg, 1, capsule, By Mouth, 2 times a day, PRN, for 30 days, # 60 capsule, Refills 2, Tot. Refills 2, Acute 05/20/19 11:00:19 EST, for constipation, 02/19/19 11:00:19 EDT, Route to Pharmacy Electronically, [id number], [facility] Start Date: 02/19/19 Stop Date: 05/20/19 Status: Ordered famotidine 20 mg oral tablet 20 mg, 1, tablet, By Mouth, 2 times a day, PRN, # 90 tablet, Refills 11, Tot. Refills 11, Maintenance, heartburn, 10/30/18 9:32:00 EDT, Route to Pharmacy Electronically, [id number], [facility]/pharmacy #[id number] Start Date: 10/30/18 Status: [...] 10/30/18 9:32:01 EDT, Route to Pharmacy Electronically, [id number], [facility]/pharmacy #[id number] Start Date: 10/30/18 Stop Date: 10/14/21 [...] 04/01/19 14:24:00 EST, Route to Pharmacy Electronically, [id number], [facility]/pharmacy #1 Start Date: 04/01/19 Status: Ordered Problem List [...] 6Rt A-C separation on x-ray in 2008 Vital Signs Most recent to oldest [Reference Range]: 1 Height 166 cm (05/03/19 4:34 PM) Weight 120.0 kg (05/03/19 4:34 PM) Body Mass Index [18.5-24.99] 43.55 *>HHI* (05/03/19 4:34 PM) Weight Obtained Via Standing scale (05/03/19 4:34 PM) Social History Social History Type Response Smoking Status Never smoker entered on: 04/17/13 Sex Female
--- OUTSIDE RECORDS SUMMARY | 2023-04-21 11:15 | XMS_ITS | Continuity of Care Document ---
Author Name Unknown Organization [facility] Address [address] [place] [address]- Care Team Providers Care Powered Bridge Specialist Name Role Phone Iraida WILSON, Belia Primary Care Physician [facility]counter [facility] Date(s): 09/08/20 - 10/25/[address] [address] Attending Physician: Not on Staff, Attending MD [...] fluarix trivalent 14-15 2Result Comment: [01/29/2013] Flulaval [id number]. VIS in Danish given. 3Admin Note: VIS 11/2011 4Admin Note: VIS GIVEN VIS DATE 12/07/10 5Admin Note: VIS GIVEN 12/22/09 vincentian 6Admin Note: VIS GIVEN 7Admin Note: vis 02/20 8Admin Note: VIS GIVEN VIS DATE 12/23/08 9Admin Note: VIS given 10Admin Note: VIS given 11Admin Note: VIS given Medications acetaminophen 500 mg oral tablet 2 tablet = 1,000 mg, By Mouth, 3 times a day, PRN Pain , Mild, may use less, # 180 tablet, 1 Refills, Maintenance, 01/16/20 15:18:00 EDT, [facility]/pharmacy #[id number], label in Danish, 166, cm, 12/31/19 10:08:00 EDT, Height, 118.5, kg, 04/01/19 12:45:00 EST, D... Start Date: 01/16/20 Stop Date: 03/16/20 Status: Ordered atorvastatin 40 mg oral tablet See Instructions, [facility], # 90 tablet, 11 Refills, Maintenance, [facility], 166, cm, 09/18/20 8:01:00 EDT, Height, 118.5, kg, 04/01/19 12:45:00 EST, Dry Weight Start Date: 10/09/20 Status: Ordered Colace sodium 100 mg oral capsule 100 mg, 1, capsule, By Mouth, 2 times a day, PRN, # 60 capsule, Refills 3, Tot. Refills 3, Maintenance, for constipation, 01/16/20 16:20:00 EDT, Route to Pharmacy Electronically, [facility]/pharmacy #[id number], 166, cm, 12/31/19 10:08:00 EDT, Height, [...] 06/11/20 11:38:00 EST, Ointment, [facility]/pharmacy #[id number], Partial fill upon patient request if [...] Route to Pharmacy Electronically, [facility]/pharmacy #[id number], 166, cm, 12/31/19 10:08:00 EDT, Height, 118.5, kg, 11... Start Date: 02/21/20 Stop Date: 02/05/23 Status: Ordered Triple Antibiotic topical ointment 1 application, Topically, 2 times a day, Apply inside NOSE at bedtime, # 15 Gm, 0 Refills, Maintenance, 07/31/20 10:04:00 EDT, Ointment, [facility]/pharmacy #[id number], Partial fill upon patient request if the prescription is for a schedule II opioid drug., 1 trinh... Start Date: 07/31/20 Status: Ordered Problem List Condition Effective Dates Status Health Status Inform ant Impaired glucose tolerance(Confirmed) 09/14/09 Active Ankle joint pain(Confirmed) 09/14/09 Active [place] cardiac risk 10-2 0% in next /2019(Confirmed) [...]
--- OUTSIDE RECORDS SUMMARY | 2023-04-21 11:16 | XMS_ITS | Continuity of Care Document ---
Author Name Unknown Organization [facility] Address [address] [place] [id number]- Care Team Providers Care Museum Tour Guide Name Role Phone Belia Khoury MD Primary Care Physician [facility]counter [facility] Date[facility]s): 05/11/21 - 06/10/[address] [address] Attending Physician: Admtr, Ar8 Allergies, Adverse Reactions, [...] fluarix trivalent 14- 2Result Comment: [01/29/2013] Flulaval [id number]. VIS in Turkish given. 3Admin Note: VIS 11/2011 4Admin Note: [...] tablet, 1 Refills, Maintenance, 03/29/21 13:13:00 EST, [facility]/pharmacy #[id number], label in Turkish, 175.26, cm, 03/26/21 11:10:00 EST, Height, 120.45, kg, 11/05/20 16:03:00 ED... Start Date: 03/29/21 Stop Date: 05/28/21 Status: Ordered apixaban 5 mg oral tablet 1 tablet = 5 mg, By Mouth, 2 times a day, # 60 tablet, 3 Refills, Maintenance, 03/29/21 13:15:00 EST, Tablet, [facility]/pharmacy #[id number], Partial fill upon patient request if the prescription is for a schedule II opioid drug., 175.26, cm, 03/26/21 11:10:00 ES... Start Date: 03/29/21 Status: Ordered atorvastatin 40 mg oral tablet 1 tablet, By Mouth, Daily, # 90 tablet, 3 Refills, [facility] STORE [id number], 175.26, cm, 03/26/21 11:10:00 EST, Height, 120.45, kg, 11/05/20 16:03:00 EDT, Dry Weight Start Date: 03/29/21 Status: Ordered Colace sodium 100 mg oral capsule 100 mg, 1, capsule, By Mouth, 2 times a day, PRN, # 60 capsule, Refills 3, Tot. Refills 3, Maintenance, for constipation, 03/29/21 13:13:00 EST, Route to Pharmacy Electronically, [facility]/pharmacy #[id number], 175.26, cm, 03/26/21 11:10:00 EST, Height, 120.45, k... Start Date: 03/29/21 Status: Ordered diclofenac 1% topical gel = 2 Gm, Topically, 4 times a day, # 100 Gm, 0 Refills, Maintenance, 11/25/20 11:18:00 EDT, Gel, [facility]/pharmacy #[id number], Partial fill upon patient request if the prescription is for a schedule II opioid drug., 175.26, cm, 11/25/20 9:57:00 EDT, Height, 120.... Start Date: 11/25/20 Status: Ordered esomeprazole 20 mg oral enteric coated capsule 1 capsule = 20 mg, By Mouth, 2 times a day, # 180 capsule, 0 Refills, Maintenance, 05/17/21 12:07:00 EST, [facility]/pharmacy #[id number], Partial fill upon [...] 06/14/21 20:30:00 EST, 06/07/21 20:30:00 EST, Tablet, [facility]/pharmacy #[id number], Partial fill upon patient request if the prescription is for a schedule II opioi... Start Date: 06/07/21 Stop Date: 06/14/21 Status: Ordered lidocaine 5% topical film 1 patch, Topically, Daily, PRN Pain , Mild, remove after 12 hours, # 30 patch, 0 Refills, Maintenance, 11/19/20 11:13:00 EDT, Film, [facility]/pharmacy #[id number], Partial fill upon patient request if the prescription is for a schedule II opioid drug., 1 patch To... Start Date: 11/19/20 Stop Date: 12/19/20 Status: Ordered lisinopril 20 mg oral tablet 1, tablet, By Mouth, Daily, # 90 tablet, Refills 1, Route to Pharmacy Electronically, [facility] [id number], 175.26, cm, 02/03/21 10:48:00 EDT, Height, 120.45, kg, 11/05/20 16:03:00 EDT, Dry Weight Start Date: 03/02/21 Status: Ordered metoprolol 50 mg oral tablet, extended release 50 mg, 1, tablet, By Mouth, Daily, # 30 tablet, Refills 11, Tot. Refills 11, Maintenance, 06/05/21 9:01:00 EST, Route to Pharmacy Electronically, [facility]/pharmacy #[id number], Partial fill upon patient requestif the prescription [...] 09/14/09 Active Ankle joint pain(Confirmed) 09/14/09 Active [place] cardiac risk 10-2 0% in next 10 [...]
--- OUTSIDE RECORDS SUMMARY | 2023-04-21 11:16 | XMS_ITS | Continuity of Care Document ---
Author Name Unknown Organization [facility] Address [address] [place] [address]- Care Team Providers Care Computer Aided Design Drafter Name Role Phone Belia Khoury MD Primary Care Physician [phone] [facility]counter [facility] Date(s): 12/02/20 - 01/01/[address] [id number] Attending Physician: Admtr, Ar8 Allergies, Adverse [...] fluarix trivalent - 2Result Comment: [01/29/2013] Flulaval [id number]. VIS in American given. 3Admin Note: VIS 11/2011 4Admin Note: [...] 11/25/20 11:19:00 EDT, [facility]pharmacy #[id number], label in American, 175.26, cm, 11/25/20 9:57:00 EDT, Height, 120.45, [...] 01/16/20 16:20:00 EDT, Route to Pharmacy Electronically, [facility]/pharmacy #[id number], 166, cm, 12/31/19 10:08:00 EDT, Height, 118.5, kg, 1... Start Date: 01/16/20 Status: Ordered diclofenac 1% topical gel = 2 Gm, Topically, 4 times a day, # 100 Gm, 0 Refills, Maintenance, 11/25/20 11:18:00 EDT, Gel, [facility]/pharmacy #[id number], Partial fill upon patient request [...] Refills, Maintenance, 11/19/20 11:13:00 EDT, Film, [facility]/pharmacy #[id number], Partial fill upon patient request if the prescription is for a schedule II opioid drug., 1 patch To... Start Date: 11/19/20 Stop Date: 12/19/20 Status: Ordered lisinopril 20 mg oral tablet 20 mg, 1, tablet, By Mouth, Daily, dose change, # 30 tablet, Refills 3, Tot. Refills 3, Maintenance, 12/10/20 12:11:00 EDT, Route to Pharmacy Electronically, [facility]/pharmacy #[id number], Partial fill upon patient request if the prescription is for a schedule I... Start Date: 12/10/20 Stop Date: 04/09/21 Status: Ordered metoprolol 50 mg oral tablet, extended release 50 mg, 1, tablet, By Mouth, Daily, # 30 tablet, Refills 5, Tot. Refills 5, Maintenance, 12/31/20 15:17:00 EDT, Route to Pharmacy Electronically, [facility]/pharmacy #[id number], Partial fill upon patient request if the [...] 09/14/09 Active Ankle joint pain(Confirmed) 09/14/09 Active [place] cardiac risk 10-2 0% in next (Confirmed) 2019 Active Carpal tunnel syndrome(Confirmed) 2 Active Depression(Confirmed) 09/14/09 Active Tendinopathy(Confirmed) 3 Active Eczema(Confirmed) 4 Active Hypertension(Confirmed) 09/15/09 Active Phobia, flying(Confirmed) Active Fibromyalgia(Confirmed) Active GERD - Gastro-esophageal ref lux disease(Confirmed) 09/14/09 Active H. pylori(Confirmed) 5 Active Rectal varices(Confirmed) Active Hemorrhoid, internal & exter nal, enlarged on colonoscopy(Confirmed) Active H/O colonoscopy(Confirmed) 6 11/09/10 [facility]) 04/01/19 Active Hyperlipidemia(Confirmed) [...]
--- OUTSIDE RECORDS SUMMARY | 2023-04-21 11:16 | XMS_ITS | Continuity of Care Document ---
Author Name Unknown Organization [facility] Address [address] [place] [address]- Care Team Providers Care Filler And Trimmer Name Role Phone Iraida WILSON, Belia Primary Care Physician [phone] Encounter [facility] Date(s): 06/09/20 - 07/12/20 [facility] [address] [place] [address] Attending Physician: Karis Marsh MD Admitting Physician: Karis Marsh MD Referring Physician: Belia Khoury MD Allergies, [...] fluarix trivalent 14-15 2Result Comment: [01/29/2013] Flulaval [id number]. VIS in English given. 3Admin Note: VIS 11/2011 4Admin Note: VIS GIVEN VIS DATE 12/07/10 5Admin Note: VIS GIVEN 12/22/09 [email or web address] 6Admin Note: VIS GIVEN 7Admin Note: vis [...] Refills, Maintenance, 01/16/20 15:18:00 EDT, [facility]/pharmacy #[id number], label in English, 166, cm, 12/31/19 10:08:00 EDT, Height, 118.5, kg, 04/01/19 12:45:00 EST, D... Start Date: 01/16/20 Stop Date: 03/16/20 Status: Ordered atorvastatin 40 mg oral tablet 1 tablet = 40 mg, By Mouth, Daily, # 90 tablet, 11 Refills, Maintenance, 07/24/19 10:18:00 EDT, Tablet, [facility]/pharmacy #[id number], 166, cm, 07/24/19 9:46:00 EDT, [...] Instructions, # 1 each, Maintenance, [employer] -, 06/26/20 12:40:00 EST, Supply Start Date: 06/26/20 Status: Ordered famotidine 20 mg oral tablet [...] Maintenance, 06/11/20 11:38:00 EST, Ointment, [facility]/pharmacy #[id number], Partial fill [...] EST, Route to Pharmacy Electronically, [facility] ST[facility] [id number], 166, cm, 04/13/20 15:24:00 EST, Height, 118.5, kg, 04/01/19 12:45:00 EST, Dry Weight Start Date: 04/15/20 Status: Ordered naproxen 250 mg oral tablet [...] 3 Refills, Maintenance, 06/11/20 11:33:00 EST, Capsule, [id number], Partial fill upon patient request if the prescription is for a schedule II opioid drug., 166, cm, 04/13/20 15:24:00... Start Date: 06/11/20 Status: Ordered Problem List Condition Effective Dates Status Health Status Inform ant Impaired glucose tolerance(Confirmed) 09/14/09 Active Ankle joint pain(Confirmed) 09/14/09 Active [place] cardiac risk 10-2 0% in next 10 years/2020(Confirmed) 2019 Active Carpal tunnel syndrome(Confirmed) 1 Active Depression(Confirmed) 09/14/09 Active Tendinopathy(Confirmed) 2 Active Eczema(Confirmed) 3 Active Hypertension(Confirmed) 09/15/09 Active Phobia, flying(Confirmed) Active Fibromyalgia(Confirmed) Active GERD - Gastro-esophageal ref lux disease(Confirmed) 09/14/09 Active H. pylori(Confirmed) 4 Active Rectal varices(Confirmed) Active Hemorrhoid, internal & exter nal, enlarged on colonoscopy(Confirmed) Active H/O colonoscopy(Confirmed) 5 11/09/10 [facility]) 04/01/19 Active Hyperlipidemia(Confirmed) 09/14/09 Active Hypertensive [...]
--- OUTSIDE RECORDS SUMMARY | 2023-04-21 11:16 | XMS_ITS | Continuity of Care Document ---
Author Name Unknown Organization [facility] Address [address] [facility], [address], [address] [place] [address]- Care Team Providers Care Powder Shoveler Name Role Phone Belia Khoury MD Primary Care Physician [phone] Encounter [facility] Date(s): 07/01/19 - 10/24/19 [facility] [address], [address], [address] [place] [address] [facility] Attending Physician: Brad Krishnan MD Admitting Physician: Brad Krishnan MD Referring Physician: Belia Khoury MD Allergies, [...] fluarix trivalent 14-15 2Result Comment: [01/29/2013] Flulaval [id number]. VIS in Mongolian given. 3Admin Note: VIS 11/2011 4Admin Note: [...] EST, [facility]/pharmacy #[id number], label in Mongolian, 166, cm, 05/27/19 16:35:00 EST, Height, 118.5, kg, 04/01/19 12:45:00 EST, D... Start Date: 05/27/19 Stop Date: 07/26/19 Status: Ordered atorvastatin 40 mg oral tablet 1 tablet = 40 mg, By Mouth, Daily, # 90 tablet, 11 Refills, Maintenance, 07/24/19 10:18:00 EDT, Tablet, [facility]/pharmacy #[id number], 166, cm, 07/24/19 9:46:00 EDT, Height, 118.5, kg, 04/01/19 12:45:00 EST, Dry Weight Start Date: 07/24/19 Stop Date: 07/08/22 Status: Ordered Colace sodium 100 mg oral capsule 100 mg, 1, capsule, By Mouth, 2 times a day, PRN, # 60 capsule, Refills 3, Tot. Refills 3, Maintenance, for constipation, 04/01/19 14:24:00 EST, Route to Pharmacy Electronically, [id number], [facility]/pharmacy #[id number] Start Date: 04/01/19 Status: Ordered [...] 10/30/18 9:32:01 EDT, Route to Pharmacy Electronically, [id number], [facility]/pharmacy #[id number] Start Date: 10/30/18 Stop Date: 10/14/21 Status: Ordered meclizine 25 mg oral tablet 1 tablet = 25 mg, By Mouth, Daily, use as little as possible, # 14 tablet, 0 Refills, Maintenance, 05/27/19 17:28:00 EST, Tablet, [facility]/pharmacy #[id number], 166, cm, 05/27/19 16:35:00 EST, Height, 118.5, kg, 04/01/19 12:45:00 EST, Dry Weight Start Date: 05/27/19 Stop Date: 06/10/19 Status: Ordered naproxen 250 mg oral tablet TOME RAY TABLETA POR V?A ORAL DOS VECES AL D?A Start Date: 02/19/19 Status: Ordered Problem List Condition Effective Dates Status Health Status Inform ant Impaired glucose tolerance(Confirmed) 09/14/09 Active Ankle joint pain(Confirmed) 09/14/09 Active [place] cardiac risk 10-2 0% in next 10 years(Confirmed) 2019 Active CTS - Carpal tunnel syndrome(Confirmed) [...]
--- OUTSIDE RECORDS SUMMARY | 2023-04-21 11:16 | XMS_ITS | Continuity of Care Document ---
Author Name Unknown Organization [facility] Address [address] [place] [id number]- Care Team Providers Care Book Jacket Cover Machine Operator Name Role Phone Iraida WILSON, Belia Primary Care Physician [facility]counter [facility] Date(s): 02/25/21 - 06/17/[address] [id number] Attending Physician: Belia Khoury MD Admitting [...] fluarix trivalent 14- 2Result Comment: [01/29/2013] Flulaval [id number]. VIS in Yemeni given. 3Admin Note: VIS 11/2011 4Admin Note: [...] [facility]/pharmacy #[id number], label in Yemeni, 175.26, cm, 03/26/21 11:10:00 EST, Height, 120.45, kg, 11/05/20 16:03:00 ED... Start Date: 03/29/21 Stop Date: 05/28/21 Status: Ordered apixaban 5 mg oral tablet 1 tablet = 5 mg, By Mouth, 2 times a day, # 60 tablet, 3 Refills, Maintenance, 03/29/21 13:15:00 EST, Tablet, [facility]/pharmacy #[id number], Partial fill upon patient request if the prescription is for a schedule II opioid drug., 175.26, cm, 03/26/21 11:10:00 ES... Start Date: 03/29/21 Status: Ordered atorvastatin 40 mg oral tablet 1 tablet, By Mouth, Daily, # 90 tablet, 3 Refills, [facility] STORE [id number], 175.26, cm, 03/26/21 11:10:00 EST, Height, 120.45, kg, 11/05/20 16:03:00 EDT, Dry Weight Start Date: 03/29/21 Status: Ordered Colace sodium 100 mg oral capsule 100 mg, 1, capsule, By Mouth, 2 times a day, PRN, # 60 capsule, Refills 3, Tot. Refills 3, Maintenance, for constipation, 03/29/21 13:13:00 EST, [id number] 175.26, cm, 03/26/21 11:10:00 EST, Height, 120.45, k... Start Date: 03/29/21 Status: Ordered diclofenac 1% topical gel = 2 Gm, Topically, 4 times a day, # 100 Gm, 0 Refills, Maintenance, 11/25/20 11:18:00 EDT, Gel, [facility]/pharmacy #[id number], Partial fill upon patient request if the prescription is for a schedule II opioid drug., 175.26, cm, 11/25/20 9:57:00 EDT, Height, 120.... Start Date: 11/25/20 Status: Ordered esomeprazole 20 mg oral enteric coated capsule 1 capsule = 20 mg, By Mouth, 2 times a day, # 180 capsule, 0 Refills, Maintenance, 05/17/21 12:07:00 EST, [id number], Partial fill upon patient request if the prescription is for a schedule II opioid drug., 175.26, cm, 05/11/21 9:25:00 EST, He... Start Date: 05/17/21 Status: Ordered lidocaine 5% topical film 1 patch, Topically, Daily, PRN Pain , Mild, remove after 12 hours, # 30 patch, 0 Refills, Maintenance, 11/19/20 11:13:00 EDT, Film, [id number], Partial fill upon patient request if the prescription is for a schedule II opioid drug., 1 patch To... Start Date: 11/19/20 Stop Date: 12/19/20 Status: Ordered lisinopril 20 mg oral tablet 1, tablet, By Mouth, Daily, # 90 tablet, Refills 1, Route to Pharmacy Electronically, [facility] STORE [id number], 175.26, cm, 02/03/21 10:48:00 EDT, Height, 120.45, kg, 11/05/20 16:03:00 EDT, Dry Weight Start Date: 03/02/21 Status: Ordered metoprolol 50 mg oral tablet, extended release 50 mg, 1, tablet, By Mouth, Daily, # 30 tablet, Refills 11, Tot. Refills 11, Maintenance, 06/05/21 9:01:00 EST, Route to Pharmacy Electronically, [facility]/pharmacy #[id number], Partial fill upon patient requestif [...] 06/27/21 15:05:00 EST, 06/17/21 15:05:00 EST, Capsule, [facility]/pharmacy #[id number], Partial fill upon patient request if the prescription is for a... Start Date: 06/17/21 Stop Date: 06/27/21 Status: Ordered Problem List Condition Effective Dates Status Health Status Inform ant Impaired glucose tolerance(Confirmed) 09/14/09 Active Ankle joint pain(Confirmed) 09/14/09 Active [place] cardiac risk 10-2 0% in next 10 [...]
--- OUTSIDE RECORDS SUMMARY | 2023-04-21 11:16 | XMS_ITS | Continuity of Care Document ---
Author Name Unknown Organization [facility] Address [address] [facility], [address], [address] [place] [address]- Care Team Providers Care Professional Healthcare Representative Name Role Phone Belia Khoury MD Primary Care Physician [phone] Encounter [facility] Date(s): 09/25/19 - 11/20/19 [facility] [address], [address], [address] [place] [address]- [facility] Attending Physician: Brad Krishnan MD Admitting Physician: Brad Krishnan MD Allergies, Adverse Reactions, [...] fluarix trivalent 14-15 2Result Comment: [01/29/2013] Flulaval [id number]. VIS in Telugu given. 3Admin Note: VIS 11/2011 4Admin Note: VIS GIVEN VIS DATE 12/07/10 5Admin Note: VIS GIVEN 12/22/09 uzbek 6Admin Note: VIS GIVEN 7Admin Note: vis [...] tablet, 1 Refills, Maintenance, 05/27/19 17:37:00 EST, [facility]/pharmacy #[id number], label in Telugu, 166, cm, 05/27/19 16:35:00 EST, Height, 118.5, kg, 04/01/19 12:45:00 EST, D... Start Date: 05/27/19 Stop Date: 07/26/19 Status: Ordered atorvastatin 40 mg oral tablet 1 tablet = 40 mg, By Mouth, Daily, # 90 tablet, 11 Refills, Maintenance, 07/24/19 10:18:00 EDT, Tablet, [facility]/pharmacy #[id number], 166, cm, 07/24/19 9:46:00 EDT, Height, 118.5, kg, 04/01/19 12:45:00 EST, Dry Weight Start Date: 07/24/19 Stop Date: 07/08/22 Status: Ordered Colace sodium 100 mg oral capsule 100 mg, 1, capsule, By Mouth, 2 times a day, PRN, # 60 capsule, Refills 3, Tot. Refills 3, Maintenance, for constipation, 04/01/19 14:24:00 EST, Route to Pharmacy Electronically, [id number], [facility]/pharmacy #[id number] Start Date: 04/01/19 Status: Ordered [...] 10/30/18 9:32:01 EDT, Route to Pharmacy Electronically, [id number], [facility]/pharmacy #[id number] Start Date: 10/30/18 Stop Date: 10/14/21 Status: Ordered meclizine 25 mg oral tablet 1 tablet = 25 mg, By Mouth, Daily, use as little as possible, # 14 tablet, 0 Refills, Maintenance, 05/27/19 17:28:00 EST, Tablet, [facility]/pharmacy #207, 166, cm, 05/27/19 16:35:00 EST, Height, 118.5, kg, 04/01/19 12:45:00 EST, Dry Weight Start Date: 05/27/19 Stop Date: 06/10/19 Status: Ordered naproxen 250 mg oral tablet TOME RAY TABLETA POR V?A ORAL DOS VECES AL D?A Start Date: 02/19/19 Status: Ordered Problem List Condition Effective Dates Status Health Status Inform ant Impaired glucose tolerance(Confirmed) 09/14/09 Active Ankle joint pain(Confirmed) 09/14/09 Active [place] cardiac risk 10-2 0% in next (Confirmed) [...]
--- OUTSIDE RECORDS SUMMARY | 2023-04-21 11:16 | XMS_ITS | Continuity of Care Document ---
Author Name Unknown Organization [facility] ter Address [address] [place] [address]- Care Team Providers Care Procurement Analyst Name Role Phone Belia Khoury MD Primary Care Physician [phone] Encounter [facility] Date(s): 11/19/20 - 11/19/[address] [address]- Discharge Disposition: A-D/C Home Attending Physician: George Padilla DO Admitting Physician: George Padilla DO Referring Physician: Not on Staff, Referring MD Allergies, Adverse Reactions, Alerts Substance Reaction [...] [03/24/2014] fluarix trivalent 2Result Comment: [01/29/2013] Flulaval [id number]. VIS in Turkish given. 3Admin Note: VIS [...] tablet, 1 Refills, Maintenance, 01/16/20 15:18:00 EDT, [facility]/pharmacy #[id number], label in Turkish, 166, cm, 12/31/19 10:08:00 EDT, Height, 118.5, kg, 04/01/19 12:45:00 EST, D... Start Date: 01/16/20 Stop Date: 03/16/20 Status: Ordered Acetaminophen Tablet 975 mg, Tablet, By Mouth, Once, STAT, 11/19/20 9:38:00 EDT, Stop date 11/19/20 9:38:00 EDT Start Date: 11/19/20 Stop Date: 11/19/20 Status: Completed Colace sodium 100 mg oral capsule 100 mg, 1, capsule, By Mouth, 2 times a day, PRN, # 60 capsule, Refills 3, Tot. Refills 3, Maintenance, for constipation, 01/16/20 16:20:00 EDT, Route to Pharmacy Electronically, [facility]/pharmacy #[id number], 166, cm, 12/31/19 [...] Refills, Maintenance, 11/19/20 11:13:00 EDT, Film, [facility]/pharmacy #[id number], Partial fill upon [...] 02/21/20 9:20:00 EDT, Route to Pharmacy Electronically, [facility]/pharmacy #[id number], 166, cm, 12/31/19 [...] 09/14/09 Active Ankle joint pain(Confirmed) 09/14/09 Active [place] cardiac risk 10-2 0% in next 10 [...] 8Rt A-C separation on x-ray in 2008 Results Radiology Reports * Exam Date Time Procedure Performing Provider Status 11/19/20 10:22 AM Chest Portable Jenae Pemberton; Au th (Verified) Notes: (Chest Portable) Reason For Exam: Shortness of Breath RESULT: Chest Portable Chest Portable HX OF PRESENT ILLNESS: From [facility] OR for hysteroscopy and D C. New afib when placed on monitor by nurse. Asymptomatic. EKG confirmed afib. transferred to ED. procedure cancelled. VS: 117 102, HR 155, RR 21, 99% RA, 97.0 temp. placed on 2L NC by OR staff. 100cc LR given; Reason: Shortness of Breath; Clinical Question(s): CHF / CHF COMPARISON: 05/26/2015 FINDINGS: LINES AND TUBES: None. LUNGS AND PLEURA: Clear lungs. Normal pulmonary vascularity. No pleural effusion. No pneumothorax. HEART, MEDIASTINUM AND MARINA: Heart is normal in size. Aorta is mildly calcified. BONES AND SOFT TISSUES: No acute abnormality. IMPRESSION: No evidence of acute abnormality. WSN: [id number] Ordering Physician: George Padilla Dictated By: Santiago Bush MD Dictated Date/Time: 11/19/20 10:29 a Reviewed By: Santiago Bush MD Signed By: Santiago Bush MD Signed Date/Time: 11/19/20 10:29 am Transcribed By: LUZ ELENA Transcribed Date/Time: 11/19/20 10:28 am Vital Signs Most recent to oldest [Reference Range]: 1 2 3 Oxygen Saturation [94-100 %] 99 % (11/19/20 11:18 AM) 100 % (11/19/20 10:47 AM) 99 % (11/19/20 9:14 AM) Pulse Rate [55-90 bpm] 72 bpm (11/19/20 11:18 AM) 92 bpm *H* (11/19/20 10:47 AM) 91 bpm *H* (11/19/20 9:14 AM) Blood Pressure [90-138/55-84 mm Hg] 129/67mm Hg (11/19/20 11:18 AM) 127/61mm Hg (11/19/20 10:47 AM) 116/80mm Hg (11/19/20 9:14 AM) Respiratory Rate [16-30 br/min] 19 br/min (11/19/20 11:18 AM) 19 br/min (11/19/20 11:15 AM) 18 br/min (11/19/20 10:47 AM) Temperature [96.8-100.4 DegF] 98.3 DegF (11/19/20 9:14 AM) Mode of Delivery (Oxygen) Room air (11/19/20 11:18 AM) Room air (11/19/20 10:47 AM) Room air (11/19/20 9:14 AM) Blood pressure sites Arm, left (11/19/20 11:18 AM) Arm, left (11/19/20 10:47 AM) Arm, left (11/19/20 9:14 AM) Temperature Route Oral (11/19/20 9:14 AM) Social History Social History Type Response Smoking Status Never smoker entered on: 04/17/13 Sex Female
--- OUTSIDE RECORDS SUMMARY | 2023-04-21 11:16 | XMS_ITS | Continuity of Care Document ---
Author Name Unknown Organization [facility] Address [address] [place] [address]- Care Team Providers Care Process Validation Engineer Name Role Phone Belia Khoury MD Primary Care Physician [facility] Date[facility]s): 02/10/22 - 03/12/22 [facility] [address] [place], [place] [address] Attending Physician: Admtr, Ar8 Allergies, [...] [03/24/2014] fluarix trivalent 2Result Comment: [01/29/2013] Flulaval [id number]. VIS in Belarusian given. 3Admin Note: VIS 11/2011 4Admin Note: VIS GIVEN VIS DATE 12/07/10 5Admin Note: VIS GIVEN 12/22/09 surinamese 6Admin Note: VIS GIVEN 7Admin Note: vis [...] 02/22/22 13:35:00 EDT, [id number], label in Belarusian, 175.26, cm, 02/22/22 13:18:00 EDT, Height, 123, [...] 60 capsule, 3 Refills, 02/22/22 13:36:00 EDT, [facility]/pharmacy #207, 175.26, cm, 02/22/22 13:18:00 EDT, Height, 123, kg, 07/16/21 13:01:00 EST, Dry Weight Start Date: 02/22/22 Status: Ordered Eliquis 5 mg oral tablet 1 tablet, By Mouth, 2 times a day, # 180 tablet, 11 Refills, Maintenance, 02/22/22 8:35:00 EDT, [facility]/pharmacy #[id number], atrial fibrillation, 175.26, cm, 02/10/22 9:33:00 EDT, Height, 123, kg, 07/16/21 13:01:00 EST, Dry Weight Start Date: 02/22/22 Stop Date: 02/06/25 Status: Ordered esomeprazole 20 mg oral enteric coated capsule 1 capsule = 20 mg, By Mouth, 2 times a day, # 180 capsule, 1 Refills, Maintenance, 01/05/22 8:29:00EDT, [facility]/pharmacy #[id number], Partial fill upon patient request if the prescription is for a schedule IIopioid drug., 175.26, cm, 01/04/22 8:53:00 EDT, Hei... Start Date: 01/05/22 Status: Ordered fluticasone 50 mcg/inh nasal spray 1 sprays, Nares, Both, Daily, PRN allergies, # 16 Gm, 2 Refills, Maintenance, 02/22/22 13:36:00 EDT, [facility]/pharmacy #[id number], 1 sprays Nares, Both Daily,x30 days,PRN:allergies, 175.26, cm, 02/22/22 13:18:00 EDT, Height, 123, kg, 07/16/21 13:01:00 EST, Dry... Start Date: 02/22/22 Stop Date: 05/23/22 Status: Ordered hydrocortisone 2.5% topical ointment 1 application, Topically, 2 times a day, # 454 Gm, 1 Refills, Maintenance, 02/10/22 9:58:00 EDT, Ointment, [facility]/pharmacy #[id number], Partial fill [...] 11 Refills, Maintenance, 01/04/22 9:39:00 EDT, Tablet, [facility]/pharmacy #[id number], Partial fill upon patient request if t... Start Date: 01/04/22 Stop Date: 12/19/24 Status: Ordered metoprolol 50 mg oral tablet, extended release 50 mg, 1, tablet, By Mouth, Daily, do not crush or chew (via cardiology in past), # 90 tablet, Refills 11, Tot. Refills 11, Maintenance, 02/22/22 13:36:00 EDT, Route to Pharmacy Electronically, [facility]/pharmacy #[id number], Partial fill upon patient request if... Start Date: 02/22/22 Stop Date: 02/06/25 Status: Ordered nystatin topical 330213 u/gm powder 1 application, Topically, 3 times a day, # 60 Gm, 0 Refills, Maintenance, 02/10/22 9:59:00 EDT, Powder, [facility]/pharmacy #[id number], Partial fill upon patient request if the prescription is for a schedule II opioid drug., 1 application Topically 3 times a day,... Start Date: 02/10/22 Status: Ordered Problem List Condition Confirmation Course Effective Dates Status H ealth Status Informant Impaired glucose tolerance Confirmed 09/14/09 Active Ankle joint pain Confirmed 09/14/09 Active [place] cardiac risk 10-20% in next 10 /2019 [...] Personnel Name: Belia Khoury MD Address: Address: [address] [place] [address]
--- OUTSIDE RECORDS SUMMARY | 2023-04-21 11:16 | XMS_ITS | Continuity of Care Document ---
Author Name Unknown Organization [facility] Address [address] [place] [address]- Care Team Providers Care Corporate Health Consultant Name Role Phone Belia Khoury MD Primary Care Physician [place] [facility] 11/[place]/[address] [address]- Discharge Disposition: A-D/C Home Attending Physician: Keri Camilo MD Admitting Physician: Keri Camilo MD Referring Physician: Keri Camilo MD Allergies, Adverse Reactions, Alerts Substance Reaction [...] fluarix trivalent 14-15 2Result Comment: [01/29/2013] Flulaval [id number]. VIS in Stateless given. 3Admin Note: VIS 11/2011 4Admin Note: [...] tablet, 1 Refills, Maintenance, 01/16/20 15:18:00 EDT, [facility]/pharmacy #[id number], label in Stateless, 166, cm, 12/31/19 10:08:00 EDT, Height, 118.5, kg, 04/01/19 12:45:00 EST, D... Start Date: 01/16/20 Stop Date: 03/16/20 Status: Ordered Colace sodium 100 mg oral capsule 100 mg, 1, capsule, By Mouth, 2 times a day, PRN, # 60 capsule, Refills 3, Tot. Refills 3, Maintenance, for constipation, 01/16/20 16:20:00 EDT, Route to Pharmacy Electronically, [facility]/pharmacy #[id number], 166, cm, 12/31/19 10:08:00 [...] 0 Refills, Maintenance, 11/19/20 11:13:00 EDT, Film, [facility]/pharmacy #[id number], Partial fill upon [...] 02/21/20 9:20:00 EDT, Route to Pharmacy Electronically, [facility]/pharmacy #[id number], 166, cm, 12/31/19 10:08:00 [...] 09/14/09 Active Ankle joint pain(Confirmed) 09/14/09 Active [place] cardiac risk 10-2 0% in next 10 [...] colonoscopy(Confirmed) 6 11/09/10 [facility] 04/01/19 Active Hyperlipidemia(Confirmed) 09/14/09 Active Hypertensive disorder(Confirmed) Active Knee joint pain, osteoarthritis(Confirmed) 7 Active Obesity(Confirmed) Active SHAHRAIR - Obstructive sleep apnea(Confirmed) Active Postmenopausal bleeding(Confirmed) [...] oldest [Reference Range]: 1 Height 175.26 cm (11/05/20 4:03 PM) Weight 120.45 kg (11/05/20 4:03 PM) Body Mass Index [18.5-24.99] 39.21 *>HHI* (11/05/20 4:03 PM) Dry Weight 120.45 kg (11/05/20 4:03 PM) Weight Obtained Via Patient/family state d (11/05/20 4:03 PM) Dry Weight Obtained Via Patient/family s tated (11/05/20 4:03 PM) Social History Social History Type Response Smoking Status Never smoker entered on: 04/17/13 Sex Female
--- OUTSIDE RECORDS SUMMARY | 2023-04-21 11:16 | XMS_ITS | Continuity of Care Document ---
Author Name Unknown Organization [facility] Address [address] [place] [address]- Care Team Providers Care Fence Manufacture Supervisor Name Role Phone Belia Khoury MD Primary Care Physician [facility] Date(s): 06/24/21 - 07/24/21 [facility] [address] [place] [id number] Attending Physician: Carolyn Mitchell Allergies, Adverse Reactions, Alerts No Known Allergies [...] fluarix trivalent - 2Result Comment: [01/29/2013] Flulaval [id number]. VIS in Vatican Citizen given. 3Admin Note: [...] tablet, 1 Refills, Maintenance, 03/29/21 13:13:00 EST, [facility]/pharmacy #[id number], label in [place] Citizen, 175.26, cm, 03/26/21 11:10:00 EST, Height, 120.45, kg, 11/05/20 16:03:00 ED... Start Date: 03/29/21 Stop Date: 05/28/21 Status: Ordered atorvastatin 40 mg oral tablet 1 tablet, By Mouth, Daily, # 90 tablet, 3 Refills, [facility], 175.26, cm, 03/26/21 11:10:00 EST, Height, 120.45, kg, 11/05/20 16:03:00 EDT, Dry Weight Start Date: 03/29/21 Status: Ordered diclofenac 1% topical gel = 2 Gm, Topically, 4 times a day, # 100 Gm, 0 Refills, Maintenance, 11/25/20 11:18:00 EDT, Gel, [id number], Partial fill upon patient request if the prescription is for a schedule II opioid drug., 175.26, cm, 11/25/20 9:57:00 EDT, Height, 120.... Start Date: 11/25/20 Status: Ordered docusate sodium 100 mg oral capsule 1 capsule, By Mouth, 2 times a day, PRN NEEDED FOR CONSTIPATION, # 60 capsule, 3 Refills, [facility], 175.26, cm, 07/16/21 13:01:00 EST, Height, 123, kg, 07/16/21 13:01:00 EST, Dry Weight Start Date: 07/20/21 Status: Ordered Eliquis 5 mg oral tablet 1 tablet, By Mouth, 2 times a day, # 60 tablet, 11 Refills, [facility], 175.26, cm, 07/16/21 13:01:00 EST, Height, 123, kg, 07/16/21 13:01:00 EST, Dry Weight Start Date: 07/20/21 Status: Ordered Flonase 50 mcg/inh nasal spray 1 sprays, Nares, Both, Daily, # 16 Gm, 0 Refills, Maintenance, 07/19/21 13:00:00 EST, [place], [facility]/pharmacy #2071, Partial fill upon patient request if the prescription is for a schedule II opioid drug., 1 sprays Nares, Both Daily, 175.26, cm, 07/16/21... Start Date: 07/19/21 Status: Ordered lisinopril 20 mg oral tablet 1, tablet, By Mouth, Daily, # 90 tablet, Refills 1, Route to Pharmacy Electronically, [facility], 175.26, cm, 02/03/21 10:48:00 EDT, Height, 120.45, kg, 11/05/20 16:03:00 EDT, Dry Weight Start Date: 03/02/21 Status: Ordered metoprolol 50 mg oral tablet, extended release 50 mg, 1, tablet, By Mouth, Daily, # 30 tablet, Refills 11, Tot. Refills 11, Maintenance, 06/05/21 9:01:00 EST, Route to Pharmacy Electronically, [facility]/pharmacy #[id number], Partial fill upon patient [...] 09/14/09 Active Ankle joint pain(Confirmed) 09/14/09 Active [place] cardiac risk 10-2 0% in next 10 [...]
--- OUTSIDE RECORDS SUMMARY | 2023-04-21 11:16 | XMS_ITS | Continuity of Care Document ---
Author Name Unknown Organization [facility] Address [address] [place] [address]- Care Team Providers Care Corporate Recruiter Name Role Phone Belia Khoury MD Primary Care Physician Encounter [facility] [place] Date(s): 09/04/20 - 11/04/[address] [address] Attending Physician: Not on Staff, Attending MD [...] fluarix trivalent 14-15 2Result Comment: [01/29/2013] Flulaval [id number]. VIS in Ivorian given. 3Admin Note: VIS 11/2011 4Admin Note: [...] tablet, 1 Refills, Maintenance, 01/16/20 15:18:00 EDT, [facility]/pharmacy #[id number], label in Ivorian, 166, cm, 12/31/19 10:08:00 EDT, Height, 118.5, kg, 04/01/19 12:45:00 EST, D... Start Date: 01/16/20 Stop Date: 03/16/20 Status: Ordered atorvastatin 40 mg oral tablet See Instructions, [facility], # 90 tablet, 11 Refills, Maintenance, [facility], 166, cm, 09/18/20 8:01:00 EDT, Height, 118.5, kg, 04/01/19 12:45:00 EST, Dry Weight Start Date: 10/09/20 Status: Ordered Colace sodium 100 mg oral capsule 100 mg, 1, capsule, By Mouth, 2 times a day, PRN, # 60 capsule, Refills 3, Tot. Refills 3, Maintenance, for constipation, 01/16/20 16:20:00 EDT, Route to Pharmacy Electronically, [facility]/pharmacy #[id number], 166, cm, 12/31/19 10:08:00 [...] 2 Refills, Maintenance, 06/11/20 11:38:00 EST, Ointment, [facility]/pharmacy #[id number], Partial fill upon patient [...] 02/21/20 9:20:00 EDT, Route to Pharmacy Electronically, [facility]/pharmacy #[id number], 166, cm, 12/31/19 10:08:00 EDT, Height, 118.5, kg, 11... Start Date: 02/21/20 Stop Date: 02/05/23 Status: Ordered Triple Antibiotic topical ointment 1 application, Topically, 2 times a day, Apply inside NOSE at bedtime, # 15 Gm, 0 Refills, Maintenance, 07/31/20 10:04:00 EDT, Ointment, [facility]/pharmacy #2071, Partial fill upon patient request if the prescription is for a schedule II opioid drug., 1 trinh... Start Date: 07/31/20 Status: Ordered Problem List Condition Effective Dates Status Health Status Inform ant Impaired glucose tolerance(Confirmed) 09/14/09 Active Ankle joint pain(Confirmed) 09/14/09 Active [place] cardiac risk 10-2 0% in next /2019(Confirmed) [...]
--- OUTSIDE RECORDS SUMMARY | 2023-04-21 11:16 | XMS_ITS | Continuity of Care Document ---
Author Name Unknown Organization [facility] Address [address] [place] [address]- Care Team Providers Care Library Assistant Name Role Phone Belia Khoury MD Primary Care Physician [phone] [facility]counter [facility] Date(s): 12/10/20 - 01/09/21 [facility] [address] [place] [id number] Attending Physician: Admtr, Ar8 Allergies, [...] fluarix trivalent - 2Result Comment: [01/29/2013] Flulaval [id number]. VIS in Malay given. 3Admin Note: VIS 11/2011 4Admin Note: VIS GIVEN VIS DATE 12/07/10 5Admin Note: VIS GIVEN 12/22/09 finnish 6Admin Note: VIS GIVEN 7Admin Note: vis [...] 11/25/20 11:19:00 EDT, [id number], label in Malay, 175.26, cm, 11/25/20 9:57:00 EDT, Height, 120.45, [...] 01/16/20 16:20:00 EDT, Route to Pharmacy Electronically, [facility]/pharmacy #[id number], 166, cm, 12/31/19 10:08:00 EDT, [...] 0 Refills, Maintenance, 11/19/20 11:13:00 EDT, Film, [facility]/pharmacy #2071, Partial fill upon patient request if the prescription is for a schedule II opioid drug., 1 patch To... Start Date: 11/19/20 Stop Date: 12/19/20 Status: Ordered lisinopril 20 mg oral tablet 20 mg, 1, tablet, By Mouth, Daily, dose change, # 30 tablet, Refills 3, Tot. Refills 3, Maintenance, 12/10/20 12:11:00 EDT, Route to Pharmacy Electronically, [facility]/pharmacy #[id number], Partial fill upon patient request if the prescription is for a schedule I... Start Date: 12/10/20 Stop Date: 04/09/21 Status: Ordered metoprolol 50 mg oral tablet, extended release 50 mg, 1, tablet, By Mouth, Daily, # 30 tablet, Refills 5, Tot. Refills 5, Maintenance, 12/31/20 15:17:00 EDT, Route to Pharmacy Electronically, [facility]/pharmacy #[id number], Partial fill upon patient request if the [...] 09/14/09 Active Ankle joint pain(Confirmed) 09/14/09 Active [place] cardiac risk 10-2 0% in next (Confirmed) [...]
--- OUTSIDE RECORDS SUMMARY | 2023-04-21 11:16 | XMS_ITS | Continuity of Care Document ---
Author Name Unknown Organization [facility] Address [address] [place] [address]- Care Team Providers Care Shipping And Receiving Material Handler Name Role Phone Belia Khoury MD Primary Care Physician [facility] Date[facility]s): 03/09/22 - 04/08/22 [facility] [address] [place], [place] [address] Attending Physician: Carolyn Mitchell Admitting Physician: AdmCarolyn bethea Referring Physician: AdmtrCarolyn Allergies, Adverse Reactions, Alerts No Known Allergies [...] fluarix trivalent - 2Result Comment: [01/29/2013] Flulaval [id number]. VIS in English given. 3Admin Note: VIS 11/2011 4Admin Note: VIS GIVEN VIS DATE 12/07/10 5Admin Note: VIS GIVEN 12/22/09 niuean 6Admin Note: VIS GIVEN 7Admin Note: vis [...] 1 Refills, Maintenance, 03/23/22 10:07:00 EST, Cream, [facility]/pharmacy #[id number], Partial fill upon patient request if the prescription is for a schedule II opioid drug., 1 application Topically 2 t... Start Date: 03/23/22 Stop Date: 05/22/22 Status: Ordered diclofenac 1% topical gel See Instructions, APPLY TO AFFECTED AREA 4 TIMES A DAY, # 100 Gm, 4 Refills, Maintenance, 03/24/22 14:09:00 EST, [facility], 25, APPLY TO AFFECTED AREA 4 TIMES [...] 180 capsule, 1 Refills, Maintenance, 01/05/22 8:29:00EDT, [facility]/pharmacy #[id number], Partial fill upon patient [...] 1 Refills, Maintenance, 02/10/22 9:58:00 EDT, Ointment, [facility]/pharmacy #2071, Partial fill upon patient [...] 11 Refills, Maintenance, 01/04/22 9:39:00 EDT, Tablet, [facility]/pharmacy #[id number], Partial fill upon patient request if t... Start Date: 01/04/22 Stop Date: 12/19/24 Status: Ordered metoprolol 50 mg oral tablet, extended release 50 mg, 1, tablet, By Mouth, Daily, do not crush or chew (via cardiology in past), # 90 tablet, Refills 11, Tot. Refills 11, Maintenance, 02/22/22 13:36:00 EDT, Route to Pharmacy Electronically, [facility]/pharmacy #[id number], Partial fill upon patient request if... Start Date: 02/22/22 Stop Date: 02/06/25 Status: Ordered nystatin topical 817033 u/gm powder See Instructions, APPLY TO AFFECTED AREA 3 TIMES A DAY, # 60 Gm, 0 Refills, Maintenance, 03/22/22 20:50:00 EST, [facility] STORE [facility], 30, APPLY TO AFFECTED AREA 3 TIMES A DAY, 175.26, cm, 03/09/22 10:37:00 EDT, Height, 123, kg, 07/16/21 13:01:00 EST, Dry W... Start Date: 03/22/22 Status: Ordered Problem List Condition Confirmation Course Effective Dates Status H ealth Status Informant Impaired glucose tolerance Confirmed 09/14/09 Active Ankle joint pain Confirmed 09/14/09 Active [place] cardiac risk 10-20% in next /2019 1 [...] Personnel Name: Chang WILSON, Pattie Jorgensen Position: [facility] PREPARATION PLANT SUPERVISOR MD Member Role: Lifetime Consulting Physician Address: Address: [address], [address] [facility] [place] [address]- Name: Belia Khoury MD Position: [facility] Primary Care Physician Member Role: PCP Address: Address: [address] [place] [address]- Care Team Related Persons Name: IVETT MCGREGOR Address: home [address] [place] [address] Name: JOVANA PORTER Address: home [address] [place] [address] Name: SARA HERNÁNDEZ Address: home [address] [place] [address]
--- OUTSIDE RECORDS SUMMARY | 2023-04-21 11:16 | XMS_ITS | Continuity of Care Document ---
Author Name Unknown Organization [facility] Address [address] [place] [address]- Care Team Providers Care Sliding Joint Maker Name Role Phone Belia Khoury MD Primary Care Physician Encounter [facility] Date(s): 01/30/20 - 02/29/20 [facility] [address] [place] [address]- [facility] Allergies, Adverse Reactions, Alerts Substance Reaction Severity [...] fluarix trivalent - 2Result Comment: [01/29/2013] Flulaval [id number]. VIS in Montenegrin given. 3Admin Note: VIS 11/2011 4Admin Note: VIS GIVEN VIS DATE 12/07/10 5Admin Note: VIS GIVEN 12/22/09 iranian 6Admin Note: VIS GIVEN 7Admin Note: vis [...] 1 Refills, Maintenance, 01/16/20 15:18:00 EDT, [facility]/pharmacy #[id number], label in Montenegrin, 166, cm, 12/31/19 10:08:00 EDT, Height, 118.5, kg, 04/01/19 12:45:00 EST, D... Start Date: 01/16/20 Stop Date: 03/16/20 Status: Ordered atorvastatin 40 mg oral tablet 1 tablet = 40 mg, By Mouth, Daily, # 90 tablet, 11 Refills, Maintenance, 07/24/19 10:18:00 EDT, Tablet, [facility]/pharmacy #2071, 166, cm, 07/24/19 9:46:00 EDT, Height, 118.5, kg, 04/01/19 12:45:00 EST, Dry Weight Start Date: 07/24/19 Stop Date: 07/08/22 Status: Ordered Colace sodium 100 mg oral capsule 100 mg, 1, capsule, By Mouth, 2 times a day, PRN, # 60 capsule, Refills 3, Tot. Refills 3, Maintenance, for constipation, 01/16/20 16:20:00 EDT, Route to Pharmacy Electronically, [facility]/pharmacy #[id number], 166, cm, 12/31/19 10:08:00 EDT, Height, 118.5, kg, 1... Start Date: 01/16/20 Status: Ordered CPAP Machine See Instructions, # 1 each, Maintenance, [employer] 8-20, 02/26/20 14:09:00 EDT, Supply Start Date: 02/26/20 [...] wash hands thoroughly after application label in iranian, # 50 Gm, 1 Refills, Acute 04/28/20 8:39:00 EST, 01/27/20 8:39:00 EDT, Ointment, [facility]/pharmacy #207, 1 application Topically 3 times a day,Instr:wash azul... Start Date: 01/27/20 Stop Date: 04/28/20 Status: Ordered lisinopril 10 mg oral tablet 10 mg, 1, tablet, By Mouth, Daily, for 90 days, # 90 tablet, Refills 11, Tot. Refills 11, Hard Stop02/05/23 9:20:00 EDT, 02/21/20 9:20:00 EDT, Route to Pharmacy Electronically, [facility]/pharmacy #207, 166, cm, 12/31/19 10:08:00 EDT, Height, 118.5, kg, 11... Start Date: 02/21/20 Stop Date: 02/05/23 Status: Ordered meclizine 25 mg oral tablet 1 tablet = 25 mg, By Mouth, Daily, use as little as possible, # 14 tablet, 0 Refills, Maintenance, 05/27/19 17:28:00 EST, Tablet, [facility]/pharmacy #207, 166, cm, 05/27/19 16:35:00 EST, Height, 118.5, kg, 11/18/19 12:45:00 EST, Dry Weight Start Date: 05/27/19 [...] a day, may cause drowsiness label in iranian, # 180 capsule, 0 Refills, Maintenance, 02/07/20 8:10:00 EDT, Capsule, [facility], 166, cm, 12/31/19 10:08:00 EDT, Height, 118.5, kg, 04/01/19 12:45:00 ESTDr... Start Date: 02/07/20 Status: Ordered Problem List Condition Effective Dates Status Health Status Inform ant Impaired glucose tolerance(Confirmed) 09/14/09 Active Ankle joint pain(Confirmed) 09/14/09 Active [place] cardiac risk 10-2 0% in next /2019(Confirmed) 2019 Active CTS - Carpal tunnel syndrome(Confirmed) 1 Active Tendinopathy(Confirmed) 2 Active Eczema(Confirmed) 3 Active Hypertension(Confirmed) 09/15/09 Active Phobia, flying(Confirmed) Active Fibromyalgia(Confirmed) Active GERD - Gastro-esophageal ref lux disease(Confirmed) 09/14/09 Active H. pylori(Confirmed) 4 Active Rectal varices(Confirmed) Active Hemorrhoid, internal & exter nal, enlarged on colonoscopy(Confirmed) Active H/O colonoscopy(Confirmed) 5 11/09/10 [facility] 04/01/19 Active Hyperlipidemia(Confirmed) 09/14/09 [...]
--- OUTSIDE RECORDS SUMMARY | 2023-04-21 11:16 | XMS_ITS | Continuity of Care Document ---
Author Name Unknown Organization [facility] Address [address] [place] [address]- Care Team Providers Care Assistant Producer Name Role Phone Iraida WILSON, Belia Primary Care Physician Encounter [facility] Date(s): 01/02/21 - 02/07/21 [facility] [address] [place] [id number] Attending Physician: Belia Khoury MD Admitting [...] fluarix trivalent 14- 2Result Comment: [01/29/2013] Flulaval [id number]. VIS in Norwegian given. 3Admin Note: VIS 11/2011 4Admin Note: [...] 11/25/20 11:19:00 EDT, [id number], label in Norwegian, 175.26, cm, 11/25/20 9:57:00 EDT, Height, 120.45, [...] 01/16/20 16:20:00 EDT, Route to Pharmacy Electronically, [facility]/pharmacy #[id number], 166, cm, 12/31/19 10:08:00 EDT, Height, 118.5, kg, 1... Start Date: 01/16/20 Status: Ordered diclofenac 1% topical gel = 2 Gm, Topically, 4 times a day, # 100 Gm, 0 Refills, Maintenance, 11/25/20 11:18:00 EDT, Gel, [facility]/pharmacy #[id number], Partial fill upon patient [...] 0 Refills, Maintenance, 11/19/20 11:13:00 EDT, Film, [facility]/pharmacy #[id number], Partial fill upon patient request if the prescription is for a schedule II opioid drug., 1 patch To... Start Date: 11/19/20 Stop Date: 12/19/20 Status: Ordered lisinopril 20 mg oral tablet 20 mg, 1, tablet, By Mouth, Daily, dose change, # 30 tablet, Refills 3, Tot. Refills 3, Maintenance, 12/10/20 12:11:00 EDT, Route to Pharmacy Electronically, [facility]/pharmacy #[id number], Partial fill upon patient request if the prescription is for a schedule I... Start Date: 12/10/20 Stop Date: 04/09/21 Status: Ordered metoprolol 50 mg oral tablet, extended release 50 mg, 1, tablet, By Mouth, Daily, # 30 tablet, Refills 5, Tot. Refills 5, Maintenance, 12/31/20 15:17:00 EDT, Route to Pharmacy Electronically, [facility]/pharmacy #[id number], Partial fill upon patient request if the [...] 09/14/09 Active Ankle joint pain(Confirmed) 09/14/09 Active [place] cardiac risk 10-2 0% in next 10 [...]
--- OUTSIDE RECORDS SUMMARY | 2023-04-21 11:16 | XMS_ITS | Continuity of Care Document ---
Author Name Unknown Organization [facility] Address [address] [place] [address]- Care Team Providers Care Product Responsibility Liaison Name Role Phone Belia Khoury MD Primary Care Physician [phone] Encounter [facility] [place] Date(s): 07/16/21 - 07/16/[address] [address] Discharge Disposition: A-D/C Home Attending Physician: Cherise Hidalgo MD Admitting Physician: Clementine Cosby MD Referring Physician: Clementine Cosby MD Allergies, Adverse Reactions, Alerts No Known [...] fluarix trivalent 14-15 2Result Comment: [01/29/2013] Flulaval [id number]. VIS in Welsh given. 3Admin Note: VIS [...] tablet, 1 Refills, Maintenance, 03/29/21 13:13:00 EST, [facility]/pharmacy #[id number], label in Welsh, 175.26, cm, 03/26/21 11:10:00 EST, Height, 120.45, kg, 11/05/20 16:03:00 ED... Start Date: 03/29/21 Stop Date: 05/28/21 Status: Ordered apixaban 5 mg oral tablet 1 tablet = 5 mg, By Mouth, 2 times a day, # 60 tablet, 3 Refills, Maintenance, 03/29/21 13:15:00 EST, Tablet, [facility]/pharmacy #[id number], Partial fill upon patient request if the prescription is for a schedule II opioid drug., 175.26, cm, 03/26/21 11:10:00 ES... Start Date: 03/29/21 Status: Ordered atorvastatin 40 mg oral tablet 1 tablet, By Mouth, Daily, # 90 tablet, 3 Refills, [facility] STORE 97974, 175.26, cm, 03/26/21 11:10:00 EST, Height, 120.45, kg, 11/05/20 16:03:00 EDT, Dry Weight Start Date: 03/29/21 Status: Ordered Colace sodium 100 mg oral capsule 100 mg, 1, capsule, By Mouth, 2 times a day, PRN, # 60 capsule, Refills 3, Tot. Refills 3, Maintenance, for constipation, 03/29/21 13:13:00 EST, Route to Pharmacy Electronically, [facility]/pharmacy #[id number], 175.26, cm, 03/26/21 11:10:00 EST, Height, 120.45, k... Start Date: 03/29/21 Status: Ordered diclofenac 1% topical gel = 2 Gm, Topically, 4 times a day, # 100 Gm, 0 Refills, Maintenance, 11/25/20 11:18:00 EDT, Gel, [facility]/pharmacy #[id number], Partial fill upon patient request if the prescription is for a schedule II opioid drug., 175.26, cm, 11/25/20 9:57:00 EDT, Height, 120.... Start Date: 11/25/20 Status: Ordered Flonase 50 mcg/inh nasal spray 1 sprays, Nares, Both, 2 times a day, # 16 Gm, 0 Refills, Maintenance, 06/24/21 16:33:00 EST, [place], [facility]/pharmacy #[id number], Partial fill upon patient request if the prescription is for a schedule II opioid drug., 1 sprays Nares, Both 2 times a day, 175.2... Start Date: 06/24/21 Status: Ordered lisinopril 20 mg oral tablet 1, tablet, By Mouth, Daily, # 90 tablet, Refills 1, Route to Pharmacy Electronically, [facility] 82683, 175.26, cm, 02/03/21 10:48:00 EDT, Height, 120.45, kg, 11/05/20 16:03:00 EDT, Dry Weight Start Date: 03/02/21 Status: Ordered metoprolol 50 mg oral tablet, extended release 50 mg, 1, tablet, By Mouth, Daily, # 30 tablet, Refills 11, Tot. Refills 11, Maintenance, 06/05/21 9:01:00 EST, Route to Pharmacy Electronically, [facility]/pharmacy #[id number], Partial fill upon patient requestif [...] 09/14/09 Active Ankle joint pain(Confirmed) 09/14/09 Active [place] cardiac risk 10-2 0% in next 10 [...] to oldest [Reference Range]: 1 2 3 Height 175.26 cm (07/16/21 1:01 PM) 175.26 cm (07/07/21 5:02 PM) Weight 123 kg (07/16/21 1: PM) 122.73 kg (07/07/21 5:02 PM) Oxygen Saturation [94-100 %] 98 % (07/16/21 4:15 PM) 99 % (07/16/21 4:00 PM) 100 % (07/16/21 1:01 PM) Pulse Rate [55-90 bpm] 63 bpm (07/16/21 1:01 PM) Body Mass Index [18.5-24.99] 40.04 *>HHI* (07/16/21 1:01 PM) 39.96 *>HHI* (07/07/21 5:02 PM) Blood Pressure [90-138/55-84 mm Hg] 132/86mm Hg (07/16/21 4:15 PM) 136/85mm Hg (07/16/21 4:00 PM) 143/61mm Hg *H* (07/16/21 1:01 PM) Respiratory Rate [16-30 br/min] 18 br/min (07/16/21 4:15 PM) 15 br/min *L* (07/16/21 4:00 PM) 19 br/min (07/16/21 1:01 PM) Temperature [96.8-100.4 DegF] 98.1 DegF (07/16/21 4:00 PM) 97.6 DegF (07/16/21 1:01 PM) Mode of Delivery (Oxygen) Room air (07/16/21 4:15 PM) Room air (07/16/21 4:00 PM) Room air (07/16/21 1:01 PM) Blood pressure sites Arm, right (3/4/22 4:00 PM) Arm, left (07/16/21 1:01 PM) Temperature Route Temporal (07/16/21 4:00 PM) Temporal (07/16/21 1:01 PM) Dry Weight 123 kg (07/16/21 1:01 PM) 122.73 kg (07/07/21 5:02 PM) Weight Obtained Via Standing scale (07/16/21 1:01 PM) Patient/family stated (07/07/21 5:02 PM) Dry Weight Obtained Via Standing scale (07/16/21 1:01 PM) Patient/family stated (07/07/21 5:02 PM) Social History Social History Type Response Smoking Status Never smoker entered on: 04/17/13 Sex Female
--- OUTSIDE RECORDS SUMMARY | 2023-04-21 11:17 | XMS_ITS | Continuity of Care Document ---
Author Name Unknown Organization [facility] Address [address] [place] [address]- Care Team Providers Care Insulation Hoseman Name Role Phone Belia Khoury MD Primary Care Physician [phone] Encounter [facility] Date(s): 08/11/21 - 09/10/21 [facility] [address] [place] [id number] Allergies, Adverse Reactions, Alerts No Known Allergies [...] fluarix trivalent 14- 2Result Comment: [01/29/2013] Flulaval [id number]. VIS in [place]aguayan given. 3Admin Note: VIS 11/2011 4Admin Note: VIS GIVEN VIS DATE 12/07/10 5Admin Note: VIS GIVEN 12/22/09 emirati 6Admin Note: VIS GIVEN 7Admin Note: vis 02/20 8Admin Note: VIS GIVEN VIS DATE 12/23/08 9Admin Note: VIS given 10Admin Note: VIS given 11Admin Note: VIS given Medications acetaminophen 500 mg oral tablet 2 tablet = 1,000 mg, By Mouth, 3 times a day, PRN Pain , Mild, may use less, # 180 tablet, 1 Refills, Maintenance, 03/29/21 13:13:00 EST, [facility]/pharmacy #[id number], label in [place]aguayan, 175.26, cm, 03/26/21 11:10:00 EST, Height, 120.45, kg, 11/05/20 16:03:00 ED... Start Date: 03/29/21 Stop Date: 05/28/21 Status: Ordered Aqua Care 10% topical cream 1 application, Topically, Daily, PRN for dry skin, for 30 days, # 85 Gm, 0 Refills, Acute 09/12/21 14:36:00 EDT, 08/13/21 14:36:00 EDT, Cream, [facility]/pharmacy #[id number], Partial fill upon patient request ifthe prescription is for a schedule II opioid drug.,... Start Date: 08/13/21 Stop Date: 09/12/21 Status: Ordered atorvastatin 40 mg oral tablet 1 tablet, By Mouth, Daily, # 90 tablet, 3 Refills, [facility] 64813, 175.26, cm, 03/26/21 11:10:00 EST, Height, 120.45, [...] # 60 capsule, 3 Refills, [facility], 175.26, cm, 07/16/21 13:01:00 EST, Height, 123, kg, 07/16/21 13:01:00 EST, Dry Weight Start Date: 07/20/21 Status: Ordered Eliquis 5 mg oral tablet 1 tablet, By Mouth, 2 times a day, # 60 tablet, 11 Refills, [facility], 175.26, cm, 07/16/21 13:01:00 EST, Height, 123, kg, 07/16/21 13:01:00 EST, Dry Weight Start Date: 07/20/21 Status: Ordered esomeprazole 20 mg oral enteric coated capsule 1 capsule = 20 mg, By Mouth, 2 times a day, # 180 capsule, 1 Refills, Maintenance, 08/17/21 7:48:00EDT, [facility]/pharmacy #2071, Partial fill upon patient request if the prescription is for a schedule IIopioid drug., 175.26, cm, 08/13/21 14:16:00 EDT, He... Start Date: 08/17/21 Status: Ordered fluticasone 50 mcg/inh nasal spray See Instructions, SPRAY 1 SPRAY IN BOTH NOSTRILS DAILY, # 16 mL, 0 Refills, [facility], 30, SPRAY 1 SPRAY IN BOTH NOSTRILS DAILY, 175.26, cm, 07/28/21 11:01:00 EDT, Height, 123, kg, 07/16/21 13:01:00 EST, Dry Weight Start Date: 08/13/21 Status: Ordered fluticasone CFC free 44 mcg/inh inhalation aerosol 2 puffs, Inhalation, 2 times a day, emirati label, # 10.6 Gm, 0 Refills, Maintenance, 07/28/21 13:26:00 EDT, Aerosol, [facility]/pharmacy #2071, Partial fill upon patient request if the prescription is for a schedule II opioid drug., 175.26, cm, 07/28/21 11:... Start Date: 07/28/21 Status: Ordered lisinopril 20 mg oral tablet 1, tablet, By Mouth, Daily, # 90 tablet, Refills 1, Route to Pharmacy Electronically, [facility] 325[facility], 175.26, cm, 08/13/21 14:16:00 EDT, Height, 123, kg, 07/16/21 13:01:00 EST, Dry Weight Start Date: 09/06/21 Status: Ordered LORazepam 0.5 mg oral tablet 0.5 tablet = 0.25 mg, By Mouth, Once, prior to MRI. May cause drowsiness. do not drive, # 0.5 tablet, 0 Refills, Soft Stop, 07/26/21 10:17:00 EDT, Tablet, [facility]/pharmacy #2071, Partial fill upon patient request if the prescription is for a schedule II o... Start Date: 07/26/21 Status: Ordered metoprolol 50 mg oral tablet, extended release 50 mg, 1, tablet, By Mouth, Daily, # 30 tablet, Refills 11, Tot. Refills 11, Maintenance, 06/05/21 9:01:00 EST, [id number] Partial fill upon patient requestif the [...] 20 mL, By Mouth, Every 4 hours, emirati label not to exceed 6 doses/day, # 180 mL, 0 Refills, Maintenance, 07/28/21 13:25:00 EDT, [facility], Partial fill upon patient request if the prescription is for a schedule II opioid drug., 20 mL By Mo... Start Date: 07/28/21 Status: Ordered Problem List Condition Effective Dates Status Health Status Inform ant Impaired glucose tolerance(Confirmed) 09/14/09 Active Ankle joint pain(Confirmed) 09/14/09 Active [place] cardiac risk 10-2 0% in next (Confirmed) [...]
--- OUTSIDE RECORDS SUMMARY | 2023-04-21 11:17 | XMS_ITS | Continuity of Care Document ---
Author Name Unknown Organization [facility] Address [address] [place] [address]- Care Team Providers Care Spinning Lathe Operator Name Role Phone Belia Khoury MD Primary Care Physician [place] [facility] [place] Date(s): 02/20/20 - 03/21/20 [facility] [address] [place] [id number] Allergies, Adverse Reactions, Alerts Substance [...] fluarix trivalent - 2Result Comment: [01/29/2013] Flulaval [id number]. VIS in Bhutanese given. 3Admin Note: VIS 11/2011 4Admin Note: [...] tablet, 1 Refills, Maintenance, 01/16/20 15:18:00 EDT, [facility]/pharmacy #2071, label in Bhutanese, 166, cm, 12/31/19 10:08:00 EDT, Height, 118.5, kg, 04/01/19 12:45:00 EST, D... Start Date: 01/16/20 Stop Date: 03/16/20 Status: Ordered atorvastatin 40 mg oral tablet 1 tablet = 40 mg, By Mouth, Daily, # 90 tablet, 11 Refills, Maintenance, 07/24/19 10:18:00 EDT, Tablet, [facility]/pharmacy #2071, 166, cm, 07/24/19 9:46:00 EDT, Height, 118.5, kg, 04/01/19 12:45:00 EST, Dry Weight Start Date: 07/24/19 Stop Date: 07/08/22 Status: Ordered Colace sodium 100 mg oral capsule 100 mg, 1, capsule, By Mouth, 2 times a day, PRN, # 60 capsule, Refills 3, Tot. Refills 3, Maintenance, for constipation, 01/16/20 16:20:00 EDT, Route to Pharmacy Electronically, [facility]/pharmacy #2071, 166, cm, 12/31/19 10:08:00 EDT, Height, 118.5, kg, 1... Start Date: 01/16/20 Status: Ordered CPAP Machine See Instructions, # 1 each, Maintenance, AutoCPAP 8-, 02/26/20 14:09:00 EDT, Supply Start Date: 02/26/20 [...] wash hands thoroughly after application label in uzbek, # 50 Gm, 1 Refills, Acute 04/28/20 8:39:00 EST, 01/27/20 8:39:00 EDT, Ointment, [facility]/pharmacy #207, 1 application Topically 3 times a day,Instr:wash azul... Start Date: 01/27/20 Stop Date: 04/28/20 Status: Ordered lisinopril 10 mg oral tablet 10 mg, 1, tablet, By Mouth, Daily, for 90 days, # 90 tablet, Refills 11, Tot. Refills 11, Hard Stop02/05/23 9:20:00 EDT, 02/21/20 9:20:00 EDT, Route to Pharmacy Electronically, [facility]/pharmacy #207, 166, cm, 12/31/19 10:08:00 EDT, Height, 118.5, kg, 11... Start Date: 02/21/20 Stop Date: 02/05/23 Status: Ordered meclizine 25 mg oral tablet 1 tablet = 25 mg, By Mouth, Daily, use as little as possible, # 14 tablet, 0 Refills, Maintenance, 05/27/19 17:28:00 EST, Tablet, [facility]/pharmacy #207, 166, cm, 05/27/19 16:35:00 EST, Height, [...] a day, may cause drowsiness label in uzbek, # 180 capsule, 0 Refills, Maintenance, 02/07/20 8:10:00 EDT, Capsule, [facility], 166, cm, 12/31/19 10:08:00 EDT, Height, 118.5, kg, 04/01/19 12:45:00 ESTDr... Start Date: 02/07/20 Status: Ordered Problem List Condition Effective Dates Status Health Status Inform ant Impaired glucose tolerance(Confirmed) 09/14/09 Active Ankle joint pain(Confirmed) 09/14/09 Active [place] cardiac risk 10-2 0% in next 10 /2019(Confirmed) 2019 Active CTS - Carpal tunnel [...]
--- OUTSIDE RECORDS SUMMARY | 2023-04-21 11:17 | XMS_ITS | Continuity of Care Document ---
Author Name Unknown Organization [facility] Address [address], [address], [address] [place] [address]- Care Team Providers Care Customer Project Manager Name Role Phone eBlia Khoury MD Primary Care Physician [place] [facility] [place] 10[place]19 [facility] [address], [address], [address] [place] [address] [facility] Attending Physician: Brad Krishnan MD Referring Physician: Belia [...] fluarix trivalent 14-15 2Result Comment: [01/29/2013] Flulaval [id number]. VIS in [place] given. 3Admin Note: VIS 11/2011 4Admin Note: [...] tablet, 1 Refills, Maintenance, 05/27/19 17:37:00 EST, [facility]/pharmacy #[id number], label in [place], 166, cm, 05/27/19 16:35:00 EST, Height, 118.5, kg, 04/01/19 12:45:00 EST, D... Start Date: 05/27/19 Stop Date: 07/26/19 Status: Ordered atorvastatin 40 mg oral tablet 1 tablet = 40 mg, By Mouth, Daily, # 90 tablet, 11 Refills, Maintenance, 07/24/19 10:18:00 EDT, Tablet, [facility]/pharmacy #2071, 166, cm, 07/24/19 9:46:00 EDT, Height, 118.5, kg, 04/01/19 12:45:00 EST, Dry Weight Start Date: 07/24/19 Stop Date: 07/08/22 Status: Ordered Colace sodium 100 mg oral capsule 100 mg, 1, capsule, By Mouth, 2 times a day, PRN, # 60 capsule, Refills 3, Tot. Refills 3, Maintenance, for constipation, 04/01/19 14:24:00 EST, Route to Pharmacy Electronically, [id number], [facility]/pharmacy #[id number] Start Date: 04/01/19 Status: Ordered [...] 10/30/18 9:32:01 EDT, Route to Pharmacy Electronically, [id number], [facility]/pharmacy #[id number] Start Date: 10/30/18 Stop Date: 10/14/21 Status: Ordered meclizine 25 mg oral tablet 1 tablet = 25 mg, By Mouth, Daily, use as little as possible, # 14 tablet, 0 Refills, Maintenance, 05/27/19 17:28:00 EST, Tablet, [facility]/pharmacy #207, 166, cm, 05/27/19 16:35:00 EST, Height, 118.5, kg, 04/01/19 12:45:00 EST, Dry Weight Start Date: 05/27/19 Stop Date: 06/10/19 Status: Ordered naproxen 250 mg oral tablet TOME RAY TABLETA POR V?A ORAL DOS VECES AL D?A Start Date: 02/19/19 Status: Ordered Problem List Condition Effective Dates Status Health Status Inform ant Impaired glucose tolerance(Confirmed) 09/14/09 Active Ankle joint pain(Confirmed) 09/14/09 Active [place] cardiac risk 10-2 0% in next (Confirmed) [...]
--- OUTSIDE RECORDS SUMMARY | 2023-04-21 11:17 | XMS_ITS | Continuity of Care Document ---
Author Name Unknown Organization [facility] Address [address] [address]- Care Team Providers Care Steward/Stewardess Banquet Name Role Phone Iraida WILSON, Belia Primary Care Physician [phone] [place] [facility] [place] 07[place]25[place]19 - 08/01/19 [facility] [address] [address] [place] Attending Physician: Belia Khoury MD Admitting Physician: [...] fluarix trivalent 14-15 2Result Comment: [01/29/2013] Flulaval [id number]. VIS in Ukrainian given. 3Admin Note: VIS 11/2011 4Admin Note: VIS GIVEN VIS DATE 12/07/10 5Admin Note: VIS GIVEN 12/22/09 nigerien 6Admin Note: VIS GIVEN 7Admin Note: vis [...] 1 Refills, Maintenance, 05/27/19 17:37:00 EST, [facility]/pharmacy #[id number], label in Ukrainian, 166, cm, 05/27/19 16:35:00 EST, Height, 118.5, [...] 04/01/19 14:24:00 EST, Route to Pharmacy Electronically, [id number], [facility]/pharmacy #[id number] Start Date: 04/01/19 Status: Ordered [...] 10/30/18 9:32:01 EDT, Route to Pharmacy Electronically, [id number], [facility]/pharmacy #[id number] Start Date: 10/30/18 Stop Date: [...] 09/14/09 Active Ankle joint pain(Confirmed) 09/14/09 Active [place] cardiac risk 10-2 0% in next 10 [...]
--- OUTSIDE RECORDS SUMMARY | 2023-04-21 11:17 | XMS_ITS | Continuity of Care Document ---
Author Name Unknown Organization [facility] Address [address] [place] [address], [address] [place] [address]- Care Team Providers Care Batch Freezer Operator Name Role Phone Belia Khoury MD Primary Care Physician [phone] Encounter [facility] Date(s): 01/27/23 - 03/30/23 [facility] [address] [place] [address] Drive, [address] [place], [place] [address] Attending Physician: Not on Staff, [...] fluarix trivalent - 2Result Comment: [01/29/2013] Flulaval [id number]. VIS in [place]an given. 3Admin Note: VIS 11/2011 4Admin Note: [...] EDT, [id number], label all scripts in [place]an, 175.26, cm, 01/26/23 9:13:00 EDT, Height, 123, [...] 1 Refills, Maintenance, 01/26/23 9:56:00 EDT, Cream, [facility]/pharmacy #[id number], Partial fill upon patient request if the prescription is for a schedule II opioid drug., 1 application Topically 2 ti... Start Date: 01/26/23 Stop Date: 03/27/23 Status: Ordered diclofenac 1% topical gel See Instructions, APPLY TO AFFECTED AREA 4 TIMES A DAY, # 100 Gm, 4 Refills, Maintenance, 11/09/22 16:41:00 EDT, [facility], 25, APPLY TO AFFECTED AREA 4 TIMES A DAY, 175.26, cm, 10/03/22 10:48:00 EDT, Height, 123, kg, 07/16/21 13:01:00 EST, Dry... Start Date: 11/09/22 Status: Ordered docusate sodium 100 mg oral capsule 1 capsule, By Mouth, 2 times a day, PRN NEEDED, CONSTIPATION., # 60 capsule, 2 Refills, Maintenance, 01/18/23 15:57:00 EDT, [facility], 175.26, cm, 10/03/22 10:48:00 EDT, Height, 123, kg, 07/16/21 13:01:00 EST, Dry Weight Start Date: 01/18/23 Status: Ordered Eliquis 5 mg oral tablet 1 tablet, By Mouth, 2 times a day, atrial fibrillation, # 180 tablet, 11 Refills, Maintenance, 01/26/23 10:16:00 EDT, [id number], label all scripts in [place]an, 175.26, cm, 01/26/23 9:13:00 EDT, Height, 123, kg, 07/16/21 13:01:00 EST, Dry Weight Start Date: 01/26/23 Stop Date: 01/10/26 Status: Ordered esomeprazole 20 mg oral enteric coated capsule 1 capsule = 20 mg, By Mouth, 2 times a day, # 180 capsule, 2 Refills, Maintenance, 08/08/22 8:21:00EDT, [facility], Partial fill upon patient request if the prescription is for a schedule IIopioid drug., 175.26, cm, 03/09/22 10:37:00 EDT, He... Start Date: 08/08/22 Status: Ordered fluticasone 50 mcg/inh nasal spray See Instructions, SPRAY 1 SPRAY INTO BOTH NARES DAILY X 30 DAYS NEEDED FOR ALLERGIES, # 48 mL, 0Refills, Maintenance, 04/11/22 5:24:00 EST, [facility]/pharmacy #2070, 90, Office visit needed for furtherrefills., SPRAY [...] tablet, 11 Refills, Maintenance, 01/17/23 8:35:00 EDT, [facility]/pharmacy#2070, 175.26, cm, 10/03/22 10:48:00 EDT, Height, 123, kg, 07/16/21 13:01:00 EST, Dry Weight Start Date: 01/17/23 Stop Date: 01/01/26 Status: Ordered metoprolol 50 mg oral tablet, extended release 50 mg, 1, tablet, By Mouth, Daily, do not crush or chew (via cardiology in past), # 90 tablet, Refills 11, Tot. Refills 11, Maintenance, 01/26/23 10:16:00 EDT, Route to Pharmacy Electronically, [facility]/pharmacy #207, label all scripts in [place]an, 175.26,... Start Date: 01/26/23 Stop Date: 01/10/26 Status: Ordered nystatin topical [id number] u/gm powder See Instructions, APPLY TO AFFECTED AREA 3 TIMES A DAY, # 60 Gm, 1 Refills, Maintenance, 01/26/23 10:16:00 EDT, [facility]/pharmacy #2071, 30, label all scripts in [place], APPLY TO AFFECTED AREA 3 TIMES A [...] 11 Refills, Maintenance, 01/26/23 10:25:00 EDT, Tablet, [facility]/pharmacy #2071, 175.26, cm, 01/26/23 9:13:00 EDT, Height, 123, kg, 07/16/21 13:01:00 EST, Dry Weight Start Date: 01/26/23 Stop Date: 01/10/26 Status: Ordered tiZANidine 2 mg oral tablet 2 mg, 1, tablet, By Mouth, 3 times a day, # 15 tablet, Refills 0, Tot. Refills 0, Maintenance, 02/24/23 17:11:00 EDT, Route to Pharmacy Electronically, [facility]/pharmacy #[id number], Partial fill upon patient request if the prescription is for a schedule II opio... Start Date: 02/24/23 Stop Date: 03/01/23 Status: Ordered Vitamin C 250 mg oral tablet 1 tablet, By Mouth, Daily, # 30 tablet, 1 Refills, Maintenance, 03/21/23 17:41:00 EST, [facility], 175, cm, 02/27/23 7:09:00 EDT, Height, 124.5, [...] pending Rheumatolgoy as of Confirmed 02/2022 Active [place] cardiac risk 10-20% in next 10 [...] days 07/23. 5X-rays 2007 c/[place]. [address] x0ray 7on [place] Social History Social History Type Response Smoking Status Never smoker entered on: 04/17/13 Sex Female Patient Care team information Care Team Personnel Name: Pattie Downing MD Position: [facility] SERVICE ENGINE REPAIRER Member Role: Lifetime Consulting Physician Address: Address: [address], [address] [facility] [place] [place] [address]- [place] Name: Belia Khouyr MD Position: [facility] Physician - Primary Care Member Role: PCP Address: Address: [address] [place] [address]- [place] Care Team Related Persons Name: CRISTIAN MCGREGORINE Address: home [address] [place] [address] Name: JOVANA PORTER Address: home [address] [place] [address] Name: SARA HERNÁNDEZ Address: home [address] [place] [address]
--- OUTSIDE RECORDS SUMMARY | 2023-04-21 11:17 | XMS_ITS | Continuity of Care Document ---
Author Name Unknown Organization [facility] Address [address] [place] [address]- Care Team Providers Care Medical Office Rep Name Role Phone Iraida WILSON, Belia Primary Care Physician [phone] Encounter [facility] Date(s): 09/15/21 - 11/18/21 [facility] [address] [place] [id number] Attending Physician: Belia Khoury MD Admitting [...] fluarix trivalent 14-15 2Result Comment: [01/29/2013] Flulaval [id number]. VIS in [place] given. 3Admin Note: VIS 11/2011 4Admin Note: VIS GIVEN VIS DATE 12/07/10 5Admin Note: VIS GIVEN 12/22/09 ugandan 6Admin Note: VIS GIVEN 7Admin Note: vis 02/20 8Admin Note: VIS GIVEN VIS DATE 12/23/08 9Admin Note: VIS given 10Admin Note: VIS given 11Admin Note: VIS given Medications acetaminophen 500 mg oral tablet 2 tablet = 1,000 mg, By Mouth, 3 times a day, PRN Pain , Mild, may use less, # 180 tablet, 1 Refills, Maintenance, 03/29/21 13:13:00 EST, [facility]/pharmacy #[id number], label in [place], 175.26, cm, 03/26/21 11:10:00 EST, Height, 120.45, kg, 11/05/20 16:03:00 ED... Start Date: 03/29/21 Stop Date: 05/28/21 Status: Ordered atorvastatin 40 mg oral tablet 1 tablet, By Mouth, Daily, # 90 tablet, 3 Refills, [facility], 175.26, cm, 03/26/21 11:10:00 EST, Height, 120.45, kg, 11/05/20 16:03:00 EDT, Dry Weight Start Date: 03/29/21 Status: Ordered diclofenac 1% topical gel See Instructions, APPLY TO AFFECTED AREA 4 TIMES A DAY, # 100 Gm, 0 Refills, [facility], 25, APPLY TO AFFECTED AREA 4 TIMES A DAY, 175.26, cm, 10/20/21 10:01:00 EDT, Height, 123, kg, 07/16/21 13:01:00 EST, Dry Weight Start Date: 11/09/21 Status: Ordered docusate sodium 100 mg oral capsule 1 capsule, By Mouth, 2 times a day, PRN NEEDED FOR CONSTIPATION, # 60 capsule, 3 Refills, [facility], 175.26, cm, 07/16/21 13:01:00 EST, Height, 123, kg, 07/16/21 13:01:00 EST, Dry Weight Start Date: 07/20/21 Status: Ordered Eliquis 5 mg oral tablet 1 tablet, By Mouth, 2 times a day, # 60 tablet, 11 Refills, [facility], 175.26, cm, 07/16/21 13:01:00 EST, Height, 123, kg, 07/16/21 13:01:00 EST, Dry Weight Start Date: 07/20/21 Status: Ordered esomeprazole 20 mg oral enteric coated capsule 1 capsule = 20 mg, By Mouth, 2 times a day, # 180 capsule, 1 Refills, Maintenance, 08/17/21 7:48:00EDT, [facility]/pharmacy #2071, Partial fill upon patient request if the prescription is for a schedule IIopioid drug., 175.26, cm, 08/13/21 14:16:00 EDT, He... Start Date: 08/17/21 Status: Ordered fluticasone 50 mcg/inh nasal spray See Instructions, SPRAY 1 SPRAY IN BOTH NOSTRILS DAILY, # 16 mL, 0 Refills, [facility], 30, SPRAY 1 SPRAY IN BOTH NOSTRILS DAILY, 175.26, cm, 07/28/21 11:01:00 EDT, Height, 123, kg, 07/16/21 13:01:00 EST, Dry Weight Start Date: 08/13/21 Status: Ordered lisinopril 20 mg oral tablet 1, tablet, By Mouth, Daily, # 90 tablet, Refills 11, Tot. Refills 11, Maintenance, 09/14/21 8:34:00EDT, Route to Pharmacy Electronically, [facility]/pharmacy #[id number], label in [place], 175.26, cm, 09/14/21 7:45:00 EDT, Height, 123, kg, 07/16/21 13:01:00 EST,... Start Date: 09/14/21 Stop Date: 08/29/24 Status: Ordered metoprolol 50 mg oral tablet, extended release 50 mg, 1, tablet, By Mouth, Daily, # 30 tablet, Refills 11, Tot. Refills 11, Maintenance, 06/05/21 9:01:00 EST, Route to Pharmacy Electronically, [facility]/pharmacy #[id number], Partial fill upon patient requestif the prescription [...] 09/14/09 Active Ankle joint pain(Confirmed) 09/14/09 Active [place] cardiac risk 10-2 0% in next 10 [...]
--- OUTSIDE RECORDS SUMMARY | 2023-04-21 11:17 | XMS_ITS | Continuity of Care Document ---
Author Name Unknown Organization [facility] Address [address] [place] [address]- Care Team Providers Care Stations Superintendent Name Role Phone Belia Khoury MD Primary Care Physician Encounter [facility] Date(s): 12/01/20 - 12/31/20 [facility] [address] [place] [address]- Allergies, Adverse Reactions, Alerts Substance Reaction Severity [...] fluarix trivalent 14- 2Result Comment: [01/29/2013] Flulaval [id number]. VIS in [place]ankan given. 3Admin Note: VIS 11/2011 4Admin Note: VIS GIVEN VIS DATE 12/07/10 5Admin Note: VIS GIVEN 12/22/09 bhutanese 6Admin Note: VIS GIVEN 7Admin Note: vis 02/20 8Admin Note: VIS GIVEN VIS DATE 12/23/08 9Admin Note: VIS given 10Admin Note: VIS given 11Admin Note: VIS given Medications acetaminophen 500 mg oral tablet 2 tablet = 1,000 mg, By Mouth, 3 times a day, PRN Pain , Mild, may use less, # 180 tablet, 1 Refills, Maintenance, 11/25/20 11:19:00 EDT, [facility]/pharmacy #[id number], label in [place]an, 175.26, cm, 11/25/20 9:57:00 EDT, Height, 120.45, kg, 11/05/20 16:03:00 EDT... Start Date: 11/25/20 Stop Date: 01/24/21 Status: Ordered apixaban 5 mg oral tablet 1 tablet = 5 mg, By Mouth, 2 times a day, # 60 tablet, 3 Refills, Maintenance, 11/25/20 11:18:00 EDT, Tablet, [facility]/pharmacy #[id number], Partial fill upon patient [...] EDT, Route to Pharmacy Electronically, [facility]/pharmacy #[id number], 166, cm, 12/31/19 10:08:00 EDT, Height, 118.5, kg, 1... Start Date: 01/16/20 Status: Ordered diclofenac 1% topical gel = 2 Gm, Topically, 4 times a day, # 100 Gm, 0 Refills, Maintenance, 11/25/20 11:18:00 EDT, Gel, [facility]/pharmacy #[id number], Partial fill upon patient [...] Maintenance, 11/19/20 11:13:00 EDT, Film, [facility]/pharmacy #[id number], Partial fill upon patient request if the prescription is for a schedule II opioid drug., 1 patch To... Start Date: 11/19/20 Stop Date: 12/19/20 Status: Ordered lisinopril 20 mg oral tablet 20 mg, 1, tablet, By Mouth, Daily, dose change, # 30 tablet, Refills 3, Tot. Refills 3, Maintenance, 12/10/20 12:11:00 EDT, Route to Pharmacy Electronically, [facility]/pharmacy #[id number], Partial fill upon patient request if the prescription is for a schedule I... Start Date: 12/10/20 Stop Date: 04/09/21 Status: Ordered metoprolol 50 mg oral tablet, extended release 50 mg, 1, tablet, By Mouth, Daily, # 30 tablet, Refills 5, Tot. Refills 5, Maintenance, 12/31/20 15:17:00 EDT, Route to Pharmacy Electronically, [facility]/pharmacy #[id number], Partial fill upon patient request if the [...] 09/14/09 Active Ankle joint pain(Confirmed) 09/14/09 Active [place] cardiac risk 10-2 0% in next 10 [...]
--- OUTSIDE RECORDS SUMMARY | 2023-04-21 11:17 | XMS_ITS | Continuity of Care Document ---
Author Name Unknown Organization [facility] Address [address] [place] [address]- Care Team Providers Care Seedling Sorter Name Role Phone Belia Khoury MD Primary Care Physician Encounter [facility] Date(s): 03/27/20 - 04/26/20 [facility] [address] [place] [address]- Allergies, Adverse Reactions, Alerts Substance Reaction Severity [...] fluarix trivalent - 2Result Comment: [01/29/2013] Flulaval [id number]. VIS in [place]ambican given. 3Admin Note: VIS 11/2011 4Admin Note: VIS GIVEN VIS DATE 12/07/10 5Admin Note: VIS GIVEN 12/22/09 bermudian 6Admin Note: VIS GIVEN 7Admin Note: vis [...] tablet, 1 Refills, Maintenance, 01/16/20 15:18:00 EDT, [facility]/pharmacy #[id number], label in Mozambican, 166, cm, 12/31/19 10:08:00 EDT, Height, 118.5, kg, 04/01/19 12:45:00 EST, D... Start Date: 01/16/20 Stop Date: 03/16/20 Status: Ordered atorvastatin 40 mg oral tablet 1 tablet = 40 mg, By Mouth, Daily, # 90 tablet, 11 Refills, Maintenance, 07/24/19 10:18:00 EDT, Tablet, [facility]/pharmacy #2071, 166, cm, 07/24/19 9:46:00 EDT, Height, 118.5, kg, 04/01/19 12:45:00 EST, Dry Weight Start Date: 07/24/19 Stop Date: 07/08/22 Status: Ordered Colace sodium 100 mg oral capsule 100 mg, 1, capsule, By Mouth, 2 times a day, PRN, # 60 capsule, Refills 3, Tot. Refills 3, Maintenance, for constipation, 01/16/20 16:20:00 EDT, Route to Pharmacy Electronically, [facility]/pharmacy #2071, 166, cm, 12/31/19 10:08:00 EDT, Height, 118.5, kg, 1... Start Date: 01/16/20 Status: Ordered Coricidin HBP Chest Congestion & Cough 10 mg-200 mg oral capsule 1 capsule, By Mouth, Every 4 hours, PRN for cough, not to exceed 6 doses/day. [place]ican label, # 60 capsule, 0 Refills, Maintenance, 03/27/20 16:17:00 EST, Capsule, [facility]/pharmacy #2071, Partial fill upon patient request, 1 [...] wash hands thoroughly after application label in bermudian, # 50 Gm, 1 Refills, Acute 04/28/20 8:39:00 EST, 01/27/20 8:39:00 EDT, Ointment, [facility]/pharmacy #207, 1 application Topically 3 times a day,Instr:wash azul... Start Date: 01/27/20 Stop Date: 04/28/20 Status: Ordered lisinopril 10 mg oral tablet 10 mg, 1, tablet, By Mouth, Daily, for 90 days, # 90 tablet, Refills 11, Tot. Refills 11, Hard Stop02/05/23 9:20:00 EDT, 02/21/20 9:20:00 EDT, Route to Pharmacy Electronically, [facility]/pharmacy #207, 166, cm, 12/31/19 10:08:00 EDT, Height, 118.5, kg, 11... Start Date: 02/21/20 Stop Date: 02/05/23 Status: Ordered loratadine 10 mg oral tablet 1, tablet, By Mouth, Daily, # 30 tablet, Refills 0, Tot. Refills 0, Maintenance, 04/15/20 18:08:00 EST, Route to Pharmacy Electronically, [facility], 166, cm, 04/13/20 15:24:00 EST, Height, 118.5, kg, 04/01/19 12:45:00 EST, Dry Weight Start Date: 04/15/20 Status: Ordered meclizine 25 mg oral tablet 1 tablet = 25 mg, By Mouth, Daily, use as little as possible, # 14 tablet, 0 Refills, Maintenance, 05/27/19 17:28:00 EST, Tablet, [facility]/pharmacy #2071, 166, cm, 05/27/19 16:35:00 EST, Height, [...] Refills, Maintenance, 12/31/19 10:42:00 EDT, EC Capsule, [facility]/pharmacy #2071, 166, cm, 12/31/19 10:08:00 EDT, Height, 118.5, kg, 04/01/19 12:45:00 EST, Dry Weight Start Date: 12/31/19 Status: Ordered pregabalin 150 mg oral capsule 1 capsule = 150 mg, By Mouth, 2 times a day, # 180 capsule, 0 Refills, Maintenance, 04/15/20 18:26:00 EST, Capsule, [facility]/pharmacy #2071, Partial fill upon patient request if the prescription is for a schedule II opioid drug., 166, cm, 04/13/20 15:24:00... Start Date: 04/15/20 Status: Ordered Problem List Condition Effective Dates Status Health Status Inform ant Impaired glucose tolerance(Confirmed) 09/14/09 Active Ankle joint pain(Confirmed) 09/14/09 Active [place] cardiac risk 10-2 0% in next 10 [...]
--- OUTSIDE RECORDS SUMMARY | 2023-04-21 11:17 | XMS_ITS | Continuity of Care Document ---
Author Name Unknown Organization [facility] Address [address] [facility], [address], [address] [place] [address]- Care Team Providers Care Division Commander Name Role Phone Belia Khoury MD Primary Care Physician Encounter [facility] Date(s): 04/13/20 - 05/13/20 [facility] [address], [address], [address] [place] [id number] Attending Physician: Admtr, Carolyn Admitting Physician: Admtr, [...] fluarix trivalent - 2Result Comment: [01/29/2013] Flulaval [id number]. VIS in [place]aguayan given. 3Admin Note: VIS [...] tablet, 1 Refills, Maintenance, 01/16/20 15:18:00 EDT, [facility]/pharmacy #[id number], label in [place]aguayan, 166, cm, 12/31/19 10:08:00 EDT, Height, 118.5, kg, 04/01/19 12:45:00 EST, D... Start Date: 01/16/20 Stop Date: 03/16/20 Status: Ordered atorvastatin 40 mg oral tablet 1 tablet = 40 mg, By Mouth, Daily, # 90 tablet, 11 Refills, Maintenance, 07/24/19 10:18:00 EDT, Tablet, [facility]/pharmacy #[id number], 166, cm, 07/24/19 9:46:00 EDT, Height, 118.5, kg, 04/01/19 12:45:00 EST, Dry Weight Start Date: 07/24/19 Stop Date: 07/08/22 Status: Ordered Colace sodium 100 mg oral capsule 100 mg, 1, capsule, By Mouth, 2 times a day, PRN, # 60 capsule, Refills 3, Tot. Refills 3, Maintenance, for constipation, 01/16/20 16:20:00 EDT, Route to Pharmacy Electronically, [facility]/pharmacy #[id number], 166, cm, 12/31/19 10:08:00 EDT, Height, 118.5, kg, 1... Start Date: 01/16/20 Status: Ordered Coricidin HBP Chest Congestion & Cough 10 mg-200 mg oral capsule 1 capsule, By Mouth, Every 4 hours, PRN for cough, not to exceed 6 doses/day. [place]ayan label, # 60 capsule, 0 Refills, Maintenance, 03/27/20 16:17:00 EST, Capsule, [facility]/pharmacy #[id number], Partial fill upon patient request, 1 [...] to Pharmacy Electronically, [facility]/pharmacy #[id number], 166, cm, 12/31/19 10:08:00 EDT, Height, 118.5, kg, 11... Start Date: 02/21/20 Stop Date: 02/05/23 Status: Ordered loratadine 10 mg oral tablet 1, tablet, By Mouth, Daily, # 30 tablet, Refills 0, Tot. Refills 0, Maintenance, 04/15/20 18:08:00 EST, Route to Pharmacy Electronically, [facility], 166, cm, 04/13/20 15:24:00 EST, Height, 118.5, [...] Refills, Maintenance, 12/31/19 10:42:00 EDT, EC Capsule, [facility]/pharmacy #[id number], 166, cm, 12/31/19 10:08:00 EDT, Height, [...] 0 Refills, Maintenance, 04/15/20 18:26:00 EST, Capsule, [id number], Partial fill upon [...] 09/14/09 Active Ankle joint pain(Confirmed) 09/14/09 Active [place] cardiac risk 10-2 0% in next 10 years/2019(Confirmed) 2019 Active CTS - Carpal tunnel syndrome(Confirmed) 1 Active Tendinopathy(Confirmed) 2 Active Eczema(Confirmed) 3 Active Hypertension(Confirmed) 09/15/09 Active Phobia, flying(Confirmed) Active Fibromyalgia(Confirmed) Active GERD - Gastro-esophageal ref lux disease(Confirmed) 09/14/09 Active H. pylori(Confirmed) 4 Active Rectal varices(Confirmed) Active Hemorrhoid, internal & exter nal, enlarged on colonoscopy(Confirmed) Active H/O colonoscopy(Confirmed) 5 11/09/10 [facility]) 04/01/19 Active Hyperlipidemia(Confirmed) 09/14/09 [...]
--- OUTSIDE RECORDS SUMMARY | 2023-04-21 11:17 | XMS_ITS | Continuity of Care Document ---
Author Name Unknown Organization [facility] Address [address] [place] [address]- Care Team Providers Care Jetting Machine Operator Name Role Phone Belia Khoury MD Primary Care Physician [phone] Encounter [facility] Date(s): 05/29/19 - 06/05/[address] [address]- [facility] Attending Physician: Belia Khoury MD Allergies, Adverse Reactions, [...] fluarix trivalent - 2Result Comment: [01/29/2013] Flulaval [id number]. VIS in Kyrgyz given. 3Admin Note: VIS 11/2011 4Admin Note: VIS GIVEN VIS DATE 12/07/10 5Admin Note: VIS GIVEN 12/22/09 telugu 6Admin Note: VIS GIVEN 7Admin Note: vis [...] tablet, 1 Refills, Maintenance, 05/27/19 17:37:00 EST, [facility]/pharmacy #207, label in Kyrgyz, 166, cm, 05/27/19 16:35:00 EST, Height, 118.5, kg, 04/01/19 12:45:00 EST, D... Start Date: 05/27/19 Stop Date: 07/26/19 Status: Ordered Colace sodium 100 mg oral capsule 100 mg, 1, capsule, By Mouth, 2 times a day, PRN, # 60 capsule, Refills 3, Tot. Refills 3, Maintenance, for constipation, 04/01/19 14:24:00 EST, Route to Pharmacy Electronically, [id number], [facility]/pharmacy #[id number] Start Date: 04/01/19 Status: Ordered famotidine 20 mg oral tablet 20 mg, 1, tablet, By Mouth, 2 times a day, PRN, # 90 tablet, Refills 11, Tot. Refills 11, Maintenance, heartburn, 10/30/18 9:32:00 EDT, Route to Pharmacy Electronically, [id number], [facility]/pharmacy #207 Start Date: 10/30/18 Status: Ordered Fiber [...] 10/30/18 9:32:01 EDT, Route to Pharmacy Electronically, [id number], [facility]/pharmacy #2071 Start Date: 10/30/18 Stop Date: 10/14/21 Status: Ordered meclizine 25 mg oral tablet 1 tablet = 25 mg, By Mouth, Daily, use as little as possible, # 14 tablet, 0 Refills, Maintenance, 05/27/19 17:28:00 EST, Tablet, [facility]/pharmacy #[id number], 166, cm, 05/27/19 16:35:00 EST, Height, [...]
--- OUTSIDE RECORDS SUMMARY | 2023-04-21 11:17 | XMS_ITS | Continuity of Care Document ---
Author Name Unknown Organization [facility] Address [address] [place] [id number]- Care Team Providers Care Physician Practice Administrator Name Role Phone Belia Khoury MD Primary Care Physician [phone] Encounter [facility] Date(s): 10/03/22 - 11/02/22 [facility] [address] [place] [address]- Attending Physician: Admtr, Ar8 Allergies, Adverse Reactions, [...] fluarix trivalent - 2Result Comment: [01/29/2013] Flulaval [id number]. VIS in Polish given. 3Admin Note: VIS 11/2011 4Admin Note: VIS GIVEN VIS DATE 12/07/10 5Admin Note: VIS GIVEN 12/22/09 mauritian 6Admin Note: VIS GIVEN 7Admin Note: vis 02/20 8Admin Note: VIS GIVEN VIS DATE 12/23/08 9Admin Note: VIS given 10Admin Note: VIS given 11Admin Note: VIS given Medications acetaminophen 500 mg oral tablet 2 tablet, By Mouth, 3 times a day, PRN NEEDED FOR PAIN X, # 180 tablet, 2 Refills, Maintenance, 04/11/22 5:25:00 EST, [facility]/pharmacy #[id number], Office visit needed for further refills., 175.26, cm, 03/09/22 10:37:00 EDT, Height, 123, kg, 07/16/21 13:01:0... Start Date: 04/11/22 Stop Date: 07/10/22 Status: Ordered clotrimazole 1% topical cream 1 application, Topically, 2 times a day, for rash, # 113 Gm, 1 Refills, Maintenance, 03/23/22 10:07:00 EST, Cream, [facility], Partial fill upon patient request if the prescription is for a schedule II opioid drug., 1 application Topically 2 t... Start Date: 03/23/22 Stop Date: 05/22/22 Status: Ordered diclofenac 1% topical gel See Instructions, APPLY TO AFFECTED AREA 4 TIMES A DAY, # 100 Gm, 4 Refills, Maintenance, 07/13/22 10:18:00 EST, [facility], 25, APPLY TO AFFECTED AREA 4 TIMES [...] 02/22/22 13:36:00 EDT, [id number] Partial fill upon patient request if... Start Date: 02/22/22 Stop Date: 02/06/25 Status: Ordered nystatin topical 199525 u/gm powder See Instructions, APPLY TO AFFECTED AREA 3 TIMES A DAY, # 60 Gm, 0 Refills, Maintenance, 03/22/22 20:50:00 EST, [facility], 30, APPLY TO AFFECTED AREA 3 TIMES A DAY, 175.26, cm, 03/09/22 10:37:00 EDT, Height, 123, kg, 07/16/21 13:01:00 EST, Dry W... Start Date: 03/22/22 Status: Ordered Problem List Condition Confirmation Course Effective Dates Status H ealth Status Informant [place] cardiac risk 10-20% in next 10 /2019 [...] 5X-rays 2007 c/w early OA. 6on US Procedures Procedure Date Related Diagnosis Body Site Status colonoscopy 1 11/09/10 Completed 1normal mucosa in the whole colon. divericlosis of the descending colon. there were no polyps or hemorrhids. follow-up with [facility] as needed. repeat colonoscopy in 10 years. goran. 12/01/2010 Social History Social History Type Response Smoking Status Never smoker entered on: 04/17/13 Sex Female Radiology * Merlyn Gardiner: PERFORM Event Display: Radiology Results Scanned Authored Date: [id number] Patient Care team information Care Team Personnel Name: Pattie Downing MD Position: [facility] CORE ANALYSIS OPERATOR MD Member Role: Lifetime Consulting Physician Address: Address: [address] [place] [address], [address] [facility] [place] [address]- Name: Belia Khoury MD Position: [facility] Physician - Primary Care Member Role: PCP Address: Address: [address] [place] [address]- Care Team Related Persons Name: IVETT MCGREGOR Address: home [address] [place] [address] Name: JOVANA PORTER Address: home [address] [place] [address] Name: SARA HERNÁNDEZ Address: home [address] [place] [address]
--- NOTE | 2023-04-21 11:32 | ED.GENADULT ---
HPI - General Adult General Chief complaint: Back Pain/Injury Stated complaint: leg pain ? Time Seen by Provider: 04/21/23 11:23 Source: patient Mode of arrival: ambulatory Limitations: no limitations History of Present Illness HPI narrative: Patient is a 62-year-old female who presents emergency department for evaluation of pain. She reports chronic left shoulder pain, a recent rotator cuff repair on 02/27/2023 with [facility], she is engaged in physical therapy. No acute changes to this pain. She states that she presented here today for right lower back pain radiating into the right leg with intermittent numbness and tingling. She reports a history of chronic back pain intermittently. Denies recent precipitating injury, fevers, chills, burning with micturition, urinary frequency/urgency/hesitancy, bladder or bowel dysfunction, numbness or tingling of the perineum or bilateral legs. Denies any recent surgical procedures, any known immune compromising conditions, personal history of cancer, or IV drug usage. Related Data Previous Rx's Medication Instructions Recorded psyllium husk 3.4 gram/5.4 gram 1 tbsp PO DAILY #660 grams 09/29/20 oral powder (Metamucil) cyclobenzaprine 10 mg tablet 10 mg PO BEDTIME PRN muscle spasm 04/21/23 #14 tabs Allergies Allergy/AdvReac Type Severity Reaction Status Date / Time No Known Allergies Allergy Verified 09/29/20 11:32 Review of Systems Review of Systems: Yes all other systems are reviewed and are negative PMFSH Past Medical History Attestation statement: The following information was validated with the patient. Source: old records reviewed Medical History Acute carpal tunnel syndrome of left wrist Arthritis HTN (hypertension) Social History Social History Alcohol intake: never Advance Directives: Yes Advance Directives Information Provided: Yes Advance Directives on File: No Physical Exam ED Vital Signs: Vital Signs - 24 hr 04/21/23 10:25 Temperature 98.3 F Pulse Rate 64 Respiratory Rate 16 Blood Pressure 138/78 Pulse Oximetry 97 Oxygen Delivery Method Room Air BMI result Body Mass Index 39.9 Appearance: Alert.?Oriented to person, place and time. No acute distress.?Normal affect. Eyes: Pupils equal, round and reactive to light.? ENT: Pharynx normal.?? Neck: Normal inspection.? Neck supple.?? CVS: Heart sounds normal. Normal heart rate and rhythm.? Pulses normal; bilateral radial pulses 2+, bilateral posterior tibial/dorsalis pedis pulses 2+.? Respiratory: No respiratory distress.? Lung sounds clear to auscultation bilaterally?? Abdomen: Soft and non-tender. Normoactive bowel sounds. No pulsatile mass.?? Skin: Skin warm and dry.? Normal skin color.? Normal skin turgor.?? Extremities: No lower extremity edema.? No calf ttp? Back: + mild paraspinal muscular tenderness from lumbar region to coccyx. No CVA tenderness. No midline spinal tenderness, step-off's, or deformity. Full ROM intact in bilateral lower extremities. Straight leg test positive on right; No rashes, lesions, areas of induration or fluctuance, or signs of infection noted., Neuro: Moves all extremities spontaneously. 5/5 strength in hip extension/flexion, abduction, adduction. Sensation to light touch intact bilaterally. Patellar and Achilles reflex 2+ bilaterally. No ataxia, gait normal and steady.. No focal neuro deficits. Medical Decision Making Medical Decision Making MDM Narrative: patient is a 62-year-old female who presents emergency department for evaluation of right lower back pain radiating to the right lower extremity. After physical examination suspect that Pain is most consistent with radicular pain, although cannot completely exclude herniated disc. On neurological exam there are no deficits. Not consistent with spinal fracture, spinal infection, epidural abscess, AAA, epidural abscess, or dissection. at this time would defer XR/CT imaging. No high risk past medical history including incontinence, fever, immunosuppression, recent surgery or lumbar puncture, coagulopathy, significant trauma, recent unintentional weight loss, pulsatile mass, history of cancer, history of TB, history of IV drug use that would warrant MRI or CT. Not consistent with ectopic , pyelonephritis, urinary tract infection, renal calculi, pelvic infection, appendicitis, diverticulitis. On exam no concern for cauda equina syndrome. No imaging is currently indicated at this time. Plan for discharge home with Prescription for cyclobenzaprine, and follow-up with primary care provider, and patient agreed with plan. Differential Diagnosis Differential Diagnoses: The differential diagnosis associated with the presentation includes ( as noted above) External Record Review External record reviewed: Outpatient record Tests considered The following testing was considered but not selected: see note above for further detail Prescription Management I considered prescription management with: Pain Medication Discharge Plan Discharge Clinical Impression: Lumbar radiculopathy Patient Disposition: Home, Self-Care Instructions: Lumbar Radiculopathy (ED), Lower Back Exercises (ED) Additional Instructions: have sent a prescription for Flexeril to your pharmacy. This is a muscle relaxer. May make you drowsy. you should not drive, drink alcohol, or work while taking this medication. Contact your primary care provider to arrange for a follow-up visit. Return back to emergency department any new or worsening symptoms or concerns. Prescriptions: New cyclobenzaprine 10 mg tablet 10 mg PO BEDTIME PRN (Reason: muscle spasm) Qty: 14 0RF No Action Metamucil 3.4 gram/5.4 gram powder 1 tbsp PO DAILY Qty: 660 0RF Rx Instructions: mix into at least 8 oz of water or juice before administering Referrals: Belia Khoury MD [Primary Care Provider] -
== END 2023-04-21 12:27 | disposition home or self-care (01) ==
PROVIDERS: Emergency Provider Emergency Medicine; PCP Internal Medicine
DX: M54.16 Radiculopathy, lumbar region (principal)
CPT/HCPCS: 99283

== ENCOUNTER 2023-10-31 10:06 | Emergency (ER) | payer OTHER, SELFPAY ==
--- NOTE | 2023-10-31 10:09 | ECG_ITS ---
Test Reason : CHEST PAIN Blood Pressure : / mmHG Vent. Rate : 089 BPM Atrial Rate : 089 BPM P-R Int : 130 ms QRS Dur : 096 ms QT Int : 366 ms P-R-T Axes : 038 -38 026 degrees QTc Int : 445 ms Normal sinus rhythm Left axis deviation Pulmonary disease pattern Incomplete right bundle branch block Abnormal ECG When compared with ECG of 29-APR-2019 10:22, Vent. rate has increased BY 41 BPM Incomplete right bundle branch block is now Present Referred By: Generic ED Physician Electronically Signed By:Salbador Barrera
[2023-10-31 10:20] VITALS: BP 141/68; PULSE 90; RESP 18; TEMP 37.9; O2SAT 97; BMI 39.8
[2023-10-31 10:56] LABS: IDNOW Serial# 08D9AD1C; Strep A Nucleic Acid Positive (Negative)
[2023-10-31 11:29] LABS: Influenza A PCR NEGATIVE (Negative); Influenza B PCR NEGATIVE (Negative); Resp Syncy Virus RNA Qual PCR NEGATIVE (Negative); SARS COV2 PCR INHOUSE NEGATIVE (Negative)
--- NOTE | 2023-10-31 11:38 | ED_ITS ---
HPI - URI/Sore Throat General Chief Complaint: Upper Respiratory Symptoms Stated Complaint: chest pain Time Seen by Provider: 10/31/23 11:31 Source: patient, RN notes reviewed and old records reviewed Mode of arrival: ambulatory Limitations: no limitations History of Present Illness ED Provider: Cait Kidd PA-C HPI Narrative: 63 yo female presents to the ER for evaluation of sore throat, subjective fevers, body aches and dizziness that started yesterday. She states she slept most of yesterday and was very fatigued. She has had decreased appetite and PO intake. Patient reports pain with swallowing but she is able to eat and drink. She reports feeling weak. No chest pain or difficulty breathing. No cough. No known sick contacts. No nausea, vomiting, diarrhea or abdominal pain. MD elicited complaint: fever, cough, sore throat, nasal congestion and other (fatigue) Onset (ago): day(s) (1) Consistency: constant Severity: moderate Able to tolerate fluids by mouth: Yes Exacerbating factors: swallowing and exertion Relieving factors: rest Associated symptoms: fever, chills, headache, nasal congestion and sore throat Treatments prior to arrival: none Related Data Previous Rx's ?Medication ?Instructions ?Recorded psyllium husk 3.4 gram/5.4 gram 1 tbsp PO DAILY #660 grams 09/29/20 oral powder (Metamucil) cyclobenzaprine 10 mg tablet 10 mg PO BEDTIME PRN muscle spasm 04/21/23 #14 tabs amoxicillin 875 mg-potassium 1 tab PO BID #20 tabs 10/31/23 clavulanate 125 mg tablet ibuprofen 600 mg tablet 600 mg PO Q8H PRN fever or pain 10/31/23 #14 tabs Allergies Allergy/AdvReac Type Severity Reaction Status Date / Time No Known Allergies Allergy Verified 10/31/23 10:23 Review of Systems Review of Systems: Yes all other systems are reviewed and are negative PMFSH Past Medical History Medical History Acute carpal tunnel syndrome of left wrist Arthritis HTN (hypertension) Social History Social History Alcohol intake: never Advance Directives: No Advance Directives Information Provided: No Physical Exam Vital Signs: Vital Signs: Last Vital Signs Temp 99.9 F 10/31/23 13:01 Pulse 93 10/31/23 13:01 Resp 16 10/31/23 13:01 BP 143/61 H 10/31/23 13:01 Pulse Ox 98 10/31/23 13:01 O2 Del Method Room Air 10/31/23 13:01 BMI result Body Mass Index 39.8 Appearance: Alert. Oriented X3. No acute distress. Head: normocephalic, atraumatic. Eyes: Pupils equal, round and reactive to light. ENT: Pharynx normal. +tonsillar swelling w/ exudate, Uvula midline. Normal voice, handling secretions normally. Normal tympanic membranes bilaterally Neck: Normal inspection. Neck supple. CVS: Normal heart rate and rhythm. Pulses normal. Respiratory: No respiratory distress. Breath sounds normal. Abdomen: Soft and nontender. +BS x4 Skin: Skin warm and dry. Normal skin color. Normal skin turgor. No rashes. Extremities: No lower extremity edema. No joint swelling. Neuro/psych: Oriented X 3. No motor deficit. No sensory deficit. CN II-XII intact. Normal speech and cognition. Medications Administered Discontinued Medications Generic Name Dose Route Start Last Admin Trade Name Freq PRN Reason Stop Dose Admin Amoxicillin/Clavulanate Potassium 875 mg 10/31/23 11:51 10/31/23 12:13 Amoxicillin/Potassium Clav 875 Mg Tablet PO 10/31/23 11:52 875 mg ONCE ONE Administration Ibuprofen 600 mg 10/31/23 11:51 10/31/23 12:13 Ibuprofen 600 Mg Tablet PO 10/31/23 11:52 600 mg ONCE ONE Administration Medical Decision Making Medical Decision Making MDM Narrative: 63-year-old female presents to the ER for evaluation of sore throat, subjective fever and chills, fatigue, dizziness, headache and decreased p.o. intake that started yesterday. Patient reports pain with swallowing. Examination is consistent with tonsillomegaly with exudates, consistent with acute streptococcal pharyngitis. camp is 100.2 on arrival with no tachycardia or hypoxia. She is nontoxic appearing. Doubt peritonsillar abscess. She was tested for COVID, flu, RSV all which were negative. She is positive for strep throat. She was given 1st dose of antibiotics and NSAID here. She is able to swallow pills fine. She was counseled on her diagnosis and management as well as return precautions. Stable for discharge home. Differential Diagnosis Differential Diagnoses: The differential diagnosis associated with the presentation includes strep, covid, flu, rsv, other viral syndrome, bronchitis, pneumonia, no evidence of peritonsillar abcsess or retropharyngeal abscess Lab Data MDM Lab Attestation statement: I reviewed the patient's lab results. Labs: Lab Results 10/31/23 Range/Units 10:46 Influenza Type A (PCR) NEGATIVE (Negative) Influenza Type B (PCR) NEGATIVE (Negative) RSV RNA Qual (PCR) NEGATIVE (Negative) SARS-CoV-2 RNA (RT-PCR) NEGATIVE (Negative) S. pyogenes GrpA HECTOR Positive A (Negative) External Record Review External record reviewed: Outpatient record, Prior outpatient labs and Prior outpatient radiology Tests considered The following testing was considered but not selected: Considered EKG given dizziness however this most likely related to her acute illness, doubt cardiac etiology Prescription Management I considered prescription management with: Pain Medication and Antibiotic Chronic Conditions Patient?s care impacted by: Hypertension Critical Care Time Critical Care Time Critical Care Time: No Discharge Plan Discharge Clinical Impression: Strep throat Patient Disposition: Home, Self-Care Instructions: Strep Throat (DC) Additional Instructions: You tested positive for strep throat today Take the prescribed antibiotics as directed, complete the entire course and do not miss any doses Use warm salt water gargles 3 times per day. Recommend [id number] Chloraseptic spray and Cepacol lozenges to help with throat pain Take the prescribed anti-inflammatory for pain and fever. Rest and drink plenty of fluids. Follow-up with your doctor. If you develop new or worsening symptoms call 911 or come back to the ER for further evaluation. Prescriptions: New amoxicillin-pot clavulanate 875-125 mg tablet 1 tab PO BID Qty: 20 0RF ibuprofen 600 mg tablet 600 mg PO Q8H PRN (Reason: fever or pain) Qty: 14 0RF No Action Metamucil 3.4 gram/5.4 gram powder 1 tbsp PO DAILY Qty: 660 0RF Rx Instructions: mix into at least 8 oz of water or juice before administering cyclobenzaprine 10 mg tablet 10 mg PO BEDTIME PRN (Reason: muscle spasm) Qty: 14 0RF Referrals: Belia Khoury MD [Primary Care Provider] - Interventions: ED Discharge Assessment Last Done: 10/31/23 13:01 Discharge Date/Time: 10/31/23 13:02 Print Language: [place]
--- OUTSIDE RECORDS SUMMARY | 2023-10-31 11:52 | XMS_ITS | Continuity of Care Document ---
Author Organization [facility] Address [address] [place] [address]- Care Team Providers Care Meter Reader Chief Name Role Phone Belia Khoury MD Primary Care Physician Encounter [facility] Date(s): 04/24/23 - 05/24/23 [facility] [address] [place] [address]- Allergies, Adverse Reactions, Alerts No Known Allergies [...] Given influ virus vac, H1N1, inactive(oldterm) 7 2/8/10 Given FluLaval (oldterm) 8 01/29/09 Given Tet/Diphth/Acel, Pertussis (oldterm) 9 05/16/08 Gi candi Influenza Virus Vaccine (oldterm) 10 06/08/07 Give n Influenza Virus Vaccine (oldterm) 11 02/21/06 Give n 1Result Comment: [03/24/2014] fluarix trivalent - 2Result Comment: [01/29/2013] Flulaval [id number]. VIS in [place] given. 3Admin Note: VIS 11/2011 4Admin Note: [...] EDT, [id number], label all scripts in [place], 175.26, cm, 01/26/23 9:13:00 EDT, Height, 123, kg, 07/16/21 13:01:00 EST, Dry W... Start Date: 01/26/23 Stop Date: 04/26/23 Status: Ordered Bed pads XL disposable Bed pads XL disposable, See Instructions, # 90 each, Refills 11, Tot. Refills 11, Maintenance, Use TID Duration lifetime R32, 02/02/23 9:30:00 EDT, Supply Start Date: 02/02/23 Status: Ordered clotrimazole 1% topical cream 1 application, Topically, 2 times a day, for rash, # 113 Gm, 1 Refills, Maintenance, 01/26/23 9:56:00 EDT, Cream, [id number], Partial fill upon patient request if the prescription is for a schedule II opioid drug., 1 application Topically 2 ti... Start Date: 01/26/23 Stop Date: 03/27/23 Status: Ordered dextromethorphan-guaifenesin 20 mg-200 mg/10 mL oral liquid 10 mL, By Mouth, Every 4 hours, PRN as needed for cough, for 14 days, not to exceed 6 doses/day, # 240 mL, 0 Refills, Acute 06/07/23 14:21:00 EST, 05/24/23 14:21:00 EST, Liquid, [id number], Partial fill upon patient request if the prescription... Start Date: 05/24/23 Stop Date: 06/07/23 Status: Ordered diclofenac 1% topical gel See Instructions, APPLY TO AFFECTED AREA 4 TIMES A DAY, # 100 Gm, 4 Refills, Maintenance, 11/09/22 16:41:00 EDT, [id number], 25, APPLY TO AFFECTED AREA 4 TIMES A DAY, 175.26, cm, 10/03/22 10:48:00 EDT, Height, 123, kg, 07/16/21 13:01:00 EST, Dry... Start Date: 11/09/22 Status: Ordered Disposable Face Mask Disposable Face Mask, See Instructions, # 2 each, Refills 0, Tot. Refills 0, Maintenance, 2 box of Disposable face mask dx. U07.2018 Covid Infection duration: one month, 05/11/23 9:31:00 EST, Supply Start Date: 05/11/23 Status: Ordered Disposable Gloves Size Medium Disposable Gloves Size Medium, See Instructions, # 2 each, Refills 0, Tot. Refills 0, Maintenance, 2 Boxes dx. U07.2018 Covid Duration: 1 month, 05/11/23 9:28:00 EST, Supply Start Date: 05/11/23 Status: Ordered docusate sodium 100 mg oral capsule 1 capsule, By Mouth, 2 times a day, PRN NEEDED, CONSTIPATION., # 60 capsule, 2 Refills, Maintenance, 01/18/23 15:57:00 EDT, [id number], 175.26, cm, 10/03/22 10:48:00 EDT, Height, 123, kg, 07/16/21 13:01:00 EST, Dry Weight Start Date: 01/18/23 Status: Ordered Eliquis 5 mg oral tablet 1 tablet, By Mouth, 2 times a day, atrial fibrillation, # 180 tablet, 11 Refills, Maintenance, 01/26/23 10:16:00 EDT, [id number], label all scripts in [place], 175.26, cm, 01/26/23 9:13:00 EDT, Height, 123, kg, 07/16/21 13:01:00 EST, Dry Weight Start Date: 01/26/23 Stop Date: 01/10/26 Status: Ordered esomeprazole 20 mg oral enteric coated capsule 1 capsule = 20 mg, By Mouth, 2 times a day, # 180 capsule, 2 Refills, Maintenance, 08/08/22 8:21:00[id number] upon patient request if the prescription is for a schedule IIopioid drug., 175.26, cm, 03/09/22 10:37:00 EDT, He... Start Date: 08/08/22 Status: Ordered fluticasone 50 mcg/inh nasal spray See Instructions, SPRAY 1 SPRAY INTO BOTH NARES DAILY X 30 DAYS NEEDED FOR ALLERGIES, # 48 mL, 0Refills, Maintenance, 04/11/22 5:24:00 EST, [id number], 90, Office visit needed for furtherrefills., SPRAY 1 SPRAY INTO BOTH NARES DAILY X 30... Start Date: 04/11/22 Status: Ordered gabapentin 100 mg oral capsule 100 mg, 1, capsule, By Mouth, 3 times a day, If pain not improved, can increase to 200mg TID. If not better on 200mg TID can increase to max 300mg TID, # 180 capsule, Refills 0, Tot. Refills 0, Maintenance, 05/11/23 11:01:00 EST, Route to Pharmacy [facility]... Start Date: 05/11/23 Status: Ordered Hand Glass Inserter Hand Glass Inserter, See Instructions, # 1 each, Refills 0, Tot. Refills 0, Maintenance, Dispense 1 bottle dx. U07.1,2019 Covid Infection duration: 1 month, 05/11/23 9:30:00 EST, Supply Start Date: 05/11/23 Status: Ordered Heating pad-electric Heating pad-electric, See Instructions, # 1 each, Refills 0, Tot. Refills 0, Maintenance, Use as directed for no greater than 20 minutes per session Dx. M79.7, M25.519, M25.569 Duration: Lifetime, 03/28/23 10:22:00 EST, Supply Start Date: 03/28/23 Status: Ordered ipratropium nasal 21 mcg/inh spray 2 sprays = 42 mcg, Nares, Both, 3 times a day, # 30 mL, 4 Refills, Acute 06/07/23 21:00:00 EST, 05/10/23 14:12:00 EST, [facility], [id number], Partial fill upon patient request if the prescriptionis for a schedule II opioid drug., 2 sprays Nares,... Start Date: 05/10/23 Stop Date: 06/07/23 Status: Ordered lisinopril 40 mg oral tablet 1 tablet, By Mouth, Daily, # 90 tablet, 11 Refills, Maintenance, 01/17/23 8:35:00 EDT, [facility]207, 175.26, cm, 10/03/22 10:48:00 EDT, Height, 123, kg, 07/16/21 13:01:00 EST, Dry Weight Start Date: 01/17/23 Stop Date: 01/01/26 Status: Ordered metoprolol 50 mg oral tablet, extended release 50 mg, 1, tablet, By Mouth, Daily, do not crush or chew (via cardiology in past), # 90 tablet, Refills 11, Tot. Refills 11, Maintenance, 01/26/23 10:16:00 EDT, Route to Pharmacy Electronically, [facility]/pharm[id number], label all scripts in [place], 175.26,... Start Date: 01/26/23 Stop Date: 01/10/26 Status: Ordered nystatin topical 023288 u/gm powder See Instructions, APPLY TO AFFECTED AREA 3 TIMES A DAY, # 60 Gm, 1 Refills, Maintenance, 01/26/23 10:16:00 EDT, [facility], 30, label all scripts in [place], APPLY TO AFFECTED AREA 3 TIMES A [...] 11 Refills, Maintenance, 01/26/23 10:25:00 EDT, Tablet, [id number], 175.26, cm, 01/26/23 9:13:00 EDT, Height, 123, kg, 07/16/21 13:01:00 EST, Dry Weight Start Date: 01/26/23 Stop Date: 01/10/26 Status: Ordered tiZANidine 2 mg oral tablet 2 mg, 1, tablet, By Mouth, 3 times a day, # 15 tablet, Refills 0, Tot. Refills 0, Maintenance, 02/24/23 17:11:00 EDT, Route to Pharmacy Electronically, [id number], Partial fill upon patient request if the prescription is for a schedule II opio... Start Date: 02/24/23 Stop Date: 03/01/23 Status: Ordered Tylenol Extra Strength 500 mg oral tablet 2 tablet = 1,000 mg, By Mouth, Every 8 hours, PRN as needed for pain, # 100 tablet, 12 Refills, Maintenance, 05/10/23 14:13:00 EST, Tablet, [facility]/pharmacy [id number], Partial fill upon patient request if the prescription is for a schedule II opioid drug., 17... Start Date: 05/10/23 Status: Ordered Vitamin C 250 mg oral tablet 1 tablet, By Mouth, Daily, # 30 tablet, 1 Refills, Maintenance, 03/21/23 17:41:00 EST, [id number], 175, cm, 02/27/23 7:09:00 EDT, Height, 124.5, kg, 02/27/23 7:09:00 EDT, Dry Weight Start Date: 03/21/23 Status: Ordered VITAMIN D3 1,000 UNIT SOFTGEL VITAMIN D3 1,000 UNIT SOFTGEL, 1, capsule, By Mouth, Daily, # 60 capsule, 1 Refills, Maintenance, 05/09/23 16:42:00 EST, 175, cm, 03/28/23 8:55:00 EST, Height, 124.5, kg, 02/27/23 7:09:00 EDT, Dry Weight Start Date: 05/09/23 Status: Ordered Wipes for urinary incontinence Wipes for urinary incontinence, See Instructions, # 6 pack/packet, Refills 11, Tot. Refills 11, Maintenance, Use as needed Urinary incontinence Dx R32 Duration lifetime, 02/02/23 9:29:00 EDT, Supply Start Date: 02/02/23 Status: Ordered Problem List Condition Confirmation Course Effective Dates Status H ealth Status Informant MILLIE positive, pending Rheumatolgoy as of Confirmed 02/2022 Active [place] cardiac risk 10-20% in next 10 /2019 [...] days 07/23. 5X-rays 2007 c/[place]. [id number] x0ray 7on [place] 11-2022 Social History Social History Type Response Smoking Status Never smoker entered on: 04/17/13 Sex Female Patient Care team information Care Team Personnel Name: Chang WILSON, Pattie Jorgensen Position: [facility] MS SQL DBA MD Member Role: Lifetime Consulting Physician Address: Address: [address] [place] [address], [facility] [address] [facility] [address]- Name: Belia Khoury MD Position: [facility] Physician - Primary Care Member Role: PCP Address: Address: [address] [place] [address]- Care Team Related Persons Name: IVETT MCGREGOR Address: home [address] [place] [address] Name: JOVANA PORTER Address: home [address] [place] [address] Name: SARA HERNÁNDEZ Address: home [address] [place] [address]
--- OUTSIDE RECORDS SUMMARY | 2023-10-31 11:53 | XMS_ITS | Continuity of Care Document ---
Author Organization [facility] Address [address] [place] [address]- Care Team Providers Care Sales Engineering Manager Name Role Phone Iraida WILSON, Belia Primary Care Physician [facility]): [facility]23 - 08/16/23 [facility] [address] [place], [place] [phone] Attending Physician: Belia Khoury MD Admitting Physician: [...] fluarix trivalent - 2Result Comment: [01/29/2013] Flulaval [id number]. VIS in Palestinian given. 3Admin Note: VIS 11/2011 4Admin Note: VIS GIVEN VIS DATE 12/07/10 5Admin Note: VIS GIVEN 12/22/09 ivorian 6Admin Note: VIS GIVEN 7Admin Note: vis 02/20 8Admin Note: VIS GIVEN VIS DATE 12/23/08 9Admin Note: VIS given 10Admin Note: VIS given 11Admin Note: VIS given Medications amLODIPine 10 mg oral tablet 10 mg, 1, tablet, By Mouth, Daily, # 90 tablet, Refills 3, Tot. Refills 3, Maintenance, 06/01/23 9:05:00 EST, Route to Pharmacy Electronically, [facility]/pharmacy #[id number], label all scripts in Palestinian, 175, cm, 06/01/23 8:02:00 EST, Height, 124.5, kg, ... Start Date: 06/01/23 Stop Date: 05/26/24 Status: Ordered cholecalciferol 400 iu oral tablet 2 tablet = 20 mcg, By Mouth, Daily, # 180 tablet, 1 Refills, Maintenance, 06/01/23 8:56:00 EST, Tablet, [facility]/pharmacy #[id number], label all scripts in Palestinian, 175, cm, 06/01/23 8:02:00 EST, Height, 124.5,kg, 02/27/23 7:09:00 EDT, Dry Weight Start Date: 06/01/23 Stop Date: 11/28/23 Status: Ordered clotrimazole 1% topical cream 1 application, Topically, 2 times a day, for rash, # 113 Gm, 1 Refills, Maintenance, 01/26/23 9:56:00 EDT, Cream, [facility]/pharmacy #[id number], Partial fill upon patient request if the prescription is for a schedule II opioid drug., 1 application Topically 2 ti... Start Date: 01/26/23 Stop Date: 03/27/23 Status: Ordered diclofenac 1% topical gel See Instructions, APPLY TO AFFECTED AREA 4 TIMES A DAY, # 100 Gm, 4 Refills, Maintenance, 11/09/22 16:41:00 EDT, [facility], 25, APPLY TO AFFECTED AREA 4 TIMES A DAY, 175.26, cm, 10/03/22 10:48:00 EDT, Height, 123, kg, 07/16/21 13:01:00 EST, Dry... Start Date: 11/09/22 Status: Ordered docusate sodium 100 mg oral capsule 1 capsule, By Mouth, 2 times a day, PRN NEEDED, CONSTIPATION., # 60 capsule, 2 Refills, Maintenance, 01/18/23 15:57:00 EDT, [facility], 175.26, cm, 10/03/22 10:48:00 EDT, Height, 123, kg, 07/16/21 13:01:00 EST, Dry Weight Start Date: 01/18/23 Status: Ordered Eliquis 5 mg oral tablet 1 tablet, By Mouth, 2 times a day, atrial fibrillation, # 180 tablet, 11 Refills, Maintenance, 01/26/23 10:16:00 EDT, [facility]/pharmacy #[id number], label all scripts in Palestinian, 175.26, cm, 01/26/23 9:13:00 EDT, Height, 123, kg, 07/16/21 13:01:00 EST, Dry Weight Start Date: 01/26/23 Stop Date: 01/10/26 Status: Ordered esomeprazole 20 mg oral enteric coated capsule 1 capsule = 20 mg, By Mouth, 2 times a day, # 180 capsule, 2 Refills, Maintenance, 08/08/22 8:21:00EDT, [facility]/pharmacy #[id number], Partial fill upon patient request if the prescription is for a schedule IIopioid drug., 175.26, cm, 03/09/22 10:37:00 EDT, He... Start Date: 08/08/22 Status: Ordered fluticasone 50 mcg/inh nasal spray See Instructions, SPRAY 1 SPRAY INTO BOTH NARES DAILY X 30 DAYS NEEDED FOR ALLERGIES, # 48 mL, 0Refills, Maintenance, 04/11/22 5:24:00 EST, [facility]/pharmacy #207, 90, Office visit needed for furtherrefills., SPRAY 1 SPRAY INTO BOTH NARES DAILY X 30... Start Date: 04/11/22 Status: Ordered gabapentin 100 mg oral capsule 200 mg, 2, capsule, By Mouth, 3 times a day, as of dose INCREASE, # 180 capsule, Refills 1, Tot. Refills 1, Maintenance, 06/01/23 9:07:00 EST, Route to Pharmacy Electronically, [facility]/pharmacy #207, Partial fill upon patient request if the prescr... Start Date: 06/01/23 Stop Date: 07/31/23 Status: Ordered lisinopril 40 mg oral tablet 1 tablet, By Mouth, Daily, # 90 tablet, 11 Refills, Maintenance, 01/17/23 8:35:00 EDT, [facility]/pharmacy#2070, 175.26, cm, 10/03/22 10:48:00 EDT, Height, 123, kg, 07/16/21 13:01:00 EST, Dry Weight Start Date: 01/17/23 Stop Date: 01/01/26 Status: Ordered metoprolol 50 mg oral tablet, extended release 50 mg, 1, tablet, By Mouth, Daily, do not crush or chew (via cardiology in past), # 90 tablet, Refills 11, Tot. Refills 11, Maintenance, 01/26/23 10:16:00 EDT, Route to Pharmacy Electronically, [facility]/pharmacy #207, label all scripts in Palestinian, 175.26,... Start Date: 01/26/23 Stop Date: 01/10/26 Status: Ordered nystatin topical 443691 u/gm powder See Instructions, APPLY TO AFFECTED AREA 3 TIMES A DAY, # 60 Gm, 1 Refills, Maintenance, 01/26/23 10:16:00 EDT, [facility]/pharmacy #207, 30, label all scripts in Palestinian, APPLY TO AFFECTED AREA 3 TIMES A DAY, 175.26, cm, 01/26/23 9:13:00 EDT, Height, 123,... Start Date: 01/26/23 Status: Ordered rosuvastatin 10 mg oral tablet 1 tablet = 10 mg, By Mouth, Daily, # 90 tablet, 11 Refills, Maintenance, 01/26/23 10:25:00 EDT, Tablet, [id number], 175.26, cm, 01/26/23 9:13:00 EDT, Height, 123, kg, 07/16/21 13:01:00 EST, Dry Weight Start Date: 01/26/23 Stop Date: 01/10/26 Status: Ordered Tylenol Extra Strength 500 mg oral tablet 2 tablet = 1,000 mg, By Mouth, Every 8 hours, PRN as needed for pain, # 100 tablet, 12 Refills, Maintenance, 05/10/23 14:13:00 EST, Tablet, [id number], Partial fill upon patient request if the prescription is for a schedule II opioid drug., 17... Start Date: 05/10/23 Status: Ordered Vitamin C 250 mg oral tablet 1 tablet, By Mouth, Daily, # 90 tablet, 1 Refills, Maintenance, 06/01/23 9:06:00 EST, [id number], 175, cm, 06/01/23 8:02:00 EST, Height, 124.5, kg, 02/27/23 7:09:00 EDT, Dry Weight Start Date: 06/01/23 Stop Date: 11/28/23 Status: Ordered Problem List Condition Confirmation Course Effective Dates Status H ealth Status Informant MILLIE positive, pending Rheumatolgoy as of Confirmed 02/2022 Active Vitamin C deficiency Confirmed 2022 Active [place] cardiac risk 10-20% in next /2019 1 [...] per Neurosurgeon , on ?Outside MRI, stable - next neurosurgery visit and MRI due 7 Confirmed Active SHAHRIAR - Obstructive sleep apnea Confirmed Active BHN/CCA/[facility]ECARE/CP-Migdalia Rollins [phone]/Health senior care, active care coordination Confirmed Active Severe obesity (BMI 35.0-39.9) with comorbidity Confirmed Active Hepatic steatosis 8 Confirmed Active Urinary incontinence Confirmed Active Vaginal wall prolapse Confirmed Active Varicose vein Confirmed Active Vitamin D deficiency Confirmed Active 1Down to 4.5% August 2020 2Bil, S/P RT Release, Left with Pos EMG study 3per Dermatology 2009 or so 4Documented on pos stool for H pylori antigen. Pt treated x 14 days 07/23. 5X-rays 2007 c/[place]. 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
--- OUTSIDE RECORDS SUMMARY | 2023-10-31 11:53 | XMS_ITS | Continuity of Care Document ---
Author Organization [facility] Address [address] [place] [address]- Care Team Providers Care Production Painter Name Role Phone Belia Khoury MD Primary Care Physician [phone] [facility]23 - 06/08/23 [facility] [address] [place], [place] [address] Allergies, Adverse Reactions, Alerts No [...] fluarix trivalent 14- 2Result Comment: [01/29/2013] Flulaval [id number]. VIS in [place] given. 3Admin Note: VIS 11/2011 4Admin Note: [...] 06/01/23 9:05:00 EST, Route to Pharmacy Electronically, [facility]/pharmacy #[id number], label all scripts in [place], 175, cm, 06/01/23 8:02:00 EST, Height, 124.5, kg, ... Start Date: 06/01/23 Stop Date: 05/26/24 Status: Ordered cholecalciferol 400 iu oral tablet 2 tablet = 20 mcg, By Mouth, Daily, # 180 tablet, 1 Refills, Maintenance, 06/01/23 8:56:00 EST, Tablet, [facility]/pharmacy #[id number], label all scripts in [place], 175, cm, 06/01/23 8:02:00 EST, Height, 124.5,kg, 02/27/23 7:09:00 EDT, Dry Weight Start Date: 06/01/23 Stop Date: 11/28/23 Status: Ordered clotrimazole 1% topical cream 1 application, Topically, 2 times a day, for rash, # 113 Gm, 1 Refills, Maintenance, 01/26/23 9:56:00 EDT, Cream, [facility]/pharmacy #[id number], Partial fill upon patient request if the prescription is for a schedule II opioid drug., 1 application Topically 2 ti... Start Date: 01/26/23 Stop Date: 03/27/23 Status: Ordered diclofenac 1% topical gel See Instructions, APPLY TO AFFECTED AREA 4 TIMES A DAY, # 100 Gm, 4 Refills, Maintenance, 11/09/22 16:41:00 EDT, [facility], 25, APPLY TO AFFECTED AREA 4 TIMES A DAY, 175.26, cm, 10/03/22 10:48:00 EDT, Height, 123, kg, 07/16/21 13:01:00 EST, Dry... Start Date: 11/09/22 Status: Ordered docusate sodium 100 mg oral capsule 1 capsule, By Mouth, 2 times a day, PRN NEEDED, CONSTIPATION., # 60 capsule, 2 Refills, Maintenance, 01/18/23 15:57:00 EDT, [facility], 175.26, cm, 10/03/22 10:48:00 EDT, Height, 123, kg, 07/16/21 13:01:00 EST, Dry Weight Start Date: 01/18/23 Status: Ordered Eliquis 5 mg oral tablet 1 tablet, By Mouth, 2 times a day, atrial fibrillation, # 180 tablet, 11 Refills, Maintenance, 01/26/23 10:16:00 EDT, [facility]/pharmacy #[id number], label all scripts in [place], 175.26, cm, 01/26/23 9:13:00 EDT, Height, 123, kg, 07/16/21 13:01:00 EST, Dry Weight Start Date: 01/26/23 Stop Date: 01/10/26 Status: Ordered esomeprazole 20 mg oral enteric coated capsule 1 capsule = 20 mg, By Mouth, 2 times a day, # 180 capsule, 2 Refills, Maintenance, 08/08/22 8:21:00EDT, [facility]/pharmacy #[id number], Partial fill upon patient request if the prescription is for a schedule IIopioid drug., 175.26, cm, 03/09/22 10:37:00 EDT, He... Start Date: 08/08/22 Status: Ordered fluticasone 50 mcg/inh nasal spray See Instructions, SPRAY 1 SPRAY INTO BOTH NARES DAILY X 30 DAYS NEEDED FOR ALLERGIES, # 48 mL, 0Refills, Maintenance, 04/11/22 5:24:00 EST, [facility]/pharmacy #207, 90, Office visit needed for furtherrefills., SPRAY 1 SPRAY INTO BOTH NARES DAILY X 30... Start Date: 04/11/22 Status: Ordered gabapentin 100 mg oral capsule 200 mg, 2, capsule, By Mouth, 3 times a day, as of dose INCREASE, # 180 capsule, Refills 1, Tot. Refills 1, Maintenance, 06/01/23 9:07:00 EST, Route to Pharmacy Electronically, [facility]/pharmacy #207, Partial fill upon patient request if the prescr... Start Date: 06/01/23 Stop Date: 07/31/23 Status: Ordered lisinopril 40 mg oral tablet 1 tablet, By Mouth, Daily, # 90 tablet, 11 Refills, Maintenance, 01/17/23 8:35:00 EDT, [facility]/pharmacy#2070, 175.26, cm, 10/03/22 10:48:00 EDT, Height, 123, kg, 07/16/21 13:01:00 EST, Dry Weight Start Date: 01/17/23 Stop Date: 01/01/26 Status: Ordered metoprolol 50 mg oral tablet, extended release 50 mg, 1, tablet, By Mouth, Daily, do not crush or chew (via cardiology in past), # 90 tablet, Refills 11, Tot. Refills 11, Maintenance, 01/26/23 10:16:00 EDT, Route to Pharmacy Electronically, [facility]/pharmacy #207, label all scripts in [place], 175.26,... Start Date: 01/26/23 Stop Date: 01/10/26 Status: Ordered nystatin topical 882047 u/gm powder See Instructions, APPLY TO AFFECTED AREA 3 TIMES A DAY, # 60 Gm, 1 Refills, Maintenance, 01/26/23 10:16:00 EDT, [facility]/pharmacy #2070, 30, label all scripts in [place], APPLY TO AFFECTED AREA 3 TIMES A [...] Active Vitamin C deficiency Confirmed 2022 Active [place] cardiac risk 10-20% in next 10 years/2019 [...] Obstructive sleep apnea Confirmed Active BHN/CCA/[facility]/CP-Migdalia Rollins [phone]/[facility], active care coordination Confirmed Active Severe obesity Confirmed Active Hepatic [...] days 07/23. 5X-rays 2007 c/[place]. [address] x0ray 7on [place] Social History Social History Type Response Smoking Status Never smoker entered on: 04/17/13 Sex Female Patient Care team information Care Team Personnel Name: Chang WILSON, Pattie Jorgensen Position: [facility] CLINICAL REHABILITATION AIDE MD Member Role: Lifetime Consulting Physician Address: Address: [address] [place] [address], [facility] [address] [facility] [place] [address]- Name: Belia Khoury MD Position: [facility] Physician - Primary Care Member Role: PCP Address: Address: [address] [place] [address]- Care Team Related Persons Name: IVETT MCGREGOR Address: home [address] [place] [address] Name: JOVANA PORTER Address: home [address] [place] [address] Name: SARA HERNÁNDEZ Address: home [address] [place] [address]
--- OUTSIDE RECORDS SUMMARY | 2023-10-31 11:53 | XMS_ITS | Continuity of Care Document ---
Author Organization [facility] Address [address] [place] [address]- Care Team Providers Care Human Resources Receptionist Name Role Phone Belia Khoury MD Primary Care Physician [facility]23 - 09/10/23 [facility] [address] [place], [place] [phone] Allergies, Adverse Reactions, Alerts No Known Allergies [...] fluarix trivalent - 2Result Comment: [01/29/2013] Flulaval [id number]. VIS in Kittitian given. 3Admin Note: VIS [...] 06/01/23 9:05:00 EST, Route to Pharmacy Electronically, [facility]/pharmacy #[id number], label all scripts in [place], 175, cm, 06/01/23 8:02:00 EST, Height, 124.5, kg, ... Start Date: 06/01/23 Stop Date: 05/26/24 Status: Ordered cholecalciferol 400 iu oral tablet 2 tablet = 20 mcg, By Mouth, Daily, # 180 tablet, 1 Refills, Maintenance, 06/01/23 8:56:00 EST, Tablet, [facility]/pharmacy #[id number], label all scripts in [place], 175, cm, 06/01/23 8:02:00 EST, Height, 124.5,kg, 02/27/23 7:09:00 EDT, Dry Weight Start Date: 06/01/23 Stop Date: 11/28/23 Status: Ordered clotrimazole 1% topical cream 1 application, Topically, 2 times a day, for rash, # 113 Gm, 1 Refills, Maintenance, 01/26/23 9:56:00 EDT, Cream, [facility]/pharmacy #[id number], Partial fill upon patient request if the prescription is for a schedule II opioid drug., 1 application Topically 2 ti... Start Date: 01/26/23 Stop Date: 03/27/23 Status: Ordered diclofenac 1% topical gel See Instructions, APPLY TO AFFECTED AREA 4 TIMES A DAY, # 100 Gm, 4 Refills, Maintenance, 11/09/22 16:41:00 EDT, [facility], 25, APPLY TO AFFECTED AREA 4 TIMES A DAY, 175.26, cm, 10/03/22 10:48:00 EDT, Height, 123, kg, 07/16/21 13:01:00 EST, Dry... Start Date: 11/09/22 Status: Ordered docusate sodium 100 mg oral capsule 1 capsule, By Mouth, 2 times a day, PRN NEEDED, CONSTIPATION., # 60 capsule, 2 Refills, Maintenance, 01/18/23 15:57:00 EDT, [facility], 175.26, cm, 10/03/22 10:48:00 EDT, Height, 123, kg, 07/16/21 13:01:00 EST, Dry Weight Start Date: 01/18/23 Status: Ordered Eliquis 5 mg oral tablet 1 tablet, By Mouth, 2 times a day, atrial fibrillation, # 180 tablet, 11 Refills, Maintenance, 01/26/23 10:16:00 EDT, [facility]/pharmacy #[id number], label all scripts in [place], 175.26, cm, 01/26/23 9:13:00 EDT, Height, 123, kg, 07/16/21 13:01:00 EST, Dry Weight Start Date: 01/26/23 Stop Date: 01/10/26 Status: Ordered esomeprazole 20 mg oral enteric coated capsule 1 capsule = 20 mg, By Mouth, 2 times a day, # 180 capsule, 2 Refills, Maintenance, 08/08/22 8:21:00EDT, [facility]/pharmacy #[id number], Partial fill upon patient request if the prescription is for a schedule IIopioid drug., 175.26, cm, 03/09/22 10:37:00 EDT, He... Start Date: 08/08/22 Status: Ordered fluticasone 50 mcg/inh nasal spray See Instructions, SPRAY 1 SPRAY INTO BOTH NARES DAILY X 30 DAYS NEEDED FOR ALLERGIES, # 48 mL, 0Refills, Maintenance, 04/11/22 5:24:00 EST, [facility]/pharmacy #207, 90, Office visit needed for furtherrefills., SPRAY 1 SPRAY INTO BOTH NARES DAILY X 30... Start Date: 04/11/22 Status: Ordered gabapentin 100 mg oral capsule 200 mg, 2, capsule, By Mouth, 3 times a day, as of dose INCREASE, # 180 capsule, Refills 1, Tot. Refills 1, Maintenance, 06/01/23 9:07:00 EST, [facility], Partial fill upon patient request if the prescr... Start Date: 06/01/23 Stop Date: 07/31/23 Status: Ordered lisinopril 40 mg oral tablet 1 tablet, By Mouth, Daily, # 90 tablet, 11 Refills, Maintenance, 01/17/23 8:35:00 EDT, [facility]/pharmacy#2070, 175.26, cm, 10/03/22 10:48:00 EDT, Height, 123, kg, 07/16/21 13:01:00 EST, Dry Weight Start Date: 01/17/23 Stop Date: 01/01/26 Status: Ordered metoprolol 50 mg oral tablet, extended release 50 mg, 1, tablet, By Mouth, Daily, do not crush or chew (via cardiology in past), # 90 tablet, Refills 11, Tot. Refills 11, Maintenance, 01/26/23 10:16:00 EDT, Route to Pharmacy Electronically, [facility]/pharmacy #207, label all scripts in [place], 175.26,... Start Date: 01/26/23 Stop Date: 01/10/26 Status: Ordered nystatin topical 940326 u/gm powder See Instructions, APPLY TO AFFECTED AREA 3 TIMES A DAY, # 60 Gm, 1 Refills, Maintenance, 01/26/23 10:16:00 EDT, [facility]/pharmacy #2070, 30, label all scripts in [place], APPLY TO AFFECTED AREA 3 TIMES A [...] Active Vitamin C deficiency Confirmed 2022 Active [place] cardiac risk 10-20% in next 10 /2019 [...] Obstructive sleep apnea Confirmed Active [facility]N/CCA/[facility]/CP-Migdalia Rollins [phone]/Health intermediate, active care coordination Confirmed Active Severe obesity Confirmed Active Hepatic steatosis 8 Confirmed Active Urinary incontinence Confirmed Active Vaginal wall prolapse Confirmed Active Varicose vein Confirmed Active Vitamin D deficiency Confirmed Active 1Down to 4.5% August 2020 2Bil, S/P RT Release, Left with Pos EMG study 3per Dermatology 2009 or so 4Documented on pos stool for H pylori antigen. Pt treated x 14 days 07/23. 5X-rays 2007 c/w early [place]. 7[address] x0ray 7had neurosurgery visit 8on Social History Social History Type Response Smoking Status Never smoker entered on: 04/17/13 Sex Female Patient Care team information Care Team Personnel Name: Chang WILSON, Pattie Jorgensen Position: [facility] PRODUCTION CONTROL COORDINATOR MD Member Role: Lifetime Consulting Physician Address: Address: [address] [place] [address], [facility] [address] [facility] [place] [address]- Name: Belia Khoury MD Position: [facility] Physician - Primary Care Member Role: PCP Address: Address: [address] [place] [id number]- Care Team Related Persons Name: IVETT MCGREGOR Address: home [address] [place] [address] Name: JOVANA PORTER Address: home [address] [place] [address] Name: SARA HERNÁNDEZ Address: home [address] [place] [address]
--- OUTSIDE RECORDS SUMMARY | 2023-10-31 11:53 | XMS_ITS | Continuity of Care Document ---
Author Organization [facility] Address [address] [place] [address]- Care Team Providers Care Rn Transitional Name Role Phone Belia Khoury MD Primary Care Physician [phone] Encounter [facility] Date(s): 05/17/23 - 06/17/23 [facility] [address] [place] [address]- Attending Physician: Umer Schwarz MD Admitting Physician: [...] [03/24/2014] fluarix trivalent 2Result Comment: [01/29/2013] Flulaval [id number]. VIS in Mongolian given. 3Admin Note: VIS [...] 06/01/23 9:05:00 EST, Route to Pharmacy Electronically, [facility]/pharmacy #[id number], label all scripts in Mongolian, 175, cm, 06/01/23 8:02:00 EST, Height, 124.5, kg, ... Start Date: 06/01/23 Stop Date: 05/26/24 Status: Ordered cholecalciferol 400 iu oral tablet 2 tablet = 20 mcg, By Mouth, Daily, # 180 tablet, 1 Refills, Maintenance, 06/01/23 8:56:00 EST, Tablet, [facility]/pharmacy #[id number], label all scripts in Mongolian, 175, cm, 06/01/23 8:02:00 EST, Height, 124.5,kg, [...] Refills, Maintenance, 11/09/22 16:41:00 EDT, [facility], 25, APPLY TO AFFECTED AREA 4 TIMES A DAY, 175.26, cm, 10/03/22 10:48:00 EDT, Height, 123, kg, 07/16/21 13:01:00 EST, Dry... Start Date: 11/09/22 Status: Ordered docusate sodium 100 mg oral capsule 1 capsule, By Mouth, 2 times a day, PRN NEEDED, CONSTIPATION., # 60 capsule, 2 Refills, Maintenance, 01/18/23 15:57:00 EDT, [facility], 175.26, cm, 10/03/22 10:48:00 EDT, Height, 123, kg, 07/16/21 13:01:00 EST, Dry Weight Start Date: 01/18/23 Status: Ordered Eliquis 5 mg oral tablet 1 tablet, By Mouth, 2 times a day, atrial fibrillation, # 180 tablet, 11 Refills, Maintenance, 01/26/23 10:16:00 EDT, [facility]/pharmacy #[id number], label all scripts in Mongolian, 175.26, cm, 01/26/23 9:13:00 EDT, Height, 123, [...] Maintenance, 04/11/22 5:24:00 EST, [facility]/pharmacy #207, 90, Office visit needed for furtherrefills., SPRAY 1 SPRAY INTO BOTH NARES DAILY X 30... Start Date: 04/11/22 Status: Ordered gabapentin 100 mg oral capsule 200 mg, 2, capsule, By Mouth, 3 times a day, as of dose INCREASE, # 180 capsule, Refills 1, Tot. Refills 1, Maintenance, 06/01/23 9:07:00 EST, Route to Pharmacy Electronically, [facility]/pharmacy #207, Partial fill upon patient request if the prescr... Start Date: 06/01/23 Stop Date: 07/31/23 Status: Ordered lisinopril 40 mg oral tablet 1 tablet, By Mouth, Daily, # 90 tablet, 11 Refills, Maintenance, 01/17/23 8:35:00 EDT, [facility]/pharmacy#2070, 175.26, cm, 10/03/22 10:48:00 EDT, Height, 123, kg, 07/16/21 13:01:00 EST, Dry Weight Start Date: 01/17/23 Stop Date: 01/01/26 Status: Ordered metoprolol 50 mg oral tablet, extended release 50 mg, 1, tablet, By Mouth, Daily, do not crush or chew (via cardiology in past), # 90 tablet, Refills 11, Tot. Refills 11, Maintenance, 01/26/23 10:16:00 EDT, Route to Pharmacy Electronically, [facility]/pharmacy #207, label all scripts in Mongolian, 175.26,... Start Date: 01/26/23 Stop Date: 01/10/26 Status: Ordered nystatin topical 175046 u/gm powder See Instructions, APPLY TO AFFECTED AREA 3 TIMES A DAY, # 60 Gm, 1 Refills, Maintenance, 01/26/23 10:16:00 EDT, [facility]/pharmacy #207, 30, label all scripts in Mongolian, APPLY TO AFFECTED AREA 3 TIMES A DAY, 175.26, cm, 01/26/23 9:13:00 EDT, Height, 123,... Start Date: 01/26/23 Status: Ordered rosuvastatin 10 mg oral tablet 1 tablet = 10 mg, By Mouth, Daily, # 90 tablet, 11 Refills, Maintenance, 01/26/23 10:25:00 EDT, [facility]t, [facility], 175.26, cm, 01/26/23 9:13:00 EDT, Height, [...] Active Vitamin C deficiency Confirmed 2022 Active [place] cardiac risk 10-20% in next 10 /2019 1 Confirmed 2019 Active Atrial fibrillation, paroxysmal Confirmed Active Carpal tunnel syndrome 2 Confirmed Active Depression Confirmed 09/14/09 Active Diabetes mellitus Confirmed 2021 Active Pancreatic lesion on 2008, pending more imaging Confirmed Active Anticoagulated [...] Obstructive sleep apnea Confirmed Active BHN/CCA/ONECARE/CP-Migdalia Rollins [phone]/Health shelter, active care coordination Confirmed Active Severe obesity [...] days 07/23. 5X-rays 2007 [place]. [address] x0ray 7on [place] Social History Social History Type Response Smoking Status Never smoker entered on: 04/17/13 Sex Female Patient Care team information Care Team Personnel Name: Chang WILSON, Pattie Jorgensen Position: [facility] YOGA TEACHER MD Member Role: Lifetime Consulting Physician Address: Address: [address] [place] [address], [address] [facility] [place] [address]- Name: Belia Khoury MD Position: [facility] Physician - Primary Care Member Role: PCP Address: Address: [address] [place] [address]- Care Team Related Persons Name: IVETT MCGREGOR Address: home [address] [place] [address] Name: JOVANA PORTER Address: home [address] [place] [address] Name: SARA HERNÁNDEZ Address: home [address] [place] [address]
--- OUTSIDE RECORDS SUMMARY | 2023-10-31 11:53 | XMS_ITS | Continuity of Care Document ---
Author Organization [facility] Address [address] [place] [address] [address], [address] [place] [address]- Care Team Providers Care Procedure Writer Name Role Phone Belia Khoury MD Primary Care Physician [phone] Encounter [facility] Date(s): 06/19/23 - 07/19/23 [facility] [address] [place] [address] Drive, [address] [place], [place] [address] Attending Physician: AdmCarolyn bethea Admitting Physician: Admtr, Ar8 Referring Physician: Admtr, [...] fluarix trivalent - 2Result Comment: [01/29/2013] Flulaval [id number]. VIS in Jamaican given. 3Admin Note: VIS 11/2011 4Admin Note: VIS GIVEN VIS DATE 12/07/10 5Admin Note: VIS GIVEN 12/22/09 montserratian 6Admin Note: VIS GIVEN 7Admin Note: vis 02/20 8Admin Note: VIS GIVEN VIS DATE 12/23/08 9Admin Note: VIS given 10Admin Note: VIS given 11Admin Note: VIS given Medications amLODIPine 10 mg oral tablet 10 mg, 1, tablet, By Mouth, Daily, # 90 tablet, Refills 3, Tot. Refills 3, Maintenance, 06/01/23 9:05:00 EST, Route to Pharmacy Electronically, [facility]/pharmacy #[id number], label all scripts in Jamaican, 175, cm, 06/01/23 8:02:00 EST, Height, 124.5, kg, ... Start Date: 06/01/23 Stop Date: 05/26/24 Status: Ordered cholecalciferol 400 iu oral tablet 2 tablet = 20 mcg, By Mouth, Daily, # 180 tablet, 1 Refills, Maintenance, 06/01/23 8:56:00 EST, Tablet, [facility]/pharmacy #[id number], label all scripts in Jamaican, 175, cm, 06/01/23 8:02:00 EST, Height, 124.5,kg, [...] Refills, Maintenance, 11/09/22 16:41:00 EDT, [facility], 25, APPLY TO AFFECTED AREA 4 TIMES A DAY, 175.26, cm, 10/03/22 10:48:00 EDT, Height, 123, kg, 07/16/21 13:01:00 EST, Dry... Start Date: 11/09/22 Status: Ordered docusate sodium 100 mg oral capsule 1 capsule, By Mouth, 2 times a day, PRN NEEDED, CONSTIPATION., # 60 capsule, 2 Refills, Maintenance, 01/18/23 15:57:00 EDT, [facility], 175.26, cm, 10/03/22 10:48:00 EDT, Height, 123, kg, 07/16/21 13:01:00 EST, Dry Weight Start Date: 01/18/23 Status: Ordered Eliquis 5 mg oral tablet 1 tablet, By Mouth, 2 times a day, atrial fibrillation, # 180 tablet, 11 Refills, Maintenance, 01/26/23 10:16:00 EDT, [id number], label all scripts in Jamaican, 175.26, cm, 01/26/23 9:13:00 EDT, Height, 123, [...] 48 mL, 0Refills, Maintenance, 04/11/22 5:24:00 EST, [facility]/pharmacy #[id number], 90, Office visit needed for furtherrefills., SPRAY 1 SPRAY INTO BOTH NARES DAILY X 30... Start Date: 04/11/22 Status: Ordered gabapentin 100 mg oral capsule 200 mg, 2, capsule, By Mouth, 3 times a day, as of dose INCREASE, # 180 capsule, Refills 1, Tot. Refills 1, Maintenance, 06/01/23 9:07:00 EST, Route to Pharmacy Electronically, [facility]/pharmacy #207, Partial fill upon patient request if the prescr... Start Date: 06/01/23 Stop Date: 07/31/23 Status: Ordered lisinopril 40 mg oral tablet 1 tablet, By Mouth, Daily, # 90 tablet, 11 Refills, Maintenance, 01/17/23 8:35:00 EDT, [facility]/pharmacy#2070, 175.26, cm, 10/03/22 10:48:00 EDT, Height, 123, kg, 07/16/21 13:01:00 EST, Dry Weight Start Date: 01/17/23 Stop Date: 01/01/26 Status: Ordered metoprolol 50 mg oral tablet, extended release 50 mg, 1, tablet, By Mouth, Daily, do not crush or chew (via cardiology in past), # 90 tablet, Refills 11, Tot. Refills 11, Maintenance, 01/26/23 10:16:00 EDT, Route to Pharmacy Electronically, [facility]/pharmacy #207, label all scripts in Jamaican, 175.26,... Start Date: 01/26/23 Stop Date: 01/10/26 Status: Ordered nystatin topical 070010 u/gm powder See Instructions, APPLY TO AFFECTED AREA 3 TIMES A DAY, # 60 Gm, 1 Refills, Maintenance, 01/26/23 10:16:00 EDT, [facility]/pharmacy #[id number], 30, label all scripts in Jamaican, APPLY TO AFFECTED AREA 3 TIMES A [...] Active Vitamin C deficiency Confirmed 2022 Active [place] cardiac risk 10-20% in next /2019 1 [...] Obstructive sleep apnea Confirmed Active BHN/CCA/[facility]ECARE/CP-Migdalia Rollins [phone]/Health detention, active care coordination Confirmed Active Severe obesity (BMI 35.0-39.9) with comorbidity Confirmed Active Hepatic steatosis 7 Confirmed Active Urinary incontinence Confirmed Active Vaginal wall prolapse Confirmed Active Varicose vein Confirmed Active Vitamin D deficiency Confirmed Active 1Down to 4.5% August 2020 2Bil, S/P RT Release, Left with Pos EMG study 3per Dermatology 2009 or so 4Documented on pos stool for H pylori antigen. Pt treated x 14 days 07/23. 5X-rays 2007 [place]. [address] x0ray 7on [place] Social History Social History Type Response Smoking Status Never smoker entered on: 04/17/13 Sex Female Patient Care team information Care Team Personnel Name: Chang WILSON, Pattie Jorgensen Position: [facility] BELT LOOP CUTTER MD Member Role: Lifetime Consulting Physician Address: Address: [address] [place] [address], [address] [facility] [place] [address]- Name: Belia Khoury MD Position: [facility] Physician - Primary Care Member Role: PCP Address: Address: [address] [place] [address]- Care Team Related Persons Name: IVETT MCGREGOR Address: home [address] [place] [address] Name: JOVANA PORTER Address: home [address] [place] [address] Name: SARA HERNÁNDEZ Address: home [address] [place] [address]
--- OUTSIDE RECORDS SUMMARY | 2023-10-31 11:53 | XMS_ITS | Continuity of Care Document ---
Author Organization [facility] Address [address] [place] [address]- Care Team Providers Care Chamfering Machine Operator Name Role Phone Belia Khoury MD Primary Care Physician Encounter [facility] Date(s): 09/11/23 - 09/18/23 [facility] [address] [place] [address]- Encounter Diagnosis Dependent edema(Discharge Diagnosis) - 09/11/23 Attending Physician: Codi Christiansen MD Referring Physician: Belia Khoury MD Allergies, Adverse Reactions, Alerts No Known Allergies Immunizations Given and Recorded Vaccine Date Status Refusal Reason influenza virus vaccine, inactivated 03/28/23 Give n influenza virus vaccine, inactivated 02/22/22 Give n influenza virus vaccine, inactivated 05/25/21 Saibno rded influenza virus vaccine, inactivated 03/25/20 Sabino [...] fluarix trivalent - 2Result Comment: [01/29/2013] Flulaval [id number]. VIS in Nepalese given. 3Admin Note: VIS 11/2011 4Admin Note: [...] 06/01/23 9:05:00 EST, Route to Pharmacy Electronically, [facility]/pharmacy #[id number], label all scripts in Nepalese, 175, cm, 06/01/23 8:02:00 EST, Height, 124.5, kg, ... Start Date: 06/01/23 Stop Date: 05/26/24 Status: Ordered cholecalciferol 400 iu oral tablet 2 tablet = 20 mcg, By Mouth, Daily, # 180 tablet, 1 Refills, Maintenance, 06/01/23 8:56:00 EST, Tablet, [facility]/pharmacy #[id number], label all scripts in Nepalese, 175, cm, 06/01/23 8:02:00 EST, Height, 124.5,kg, 02/27/23 7:09:00 EDT, Dry Weight Start Date: 06/01/23 Stop Date: 11/28/23 Status: Ordered clotrimazole 1% topical cream 1 application, Topically, 2 times a day, for rash, # 113 Gm, 1 Refills, Maintenance, 01/26/23 9:56:00 EDT, Cream, [facility]/pharmacy #[id number], Partial fill upon patient request if the prescription is for a schedule II opioid drug., 1 application Topically 2 ti... Start Date: 01/26/23 Stop Date: 03/27/23 Status: Ordered diclofenac 1% topical gel See Instructions, APPLY TO AFFECTED AREA 4 TIMES A DAY, # 100 Gm, 4 Refills, Maintenance, 11/09/22 16:41:00 EDT, [facility], 25, APPLY TO AFFECTED AREA 4 TIMES A DAY, 175.26, cm, 10/03/22 10:48:00 EDT, Height, 123, kg, 07/16/21 13:01:00 EST, Dry... Start Date: 11/09/22 Status: Ordered docusate sodium 100 mg oral capsule 1 capsule, By Mouth, 2 times a day, PRN NEEDED, CONSTIPATION., # 60 capsule, 2 Refills, Maintenance, 01/18/23 15:57:00 EDT, [facility], 175.26, cm, 10/03/22 10:48:00 EDT, Height, 123, kg, 07/16/21 13:01:00 EST, Dry Weight Start Date: 01/18/23 Status: Ordered Eliquis 5 mg oral tablet 1 tablet, By Mouth, 2 times a day, atrial fibrillation, # 180 tablet, 11 Refills, Maintenance, 01/26/23 10:16:00 EDT, [facility]/pharmacy #[id number], label all scripts in Nepalese, 175.26, cm, 01/26/23 9:13:00 EDT, Height, 123, kg, 07/16/21 13:01:00 EST, Dry Weight Start Date: 01/26/23 Stop Date: 01/10/26 Status: Ordered esomeprazole 20 mg oral enteric coated capsule 1 capsule = 20 mg, By Mouth, 2 times a day, # 180 capsule, 2 Refills, Maintenance, 08/08/22 8:21:00EDT, [facility]/pharmacy #[id number], Partial fill upon patient request if the prescription is for a schedule IIopioid drug., 175.26, cm, 03/09/22 10:37:00 EDT, He... Start Date: 08/08/22 Status: Ordered fluticasone 50 mcg/inh nasal spray See Instructions, SPRAY 1 SPRAY INTO BOTH NARES DAILY X 30 DAYS NEEDED FOR ALLERGIES, # 48 mL, 0Refills, Maintenance, 04/11/22 5:24:00 EST, [facility]/pharmacy #207, 90, Office visit needed for furtherrefills., SPRAY 1 SPRAY INTO BOTH NARES DAILY X 30... Start Date: 04/11/22 Status: Ordered gabapentin 100 mg oral capsule 200 mg, 2, capsule, By Mouth, 3 times a day, as of dose INCREASE, # 180 capsule, Refills 1, Tot. Refills 1, Maintenance, 06/01/23 9:07:00 EST, Route to Pharmacy Electronically, [facility]/pharmacy #207, Partial fill upon patient request if the prescr... Start Date: 06/01/23 Stop Date: 07/31/23 Status: Ordered lisinopril 40 mg oral tablet 1 tablet, By Mouth, Daily, # 90 tablet, 11 Refills, Maintenance, 01/17/23 8:35:00 EDT, [facility]/pharmacy#2070, 175.26, cm, 10/03/22 10:48:00 EDT, Height, 123, kg, 07/16/21 13:01:00 EST, Dry Weight Start Date: 01/17/23 Stop Date: 01/01/26 Status: Ordered metoprolol 50 mg oral tablet, extended release 50 mg, 1, tablet, By Mouth, Daily, do not crush or chew (via cardiology in past), # 90 tablet, Refills 11, Tot. Refills 11, Maintenance, 01/26/23 10:16:00 EDT, Route to Pharmacy Electronically, [facility]/pharmacy #207, label all scripts in Nepalese, 175.26,... Start Date: 01/26/23 Stop Date: 01/10/26 Status: Ordered nystatin topical 824476 u/gm powder See Instructions, APPLY TO AFFECTED AREA 3 TIMES A DAY, # 60 Gm, 1 Refills, Maintenance, 01/26/23 10:16:00 EDT, [facility]/pharmacy #207, 30, label all scripts in Nepalese, APPLY TO AFFECTED AREA 3 TIMES A [...] Active Vitamin C deficiency Confirmed 2022 Active [place] cardiac risk 10-20% in next /2019 1 [...] Obstructive sleep apnea Confirmed Active BHN/CCA/[facility]/CP-Migdalia Rollins [phone]/Health long term, active care coordination Confirmed Active Severe obesity [...] days 07/23. 5X-rays 2007 [place]. [address] x0ray 7had neurosurgery visit 8on Diagnosis Diagnosis Type Effective Dates Health Status Cl inical Service Informant Dependent edema Discharge Diagnosis 09/11/23 Vital Signs Most recent to oldest [Reference Range]: 1 Height 175 cm (09/11/23 2:44 PM) Weight 125.36 kg (09/11/23 2:44 PM) Oxygen Saturation [94-100 %] 99 % (09/11/23 2:44 PM) Pulse Rate [55-90 bpm] 70 bpm (09/11/23 2:44 PM) Body Mass Index [18.5-24.99 kg/m2] 40.93 kg/m2 *>HHI* (09/11/23 2:44 PM) Blood Pressure [90-138/55-84 mm Hg] 126/ 61mm Hg (09/11/23 2:44 PM) Respiratory Rate [16-30 br/min] 16 br/mi n (09/11/23 2:44 PM) Temperature [96.8-100.4 DegF] 98.2 DegF (09/11/23 2:44 PM) Blood pressure sites Arm, right (09/11/23 2:44 PM) Temperature Route Temporal (09/11/23 2:44 PM) Weight Obtained Via Standing scale (09/11/23 2:44 PM) Social History Social History Type Response Smoking Status Never smoker entered on: 04/17/13 Sex Female Patient Care team information Care Team Personnel Name: Erin-Pattie Vaca MD Position: [facility] GUEST SERVICE REPRESENTATIVE MD Member Role: Lifetime Consulting Physician Address: Address: [address], [address] [facility] [place] [address]- Name: Belia Khoury MD Position: [facility] Physician - Primary Care Member Role: PCP Address: Address: [address] [place] [address]- Care Team Related Persons Name: IVETT MCGREGOR Address: home [address] [place] [address] Name: JOVANA PORTER Address: home [address] [place] [address] Name: SARA HERNÁNDEZ Address: home [address] [place] [address]
--- OUTSIDE RECORDS SUMMARY | 2023-10-31 11:53 | XMS_ITS | Continuity of Care Document ---
Author Organization [facility] Address [address] [place] [address]- Care Team Providers Care Payroll Bookkeeper Name Role Phone Belia Khoury MD Primary Care Physician En[place] [facility] Date(s): 09/11/23 - 10/11/23 [facility] [address] [place] [address]- Attending Physician: Carolyn Mitchell Admitting Physician: AdmCarolyn bethea Referring Physician: Admtr, Ar8 Allergies, Adverse Reactions, [...] 09/16/20 R ecorded SARS-CoV-2 (COVID-19) mRNA-1273 vaccine 4/7/21 R ecorded tetanus-diphtheria toxoids (Td) 09/25/17 Given influ virus vac, H1N1, inactive(oldterm) 7 06/22/09 Given FluLaval (oldterm) 8 01/29/09 Given Tet/Diphth/Acel, Pertussis (oldterm) 9 05/16/08 Gi candi Influenza Virus Vaccine (oldterm) 10 06/08/07 Give n Influenza Virus Vaccine (oldterm) 11 02/21/06 Give n 1Result Comment: [03/24/2014] fluarix trivalent 2Result Comment: [01/29/2013] Flulaval [id number]. VIS in Tongan given. 3Admin Note: VIS 11/2011 4Admin Note: VIS GIVEN VIS DATE 12/07/10 5Admin Note: VIS GIVEN 12/22/09 croatian 6Admin Note: VIS GIVEN 7Admin Note: vis 02/20 8Admin Note: VIS GIVEN VIS DATE 12/23/08 9Admin Note: VIS given 10Admin Note: VIS given 11Admin Note: VIS given Medications amLODIPine 10 mg oral tablet 10 mg, 1, tablet, By Mouth, Daily, # 90 tablet, Refills 3, Tot. Refills 3, Maintenance, 06/01/23 9:05:00 EST, Route to Pharmacy Electronically, [facility]/pharmacy #[id number], label all scripts in Tongan, 175, cm, 06/01/23 8:02:00 EST, Height, 124.5, kg, ... Start Date: 06/01/23 Stop Date: 05/26/24 Status: Ordered cholecalciferol 400 iu oral tablet 2 tablet = 20 mcg, By Mouth, Daily, # 180 tablet, 1 Refills, Maintenance, 06/01/23 8:56:00 EST, Tablet, [facility]/pharmacy #[id number], label all scripts in Tongan, 175, cm, 06/01/23 8:02:00 EST, Height, 124.5,kg, 02/27/23 7:09:00 EDT, Dry Weight Start Date: 06/01/23 Stop Date: 11/28/23 Status: Ordered clotrimazole 1% topical cream 1 application, Topically, 2 times a day, for rash, # 113 Gm, 1 Refills, Maintenance, 01/26/23 9:56:00 EDT, Cream, [facility]/pharmacy #[id number], Partial fill upon patient request if the prescription is for a schedule II opioid drug., 1 application Topically 2 ti... Start Date: 01/26/23 Stop Date: 03/27/23 Status: Ordered diclofenac 1% topical gel See Instructions, APPLY TO AFFECTED AREA 4 TIMES A DAY, # 100 Gm, 4 Refills, Maintenance, 11/09/22 16:41:00 EDT, [facility], 25, APPLY TO AFFECTED AREA 4 TIMES A DAY, 175.26, cm, 10/03/22 10:48:00 EDT, Height, 123, kg, 07/16/21 13:01:00 EST, Dry... Start Date: 11/09/22 Status: Ordered docusate sodium 100 mg oral capsule 1 capsule, By Mouth, 2 times a day, PRN NEEDED, CONSTIPATION., # 60 capsule, 2 Refills, Maintenance, 01/18/23 15:57:00 EDT, [facility], 175.26, cm, 10/03/22 10:48:00 EDT, Height, 123, kg, 07/16/21 13:01:00 EST, Dry Weight Start Date: 01/18/23 Status: Ordered Eliquis 5 mg oral tablet 1 tablet, By Mouth, 2 times a day, atrial fibrillation, # 180 tablet, 11 Refills, Maintenance, 01/26/23 10:16:00 EDT, [facility]/pharmacy #[id number], label all scripts in Tongan, 175.26, cm, 01/26/23 9:13:00 EDT, Height, 123, [...] 48 mL, 0Refills, Maintenance, 04/11/22 5:24:00 EST, [facility]/pharmacy #207, 90, Office visit needed for furtherrefills., SPRAY 1 SPRAY INTO BOTH NARES DAILY X 30... Start Date: 04/11/22 Status: Ordered gabapentin 100 mg oral capsule 200 mg, 2, capsule, By Mouth, 3 times a day, as of dose INCREASE, # 180 capsule, Refills 1, Tot. Refills 1, Maintenance, 06/01/23 9:07:00 EST, [facility] Partial fill upon patient request if the prescr... Start Date: 06/01/23 Stop Date: 07/31/23 Status: Ordered lisinopril 40 mg oral tablet 1 tablet, By Mouth, Daily, # 90 tablet, 11 Refills, Maintenance, 01/17/23 8:35:00 EDT, [facility]/pharmacy#2070, 175.26, cm, 10/03/22 10:48:00 EDT, Height, 123, kg, 07/16/21 13:01:00 EST, Dry Weight Start Date: 01/17/23 Stop Date: 01/01/26 Status: Ordered metoprolol 50 mg oral tablet, extended release 50 mg, 1, tablet, By Mouth, Daily, do not crush or chew (via cardiology in past), # 90 tablet, Refills 11, Tot. Refills 11, Maintenance, 01/26/23 10:16:00 EDT, Route to Pharmacy Electronically, [facility]/pharmacy #207, label all scripts in Tongan, 175.26,... Start Date: 01/26/23 Stop Date: 01/10/26 Status: Ordered nystatin topical 671674 u/gm powder See Instructions, APPLY TO AFFECTED AREA 3 TIMES A DAY, # 60 Gm, 1 Refills, Maintenance, 01/26/23 10:16:00 EDT, [facility]/pharmacy #207, 30, label all scripts in Tongan, APPLY TO AFFECTED AREA 3 TIMES A [...] Active Vitamin C deficiency Confirmed 2022 Active [place] cardiac risk 10-20% in next 1 Confirmed [...] Obstructive sleep apnea Confirmed Active BHN/CCA/ONECARE/CP-Migdalia Rollins [phone]/Health fdc, active care coordination Confirmed Active Severe obesity [...] days 07/23. 5X-rays 2007 [place]. [address] x0ray 7had neurosurgery visit 8on Social History Social History Type Response Smoking Status Never smoker entered on: 04/17/13 Sex Female Patient Care team information Care Team Personnel Name: Chang WILSON, Pattie Jorgensen Position: [facility] CHOKE SETTER MD Member Role: Lifetime Consulting Physician Address: Address: [address] [place] [address], [address] [facility] [place] [address]- Name: Belia Khoury MD Position: [facility] Physician - Primary Care Member Role: PCP Address: Address: [address] [place] [address]- Care Team Related Persons Name: IVETT MCGREGOR Address: home [address] [place] [address] Name: JOVANA PORTER Address: home [address] [place] [address] Name: SARA HERNÁNDEZ Address: home [address] [place] [address]
--- OUTSIDE RECORDS SUMMARY | 2023-10-31 11:53 | XMS_ITS | Continuity of Care Document ---
Author Organization [facility] Address [address] [place] [address], [address] [place] [address]- Care Team Providers Care Metal Buggy Operator Name Role Phone Iraida WILSON, Belia Primary Care Physician [facility] Date[facility]): 06[facility]/23 - 06/26/23 [facility] [address] [place] [address], [address] [place], [place] [address] Attending Physician: Riley Jones MD Referring Physician: Belia Khoury MD Allergies, [...] [03/24/2014] fluarix trivalent 2Result Comment: [01/29/2013] Flulaval [id number]. VIS in Malian given. 3Admin Note: VIS 11/2011 4Admin Note: [...] 06/01/23 9:05:00 EST, Route to Pharmacy Electronically, [facility]/pharmacy #[id number], label all scripts in Malian, 175, cm, 06/01/23 8:02:00 EST, Height, 124.5, kg, ... Start Date: 06/01/23 Stop Date: 05/26/24 Status: Ordered cholecalciferol 400 iu oral tablet 2 tablet = 20 mcg, By Mouth, Daily, # 180 tablet, 1 Refills, Maintenance, 06/01/23 8:56:00 EST, Tablet, [facility]/pharmacy #[id number], label all scripts in Malian, 175, cm, 06/01/23 8:02:00 EST, Height, 124.5,kg, 02/27/23 7:09:00 EDT, Dry Weight Start Date: 06/01/23 Stop Date: 11/28/23 Status: Ordered clotrimazole 1% topical cream 1 application, Topically, 2 times a day, for rash, # 113 Gm, 1 Refills, Maintenance, 01/26/23 9:56:00 EDT, Cream, [facility]/pharmacy #[id number], Partial fill upon patient request if the prescription is for a schedule II opioid drug., 1 application Topically 2 ti... Start Date: 01/26/23 Stop Date: 03/27/23 Status: Ordered diclofenac 1% topical gel See Instructions, APPLY TO AFFECTED AREA 4 TIMES A DAY, # 100 Gm, 4 Refills, Maintenance, 11/09/22 16:41:00 EDT, [facility], 25, APPLY TO AFFECTED AREA 4 TIMES A DAY, 175.26, cm, 10/03/22 10:48:00 EDT, Height, 123, kg, 07/16/21 13:01:00 EST, Dry... Start Date: 11/09/22 Status: Ordered docusate sodium 100 mg oral capsule 1 capsule, By Mouth, 2 times a day, PRN NEEDED, CONSTIPATION., # 60 capsule, 2 Refills, Maintenance, 01/18/23 15:57:00 EDT, [facility], 175.26, cm, 10/03/22 10:48:00 EDT, Height, 123, kg, 07/16/21 13:01:00 EST, Dry Weight Start Date: 01/18/23 Status: Ordered Eliquis 5 mg oral tablet 1 tablet, By Mouth, 2 times a day, atrial fibrillation, # 180 tablet, 11 Refills, Maintenance, 01/26/23 10:16:00 EDT, [facility]/pharmacy #[id number], label all scripts in Malian, 175.26, cm, 01/26/23 9:13:00 EDT, Height, 123, [...] 0Refills, Maintenance, 04/11/22 5:24:00 EST, [facility]/pharmacy #2070, 90, Office visit needed for furtherrefills., SPRAY 1 SPRAY INTO BOTH NARES DAILY X 30... Start Date: 04/11/22 Status: Ordered gabapentin 100 mg oral capsule 200 mg, 2, capsule, By Mouth, 3 times a day, as of dose INCREASE, # 180 capsule, Refills 1, Tot. Refills 1, Maintenance, 06/01/23 9:07:00 EST, [facility] Partial fill upon patient request if the prescr... Start Date: 06/01/23 Stop Date: 07/31/23 Status: Ordered lisinopril 40 mg oral tablet 1 tablet, By Mouth, Daily, # 90 tablet, 11 Refills, Maintenance, 01/17/23 8:35:00 EDT, [facility]/pharmacy#2070, 175.26, cm, 10/03/22 10:48:00 EDT, Height, 123, kg, 07/16/21 13:01:00 EST, Dry Weight Start Date: 01/17/23 Stop Date: 01/01/26 Status: Ordered metoprolol 50 mg oral tablet, extended release 50 mg, 1, tablet, By Mouth, Daily, do not crush or chew (via cardiology in past), # 90 tablet, Refills 11, Tot. Refills 11, Maintenance, 01/26/23 10:16:00 EDT, Route to Pharmacy Electronically, [facility]/pharmacy #207, label all scripts in Malian, 175.26,... Start Date: 01/26/23 Stop Date: 01/10/26 Status: Ordered nystatin topical 892072 u/gm powder See Instructions, APPLY TO AFFECTED AREA 3 TIMES A DAY, # 60 Gm, 1 Refills, Maintenance, 01/26/23 10:16:00 EDT, [facility]/pharmacy #2070, 30, label all scripts in Malian, APPLY TO AFFECTED AREA 3 TIMES A [...] Active Vitamin C deficiency Confirmed 2022 Active [place] cardiac risk 10-20% in next 1 Confirmed [...] - Obstructive sleep apnea Confirmed Active BHN/CCA/ONECARE/CP-Migdalia pedro Rollins [phone]/Health retirement, active care coordination Confirmed Active Severe obesity [...] days 07/23. 5X-rays 2007 c/w early [place]. [address] x0ray 7on [place] Social History Social History Type Response Smoking Status Never smoker entered on: 04/17/13 Sex Female Patient Care team information Care Team Personnel Name: Chang WILSON, Pattie Jorgensen Position: [facility] ADJUNCT INSTRUCTOR MD Member Role: Lifetime Consulting Physician Address: Address: [address] [place] [address], [address] [facility] [place] [address]- Name: Belia Khoury MD Position: [facility] Physician - Primary Care Member Role: PCP Address: Address: [address] [place] [address]- Care Team Related Persons Name: IVETT MCGREGOR Address: home [address] [place] [address] Name: JOVANA PORTER Address: home [address] [place] [address] Name: SARA HERNÁNDEZ Address: home [address] [place] [address]
--- OUTSIDE RECORDS SUMMARY | 2023-10-31 11:55 | XMS_ITS | Continuity of Care Document ---
Author Organization [facility] Address [address] [place] [address]- Care Team Providers Care Warehouse Checker Name Role Phone Belia Khoury MD Primary Care Physician [phone] [facility]counter [facility] Date[facility]s): 05/10/23 - 06/09/23 [facility] [address] [place] [address]- Allergies, Adverse Reactions, Alerts No Known Allergies [...] fluarix trivalent 14- 2Result Comment: [01/29/2013] Flulaval [id number]. VIS in [place]ian given. 3Admin Note: VIS 11/2011 4Admin Note: VIS GIVEN VIS DATE 12/07/10 5Admin Note: VIS GIVEN 12/22/09 somali 6Admin Note: VIS GIVEN 7Admin Note: vis 02/20 8Admin Note: VIS GIVEN VIS DATE 12/23/08 9Admin Note: VIS given 10Admin Note: VIS given 11Admin Note: VIS given Medications amLODIPine 10 mg oral tablet 10 mg, 1, tablet, By Mouth, Daily, # 90 tablet, Refills 3, Tot. Refills 3, Maintenance, 06/01/23 9:05:00 EST, Route to Pharmacy Electronically, [facility]/pharmacy #[id number], label all scripts in Ghanaian, 175, cm, 06/01/23 8:02:00 EST, Height, 124.5, kg, ... Start Date: 06/01/23 Stop Date: 05/26/24 Status: Ordered cholecalciferol 400 iu oral tablet 2 tablet = 20 mcg, By Mouth, Daily, # 180 tablet, 1 Refills, Maintenance, 06/01/23 8:56:00 EST, Tablet, [facility]/pharmacy #[id number], label all scripts in Ghanaian, 175, cm, 06/01/23 8:02:00 EST, Height, 124.5,kg, 02/27/23 7:09:00 EDT, Dry Weight Start Date: 06/01/23 Stop Date: 11/28/23 Status: Ordered clotrimazole 1% topical cream 1 application, Topically, 2 times a day, for rash, # 113 Gm, 1 Refills, Maintenance, 01/26/23 9:56:00 EDT, Cream, [facility]/pharmacy #[id number], Partial fill upon patient request if the prescription is for a schedule II opioid drug., 1 application Topically 2 ti... Start Date: 01/26/23 Stop Date: 03/27/23 Status: Ordered diclofenac 1% topical gel See Instructions, APPLY TO AFFECTED AREA 4 TIMES A DAY, # 100 Gm, 4 Refills, Maintenance, 11/09/22 16:41:00 EDT, [facility], 25, APPLY TO AFFECTED AREA 4 TIMES A DAY, 175.26, cm, 10/03/22 10:48:00 EDT, Height, 123, kg, 07/16/21 13:01:00 EST, Dry... Start Date: 11/09/22 Status: Ordered docusate sodium 100 mg oral capsule 1 capsule, By Mouth, 2 times a day, PRN NEEDED, CONSTIPATION., # 60 capsule, 2 Refills, Maintenance, 01/18/23 15:57:00 EDT, [facility], 175.26, cm, 10/03/22 10:48:00 EDT, Height, 123, kg, 07/16/21 13:01:00 EST, Dry Weight Start Date: 01/18/23 Status: Ordered Eliquis 5 mg oral tablet 1 tablet, By Mouth, 2 times a day, atrial fibrillation, # 180 tablet, 11 Refills, Maintenance, 01/26/23 10:16:00 EDT, [facility]/pharmacy #[id number], label all scripts in Ghanaian, 175.26, cm, 01/26/23 9:13:00 EDT, Height, 123, kg, 07/16/21 13:01:00 EST, Dry Weight Start Date: 01/26/23 Stop Date: 01/10/26 Status: Ordered esomeprazole 20 mg oral enteric coated capsule 1 capsule = 20 mg, By Mouth, 2 times a day, # 180 capsule, 2 Refills, Maintenance, 08/08/22 8:21:00EDT, [facility]/pharmacy #[id number], Partial fill upon patient request if the prescription is for a schedule IIopioid drug., 175.26, cm, 03/09/22 10:37:00 EDT, He... Start Date: 08/08/22 Status: Ordered fluticasone 50 mcg/inh nasal spray See Instructions, SPRAY 1 SPRAY INTO BOTH NARES DAILY X 30 DAYS NEEDED FOR ALLERGIES, # 48 mL, 0Refills, Maintenance, 04/11/22 5:24:00 EST, [facility]/pharmacy #207, 90, Office visit needed for furtherrefills., SPRAY 1 SPRAY INTO BOTH NARES DAILY X 30... Start Date: 04/11/22 Status: Ordered gabapentin 100 mg oral capsule 200 mg, 2, capsule, By Mouth, 3 times a day, as of dose INCREASE, # 180 capsule, Refills 1, Tot. Refills 1, Maintenance, 06/01/23 9:07:00 EST, Route to Pharmacy Electronically, [facility]/pharmacy #207, Partial fill upon patient request if the prescr... Start Date: 06/01/23 Stop Date: 07/31/23 Status: Ordered lisinopril 40 mg oral tablet 1 tablet, By Mouth, Daily, # 90 tablet, 11 Refills, Maintenance, 01/17/23 8:35:00 EDT, [facility]/pharmacy#2070, 175.26, cm, 10/03/22 10:48:00 EDT, Height, 123, kg, 07/16/21 13:01:00 EST, Dry Weight Start Date: 01/17/23 Stop Date: 01/01/26 Status: Ordered metoprolol 50 mg oral tablet, extended release 50 mg, 1, tablet, By Mouth, Daily, do not crush or chew (via cardiology in past), # 90 tablet, Refills 11, Tot. Refills 11, Maintenance, 01/26/23 10:16:00 EDT, Route to Pharmacy Electronically, [facility]/pharmacy #207, label all scripts in Ghanaian, 175.26,... Start Date: 01/26/23 Stop Date: 01/10/26 Status: Ordered nystatin topical 593620 u/gm powder See Instructions, APPLY TO AFFECTED AREA 3 TIMES A DAY, # 60 Gm, 1 Refills, Maintenance, 01/26/23 10:16:00 EDT, [facility]/pharmacy #2070, 30, label all scripts in [place]ian, APPLY TO AFFECTED AREA 3 TIMES A [...] Active Vitamin C deficiency Confirmed 2022 Active [place] cardiac risk 10-20% in next 10 years/2019 [...] Obstructive sleep apnea Confirmed Active BHN/CCA/ONECARE/CP-Migdalia Rollins [phone]/Health group home, active care coordination Confirmed Active Severe obesity [...] days 07/23. 5X-rays 2007 c/[place]. [address] x0ray 7on [place] Social History Social History Type Response Smoking Status Never smoker entered on: 04/17/13 Sex Female Patient Care team information Care Team Personnel Name: Chang WILSON, Pattie Jorgensen Position: [facility] FINISH PHOTOGRAPHER MD Member Role: Lifetime Consulting Physician Address: Address: [address] [place] [address], [facility] [address] [facility] [address]- Name: Belia Khoury MD Position: [facility] Physician - Primary Care Member Role: PCP Address: Address: [address] [place] [address]- Care Team Related Persons Name: IVETT MCGREGOR Address: home [address] [place] [address] Name: JOVANA PORTER Address: home [address] [place] [address] Name: SARA HERNÁNDEZ Address: home [address] [place] [address]
--- OUTSIDE RECORDS SUMMARY | 2023-10-31 11:55 | XMS_ITS | Continuity of Care Document ---
Author Organization [facility] Address [address] [place] [address]- Care Team Providers Care Field Service Tech Name Role Phone Belia Khoury MD Primary Care Physician [facility]): 08/14/23 - 09/13/23 [facility] [address] [place], [place] [phone] Allergies, Adverse Reactions, Alerts No Known Allergies [...] 09/25/17 Given influ virus vac, H1N1, inactive(oldterm) 06/22/09 Given FluLaval (oldterm) 8 01/29/09 Given Tet/Diphth/Acel, Pertussis (oldterm) 9 05/16/08 Gi candi Influenza Virus Vaccine (oldterm) 10 06/08/07 Give n Influenza Virus Vaccine (oldterm) 11 02/21/06 Give n 1Result Comment: [03/24/2014] fluarix trivalent - 2Result Comment: [01/29/2013] Flulaval [id number]. VIS in Icelandic given. 3Admin Note: VIS 11/2011 4Admin Note: VIS GIVEN VIS DATE 12/07/10 5Admin Note: VIS GIVEN 12/22/09 belarusian 6Admin Note: VIS GIVEN 7Admin Note: vis 02/20 8Admin Note: VIS GIVEN VIS DATE 12/23/08 9Admin Note: VIS given 10Admin Note: VIS given 11Admin Note: VIS given Medications amLODIPine 10 mg oral tablet 10 mg, 1, tablet, By Mouth, Daily, # 90 tablet, Refills 3, Tot. Refills 3, Maintenance, 06/01/23 9:05:00 EST, Route to Pharmacy Electronically, [facility]/pharmacy #[id number], label all scripts in Icelandic, 175, cm, 06/01/23 8:02:00 EST, Height, 124.5, kg, ... Start Date: 06/01/23 Stop Date: 05/26/24 Status: Ordered cholecalciferol 400 iu oral tablet 2 tablet = 20 mcg, By Mouth, Daily, # 180 tablet, 1 Refills, Maintenance, 06/01/23 8:56:00 EST, Tablet, [facility]/pharmacy #[id number], label all scripts in Icelandic, 175, cm, 06/01/23 8:02:00 EST, Height, 124.5,kg, 02/27/23 7:09:00 EDT, Dry Weight Start Date: 06/01/23 Stop Date: 11/28/23 Status: Ordered clotrimazole 1% topical cream 1 application, Topically, 2 times a day, for rash, # 113 Gm, 1 Refills, Maintenance, 01/26/23 9:56:00 EDT, Cream, [facility]/pharmacy #[id number], Partial fill upon patient request if the prescription is for a schedule II opioid drug., 1 application Topically 2 ti... Start Date: 01/26/23 Stop Date: 03/27/23 Status: Ordered diclofenac 1% topical gel See Instructions, APPLY TO AFFECTED AREA 4 TIMES A DAY, # 100 Gm, 4 Refills, Maintenance, 11/09/22 16:41:00 EDT, [facility], 25, APPLY TO AFFECTED AREA 4 TIMES A DAY, 175.26, cm, 10/03/22 10:48:00 EDT, Height, 123, kg, 07/16/21 13:01:00 EST, Dry... Start Date: 11/09/22 Status: Ordered docusate sodium 100 mg oral capsule 1 capsule, By Mouth, 2 times a day, PRN NEEDED, CONSTIPATION., # 60 capsule, 2 Refills, Maintenance, 01/18/23 15:57:00 EDT, [facility], 175.26, cm, 10/03/22 10:48:00 EDT, Height, 123, kg, 07/16/21 13:01:00 EST, Dry Weight Start Date: 01/18/23 Status: Ordered Eliquis 5 mg oral tablet 1 tablet, By Mouth, 2 times a day, atrial fibrillation, # 180 tablet, 11 Refills, Maintenance, 01/26/23 10:16:00 EDT, [facility]/pharmacy #[id number], label all scripts in Icelandic, 175.26, cm, 01/26/23 9:13:00 EDT, Height, 123, kg, 07/16/21 13:01:00 EST, Dry Weight Start Date: 01/26/23 Stop Date: 01/10/26 Status: Ordered esomeprazole 20 mg oral enteric coated capsule 1 capsule = 20 mg, By Mouth, 2 times a day, # 180 capsule, 2 Refills, Maintenance, 08/08/22 8:21:00EDT, [facility]/pharmacy #[id number], Partial fill upon patient request if the prescription is for a schedule IIopioid drug., 175.26, cm, 03/09/22 10:37:00 EDT, He... Start Date: 08/08/22 Status: Ordered fluticasone 50 mcg/inh nasal spray See Instructions, SPRAY 1 SPRAY INTO BOTH NARES DAILY X 30 DAYS NEEDED FOR ALLERGIES, # 48 mL, 0Refills, Maintenance, 04/11/22 5:24:00 EST, [facility]/pharmacy #207, 90, Office visit needed for furtherrefills., SPRAY 1 SPRAY INTO BOTH NARES DAILY X 30... Start Date: 04/11/22 Status: Ordered gabapentin 100 mg oral capsule 200 mg, 2, capsule, By Mouth, 3 times a day, as of dose INCREASE, # 180 capsule, Refills 1, Tot. Refills 1, Maintenance, 06/01/23 9:07:00 EST, [facility] Partial fill upon patient request if the prescr... Start Date: 06/01/23 Stop Date: 07/31/23 Status: Ordered lisinopril 40 mg oral tablet 1 tablet, By Mouth, Daily, # 90 tablet, 11 Refills, Maintenance, 01/17/23 8:35:00 EDT, [facility]/pharmacy#2070, 175.26, cm, 10/03/22 10:48:00 EDT, Height, 123, kg, 07/16/21 13:01:00 EST, Dry Weight Start Date: 01/17/23 Stop Date: 01/01/26 Status: Ordered metoprolol 50 mg oral tablet, extended release 50 mg, 1, tablet, By Mouth, Daily, do not crush or chew (via cardiology in past), # 90 tablet, Refills 11, Tot. Refills 11, Maintenance, 01/26/23 10:16:00 EDT, Route to Pharmacy Electronically, [facility]/pharmacy #207, label all scripts in Icelandic, 175.26,... Start Date: 01/26/23 Stop Date: 01/10/26 Status: Ordered nystatin topical 989255 u/gm powder See Instructions, APPLY TO AFFECTED AREA 3 TIMES A DAY, # 60 Gm, 1 Refills, Maintenance, 01/26/23 10:16:00 EDT, [facility]/pharmacy #2070, 30, label all scripts in Icelandic, APPLY TO AFFECTED AREA 3 TIMES A [...] Active Vitamin C deficiency Confirmed 2022 Active [place] cardiac risk 10-20% in next 10 /2019 [...] Obstructive sleep apnea Confirmed Active BHN/CCA/ONECARE/CP-Migdalia Rollins [phone]/Health prison, active care coordination Confirmed Active Severe obesity [...] days 07/23. 5X-rays 2007 c/w early [place]. [address] x0ray 7had neurosurgery visit 8on Social History Social History Type Response Smoking Status Never smoker entered on: 04/17/13 Sex Female Patient Care team information Care Team Personnel Name: Chang WILSON, Pattie Jorgensen Position: [facility] HEALTH INFORMATION TECHNOLOGIST MD Member Role: Lifetime Consulting Physician Address: Address: [address] [place] [address], [address] [facility] [address]- Name: Belia Khoury MD Position: [facility] Physician - Primary Care Member Role: PCP Address: Address: [address] [place] [address]- Care Team Related Persons Name: IVETT MCGREGOR Address: home [address] [place] [address] Name: JOVANA PORTER Address: home [address] [place] [address] Name: SARA HERNÁNDEZ Address: home [address] [place] [address]
--- OUTSIDE RECORDS SUMMARY | 2023-10-31 11:56 | XMS_ITS | Continuity of Care Document ---
Author Organization [facility] Address [address] [place] [address]- Care Team Providers Care Delivery Mgr Name Role Phone Belia Khoury MD Primary Care Physician [facility] 08[facility]23 - 09/21/23 [facility] [address] [place] [address]- Attending Physician: Admtr, Ar8 Allergies, Adverse Reactions, [...] fluarix trivalent - 2Result Comment: [01/29/2013] Flulaval [id number]. VIS in [place] Citizen given. 3Admin Note: [...] 06/01/23 9:05:00 EST, Route to Pharmacy Electronically, [facility]/pharmacy #[id number], label all scripts in [place] Citizen, 175, cm, 06/01/23 8:02:00 EST, Height, 124.5, kg, ... Start Date: 06/01/23 Stop Date: 05/26/24 Status: Ordered cholecalciferol 400 iu oral tablet 2 tablet = 20 mcg, By Mouth, Daily, # 180 tablet, 1 Refills, Maintenance, 06/01/23 8:56:00 EST, Tablet, [facility]/pharmacy #[id number], label all scripts in [place] Citizen, 175, cm, 06/01/23 8:02:00 EST, Height, 124.5,kg, 02/27/23 7:09:00 EDT, Dry Weight Start Date: 06/01/23 Stop Date: 11/28/23 Status: Ordered clotrimazole 1% topical cream 1 application, Topically, 2 times a day, for rash, # 113 Gm, 1 Refills, Maintenance, 01/26/23 9:56:00 EDT, Cream, [facility]/pharmacy #[id number], Partial fill upon patient request if the prescription is for a schedule II opioid drug., 1 application Topically 2 ti... Start Date: 01/26/23 Stop Date: 03/27/23 Status: Ordered diclofenac 1% topical gel See Instructions, APPLY TO AFFECTED AREA 4 TIMES A DAY, # 100 Gm, 4 Refills, Maintenance, 11/09/22 16:41:00 EDT, [facility], 25, APPLY TO AFFECTED AREA 4 TIMES A DAY, 175.26, cm, 10/03/22 10:48:00 EDT, Height, 123, kg, 07/16/21 13:01:00 EST, Dry... Start Date: 11/09/22 Status: Ordered docusate sodium 100 mg oral capsule 1 capsule, By Mouth, 2 times a day, PRN NEEDED, CONSTIPATION., # 60 capsule, 2 Refills, Maintenance, 01/18/23 15:57:00 EDT, [facility], 175.26, cm, 10/03/22 10:48:00 EDT, Height, 123, kg, 07/16/21 13:01:00 EST, Dry Weight Start Date: 01/18/23 Status: Ordered Eliquis 5 mg oral tablet 1 tablet, By Mouth, 2 times a day, atrial fibrillation, # 180 tablet, 11 Refills, Maintenance, 01/26/23 10:16:00 EDT, [facility]/pharmacy #[id number], label all scripts in [place] Citizen, 175.26, cm, 01/26/23 9:13:00 EDT, Height, 123, [...] 48 mL, 0Refills, Maintenance, 04/11/22 5:24:00 EST, [facility]/pharmacy #207, 90, Office visit needed for furtherrefills., SPRAY 1 SPRAY INTO BOTH NARES DAILY X 30... Start Date: 04/11/22 Status: Ordered gabapentin 100 mg oral capsule 200 mg, 2, capsule, By Mouth, 3 times a day, as of dose INCREASE, # 180 capsule, Refills 1, Tot. Refills 1, Maintenance, 06/01/23 9:07:00 EST, Route to Pharmacy Electronically, [facility]/pharmacy #207, Partial fill upon patient request if the prescr... Start Date: 06/01/23 Stop Date: 07/31/23 Status: Ordered lisinopril 40 mg oral tablet 1 tablet, By Mouth, Daily, # 90 tablet, 11 Refills, Maintenance, 01/17/23 8:35:00 EDT, [facility]/pharmacy#2070, 175.26, cm, 10/03/22 10:48:00 EDT, Height, 123, kg, 07/16/21 13:01:00 EST, Dry Weight Start Date: 01/17/23 Stop Date: 01/01/26 Status: Ordered metoprolol 50 mg oral tablet, extended release 50 mg, 1, tablet, By Mouth, Daily, do not crush or chew (via cardiology in past), # 90 tablet, Refills 11, Tot. Refills 11, Maintenance, 01/26/23 10:16:00 EDT, Route to Pharmacy Electronically, [facility]/pharmacy #207, label all scripts in [place] Citizen, 175.26,... Start Date: 01/26/23 Stop Date: 01/10/26 Status: Ordered nystatin topical 479067 u/gm powder See Instructions, APPLY TO AFFECTED AREA 3 TIMES A DAY, # 60 Gm, 1 Refills, Maintenance, 01/26/23 10:16:00 EDT, [facility]/pharmacy #207, 30, label all scripts in [place] Citizen, APPLY TO AFFECTED AREA 3 TIMES A [...] Active Vitamin C deficiency Confirmed 2022 Active [place] cardiac risk 10-20% in next 10 /2019 [...] Active Microalbuminuria Confirmed Active Meningioma per Neurosurgeon 9-2021, on ?Outside MRI, stable - next neurosurgery visit and MRI due 7 Confirmed Active SHAHRIAR - Obstructive sleep apnea Confirmed Active BHN/CCA/ONECARE/CP-Migdalia Rollins [phone]/Health custodial, active care coordination Confirmed Active Severe obesity [...] days 07/23. 5X-rays 2007 c/[place]. [address] x0ray 7had neurosurgery visit 8on Procedures Procedure Date Related Diagnosis Body Site Status colonoscopy 1 11/09/10 Completed 1normal mucosa in the whole colon. divericlosis of the descending colon. there were no polyps or hemorrhids. follow-up with Nuvia as needed. repeat colonoscopy in 10 years. goran. 12/01/2010 Social History Social History Type Response Smoking Status Never smoker entered on: 04/17/13 Sex Female Radiology * Merlyn Gardiner: PERFORM Event Display: Radiology Results Scanned Authored Date: [id number] Patient Care team information Care Team Personnel Name: Chang WILSON, Pattie Jorgensen Position: [facility] POT PRESS OPERATOR MD Member Role: Lifetime Consulting Physician Address: Address: [address] [place] [address], [address] [facility] [place] [address]- Name: Belia Khoury MD Position: [facility] Physician - Primary Care Member Role: PCP Address: Address: [address] [place] [address]- Care Team Related Persons Name: IVETT MCGREGOR Address: home [address] [place] [address] Name: JOVANA PORTER Address: home [address] [place] [address] Name: SARA HERNÁNDEZ Address: home [address] [place] [address]
--- OUTSIDE RECORDS SUMMARY | 2023-10-31 11:56 | XMS_ITS | Continuity of Care Document ---
Author Organization [facility] Address [address] [place] [address]- Care Team Providers Care Linux Server Engineer Name Role Phone Belia Khoury MD Primary Care Physician [facility]/23 - 05/20/23 [facility] [address] [place], [place] [address] Allergies, Adverse Reactions, Alerts No Known Allergies [...] fluarix trivalent - 2Result Comment: [01/29/2013] Flulaval [id number]. VIS in [place] given. 3Admin Note: VIS 11/2011 4Admin Note: [...] #2071, label all scripts in [place], 175.26, cm, 01/26/23 9:13:00 EDT, Height, 123, [...] doses/day, # 240 mL, 0 Refills, Acute 06/01/23 14:37:00 EST, 05/18/23 14:37:00 EST, Liquid, [facility]/pharmacy #[id number], Partial fill upon patient request if the prescription... Start Date: 05/18/23 Stop Date: 06/01/23 Status: Ordered diclofenac 1% topical gel See Instructions, APPLY TO AFFECTED AREA 4 TIMES A DAY, # 100 Gm, 4 Refills, Maintenance, 11/09/22 16:41:00 EDT, [facility], 25, APPLY TO AFFECTED AREA 4 TIMES [...] Refills, Maintenance, 01/18/23 15:57:00 EDT, [facility], 175.26, cm, 10/03/22 10:48:00 EDT, Height, 123, kg, 07/16/21 13:01:00 EST, Dry Weight Start Date: 01/18/23 Status: Ordered Eliquis 5 mg oral tablet 1 tablet, By Mouth, 2 times a day, atrial fibrillation, # 180 tablet, 11 Refills, Maintenance, 01/26/23 10:16:00 EDT, [facility]/pharmacy #[id number], label all scripts in [place], 175.26, cm, 01/26/23 9:13:00 EDT, Height, 123, kg, 07/16/21 13:01:00 EST, Dry Weight Start Date: 01/26/23 Stop Date: 01/10/26 Status: Ordered esomeprazole 20 mg oral enteric coated capsule 1 capsule = 20 mg, By Mouth, 2 times a day, # 180 capsule, 2 Refills, Maintenance, 08/08/22 8:21:00EDT, [facility]/pharmacy #[id number], Partial fill upon patient request if the prescription is for a schedule IIopioid drug., 175.26, cm, 03/09/22 10:37:00 EDT, He... Start Date: 08/08/22 Status: Ordered fluticasone 50 mcg/inh nasal spray See Instructions, SPRAY 1 SPRAY INTO BOTH NARES DAILY X 30 DAYS NEEDED FOR ALLERGIES, # 48 mL, 0Refills, Maintenance, 04/11/22 5:24:00 EST, [facility]/pharmacy #[id number], 90, Office visit needed for [...] Heather... Start Date: 05/11/23 Status: Ordered Hand Credit Card Specialist Hand Credit Card Specialist, See Instructions, # 1 each, Refills 0, [...] Acute 06/07/23 21:00:00 EST, 05/10/23 14:12:00 EST, [place], [facility]/pharmacy #[id number], Partial fill upon patient request if the prescriptionis for a schedule II opioid drug., 2 sprays Nares,... Start Date: 05/10/23 Stop Date: 06/07/23 Status: Ordered lisinopril 40 mg oral tablet 1 tablet, By Mouth, Daily, # 90 tablet, 11 Refills, Maintenance, 01/17/23 8:35:00 EDT, [facility]/pharmacy#207, 175.26, cm, 10/03/22 10:48:00 EDT, Height, 123, kg, 07/16/21 13:01:00 EST, Dry Weight Start Date: 01/17/23 Stop Date: 01/01/26 Status: Ordered metoprolol 50 mg oral tablet, extended release 50 mg, 1, tablet, By Mouth, Daily, do not crush or chew (via cardiology in past), # 90 tablet, Refills 11, Tot. Refills 11, Maintenance, 01/26/23 10:16:00 EDT, Route to Pharmacy Electronically, [facility]/pharmacy #[id number], label all scripts in [place], 175.26,... Start Date: 01/26/23 Stop Date: 01/10/26 Status: Ordered nystatin topical 849736 u/gm powder See Instructions, APPLY TO AFFECTED AREA 3 TIMES A DAY, # 60 Gm, 1 Refills, Maintenance, 01/26/23 10:16:00 EDT, [facility]/pharmacy #207, 30, label all scripts in [place], APPLY TO AFFECTED AREA 3 TIMES A [...] 11 Refills, Maintenance, 01/26/23 10:25:00 EDT, Tablet, [facility]/pharmacy #2071, 175.26, cm, 01/26/23 9:13:00 EDT, Height, 123, kg, 07/16/21 13:01:00 EST, Dry Weight Start Date: 01/26/23 Stop Date: 01/10/26 Status: Ordered tiZANidine 2 mg oral tablet 2 mg, 1, tablet, By Mouth, 3 times a day, # 15 tablet, Refills 0, Tot. Refills 0, Maintenance, 02/24/23 17:11:00 EDT, Route to Pharmacy Electronically, [facility]/pharmacy #[id number], Partial fill upon patient request if the prescription is for a schedule II opio... Start Date: 02/24/23 Stop Date: 03/01/23 Status: Ordered Tylenol Extra Strength 500 mg oral tablet 2 tablet = 1,000 mg, By Mouth, Every 8 hours, PRN as needed for pain, # 100 tablet, 12 Refills, Maintenance, 05/10/23 14:13:00 EST, Tablet, [facility]/pharmacy #2071, Partial fill upon patient request if the prescription is for a schedule II opioid drug., 17... Start Date: 05/10/23 Status: Ordered Vitamin C 250 mg oral tablet 1 tablet, By Mouth, Daily, # 30 tablet, 1 Refills, Maintenance, 03/21/23 17:41:00 EST, [facility], 175, cm, 02/27/23 7:09:00 EDT, Height, 124.5, [...] pending Rheumatolgoy as of Confirmed 02/2022 Active [place] cardiac risk 10-20% in next 10 /2019 [...] days 07/23. 5X-rays 2007 c/[place]. [address] x0ray 7on [place] Social History Social History Type Response Smoking Status Never smoker entered on: 04/17/13 Sex Female Patient Care team information Care Team Personnel Name: Chang WILSON, Pattie Jorgensen Position: [facility] TELEPHONE EXCHANGE OPERATOR MD Member Role: Lifetime Consulting Physician Address: Address: [address] [facility], [facility] [address] [place] [address]- Name: Belia Khoury MD Position: [facility] Physician - Primary Care Member Role: PCP Address: Address: [address] [place] [address]- Care Team Related Persons Name: IVETT MCGREGOR Address: home [address] [place] [address] Name: JOVANA PORTER Address: home [address] [place] [address] Name: SARA HERNÁNDEZ Address: home [address] [place] [address]
--- OUTSIDE RECORDS SUMMARY | 2023-10-31 11:56 | XMS_ITS | Continuity of Care Document ---
Author Organization [facility] Address [address] [place] [address]- Care Team Providers Care Log Sorting Supervisor Name Role Phone Belia Khoury MD Primary Care Physician [facility]): 05[facility]10[facility]23 - 06/09/23 [facility] [address] [place], [place] [address] Allergies, Adverse Reactions, Alerts [...] fluarix trivalent - 2Result Comment: [01/29/2013] Flulaval [id number]. VIS in Greek given. 3Admin Note: VIS 11/2011 4Admin Note: VIS GIVEN VIS DATE 12/07/10 5Admin Note: VIS GIVEN 12/22/09 australian 6Admin Note: VIS GIVEN 7Admin Note: vis 02/20 8Admin Note: VIS GIVEN VIS DATE 12/23/08 9Admin Note: VIS given 10Admin Note: VIS given 11Admin Note: VIS given Medications amLODIPine 10 mg oral tablet 10 mg, 1, tablet, By Mouth, Daily, # 90 tablet, Refills 3, Tot. Refills 3, Maintenance, 06/01/23 9:05:00 EST, Route to Pharmacy Electronically, [facility]/pharmacy #[id number], label all scripts in Greek, 175, cm, 06/01/23 8:02:00 EST, Height, 124.5, kg, ... Start Date: 06/01/23 Stop Date: 05/26/24 Status: Ordered cholecalciferol 400 iu oral tablet 2 tablet = 20 mcg, By Mouth, Daily, # 180 tablet, 1 Refills, Maintenance, 06/01/23 8:56:00 EST, Tablet, [facility]/pharmacy #[id number], label all scripts in Greek, 175, cm, 06/01/23 8:02:00 EST, Height, 124.5,kg, 02/27/23 7:09:00 EDT, Dry Weight Start Date: 06/01/23 Stop Date: 11/28/23 Status: Ordered clotrimazole 1% topical cream 1 application, Topically, 2 times a day, for rash, # 113 Gm, 1 Refills, Maintenance, 01/26/23 9:56:00 EDT, Cream, [facility]/pharmacy #[id number], Partial fill upon patient request if the prescription is for a schedule II opioid drug., 1 application Topically 2 ti... Start Date: 01/26/23 Stop Date: 03/27/23 Status: Ordered diclofenac 1% topical gel See Instructions, APPLY TO AFFECTED AREA 4 TIMES A DAY, # 100 Gm, 4 Refills, Maintenance, 11/09/22 16:41:00 EDT, [facility], 25, APPLY TO AFFECTED AREA 4 TIMES A DAY, 175.26, cm, 10/03/22 10:48:00 EDT, Height, 123, kg, 07/16/21 13:01:00 EST, Dry... Start Date: 11/09/22 Status: Ordered docusate sodium 100 mg oral capsule 1 capsule, By Mouth, 2 times a day, PRN NEEDED, CONSTIPATION., # 60 capsule, 2 Refills, Maintenance, 01/18/23 15:57:00 EDT, [facility], 175.26, cm, 10/03/22 10:48:00 EDT, Height, 123, kg, 07/16/21 13:01:00 EST, Dry Weight Start Date: 01/18/23 Status: Ordered Eliquis 5 mg oral tablet 1 tablet, By Mouth, 2 times a day, atrial fibrillation, # 180 tablet, 11 Refills, Maintenance, 01/26/23 10:16:00 EDT, [facility]/pharmacy #[id number], label all scripts in Greek, 175.26, cm, 01/26/23 9:13:00 EDT, Height, 123, kg, 07/16/21 13:01:00 EST, Dry Weight Start Date: 01/26/23 Stop Date: 01/10/26 Status: Ordered esomeprazole 20 mg oral enteric coated capsule 1 capsule = 20 mg, By Mouth, 2 times a day, # 180 capsule, 2 Refills, Maintenance, 08/08/22 8:21:00EDT, [facility]/pharmacy #[id number], Partial fill upon patient request if the prescription is for a schedule IIopioid drug., 175.26, cm, 03/09/22 10:37:00 EDT, He... Start Date: 08/08/22 Status: Ordered fluticasone 50 mcg/inh nasal spray See Instructions, SPRAY 1 SPRAY INTO BOTH NARES DAILY X 30 DAYS NEEDED FOR ALLERGIES, # 48 mL, 0Refills, Maintenance, 04/11/22 5:24:00 EST, [facility]/pharmacy #207, 90, Office visit needed for furtherrefills., SPRAY 1 SPRAY INTO BOTH NARES DAILY X 30... Start Date: 04/11/22 Status: Ordered gabapentin 100 mg oral capsule 200 mg, 2, capsule, By Mouth, 3 times a day, as of dose INCREASE, # 180 capsule, Refills 1, Tot. Refills 1, Maintenance, 06/01/23 9:07:00 EST, Route to Pharmacy Electronically, [facility]/pharmacy #207, Partial fill upon patient request if the prescr... Start Date: 06/01/23 Stop Date: 07/31/23 Status: Ordered lisinopril 40 mg oral tablet 1 tablet, By Mouth, Daily, # 90 tablet, 11 Refills, Maintenance, 01/17/23 8:35:00 EDT, [facility]/pharmacy#2070, 175.26, cm, 10/03/22 10:48:00 EDT, Height, 123, kg, 07/16/21 13:01:00 EST, Dry Weight Start Date: 01/17/23 Stop Date: 01/01/26 Status: Ordered metoprolol 50 mg oral tablet, extended release 50 mg, 1, tablet, By Mouth, Daily, do not crush or chew (via cardiology in past), # 90 tablet, Refills 11, Tot. Refills 11, Maintenance, 01/26/23 10:16:00 EDT, Route to Pharmacy Electronically, [facility]/pharmacy #207, label all scripts in Greek, 175.26,... Start Date: 01/26/23 Stop Date: 01/10/26 Status: Ordered nystatin topical 126588 u/gm powder See Instructions, APPLY TO AFFECTED AREA 3 TIMES A DAY, # 60 Gm, 1 Refills, Maintenance, 01/26/23 10:16:00 EDT, [facility]/pharmacy #207, 30, label all scripts in Greek, APPLY TO AFFECTED AREA 3 TIMES A [...] Active Vitamin C deficiency Confirmed 2022 Active [place] cardiac risk 10-20% in next 10 /2019 [...] per Neurosurgeon , on ?Outside MRI, stable 4-2022 -needs continued followup Confirmed Active SHAHRIAR - Obstructive sleep apnea Confirmed Active BHN/CCA/[facility]/CP-Migdalia pedro Rollins 210.569-8163/[facility], active care coordination [...] days 07/23. 5X-rays 2007 c/w early [place]. [address] x0ray 7on [place] Social History Social History Type Response Smoking Status Never smoker entered on: 04/17/13 Sex Female Patient Care team information Care Team Personnel Name: Chang WILSON, Pattie Jorgensen Position: [facility] HOME INSPECTOR MD Member Role: Lifetime Consulting Physician Address: Address: [address] [place] [address], [facility] [address] [place] [address]- Name: Belia Khoury MD Position: [facility] Physician - Primary Care Member Role: PCP Address: Address: [address] [place] [address]- Care Team Related Persons Name: IVETT MCGREGOR Address: home [address] [place] [address] Name: JOVANA PORTER Address: home [address] [place] [address] Name: SARA HERNÁNDEZ Address: home [address] [place] [address]
--- OUTSIDE RECORDS SUMMARY | 2023-10-31 11:57 | XMS_ITS | Continuity of Care Document ---
Author Organization [facility] Address [address] [place] [address] [address], [address] [place] [address]- Care Team Providers Care Helper Animal Laboratory Name Role Phone Iraida WILSON, Belia Primary Care Physician [facility]23 - 07/05/23 [facility] [address] [place] [address], [address] [place], [place] [address] Allergies, Adverse Reactions, Alerts No Known [...] fluarix trivalent - 2Result Comment: [01/29/2013] Flulaval [id number]. VIS in Russian given. 3Admin Note: VIS [...] [facility]/pharmacy #[id number], label all scripts in Russian, 175, cm, 06/01/23 8:02:00 EST, Height, 124.5, kg, ... Start Date: 06/01/23 Stop Date: 05/26/24 Status: Ordered cholecalciferol 400 iu oral tablet 2 tablet = 20 mcg, By Mouth, Daily, # 180 tablet, 1 Refills, Maintenance, 06/01/23 8:56:00 EST, Tablet, [facility]/pharmacy #[id number], label all scripts in Russian, 175, cm, 06/01/23 8:02:00 EST, Height, 124.5,kg, [...] Refills, Maintenance, 11/09/22 16:41:00 EDT, [facility], 25, APPLY TO AFFECTED AREA 4 TIMES A DAY, 175.26, cm, 10/03/22 10:48:00 EDT, Height, 123, kg, 07/16/21 13:01:00 EST, Dry... Start Date: 11/09/22 Status: Ordered docusate sodium 100 mg oral capsule 1 capsule, By Mouth, 2 times a day, PRN NEEDED, CONSTIPATION., # 60 capsule, 2 Refills, Maintenance, 01/18/23 15:57:00 EDT, [facility], 175.26, cm, 10/03/22 10:48:00 EDT, Height, 123, kg, 07/16/21 13:01:00 EST, Dry Weight Start Date: 01/18/23 Status: Ordered Eliquis 5 mg oral tablet 1 tablet, By Mouth, 2 times a day, atrial fibrillation, # 180 tablet, 11 Refills, Maintenance, 01/26/23 10:16:00 EDT, [facility]/pharmacy #2071, label all scripts in Russian, 175.26, cm, 01/26/23 9:13:00 EDT, Height, 123, [...] 9:07:00 EST, [facility] fill upon patient request [...] [facility]/pharm[facility] #207, label all scripts in Russian, 175.26,... Start Date: 01/26/23 Stop Date: 01/10/26 Status: Ordered nystatin topical 045908 u/gm powder See Instructions, APPLY TO AFFECTED AREA 3 TIMES A DAY, # 60 Gm, 1 Refills, Maintenance, 01/26/23 10:16:00 EDT, [facility]/pharmacy #2070, 30, label all scripts in Russian, APPLY TO AFFECTED AREA 3 TIMES A [...] Active Vitamin C deficiency Confirmed 2022 Active [place] cardiac risk 10-20% in next 10 years/2019 [...] Obstructive sleep apnea Confirmed Active BHN/CCA/[facility]/CP-Migdalia Rollins 819.000-6091/Health long-term, active care coordination Confirmed Active Severe obesity [...] days 07/23. 5X-rays 2007 c/w early [place]. [address] x0ray 7on [place] Social History Social History Type Response Smoking Status Never smoker entered on: 04/17/13 Sex Female Patient Care team information Care Team Personnel Name: Chang WILSON, Pattie Jorgensen Position: [facility] LEGAL ACTIVITY ADJUDICATOR MD Member Role: Lifetime Consulting Physician Address: Address: [address] [place] [address], [address] [facility] [place] [address]- Name: Belia Khoury MD Position: [facility] Physician - Primary Care Member Role: PCP Address: Address: [address] [place] [address]- Care Team Related Persons Name: IVETT MCGREGOR Address: home [address] [place] [address] Name: JOVANA PORTER Address: home [address] [place] [address] Name: SARA HERNÁNDEZ Address: home [address] [place] [address]
--- OUTSIDE RECORDS SUMMARY | 2023-10-31 11:57 | XMS_ITS | Continuity of Care Document ---
Author Organization [facility] Address [address] [place] [address]- Care Team Providers Care Vice President Corporate Communications Name Role Phone Belia Khoury MD Primary Care Physician [phone] [facility]23 - 07/13/23 [facility] [address] [place], [place] [address] Allergies, Adverse Reactions, Alerts No [...] fluarix trivalent - 2Result Comment: [01/29/2013] Flulaval [id number]. VIS in Vincentian given. 3Admin Note: VIS 11/2011 4Admin Note: VIS GIVEN VIS DATE 12/07/10 5Admin Note: VIS GIVEN 12/22/09 italian 6Admin Note: VIS GIVEN 7Admin Note: vis 02/20 8Admin Note: VIS GIVEN VIS DATE 12/23/08 9Admin Note: VIS given 10Admin Note: VIS given 11Admin Note: VIS given Medications amLODIPine 10 mg oral tablet 10 mg, 1, tablet, By Mouth, Daily, # 90 tablet, Refills 3, Tot. Refills 3, Maintenance, 06/01/23 9:05:00 EST, Route to Pharmacy Electronically, [facility]/pharmacy #[id number], label all scripts in Vincent[place], 175, cm, 06/01/23 8:02:00 EST, Height, 124.5, kg, ... Start Date: 06/01/23 Stop Date: 05/26/24 Status: Ordered cholecalciferol 400 iu oral tablet 2 tablet = 20 mcg, By Mouth, Daily, # 180 tablet, 1 Refills, Maintenance, 06/01/23 8:56:00 EST, Tablet, [facility]/pharmacy #2071, label all scripts in [place], 175, cm, 06/01/23 8:02:00 EST, Height, 124.5,kg, 02/27/23 7:09:00 EDT, Dry Weight Start Date: 06/01/23 Stop Date: 11/28/23 Status: Ordered clotrimazole 1% topical cream 1 application, Topically, 2 times a day, for rash, # 113 Gm, 1 Refills, Maintenance, 01/26/23 9:56:00 EDT, Cream, [facility]/pharmacy #2071, Partial fill upon patient request if the prescription is for a schedule II opioid drug., 1 application Topically 2 ti... Start Date: 01/26/23 Stop Date: 03/27/23 Status: Ordered diclofenac 1% topical gel See Instructions, APPLY TO AFFECTED AREA 4 TIMES A DAY, # 100 Gm, 4 Refills, Maintenance, 11/09/22 16:41:00 EDT, [facility], 25, APPLY TO AFFECTED AREA 4 TIMES A DAY, 175.26, cm, 10/03/22 10:48:00 EDT, Height, 123, kg, 07/16/21 13:01:00 EST, Dry... Start Date: 11/09/22 Status: Ordered docusate sodium 100 mg oral capsule 1 capsule, By Mouth, 2 times a day, PRN NEEDED, CONSTIPATION., # 60 capsule, 2 Refills, Maintenance, 01/18/23 15:57:00 EDT, [facility], 175.26, cm, 10/03/22 10:48:00 EDT, Height, 123, kg, 07/16/21 13:01:00 EST, Dry Weight Start Date: 01/18/23 Status: Ordered Eliquis 5 mg oral tablet 1 tablet, By Mouth, 2 times a day, atrial fibrillation, # 180 tablet, 11 Refills, Maintenance, 01/26/23 10:16:00 EDT, [facility]/pharmacy #[id number], label all scripts in Vincentian, 175.26, cm, 01/26/23 9:13:00 EDT, Height, 123, kg, 07/16/21 13:01:00 EST, Dry Weight Start Date: 01/26/23 Stop Date: 01/10/26 Status: Ordered esomeprazole 20 mg oral enteric coated capsule 1 capsule = 20 mg, By Mouth, 2 times a day, # 180 capsule, 2 Refills, Maintenance, 08/08/22 8:21:00EDT, [facility]/pharmacy #2071, Partial fill upon patient request if the prescription is for a schedule IIopioid drug., 175.26, cm, 03/09/22 10:37:00 EDT, He... Start Date: 08/08/22 Status: Ordered fluticasone 50 mcg/inh nasal spray See Instructions, SPRAY 1 SPRAY INTO BOTH NARES DAILY X 30 DAYS NEEDED FOR ALLERGIES, # 48 mL, 0Refills, Maintenance, 04/11/22 5:24:00 EST, [facility]/pharmacy #207, 90, Office visit needed for furtherrefills., SPRAY 1 SPRAY INTO BOTH NARES DAILY X 30... Start Date: 04/11/22 Status: Ordered gabapentin 100 mg oral capsule 200 mg, 2, capsule, By Mouth, 3 times a day, as of dose INCREASE, # 180 capsule, Refills 1, Tot. Refills 1, Maintenance, 06/01/23 9:07:00 EST, Route to Pharmacy Electronically, [facility]/pharmacy #207, Partial fill upon patient request if the prescr... Start Date: 06/01/23 Stop Date: 07/31/23 Status: Ordered lisinopril 40 mg oral tablet 1 tablet, By Mouth, Daily, # 90 tablet, 11 Refills, Maintenance, 01/17/23 8:35:00 EDT, [facility]/pharmacy#2070, 175.26, cm, 10/03/22 10:48:00 EDT, Height, 123, kg, 07/16/21 13:01:00 EST, Dry Weight Start Date: 01/17/23 Stop Date: 01/01/26 Status: Ordered metoprolol 50 mg oral tablet, extended release 50 mg, 1, tablet, By Mouth, Daily, do not crush or chew (via cardiology in past), # 90 tablet, Refills 11, Tot. Refills 11, Maintenance, 01/26/23 10:16:00 EDT, Route to Pharmacy Electronically, [facility]/pharmacy #207, label all scripts in Vincentian, 175.26,... Start Date: 01/26/23 Stop Date: 01/10/26 Status: Ordered nystatin topical 359884 u/gm powder See Instructions, APPLY TO AFFECTED AREA 3 TIMES A DAY, # 60 Gm, 1 Refills, Maintenance, 01/26/23 10:16:00 EDT, [facility]/pharmacy #207, 30, label all scripts in Vincentian, APPLY TO AFFECTED AREA 3 TIMES A [...] Active Vitamin C deficiency Confirmed 2022 Active [place] cardiac risk 10-20% in next 10 /2019 [...] sleep apnea Confirmed Active [facility]N/CCA/[facility]/CP-Migdalia pedro Rollins 420.221-0185/Health [facility], active care coordination Confirmed Active Severe obesity [...] days 07/23. 5X-rays 2007 c/[place]. [address] x0ray 7on [place] Social History Social History Type Response Smoking Status Never smoker entered on: 04/17/13 Sex Female Patient Care team information Care Team Personnel Name: Chang WILSON, Pattie Jorgensen Position: [facility] REAL ESTATE ACCOUNTANT MD Member Role: Lifetime Consulting Physician Address: Address: [address] [place] [address], [facility] [address] [place] [address]- Name: Belia Khoury MD Position: [facility] Physician - Primary Care Member Role: PCP Address: Address: [address] [place] [address]- Care Team Related Persons Name: IVETT MCGREGOR Address: home [address] [place] [address] Name: JOVANA PORTER Address: home [address] [place] [address] Name: SARA HERNÁNDEZ Address: home [address] [place] [address]
--- OUTSIDE RECORDS SUMMARY | 2023-10-31 11:57 | XMS_ITS | Continuity of Care Document ---
Author Organization [facility] Address [address] [place] [address]- Care Team Providers Care Record Clerk Name Role Phone Belia Khoury MD Primary Care Physician [facility]counter [facility] Date(s): 05/17/23 - 06/16/23 [facility] [address] [place] [address]- Allergies, Adverse Reactions, Alerts No Known Allergies [...] fluarix trivalent 14- 2Result Comment: [01/29/2013] Flulaval [id number]. VIS in Fijian given. 3Admin Note: VIS 11/2011 4Admin Note: [...] 06/01/23 9:05:00 EST, Route to Pharmacy Electronically, [facility]/pharmacy #[id number], label all scripts in Fijian, 175, cm, 06/01/23 8:02:00 EST, Height, 124.5, kg, ... Start Date: 06/01/23 Stop Date: 05/26/24 Status: Ordered cholecalciferol 400 iu oral tablet 2 tablet = 20 mcg, By Mouth, Daily, # 180 tablet, 1 Refills, Maintenance, 06/01/23 8:56:00 EST, Tablet, [facility]/pharmacy #[id number], label all scripts in Fijian, 175, cm, 06/01/23 8:02:00 EST, Height, 124.5,kg, 02/27/23 7:09:00 EDT, Dry Weight Start Date: 06/01/23 Stop Date: 11/28/23 Status: Ordered clotrimazole 1% topical cream 1 application, Topically, 2 times a day, for rash, # 113 Gm, 1 Refills, Maintenance, 01/26/23 9:56:00 EDT, Cream, [facility]/pharmacy #[id number], Partial fill upon patient request if the prescription is for a schedule II opioid drug., 1 application Topically 2 ti... Start Date: 01/26/23 Stop Date: 03/27/23 Status: Ordered diclofenac 1% topical gel See Instructions, APPLY TO AFFECTED AREA 4 TIMES A DAY, # 100 Gm, 4 Refills, Maintenance, 11/09/22 16:41:00 EDT, [id number], 25, APPLY TO AFFECTED AREA 4 TIMES A DAY, 175.26, cm, 10/03/22 10:48:00 EDT, Height, 123, kg, 07/16/21 13:01:00 EST, Dry... Start Date: 11/09/22 Status: Ordered docusate sodium 100 mg oral capsule 1 capsule, By Mouth, 2 times a day, PRN NEEDED, CONSTIPATION., # 60 capsule, 2 Refills, Maintenance, 01/18/23 15:57:00 EDT, [id number], 175.26, cm, 10/03/22 10:48:00 EDT, Height, 123, kg, 07/16/21 13:01:00 EST, Dry Weight Start Date: 01/18/23 Status: Ordered Eliquis 5 mg oral tablet 1 tablet, By Mouth, 2 times a day, atrial fibrillation, # 180 tablet, 11 Refills, Maintenance, 01/26/23 10:16:00 EDT, [facility]/pharmacy #[id number], label all scripts in Fijian, 175.26, cm, 01/26/23 9:13:00 EDT, Height, 123, kg, 07/16/21 13:01:00 EST, Dry Weight Start Date: 01/26/23 Stop Date: 01/10/26 Status: Ordered esomeprazole 20 mg oral enteric coated capsule 1 capsule = 20 mg, By Mouth, 2 times a day, # 180 capsule, 2 Refills, Maintenance, 08/08/22 8:21:00EDT, [facility]/pharmacy #[id number], Partial fill upon patient request if the prescription is for a schedule IIopioid drug., 175.26, cm, 03/09/22 10:37:00 EDT, He... Start Date: 08/08/22 Status: Ordered fluticasone 50 mcg/inh nasal spray See Instructions, SPRAY 1 SPRAY INTO BOTH NARES DAILY X 30 DAYS NEEDED FOR ALLERGIES, # 48 mL, 0Refills, Maintenance, 04/11/22 5:24:00 EST, [facility]/pharmacy #207, 90, Office visit needed for furtherrefills., SPRAY 1 SPRAY INTO BOTH NARES DAILY X 30... Start Date: 04/11/22 Status: Ordered gabapentin 100 mg oral capsule 200 mg, 2, capsule, By Mouth, 3 times a day, as of dose INCREASE, # 180 capsule, Refills 1, Tot. Refills 1, Maintenance, 06/01/23 9:07:00 EST, Route to Pharmacy Electronically, [facility]/pharmacy #207, Partial fill upon patient request if the prescr... Start Date: 06/01/23 Stop Date: 07/31/23 Status: Ordered lisinopril 40 mg oral tablet 1 tablet, By Mouth, Daily, # 90 tablet, 11 Refills, Maintenance, 01/17/23 8:35:00 EDT, [facility]/pharmacy#[id number], 175.26, cm, 10/03/22 10:48:00 EDT, Height, 123, kg, 07/16/21 13:01:00 EST, Dry Weight Start Date: 01/17/23 Stop Date: 01/01/26 Status: Ordered metoprolol 50 mg oral tablet, extended release 50 mg, 1, tablet, By Mouth, Daily, do not crush or chew (via cardiology in past), # 90 tablet, Refills 11, Tot. Refills 11, Maintenance, 01/26/23 10:16:00 EDT, Route to Pharmacy Electronically, [facility]/pharmacy #207, label all scripts in Fijian, 175.26,... Start Date: 01/26/23 Stop Date: 01/10/26 Status: Ordered nystatin topical 223534 u/gm powder See Instructions, APPLY TO AFFECTED AREA 3 TIMES A DAY, # 60 Gm, 1 Refills, Maintenance, 01/26/23 10:16:00 EDT, [facility]/pharmacy #[id number], 30, label all scripts in Fijian, APPLY TO AFFECTED AREA 3 TIMES A [...] Active Vitamin C deficiency Confirmed 2022 Active [place] cardiac risk 10-20% in next 10 years/2019 [...] Obstructive sleep apnea Confirmed Active BHN/CCA/[facility]/CP-Migdalia Rollins [phone]/Health [facility], active care coordination Confirmed Active Severe obesity [...] days 07/23. 5X-rays 2007 [place]. [address] x0ray 7on [place] Social History Social History Type Response Smoking Status Never smoker entered on: 04/17/13 Sex Female Patient Care team information Care Team Personnel Name: Chang WILSON, Pattie Jorgensen Position: [facility] DISTRIBUTING CLERK MD Member Role: Lifetime Consulting Physician Address: Address: [address] [place] [address], [facility] [address] [place] [address]- Name: Belia Khoury MD Position: [facility] Physician - Primary Care Member Role: PCP Address: Address: [address] [place] [id number]- Care Team Related Persons Name: IVETT MCGREGOR Address: home [address] [place] [address] Name: JOVANA PORTER Address: home [address] [place] [address] Name: SARA HERNÁNDEZ Address: home [address] [place] [address]
--- OUTSIDE RECORDS SUMMARY | 2023-10-31 11:57 | XMS_ITS | Continuity of Care Document ---
Author Organization [facility] ter Address [address] [place] [id number]- Care Team Providers Care Pest Control Worker Name Role Phone Iraida WILSON, Belia Primary Care Physician [facility]counter [facility] Date(s): 07/13/23 - 08/12/[address] [address] [place] Allergies, Adverse Reactions, Alerts No Known Allergies [...] fluarix trivalent - 2Result Comment: [01/29/2013] Flulaval [id number]. VIS in Bangladeshi given. 3Admin Note: VIS 11/2011 4Admin Note: [...] [facility]/pharmacy #[id number], label all scripts in Bangladeshi, 175, cm, 06/01/23 8:02:00 EST, Height, 124.5, kg, ... Start Date: 06/01/23 Stop Date: 05/26/24 Status: Ordered cholecalciferol 400 iu oral tablet 2 tablet = 20 mcg, By Mouth, Daily, # 180 tablet, 1 Refills, Maintenance, 06/01/23 8:56:00 EST, Tablet, [facility]/pharmacy #[id number], label all scripts in Bangladeshi, 175, cm, 06/01/23 8:02:00 EST, Height, 124.5,kg, [...] Refills, Maintenance, 11/09/22 16:41:00 EDT, [facility], 25, APPLY TO AFFECTED AREA 4 TIMES A DAY, 175.26, cm, 10/03/22 10:48:00 EDT, Height, 123, kg, 07/16/21 13:01:00 EST, Dry... Start Date: 11/09/22 Status: Ordered docusate sodium 100 mg oral capsule 1 capsule, By Mouth, 2 times a day, PRN NEEDED, CONSTIPATION., # 60 capsule, 2 Refills, Maintenance, 01/18/23 15:57:00 EDT, [facility], 175.26, cm, 10/03/22 10:48:00 EDT, Height, 123, kg, 07/16/21 13:01:00 EST, Dry Weight Start Date: 01/18/23 Status: Ordered Eliquis 5 mg oral tablet 1 tablet, By Mouth, 2 times a day, atrial fibrillation, # 180 tablet, 11 Refills, Maintenance, 01/26/23 10:16:00 EDT, [facility]/pharmacy #[id number], label all scripts in Bangladeshi, 175.26, cm, 01/26/23 9:13:00 EDT, Height, 123, [...] 06/01/23 9:07:00 EST, [facility] upon patient request [...] [facility]/pharmacy #207, label all scripts in Bangladeshi, 175.26,... Start Date: 01/26/23 Stop Date: 01/10/26 Status: Ordered nystatin topical 354885 u/gm powder See Instructions, APPLY TO AFFECTED AREA 3 TIMES A DAY, # 60 Gm, 1 Refills, Maintenance, 01/26/23 10:16:00 EDT, [facility]/pharmacy #[id number], 30, label all scripts in Bangladeshi, APPLY TO AFFECTED AREA 3 TIMES A [...] Active Vitamin C deficiency Confirmed 2022 Active [place] cardiac risk 10-20% in next 10 /2019 [...] Obstructive sleep apnea Confirmed Active [facility]N/CCA/[facility]/CP-Migdalia Rollins [phone]/Health [facility], active care coordination Confirmed Active Severe [...] days 07/23. 5X-rays 2007 c/[place]. [address] x0ray 7had neurosurgery visit 8on Social History Social History Type Response Smoking Status Never smoker entered on: 04/17/13 Sex Female Patient Care team information Care Team Personnel Name: Chang WILSON, Pattie Jorgensen Position: [facility] LINE BUILDER Member Role: Lifetime Consulting Physician Address: Address: [address] [place] [address], [facility] [address] [place] [address]- Name: Belia Khoury MD Position: [facility] Physician - Primary Care Member Role: PCP Address: Address: [address] [place] [address]- Care Team Related Persons Name: IVETT MCGREGOR Address: home [address] [place] [address] Name: JOVANA PORTER Address: home [address] [place] [address] Name: SARA HERNÁNDEZ Address: home [address] [place] [address]
[2023-10-31 12:06] VITALS: BP 143/61; PULSE 93; RESP 16; TEMP 37.7; O2SAT 98
[2023-10-31] MEDS: Amoxicillin/Potassium Clav 875 MG TABLET PO (12:13)
[2023-10-31] MEDS: Ibuprofen 600 MG TABLET PO (12:13)
[2023-10-31 13:01] VITALS: BP 143/61; PULSE 93; RESP 16; TEMP 37.7; O2SAT 98
== END 2023-10-31 13:02 | disposition home or self-care (01) ==
PROVIDERS: Emergency Provider Emergency Medicine; PCP Internal Medicine
DX: J02.0 Streptococcal pharyngitis (principal); R05.9 Cough, unspecified; I10 Essential (primary) hypertension; Z03.818 Encounter for observation for suspected exposure to other biological agents ruled out; Z79.899 Other long term (current) drug therapy
CPT/HCPCS: 0241U; 87651; 93005; 99283; 99284

== ENCOUNTER → 2023-10-31 10:09 | Outpatient (BNV) | payer OTHER, SELFPAY | PROVIDERS: Emergency Provider Emergency Medicine; PCP Internal Medicine; Visit Provider Internal Medicine Cardiovascular Disease | DX: R94.31 Abnormal electrocardiogram [ECG] [EKG] (principal) | CPT/HCPCS: 93010 ==

== ENCOUNTER 2024-02-19 08:46 | Emergency (ER) | payer OTHER, SELFPAY ==
--- NOTE | ~2024-02-19 | XR_ITS ---
EXAMINATION: XR CHEST CLINICAL INFORMATION: Chest pain COMPARISON: Chest xray on 10/04/15 TECHNIQUE: 2 views of the chest were obtained. FINDINGS: No significant abnormality is noted involving the heart, lungs, mediastinum, bony thorax or soft tissues. XR/XR chest 2V IMPRESSION: Unremarkable examination. Electronically signed by: Dulce Maria Mckeon MD 02/19/2024 09:46 AM EDT RP
--- NOTE | 2024-02-19 08:48 | ECG_ITS ---
Test Reason : cp Blood Pressure : / mmHG Vent. Rate : 079 BPM Atrial Rate : 079 BPM P-R Int : 136 ms QRS Dur : 086 ms QT Int : 376 ms P-R-T Axes : 022 -38 023 degrees QTc Int : 431 ms Normal sinus rhythm Left axis deviation Cannot rule out Anterior infarct , age undetermined Abnormal ECG When compared with ECG of 31-OCT-2023 10:11, Nonspecific T wave abnormality no longer evident in Anterior leads Referred By: Generic ED Physician Electronically Signed By:MARLON SANTIZO
[2024-02-19 08:55] VITALS: BP 153/78; PULSE 70; RESP 18; TEMP 36.1; O2SAT 97; BMI 39.1
[2024-02-19 09:02] LABS: MANUAL DIFF FLAG NO
[2024-02-19 09:04] LABS: Basophils Absolute Auto 0.1 X10*3/uL (0.0-0.2); Basophils Percent Auto 0.9 % (0-2); Eosinophils Absolute Auto 0.2 X10*3/uL (0.0-0.4); Eosinophils Percent Auto 3.4 % (0-4); Hematocrit 38.1 % (37.0-47.0); Hemoglobin 12.6 g/dl (12.0-16.0); Imm Gran Abs Auto 0.03 X10*3/uL (0.00-0.03); Imm Gran Pct Auto 0.5 % (0.0-0.4); Lymphocytes Absolute Auto 1.7 X10*3/uL (1.2-4.9); Mean Corpuscular HGB Conc 33.1 g/dl (31.0-35.0); Mean Corpuscular Hemoglobin 28.1 pg (27.0-33.0); Mean Platelet Volume 10.8 fL (9.4-12.3); Monocytes Absolute Auto 0.4 X10*3/uL (0.1-1.2); Monocytes Percent Auto 5.9 % (2-11); Neutrophils Absolute Auto 4.1 x10*3/uL (2.0-8.3); Neutrophils Percent Auto 63.3 % (45-73); Platelet Count 209 X10*3/uL (160-400); Red Blood Count 4.48 X10*6/uL (4.20-5.50); Red Cell Distribution Width 14.7 % (11.0-16.0); White Blood Count 6.5 X10*3/uL (4.8-10.8)
[2024-02-19 09:15] LABS: Anion Gap 9 (12-20); Blood Urea Nitrogen 18 mg/dL (9-16); Calcium 9.2 mg/dL (8.4-10.2); Carbon Dioxide 25 mmol/L (22-29); Chloride 112 mmol/L (96-108); Creatinine Clr Calc Pharmacy 86.7; Estimated Glomerular Filt Rate > 60; Glucose Random 193 mg/dL (60-115); Potassium 4.2 mmol/L (3.3-5.1); Sodium 142 mmol/L (135-145)
[2024-02-19 09:24] LABS: Troponin-I High Sensitivity < 2.7 ng/L (<3.5-17.0)
[2024-02-19 14:29] LABS: Troponin-I High Sensitivity < 2.7 ng/L (<3.5-17.0)
--- NOTE | 2024-02-19 16:29 | ED_ITS ---
HPI - Chest Pain General Chief Complaint: Chest Pain Stated Complaint: Chest Pain Time Seen by Provider: 02/19/24 16:10 Source: patient Limitations: no limitations History of Present Illness ED Provider: Janina Restrepo PA-C HPI narrative: 63-year-old female with a history of hypertension, hyperlipidemia, AFib on Eliquis and morbid obesity presents with generalized chest discomfort x2 days. Patient states her entire anterior chest is uncomfortable, a radiates to her back bilaterally up to her neck. Pain worse with movement of torso, upper extremities and with palpation of the chest wall. Patient denies new activity, heavy lifting, excessive exercise that could have precipitated her symptoms. Denies shortness of breath, unilateral calf pain or swelling. Denies recent cough or cold symptoms, no fevers. Related Data Previous Rx's ?Medication ?Instructions ?Recorded psyllium husk 3.4 gram/5.4 gram 1 tbsp PO DAILY #660 grams 09/29/20 oral powder (Metamucil) cyclobenzaprine 10 mg tablet 10 mg PO BEDTIME PRN muscle spasm 04/21/23 #14 tabs amoxicillin 875 mg-potassium 1 tab PO BID #20 tabs 10/31/23 clavulanate 125 mg tablet ibuprofen 600 mg tablet 600 mg PO Q8H PRN fever or pain 10/31/23 #14 tabs methocarbamol 500 mg tablet 500 mg PO TID PRN pain #15 tabs 02/19/24 Allergies Allergy/AdvReac Type Severity Reaction Status Date / Time No Known Allergies Allergy Verified 02/19/24 08:56 Review of Systems 2 Review of Systems: Yes all other systems are reviewed and are negative Constitutional: Constitutional: Denies fever(s) Cardiovascular: Cardiovascular: Reports chest pain and Denies dyspnea Respiratory: Respiratory: Denies cough and Denies dyspnea Gastrointestinal: Gastrointestinal: Denies abdominal pain and Denies vomiting PMF Past Medical History Attestation statement: The following information was validated with the patient. Medical History Acute carpal tunnel syndrome of left wrist Arthritis HTN (hypertension) Social History Social History Alcohol intake: never Advance Directives: No Advance Directives Information Provided: No Physical Exam 2 Vital Signs: Vital Signs: Last Vital Signs Temp 97 F 02/19/24 08:55 Pulse 70 02/19/24 08:55 Resp 18 02/19/24 08:55 BP 153/78 H 02/19/24 08:55 Pulse Ox 97 02/19/24 08:55 O2 Del Method Room Air 02/19/24 08:55 BMI result Body Mass Index 39.1 Const: Other: Alert, overall well in appearance Orientation/consciousness: patient oriented x3 Chest: Other: Tenderness to palpation over entire anterior chest wall, however no overlying erythema, swelling, ecchymosis, no deformity Resp: Effort & Inspection: normal respiratory effort Cardio: Other: Normal peripheral perfusion Skin: Other: Warm dry no rash Neuro: General: patient oriented x3, no focal motor deficits and CN's II-XI intact bilaterally Extrem: Other: Strength 5/5 bilateral upper extremities Psych: Other: Calm cooperative Medical Decision Making Medical Decision Making [facility] Narrative: 63-year-old female with a history of hypertension, hyperlipidemia, AFib on Eliquis and morbid obesity presents with generalized chest discomfort x2 days. Patient states her entire anterior chest is uncomfortable, a radiates to her back bilaterally up to her neck. Pain worse with movement of torso, upper extremities and with palpation of the chest wall. Patient denies new activity, heavy lifting, excessive exercise that could have precipitated her symptoms. Denies shortness of breath, unilateral calf pain or swelling. Denies recent cough or cold symptoms, no fevers. Lastly, thought about dissection, given chest pain with radiation to the back and neck, however she is not overtly hypertensive, she is neurovascularly intact, radial pulses equal, she has had symptoms for 2 days. And no widened mediastinum on chest x-ray Problem: Obesity, hypertension, hyperlipidemia, AFib History: Per patient I have considered the following differential diagnoses: ACS, PE, costochondritis, viral syndrome, pneumonia, musculoskeletal strain, dissection Plan: ACS was considered, screening labs, troponin x2, EKG and chest x-ray were obtained. This is not ACS despite the patient has risk factors for coronary artery disease, her exam and her symptoms are consistent with musculoskeletal pain/strain. We will send with home care instructions, and a short script for a muscle relaxant. Thought about PE, however there was no concurrent shortness of breath, her discomfort is not pleuritic, she has no objective signs on exam for DVT, she is not tachycardic nor hypoxic, no indication for a dimer. Thought about viral syndrome/pneumonia and costochondritis as cause for symptoms, however she has not had viral syndrome, no active cough no fevers. I have independently reviewed the following tests: Labs: No leukocytosis, not anemic, no electrolyte abnormality, troponin x2 are negative EKG: Normal sinus rhythm, rate of 79, no ischemic changes no ectopy Chest x-ray:XR CHEST CLINICAL INFORMATION: Chest pain COMPARISON: Chest xray on 10/04/15 TECHNIQUE: 2 views of the chest were obtained. FINDINGS: No significant abnormality is noted involving the heart, lungs, mediastinum, bony thorax or soft tissues. XR/XR chest 2V IMPRESSION: Unremarkable examination. Electronically signed by: Dulce Maria Mckeon MD 02/19/2024 09:46 AM EDT RP Lab Data 02/19/24 08:55 02/19/24 08:55 Labs: Lab Results 02/19/24 02/19/24 Range/Units 08:55 14:00 WBC 6.5 (4.8-10.8) X10*3/uL RBC 4.48 (4.20-5.50) X10*6/uL Hgb 12.6 (12.0-16.0) g/dl Hct 38.1 (37.0-47.0) % MCV 85.0 (80.0-98.0) fL MCH 28.1 (27.0-33.0) pg MCHC 33.1 (31.0-35.0) g/dl RDW 14.7 (11.0-16.0) % Plt Count 209 (160-400) X10*3/uL MPV 10.8 (9.4-12.3) fL Immature Gran % (Auto) 0.5 H (0.0-0.4) % Neut % (Auto) 63.3 (45-73) % Lymph % (Auto) 26.0 (20-40) % Wallace % (Auto) 5.9 (2-11) % Eos % (Auto) 3.4 (0-4) % Baso % (Auto) 0.9 (0-2) % Lymph # (Auto) 1.7 (1.2-4.9) X10*3/uL Wallace # (Auto) 0.4 (0.1-1.2) X10*3/uL Eos # (Auto) 0.2 (0.0-0.4) X10*3/uL Baso # (Auto) 0.1 (0.0-0.2) X10*3/uL Abs Immat Gran (auto) 0.03 (0.00-0.03) X10*3/uL Absolute Neuts (auto) 4.1 (2.0-8.3) x10*3/uL Absolute Nucleated RBC 0.000 (0.0-0.012) X10*3/uL Nucleated RBC % (auto) 0.0 (0.0-0.2) /100WBC Sodium 142 (135-145) mmol/L Potassium 4.2 (3.3-5.1) mmol/L Chloride 112 H (96-108) mmol/L Carbon Dioxide 25 (22-29) mmol/L Anion Gap 9 L (12-20) BUN 18 H (9-16) mg/dL Creatinine 0.92 (0.5-1.4) mg/dL Estim Creat Clear Calc 86.7 Estimated GFR > 60 Random Glucose 193 H (60-115) mg/dL Calcium 9.2 (8.4-10.2) mg/dL Troponin I High Sens < 2.7 < 2.7 (<3.5-17.0) ng/L Discharge Plan Discharge Clinical Impression: Anterior chest wall pain Patient Disposition: Home, Self-Care Instructions: Chest Wall Pain (ED) Additional Instructions: All of your labs were normal including 2 cardiac enzymes. There were no concerning changes on her EKG in your chest x-ray was clear. Your exam and symptoms are most consistent with chest wall pain/strain. See home care instructions. Alternate uwnq-qis-tiaugna Tylenol 1000 mg taken every 8 hours, with a muscle relaxant called him methocarbamol, as needed for pain. To note this medication will cause drowsiness. Call your primary care provider for an appointment. Prescriptions: New methocarbamol 500 mg tablet 500 mg PO TID PRN (Reason: pain) Qty: 15 0RF No Action Metamucil 3.4 gram/5.4 gram powder 1 tbsp PO DAILY Qty: 660 0RF Rx Instructions: mix into at least 8 oz of water or juice before administering cyclobenzaprine 10 mg tablet 10 mg PO BEDTIME PRN (Reason: muscle spasm) Qty: 14 0RF amoxicillin-pot clavulanate 875-125 mg tablet 1 tab PO BID Qty: 20 0RF ibuprofen 600 mg tablet 600 mg PO Q8H PRN (Reason: fever or pain) Qty: 14 0RF Print Language: Bolivian
[2024-02-19] MEDS: methocarbamoL 500 MG TABLET PO (16:46)
[2024-02-19 16:50] VITALS: BP 145/77; PULSE 75; RESP 20; TEMP 36.7; O2SAT 97
== END 2024-02-19 16:51 | disposition home or self-care (01) ==
PROVIDERS: Physician Assistant; Emergency Provider Emergency Medicine; PCP Internal Medicine
DX: R07.89 Other chest pain (principal); I10 Essential (primary) hypertension; E78.5 Hyperlipidemia, unspecified; I48.91 Unspecified atrial fibrillation; Z79.01 Long term (current) use of anticoagulants; Z79.899 Other long term (current) drug therapy
CPT/HCPCS: 36415; 71046; 80048; 84484; 85025; 93005; 99283

== ENCOUNTER 2025-01-21 09:26 | Emergency (ER) | payer OTHER, SELFPAY ==
--- NOTE | ~2025-01-21 | CT_ITS ---
EXAMINATION: CT ABDOMEN AND PELVIS WITH CONTRAST CLINICAL INFORMATION: Bilateral flank pain. Urinary tract infection COMPARISON: Noncontrast CT dated September 29, 2020. TECHNIQUE: Multidetector volumetric images were obtained from the superior aspect of the liver through the pubic symphysis following administration 85 mL of Omnipaque 350 intravenous contrast. Sagittal and coronal reformatted images were obtained on the technologist's workstation. Oral contrast: No This CT examination was performed using dose optimization techniques as appropriate, variously including the following: *Automated exposure control *Adjustment of mA and/or kV according to patient size (this includes techniques or standardized protocols for targeted exams where dose is matched to indication/reason for exam; i.e. extremities or head) *Use of iterative reconstruction technique. DLP: 1285 mGy centimeter. FINDINGS: LUNG BASES: No acute airspace disease. LIVER, GALLBLADDER, AND BILIARY TREE: Liver measures 18 cm. No focal mass. Main portal veins and hepatic veins are patent. Status post cholecystectomy. Common bile duct measures 8 mm. PANCREAS: There is a 16 mm enhancing ovoid shaped lesion centered in the body of the pancreas. No peripancreatic fluid collection. No main pancreatic ductal dilatation. SPLEEN: 10 cm. No focal mass. ADRENAL GLANDS: No nodular lesion. KIDNEYS AND URETERS: No hydronephrosis. No gross nephrolithiasis. Subcentimeter hypodensity, lower pole left kidney. Normal enhancement pattern of the renal parenchyma. BLADDER: Fluid-filled nearly collapsed. GASTROINTESTINAL TRACT: Appendix is normal. Numerous diverticula in the left hemicolon. Collapsed appearance of the left hemicolon. No pericolonic edema pattern. No ascites. No pneumoperitoneum. No peripheral enhancing fluid collections in the peritoneal cavity. No intestinal obstruction pattern. Small hiatal hernia. ABDOMINAL WALL: Small fat-containing umbilical hernia. LYMPH NODES: No mesenteric or retroperitoneal lymphadenopathy. VASCULAR: Mixed plaques in the abdominal aorta wall and iliac arteries without aneurysm or dissection. PELVIC VISCERA: 2 cm likely subserosal uterine fibroid. No masses in either ovary. OSSEOUS STRUCTURES: Multilevel thoracolumbar spondylosis without acute fracture or gross listhesis. Degenerative changes in the coxofemoral joints and sacroiliac joints as well as the symphysis pubis. CT/CT abdomen pelvis w IV con IMPRESSION: No hydronephrosis or nephrolithiasis. Small cysts, lower pole left kidney. Diverticular disease, left hemicolon. 16 mm lesion/mass, body of the pancreas. Concerning for malignancy. Hepatomegaly. Small fat-containing umbilical hernia. 2 cm subserosal uterine fibroids. Fleischner guidelines were followed. Electronically signed by: Cain Cisneros MD 01/21/2025 02:29 PM EDT
[2025-01-21 09:29] VITALS: BP 152/79; PULSE 75; RESP 18; TEMP 36.7; O2SAT 97; BMI 39.3
[2025-01-21 09:46] LABS: MANUAL DIFF FLAG NO
[2025-01-21 09:47] LABS: Hematocrit 38.6 % (37.0-47.0); Hemoglobin 13.3 g/dl (12.0-16.0); Imm Gran Abs Auto 0.12 X10*3/uL (0.00-0.03); Imm Gran Pct Auto 1.0 % (0.0-0.4); Lymphocytes Absolute Auto 2.1 X10*3/uL (1.2-4.9); Mean Corpuscular HGB Conc 34.5 g/dl (31.0-35.0); Mean Corpuscular Hemoglobin 29.3 pg (27.0-33.0); Mean Corpuscular Volume 85.0 fL (80.0-98.0); NRBC Abs Auto 0.000 X10*3/uL (0.0-0.012); NRBC Pct Auto 0.0 /100WBC (0.0-0.2); Platelet Count 270 X10*3/uL (160-400); Red Blood Count 4.54 X10*6/uL (4.20-5.50); White Blood Count 12.2 X10*3/uL (4.8-10.8)
[2025-01-21 09:49] LABS: Appearance Urine Clear; Glucose Urine UA Negative (Negative); PH 5.5 (5.0-9.0); Specific Gravity - Urine 1.015 (1.005-1.025); UMIC TRIGGER UACC YES
[2025-01-21 10:04] LABS: UACC Culture Trigger YES
[2025-01-21 10:05] LABS: Alanine Aminotransferase 11 U/L (0-31); Albumin Level 4.3 g/dL (3.5-5.0); Alkaline Phosphatase 112 U/L (39-117); Anion Gap 15 (12-20); Aspartate Amino Transferase 14 U/L (5-31); Blood Urea Nitrogen 21 mg/dL (9-16); Calcium 9.5 mg/dL (8.4-10.2); Carbon Dioxide 24 mmol/L (22-29); Chloride 105 mmol/L (96-108); Creatinine Clr Calc Pharmacy 78.2; Estimated Glomerular Filt Rate 55; Potassium 4.4 mmol/L (3.3-5.1); Sodium 140 mmol/L (135-145); Total Protein 7.6 g/dL (6.5-8.0)
[2025-01-21 13:11] VITALS: BP 121/62; PULSE 65; RESP 16; TEMP 36.8; O2SAT 99
--- NOTE | 2025-01-21 13:23 | ED_ITS ---
HPI - General Adult General Chief complaint: Abdominal Pain Stated complaint: Lower back pain Time Seen by Provider: 01/21/25 13:12 Source: patient Mode of arrival: ambulatory Limitations: no limitations History of Present Illness ED Provider: NATALIE BARRETT PA-C HPI narrative: 64 year old female with past medical history significant for hypertension, arthritis presents to the ED today for evaluation of acute on chronic lower back pain x3 days. Reports chronic back pain for which she typically takes Tylenol. Her last dose was at 0800 this morning. She states that 3 days ago she attempted to stand up from the toilet and felt a twinge in her low back. Reports pain since this time. Pain is localized to bilateral mid to lower back with radiation down bilateral buttocks into her thighs. Denies blunt injury/ trauma/falls. Denies history of spinal surgery. Denies IV drug use. Denies bowel or bladder incontinence or retention. She reports increased urinary urgency, frequency and dysuria over the last 3 days. This is not baseline for her. Denies fever/chills, hematuria. Additionally endorses epigastric abdominal discomfort x days. Denies nausea or vomiting. Surgical history reported to be tubal ligation and cholecystectomy. Related Data Previous Rx's ?Medication ?Instructions ?Recorded psyllium husk 3.4 gram/5.4 gram 1 tbsp PO DAILY #660 g delia 09/29/20 oral powder (Metamucil) cyclobenzaprine 10 mg tablet 10 mg PO BEDTIME PRN musc le spasm 04/21/23 #14 tabs amoxicillin 875 mg-potassium 1 tab PO BID #20 tabs clavulanate 125 mg tablet ibuprofen 600 mg tablet 600 mg PO Q8H PRN fever or p ain 10/31/23 #14 tabs methocarbamol 500 mg tablet 500 mg PO TID PRN pain #15 tabs 02/19/24 cefuroxime axetil 500 mg tablet 500 mg PO BID 7 days # 14 tabs 01/21/25 cyclobenzaprine 5 mg tablet 5 mg PO Q8H 3 days #9 tabs 01/21/25 lidocaine 5 % topical patch 1 patch topical DAILY #15 ea 01/21/25 (Lidoderm) Allergies Allergy/AdvReac Type Severity Reaction Status Date / Time No Known Allergies Allergy Verified 01/21/25 09:31 Review of Systems 2 Review of Systems: Yes all other systems are reviewed and are negative [facility] Past Medical History Attestation statement: The following information was validated with the patient. Source: old records reviewed and nursing notes reviewed Medical History Acute carpal tunnel syndrome of left wrist Arthritis HTN (hypertension) Social History Social History Alcohol intake: never Advance Directives: No Advance Directives Information Provided: Yes Physical Exam ED Vital Signs: Vital Signs - 24 hr 01/21/25 09:29 01/21/25 13:11 01/21/25 16:19 Temperature 98.0 F 98.3 F 98.3 F Pulse Rate 75 65 65 Respiratory Rate 18 16 16 Blood Pressure 152/79 H 121/62 121/62 Pulse Oximetry 97 99 99 Oxygen Delivery Method Room Air Room Air Room Air BMI result Body Mass Index 39.3 Hypertensive, vitals are otherwise WNL General: Well appearing, in no acute distress. Skin: Warm, dry, intact. No rashes or lesions. Head: Normocephalic, atraumatic. EENT: Hearing is intact b/l. Conjunctiva clear. PERRLA. EOM intact. Moist mucous membranes.? Neck: Supple without LAD Cardiac: Chest wall symmetric. RRR Lungs: Normal respiratory effort without accessory muscle use. CTA bilaterally Abdomen: Soft, non-tender, non-distended. No rebound tenderness or guarding. Positive BS x4. Negative Aguirre's sign. no cvat b/l. Back: There is midline spinous tenderness overlying thoracic and lumbar spine without step-off deformity. No crepitus or fluctuance. Ext: Upper and lower extremities atraumatic, without tenderness, deformity, swelling or erythema Neuro: AOx3. Normal speech. Strength 5/5 intact throughout. No saddle anesthesia. Sensation intact to light touch. NV intact distally. Ambulating with steady gait. Course Course Course Narrative: CBC showing slight leukocytosis to 12.2 with without left shift. No anemia. H&H stable. Chemistry without acute electrolyte abnormality requiring intervention. Renal function around baseline. Random glucose 241 without gap. Liver function at baseline. Urine acutely infected. No evidence of pyelonephritis on CT A/P. Incidental findings below: CT abdomen pelvis w IV con IMPRESSION: No hydronephrosis or nephrolithiasis. Small cysts, lower pole left kidney. Diverticular disease, left hemicolon. 16 mm lesion/mass, body of the pancreas. Concerning for malignancy. Hepatomegaly. Small fat-containing umbilical hernia. 2 cm subserosal uterine fibroids. All work up results discussed with patient, specifically 16 mm pancreatic lesion/mass. Patient tells me that she is aware of this and has followed up with an outpatient provider in [facility] 1 year ago. She is unable to provide me with any colateral information and appears to be a poor historian regarding the subject. I have reviewed her last CT A/P at our facility and here was no mention of pancreatic mass. > I educated patient on the importance of following up with either PCP or GI specialist (referrals provided) as cancer can not definitively be ruled out. She verbalizes understanding. Regarding patient's back pain, she reports improvement with IV Tylenol and lidocaine patch. Discussed sending patient home with Flexeril and lidocaine patches and she is agreeable. Her urinary tract infection will be treated with Ceftin. she is afebrile and there is no clinical concern for pyelo. Patient has remained stable throughout ED visit today. Discussed worrisome signs and symptoms and when to return to the ED. All questions answered at this time. Patient is agreeable with disposition and stable for discharge. Medications Administered Discontinued Medications Generic Name Dose Route Start Last Admin Trade Name Freq PRN Reason Stop Dose Admin Acetaminophen 1,000 mg in 100 mls @ 400 mls/hr 01/21/25 14:20 01/21/25 15:04 Ofirmev IV 01/21/25 14:34 400 mls/hr ONCE ONE Administration Iohexol 100 ml 01/21/25 13:56 01/21/25 13:56 Iohexol 350 Mg/Ml 100 Ml Infus..Btl IV 01/21/25 13:57 100 ml ONCE ONE Administration Lidocaine 1 patch 01/21/25 14:22 01/21/25 15:04 Lidocaine 4 % Patch Adh..Patch TRANSDERMA 01/21/25 14:23 1 patch ONCE ONE Administration Protocol Medical Decision Making Medical Decision Making MDM Narrative: 64 year old female with past medical history significant for hypertension, arthritis presents to the ED today for evaluation of acute on chronic lower back pain x3 days. Patient is hypertensive, vitals are otherwise wnl. she is well appearing and in NAD. on exam, there is midline spinous tenderness overlying thoracic and lumbar spine without step-off deformity. No crepitus or fluctuance. nv intact distally. her abdomen is obese, ND/NT, no rebound or guarding, no CVAT b/l. Differential diagnosis includes MSK sprain/strain, vertebral fracture, sciatica, lumbar radiculopathy, urinary tract infection, renal colic, nephrolithiasis, pyelonephritis. Unlikely cauda equina, Guillain-[place], epidural abscess, cord compression. Plan for screening labs, UA, CT, pain control and re-evaluation. Differential Diagnosis Differential Diagnoses: The differential diagnosis associated with the presentation includes as above. Admission/Observation not indicated. Lab Data MDM Lab Attestation statement: I reviewed the patient's lab results. as above. 01/21/25 09:40 01/21/25 09:40 Labs: Lab Results 01/21/25 Range/Units 09:40 WBC 12.2 H (4.8-10.8) X10*3/uL RBC 4.54 (4.20-5.50) X10*6/uL Hgb 13.3 (12.0-16.0) g/dl Hct 38.6 (37.0-47.0) % MCV 85.0 (80.0-98.0) fL MCH 29.3 (27.0-33.0) pg MCHC 34.5 (31.0-35.0) g/dl RDW 13.6 (11.0-16.0) % Plt Count 270 D (160-400) X10*3/uL MPV 10.3 (9.4-12.3) fL Immature Gran % (Auto) 1.0 H (0.0-0.4) % Neut % (Auto) 72.6 (45-73) % Lymph % (Auto) 17.4 L (20-40) % [place] % (Auto) 6.1 (2-11) % Eos % (Auto) 2.3 (0-4) % Baso % (Auto) 0.6 (0-2) % Lymph # (Auto) 2.1 (1.2-4.9) X10*3/uL [place] # (Auto) 0.7 (0.1-1.2) X10*3/uL Eos # (Auto) 0.3 (0.0-0.4) X10*3/uL Baso # (Auto) 0.1 (0.0-0.2) X10*3/uL Abs Immat Gran (auto) 0.12 H (0.00-0.03) X10*3/uL Absolute Neuts (auto) 8.8 H (2.0-8.3) x10*3/uL Absolute Nucleated RBC 0.000 (0.0-0.012) X10*3/uL Nucleated RBC % (auto) 0.0 (0.0-0.2) /100WBC Sodium 140 (135-145) mmol/L Potassium 4.4 (3.3-5.1) mmol/L Chloride 105 (96-108) mmol/L Carbon Dioxide 24 (22-29) mmol/L Anion Gap 15 (12-20) BUN 21 H (9-16) mg/dL Creatinine 1.01 (0.5-1.4) mg/dL Estim Creat Clear Calc 78.2 Estimated GFR 55 Random Glucose 241 H (60-115) mg/dL Calcium 9.5 (8.4-10.2) mg/dL Total Bilirubin 0.4 (0.0-1.0) mg/dL AST 14 (5-31) U/L ALT 11 (0-31) U/L Alkaline Phosphatase 112 (39-117) U/L Total Protein 7.6 (6.5-8.0) g/dL Albumin 4.3 (3.5-5.0) g/dL Urine Color Yellow Urine Appearance Clear Urine pH 5.5 (5.0-9.0) Ur Specific [place] 1.015 (1.005-1.025) Urine Protein Negative (Neg-Trace) mg/dL Urine Glucose (UA) Negative (Negative) mg/dL Urine Ketones Negative (Negative) mg/dL Urine Blood Moderate (2+) H (Negative) Urine Nitrite Positive H (Negative) Ur Leukocyte Esterase Small (1+) H (Negative) Urine RBC 3-5 H (0-2) /HPF Urine WBC 11-20 H (0-5) /HPF Ur Squamous Epith Cells 11-20 (0-2) /HPF Urine Bacteria 4+ (None Seen) Hyaline Casts 3-5 (0-2) /LPF Independent Interpretation I performed an independent interpretation of an: CT Scan Interpretation: ct a/p without perinephric stranding Radiology Impression Discussion of test interpretation with radiology: I have reviewed the radiologist's reading. Radiologist Impression: Procedure(s): CT abdomen pelvis w IV con Accession Number(s): [id number] cc: Belia Khoury MD; Natalie Barrett~ Report Number: [id number]: Total DLP = 1285.00 mGy-cm Reason for Exam: b/l flank pain +UTI EXAMINATION: CT ABDOMEN AND PELVIS WITH CONTRAST CLINICAL INFORMATION: Bilateral flank pain. Urinary tract infection COMPARISON: Noncontrast CT dated September 29, 2020. TECHNIQUE: Multidetector volumetric images were obtained from the superior aspect of the liver through the pubic symphysis following administration 85 mL of Omnipaque 350 intravenous contrast. Sagittal and coronal reformatted images were obtained on the technologist's workstation. Oral contrast: No This CT examination was performed using dose optimization techniques as appropriate, variously including the following: *Automated exposure control *Adjustment of mA and/or kV according to patient size (this includes techniques or standardized protocols for targeted exams where dose is matched to indication/reason for exam; i.e. extremities or head) *Use of iterative reconstruction technique. DLP: 1285 mGy centimeter. FINDINGS: LUNG BASES: No acute airspace disease. LIVER, GALLBLADDER, AND BILIARY TREE: Liver measures 18 cm. No focal mass. Main portal veins and hepatic veins are patent. Status post cholecystectomy. Common bile duct measures 8 mm. PANCREAS: There is a 16 mm enhancing ovoid shaped lesion centered in the body of the pancreas. No peripancreatic fluid collection. No main pancreatic ductal dilatation. SPLEEN: 10 cm. No focal mass. ADRENAL GLANDS: No nodular lesion. KIDNEYS AND URETERS: No hydronephrosis. No gross nephrolithiasis. Subcentimeter hypodensity, lower pole left kidney. Normal enhancement pattern of the renal parenchyma. BLADDER: Fluid-filled nearly collapsed. GASTROINTESTINAL TRACT: Appendix is normal. Numerous diverticula in the left hemicolon. Collapsed appearance of the left hemicolon. No pericolonic edema pattern. No ascites. No pneumoperitoneum. No peripheral enhancing fluid collections in the peritoneal cavity. No intestinal obstruction pattern. Small hiatal hernia. ABDOMINAL WALL: Small fat-containing umbilical hernia. LYMPH NODES: No mesenteric or retroperitoneal lymphadenopathy. VASCULAR: Mixed plaques in the abdominal aorta wall and iliac arteries without aneurysm or dissection. PELVIC VISCERA: 2 cm likely subserosal uterine fibroid. No masses in either ovary. OSSEOUS STRUCTURES: Multilevel thoracolumbar spondylosis without acute fracture or gross listhesis. Degenerative changes in the coxofemoral joints and sacroiliac joints as well as the symphysis pubis. CT/CT abdomen pelvis w IV con IMPRESSION: No hydronephrosis or nephrolithiasis. Small cysts, lower pole left kidney. Diverticular disease, left hemicolon. 16 mm lesion/mass, body of the pancreas. Concerning for malignancy. Hepatomegaly. Small fat-containing umbilical hernia. 2 cm subserosal uterine fibroids. Fleischner guidelines were followed. Electronically signed by: Cain Cisneros MD 01/21/2025 02:29 PM EDT External Record Review External record reviewed: Inpatient record Prescription Management I considered prescription management with: Pain Medication (lido patches), Antibiotic (ceftin) and Other (flexeril) Chronic Conditions Patient?s care impacted by: Other (back pain) Social Determinants Patient?s care significantly limited by Social Determinants of Health including: Other Social Determinant of Health Critical Care Time Critical Care Time Critical Care Time: No Discharge Plan Discharge Clinical Impression: Lumbar back pain, UTI (urinary tract infection), Lesion of pancreas Patient Disposition: Home, Self-Care Instructions: Urinary Tract Infection in Women (ED) Additional Instructions: Your blood work is reassuring. Your urine today is positive for infection. Ceftin is an antibiotic that has been sent to your pharmacy. Take this as prescribed and do not miss any doses. You must complete the entire course of antibiotics. If you do not, there is a risk of the infection coming back or worsening. I am sending flexeril (a muscle relaxer) to your pharmacy for your back pain. Take this at night as it makes you drowsy. Do not drive, drink alcohol, or operate machinery while taking it. Lidoderm patches are numbing patches. Apply to painful areas. As discussed, the CT scan of your abdomen shows a concerning mass within your pancreas. You have been provided with the CT read. We can not rule out cancer based on this finding. You need outpatient follow up with biopsy to determine exactly what this mass is. It is essential that you follow up. I have provided you with a referral to both GI who will be able to refer you to an oncologist if need be. Please call their office to establish care, they will not call you. Return with any new or worsening symptoms. Reason for Exam: b/l flank pain +UTI EXAMINATION: CT ABDOMEN AND PELVIS WITH CONTRAST CLINICAL INFORMATION: Bilateral flank pain. Urinary tract infection COMPARISON: Noncontrast CT dated September 29, 2020. TECHNIQUE: Multidetector volumetric images were obtained from the superior aspect of the liver through the pubic symphysis following administration 85 mL of Omnipaque 350 intravenous contrast. Sagittal and coronal reformatted images were obtained on the technologist's workstation. Oral contrast: No This CT examination was performed using dose optimization techniques as appropriate, variously including the following: *Automated exposure control *Adjustment of mA and/or kV according to patient size (this includes techniques or standardized protocols for targeted exams where dose is matched to indication/reason for exam; i.e. extremities or head) *Use of iterative reconstruction technique. DLP: 1285 mGy centimeter. FINDINGS: LUNG BASES: No acute airspace disease. LIVER, GALLBLADDER, AND BILIARY TREE: Liver measures 18 cm. No focal mass. Main portal veins and hepatic veins are patent. Status post cholecystectomy. Common bile duct measures 8 mm. PANCREAS: There is a 16 mm enhancing ovoid shaped lesion centered in the body of the pancreas. No peripancreatic fluid collection. No main pancreatic ductal dilatation. SPLEEN: 10 cm. No focal mass. ADRENAL GLANDS: No nodular lesion. KIDNEYS AND URETERS: No hydronephrosis. No gross nephrolithiasis. Subcentimeter hypodensity, lower pole left kidney. Normal enhancement pattern of the renal parenchyma. BLADDER: Fluid-filled nearly collapsed. GASTROINTESTINAL TRACT: Appendix is normal. Numerous diverticula in the left hemicolon. Collapsed appearance of the left hemicolon. No pericolonic edema pattern. No ascites. No pneumoperitoneum. No peripheral enhancing fluid collections in the peritoneal cavity. No intestinal obstruction pattern. Small hiatal hernia. ABDOMINAL WALL: Small fat-containing umbilical hernia. LYMPH NODES: No mesenteric or retroperitoneal lymphadenopathy. VASCULAR: Mixed plaques in the abdominal aorta wall and iliac arteries without aneurysm or dissection. PELVIC VISCERA: 2 cm likely subserosal uterine fibroid. No masses in either ovary. OSSEOUS STRUCTURES: Multilevel thoracolumbar spondylosis without acute fracture or gross listhesis. Degenerative changes in the coxofemoral joints and sacroiliac joints as well as the symphysis pubis. CT/CT abdomen pelvis w IV con IMPRESSION: No hydronephrosis or nephrolithiasis. Small cysts, lower pole left kidney. Diverticular disease, left hemicolon. 16 mm lesion/mass, body of the pancreas. Concerning for malignancy. Hepatomegaly. Small fat-containing umbilical hernia. 2 cm subserosal uterine fibroids. Fleischner guidelines were followed. Prescriptions: New cefuroxime axetil 500 mg tablet 500 mg PO BID 7 Days Qty: 14 0RF cyclobenzaprine 5 mg tablet 5 mg PO Q8H 3 Days Qty: 9 0RF lidocaine [Lidoderm] 5 % adhesive patch,medicated 1 patch topical DAILY Qty: 15 0RF Rx Instructions: leave on most painful area for up to 12 hrs No Action Metamucil 3.4 gram/5.4 gram powder 1 tbsp PO DAILY Qty: 660 0RF Rx Instructions: mix into at least 8 oz of water or juice before administering cyclobenzaprine 10 mg tablet 10 mg PO BEDTIME PRN (Reason: muscle spasm) Qty: 14 0RF amoxicillin-pot clavulanate 875-125 mg tablet 1 tab PO BID Qty: 20 0RF ibuprofen 600 mg tablet 600 mg PO Q8H PRN (Reason: fever or pain) Qty: 14 0RF methocarbamol 500 mg tablet 500 mg PO TID PRN (Reason: pain) Qty: 15 0RF Referrals: [facility] [place] [facility] [Provider Group, Gastroenterology] Referral Note: pancreatic mass Belia Khoury MD [Primary Care Provider, Medical] Interventions: ED Discharge Assessment Last Done: 01/21/25 16:19 Discharge Date/Time: 01/21/25 16:19 Print Language: Urdu
[2025-01-21] MEDS: iohexoL 350 MG/ML 100 ML INFUS..BTL IV (13:56)
[2025-01-21] MEDS: Lidocaine 4 % Patch ADH..PATCH 1 PATCH TRANSDERMA (15:04)
[2025-01-21 16:19] VITALS: BP 121/62; PULSE 65; RESP 16; TEMP 36.8; O2SAT 99
--- OUTSIDE RECORDS SUMMARY | 2025-01-21 17:25 | XMS_ITS | Continuity of Care Document ---
Author Name [facility], Medical Address [address] [place] [id number] Organization Unknown Address [address] [place] [id number] Medications No known medications Problems No known problems
--- OUTSIDE RECORDS SUMMARY | 2025-01-21 17:25 | XMS_ITS | Encounter Summary ---
Author Organization [facility] Address [address] [place] [address] Encounters * CPT with Medical [facility] at [employer] on 2025-01-15 { reasonForRequest : PT reporting dizziness>headache>chest pain>sore throat>pain in the ears , patientReports : Shortness of breath with exertion; Pain with inspiration , denies :[ Increased work of breathing/labored with or without fever , Unable to speak in full sentences without distress , Discoloration of skin -cyanosis , Needs to sleep sitting up, can t catch breath , Shortness of breath in setting of confusion , Cough, fever greater than 2 days , History of asthma, increased use of inhaler , COPD , COVID Exposure , Sputum increase , Cough ], chiefComplaints : Common Cold , pmh :"Congestive Heart Failure, Hyperlipidemia, Hypertension, Deep Vein Thrombosis , allergies : No Known Drug Allergies , otherAllergies : , painAsses sment : , visitOutcome : , additionalComments : 64 y.o female complains of Common Cold\n\nShe has had headaches, dizziness, sore throat for 2 days.She is getting dizzy with any movement. She has pain in both of her ears \nShe does not have a cough, no fever or chills. \nShe does have shortness of breath, she stated she does not have chest pain but , when she deep breaths. \nShe denies being on a diuretic , but has chf, she denies her feet being swollen and her abd . She is taking in full sentences , no exp wheeze. \nShe does have a h/o DVT/ unsure of pe but is on eliquis \nI provided information on the mobile health provider response timeand advised the patient and/or caregiver to monitor reported signs and symptoms. I discussed the warning signs of when to seek emergency care. } Patient alert and oriented standing at door. Patient complains of nasal congestion, sore throat, bilateral ear, pain, eye pain and lightheadedness times 24 hours. Patient reports frequent productive cough with yellow sputum. Patient reports torso pain on cough coughing. Patient denies dizziness, weakness nausea, vomiting, diarrhea abdominal pain or any other pain or complaint. Patient denies dysuria and reports normal BM. Patient denies recent travel or sick contacts. Patient reports using Tylenol with little relief. Patient pink warm dry lung sounds clear negative increased work of breathing positive full sentences abdomen soft, no nontender extremities unremarkable no edema noted. C recommend supportive care, red flags patient education discussed. Return instructions discussed. Patient given an opportunity to ask questions. IV_(FLUIDS_AND/OR_MEDICATION), MEDICATION_IM, POC_BLOODWORK [facility] 2025-01-15
--- OUTSIDE RECORDS SUMMARY | 2025-01-21 17:25 | XMS_ITS | Clinical Summary ---
Author Organization 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 Name Role Phone Belia Khoury MD Primary Care Provider Allergies No known active allergies Medications TYLENOL 500 MG tablet Take 1,000 mg by mouth 05/10/2023 Active amLODIPine (NORVASC) 10 MG tablet Take 10 mg by mouth 1 (one) time each day Active Eliquis 5 MG tablet Take 1 tablet by mouth 01/26/2023 03/17/20 25 Active cholecalciferol (VITAMIN D-3) 10 MCG (400 UNIT) tablet TOME DOS TABLETAS VIA ORAL HALEY VECES AL MARTHA POR 90 THOMAS 02/26/2024 Active ferrous sulfate 325 (65 Fe) MG EC tablet Take 1 tablet by mouth 1 (one) time each day 02/12/2024 Active lisinopril 40 MG tablet Take 1 tablet by mouth 01/17/2023 03/17/20 25 Active methocarbamol (ROBAXIN) 500 MG tablet Take 500 mg by mouth 3 (three) times a day if needed 02/19/2024 Active metoprolol succinate XL (TOPROL XL) 50 MG 24 hr tablet Take 50 mg by mouth 01/26/2023 Active nystatin (MYCOSTATIN) powder APPLY TO AFFECTED AREA 3 TIMES A DAY Active rosuvastatin (CRESTOR) 10 MG tablet Take 10 mg by mouth 1 (one) time each day Active Active Problems Problem Noted Date Diagnosed Date Essential hypertension Adrenal adenoma Diabetes mellitus without me ntion of complication, type II or unspecified type, not stated as uncontrolled Carpal tunnel syndrome Obstructive sleep apnea syndrome Other and unspecified hyperlipidemia Urinary incontinence Social History Tobacco Use Types Packs/Day Years Used Date Smoking Tobacco: Never Assessed Comments Unknown Sex and Gender Information Value Date Recorded Sex Assigned at Not on file Legal Sex Female 12:20 PM EST Gender Identity Not on file Sexual Orientation Not on file Last Filed Vital Signs Vital Sign Reading Time Taken Comments Blood Pressure 120/84 06/27/2024 3:16 PM EST Pulse 76 06/27/2024 3:16 PM EST Temperature - - Respiratory Rate - - Oxygen Saturation 98% 06/27/2024 3:16 PM EST Inhaled Oxygen Concentration - - Weight 123 kg (272 lb) 06/27/2024 3:16 PM EST Height - - Body Mass Index - - Plan of Treatment Upcoming Encounters Date Type Department Care Team (Late st Contact Info) Description 07/03/2025 1:45 PM EST Office Visit [facility] [address] [place] [address] [place] [phone] Otis Garcia MD [address] [facility] [address] [place] [address] Health Maintenance Due Date Last Done Comments Breast Cancer Screening 1960 Colorectal Cancer Screening: Annual FOBT 2009 Colorectal Cancer Screening: Colonoscopy 2009 Colorectal Cancer Screening: Sigmoidoscopy 2009 Pneumococcal Vaccine: 50+ Ye ars (1 of 1 - PCV) 2010 Hepatitis B Vaccine (1 of 3 - Risk 3-dose series) 2020 Diabetes: Hemoglobin A1C 03/26/2024 Diabetes: Ophthalmology Exam 03/26/2024 Diabetes: Pedal Pulse Checked 03/26/2024 Diabetes: Sensory Foot Exam 03/26/2024 Diabetes: Visual Foot Exam 03/26/2024 Influenza Vaccine (#1) 2025 4, 03/28/2023, 02/22/2022, Additional history exists Insurance [facility] ([id number]) [place] [id number] Care Teams Convex Grinder Operator Relationship Specialty Start Date End Date Belia Khoury MD [address] [place] [address] PCP - General Internal Medicine 03/22/24
--- NOTE | 2025-01-28 17:22 | PC.NURSE ---
tylenol infused at 1520 on 01/21/25. infusion complete upon DC
== END 2025-01-21 16:19 | disposition home or self-care (01) ==
PROVIDERS: Emergency Provider Emergency Medicine; PCP Internal Medicine
DX: M54.50 Low back pain, unspecified (principal); N39.0 Urinary tract infection, site not specified; K86.89 Other specified diseases of pancreas; R10.2 Pelvic and perineal pain; Z79.899 Other long term (current) drug therapy
CPT/HCPCS: 36415; 74177; 80053; 81001; 85025; 87086; 87088; 87186; 96374; 99284; 99285; J0131; Q9967

== ENCOUNTER → 2025-01-21 13:23 | Outpatient (BNV) | payer OTHER, SELFPAY | PROVIDERS: Emergency Provider Emergency Medicine; PCP Internal Medicine; Visit Provider Radiology Diagnostic Radiology | DX: K57.30 Diverticulosis of large intestine without perforation or abscess without bleeding (principal); K86.89 Other specified diseases of pancreas; R16.0 Hepatomegaly, not elsewhere classified; K42.9 Umbilical hernia without obstruction or gangrene | CPT/HCPCS: 74177 ==